=== PATIENT | female | born 1955 | race Caucasian/White ===

== ENCOUNTER 2016-10-18 17:36 | Emergency (ER) | payer MEDICAID ==
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
[2016-10-18 19:33] LABS: APPEARANCE,URINE CLEAR; BILIRUBIN,URINE NEGATIVE (NEGATIVE); GLUCOSE, URINE NEGATIVE (NEGATIVE); KETONES,URINE NEGATIVE (NEGATIVE); LEUKOCYTE ESTERASE,URINE TRACE (NEGATIVE); NITRITE,URINE NEGATIVE (NEGATIVE); PROTEIN,URINE NEGATIVE (NEGATIVE); URINE SPECIFIC GRAVITY 1.003; UROBILINOGEN,URINE NEGATIVE mg/dL (<2.0)
[2016-10-18 19:49] LABS: URINE BARBITURATES SCREEN UNCONFIRMED POSITIVE; URINE METHADONE SCREEN NEGATIVE; URINE OPIATES LOW NEGATIVE; URINE PHENCYCLIDINE SCREEN NEGATIVE
[2016-10-18 19:50] LABS: ALANINE AMINOTRANSFERASE 26 U/L (9-52); ALBUMIN 4.6 g/dL (3.5-5.0); ALCOHOL 76 mg/dL (NONE DETECTED); ALKALINE PHOSPHATASE 43 U/L (38-126); ANION GAP 15 (5-19); ASPARTATE AMINO TRANSFERASE 30 U/L (14-36); BILIRUBIN,DIRECT 0.4 mg/dL (0.0-0.4); BILIRUBIN,TOTAL 0.6 mg/dL (0.2-1.3); BLOOD UREA NITROGEN 10 mg/dL (7-20); CALCIUM 10.2 mg/dL (8.4-10.2); CARBON DIOXIDE 26 mmol/L (22-30); CHLORIDE 105 mmol/L (98-107); CREATININE RESULT 0.84 mg/dL (0.52-1.25); GLUCOSE 74 mg/dL (75-110); POTASSIUM 3.8 mmol/L (3.6-5.0); SODIUM 146.3 mmol/L (137-145); TOTAL PROTEIN 7.3 g/dL (6.3-8.2)
[2016-10-18 19:59] LABS: ABSOLUTE EOSINOPHILS # (AUTO) 0.1 10^3/uL (0.0-0.6); ABSOLUTE LYMPHOCYTES (AUTO) 1.6 10^3/uL (0.5-4.7); ABSOLUTE MONOCYTES (AUTO) 0.5 10^3/uL (0.1-1.4); ABSOLUTE NEUT (AUTO) 3.7 10^3/uL (1.7-8.2); BASOPHILS % (AUTO) 0.5 % (0-2); EOSINOPHILS % (AUTO) 1.9 % (0-6); HEMATOCRIT 39.4 % (36.0-47.0); HEMOGLOBIN 13.6 g/dL (12.0-15.5); HGB HCT DIFFERENCE 1.4; LYMPHOCYTES % (AUTO) 27.3 % (13-45); MEAN CORPUSCULAR HEMOGLOBIN 32.7 pg (27.0-33.4); MEAN CORPUSCULAR HGB CONC 34.4 g/dL (32.0-36.0); MEAN CORPUSCULAR VOLUME 95 fl (80-97); MONOCYTES % (AUTO) 8.2 % (3-13); RED BLOOD COUNT 4.14 10^6/uL (3.72-5.28); RED CELL DISTRIBUTION WIDTH 12.9 % (11.5-14.0); SEGMENTED NEUTROPHILS % (AUTO) 62.1 % (42-78)
--- NOTE | 2016-10-18 20:14 | RADIOLOGY REPORT (SQ) ---
EXAM DESCRIPTION: CT HEAD WITHOUT COMPLETED DATE/TIME: 10/18/2016 8:04 pm REASON FOR STUDY: Confusion, forgetful, and altered mental status COMPARISON: None. TECHNIQUE: Axial images acquired through the brain without intravenous contrast. Images reviewed wi th bone, brain and subdural windows. Images stored on PACS. All CT scanners at this facility use dose modulation, iterative reconstruction, and/or weight based d osing when appropriate to reduce radiation dose to as low as reasonably achievable (ALARA). [facility]: Dose Right [facility]: CareDose [facility]: Dose Right [facility]: Teradose 4D [facility]: Antenova RADIATION DOSE: Up-to-date CT equipment and radiation dose reduction techniques were employed. CTDIv ol: 50.5 mGy. DLP: 808 mGy-cm. mGy. LIMITATIONS: None. FINDINGS: VENTRICLES: Normal size and contour. CEREBRUM: No masses. No hemorrhage. No midline shift. No evidence for acute infarction. Normal gra y/white matter differentiation. No areas of low density in the white matter. CEREBELLUM: No masses. No hemorrhage. No alteration of density. No evidence for acute infarction. EXTRAAXIAL SPACES: No fluid collections. No masses. ORBITS AND GLOBE: No intra- or extraconal masses. Normal contour of globe without masses. CALVARIUM: No fracture. PARANASAL SINUSES: No fluid or mucosal thickening. SOFT TISSUES: No mass or hematoma. OTHER: No other significant finding. IMPRESSION: No acute intracranial findings. COMMENT: Quality ID # [id number]: Final reports with documentation of one or more dose reduction techniques (e.g., Automated exposure control, adjustment of the mA and/or kV according to patient size, use of iterative reconstruction technique) TECHNICAL DOCUMENTATION: JOB ID: [id number] [employer]- All Rights Reserved
[2016-10-18] MEDS ORDERED: ONDANSETRON 4 MG TAB.RAPDIS PO ONE (22:31)
--- NOTE | 2016-10-19 09:20 | ER Document Report ---
Doctor's Note Notes: pt is resting comfortably in bed. she is very cheerful, pleasant and conversant. She is currently awaiting disposition. 10/19/16 09:16
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
[2016-10-19 10:02] VITALS: BP 126/80
--- NOTE | 2016-10-19 12:02 | EKG REPORT ---
SEVERITY:- NORMAL ECG - SINUS RHYTHM : Confirmed by: Malina Warner 19-Oct-2016 12:02:15
== END 2016-10-19 10:10 | disposition home or self-care (01) ==
LOC: ER 17:36
DX: F10.10 Alcohol abuse, uncomplicated (principal); Y90.3 Blood alcohol level of 60-79 mg/100 ml; F13.10 Sedative, hypnotic or anxiolytic abuse, uncomplicated; R41.3 Other amnesia; R11.10 Vomiting, unspecified; R41.0 Disorientation, unspecified
CPT/HCPCS: 93005; 99285; 36415; 80307 ×4; 85025; 80053; 81001; 70450; 93010; S0119

== ENCOUNTER 2017-04-21 09:17 | Emergency (ER) | payer OTHER ==
--- NOTE | 2017-04-21 10:00 | ER Document Report ---
ED Medical Screen (RME) - General Chief Complaint: Headache Stated Complaint: HEADACHE Time Seen by Provider: 04/21/17 09:55 Mode of Arrival: Ambulatory Information source: Patient Notes: 61-year-old female with a history of depression and migraines who presents to the emergency room with a migraine lasting 2 weeks. Patient is previously from [place] and has had acupuncture with success in the past. Patient states she has had 4 treatments of acupuncture which have not helped. Patient denies any fever, chills, nausea vomiting. She denies any recent illnesses. She does state she has been under a lot of pressure. TRAVEL OUTSIDE OF THE [place] IN LAST 30 DAYS: No - Related Data Allergies/Adverse Reactions: No Known Allergies Allergy (Verified 04/21/17 09:45) Past Medical History - Social History Chew tobacco use (# tins/day): No Frequency of alcohol use: None Drug Abuse: None - Past Medical History Cardiac Medical History: Denies: Hx Coronary Artery Disease, Hx Heart Attack Renal/ Medical History: Denies: Hx Peritoneal Dialysis Psychiatric Medical History: Reports: Hx Anxiety, Hx Depression Physical Exam - Vital signs Vitals: Temp Pulse Resp BP Pulse Ox 97.8 F 89 14 116/88 H 100 04/21/17 09:35 04/21/17 09:35 04/21/17 09:35 04/21/17 09:35 04/21/17 09:35 Course - Vital Signs Vital signs: Temp Pulse Resp BP Pulse Ox 97.8 F 89 14 116/88 H 100 04/21/17 09:35 04/21/17 09:35 04/21/17 09:35 04/21/17 09:35 04/21/17 09:35
[2017-04-21 10:25] LABS: ABSOLUTE BASOPHILS # (AUTO) 0.1 10^3/uL (0.0-0.2); ABSOLUTE EOSINOPHILS # (AUTO) 0.1 10^3/uL (0.0-0.6); ABSOLUTE LYMPHOCYTES (AUTO) 1.6 10^3/uL (0.5-4.7); ABSOLUTE MONOCYTES (AUTO) 0.3 10^3/uL (0.1-1.4); ABSOLUTE NEUT (AUTO) 2.9 10^3/uL (1.7-8.2); EOSINOPHILS % (AUTO) 2.7 % (0-6); HEMATOCRIT 31.5 % (36.0-47.0); HEMOGLOBIN 10.1 g/dL (12.0-15.5); LYMPHOCYTES % (AUTO) 32.2 % (13-45); MEAN CORPUSCULAR HEMOGLOBIN 26.1 pg (27.0-33.4); MEAN CORPUSCULAR HGB CONC 32.1 g/dL (32.0-36.0); MEAN CORPUSCULAR VOLUME 81 fl (80-97); MONOCYTES % (AUTO) 6.6 % (3-13); PLATELET COUNT 537 10^3/uL (150-450); RED BLOOD COUNT 3.86 10^6/uL (3.72-5.28); RED CELL DISTRIBUTION WIDTH 13.9 % (11.5-14.0); SEGMENTED NEUTROPHILS % (AUTO) 57.5 % (42-78); TOTAL CELLS COUNTED % (AUTO) 100 %; WHITE BLOOD COUNT 5.1 10^3/uL (4.0-10.5)
--- NOTE | 2017-04-21 10:39 | RADIOLOGY REPORT (SQ) ---
EXAM DESCRIPTION: CT HEAD WITHOUT COMPLETED DATE/TIME: 04/21/2017 10:28 am REASON FOR STUDY: headache COMPARISON: 10/18/2016 TECHNIQUE: Axial images acquired through the brain without intravenous contrast. Images reviewed wi th bone, brain and subdural windows. Images stored on PACS. All CT scanners at this facility use dose modulation, iterative reconstruction, and/or weight based d osing when appropriate to reduce radiation dose to as low as reasonably achievable (ALARA). [facility]: Dose Right [facility]: CareDose [facility]: Dose Right [facility]: Teradose 4D [facility]: fitaborate RADIATION DOSE: CT Rad equipment meets quality standard of care and radiation dose reduction techniq ues were employed. CTDIvol: 49.0 mGy. DLP: 783 mGy-cm. mGy. LIMITATIONS: None. FINDINGS: VENTRICLES: Prominent. CEREBRUM: No masses. No hemorrhage. No midline shift. Areas of low density in the white matter mos t likely due to chronic micro-vascular ischemic change. No evidence for acute infarction. CEREBELLUM: No masses. No hemorrhage. No alteration of density. No evidence for acute infarction. EXTRAAXIAL SPACES: Mild age-related involutional change. No fluid collections. No masses. ORBITS AND GLOBE: No intra- or extraconal masses. Normal contour of globe without masses. CALVARIUM: No fracture. PARANASAL SINUSES: Small air-fluid level is identified in the right maxillary antra. SOFT TISSUES: No mass or hematoma. OTHER: No other significant finding. IMPRESSION: MILD CHRONIC CHANGES OF ATROPHY AND MICROVASCULAR ISCHEMIA. Small air-fluid level is id entified in the right maxillary antra. Other findings as noted above EVIDENCE OF ACUTE STROKE: NO. TECHNICAL DOCUMENTATION: JOB ID: [id number] Quality ID # [id number]: Final reports with documentation of one or more dose reduction techniques (e.g., Au tomated exposure control, adjustment of the mA and/or kV according to patient size, use of iterative reconstruction technique) 2010 [email or web address]- All Rights Reserved Reading location - IP/workstation name: [email or web address]
[2017-04-21 10:45] LABS: ANION GAP 9 (5-19); BLOOD UREA NITROGEN 11 mg/dL (7-20); CALCIUM 9.9 mg/dL (8.4-10.2); CARBON DIOXIDE 27 mmol/L (22-30); CHLORIDE 108 mmol/L (98-107); GLUCOSE 90 mg/dL (75-110); POTASSIUM 4.2 mmol/L (3.6-5.0); SODIUM 144.4 mmol/L (137-145)
[2017-04-21] MEDS ORDERED: PROCHLORPERAZINE EDISYLATE INJ 10 MG/2 ML VIAL IV ONE (11:06)
[2017-04-21] MEDS ORDERED: DIPHENHYDRAMINE HCL 50 MG/ML VIAL IV ONE (11:07)
[2017-04-21] MEDS ORDERED: KETOROLAC TROMETHAMINE INJ/PF 30 MG/1 ML SDV IV ONE (11:07)
[2017-04-21] MEDS ORDERED: NORMAL SALINE 1000 ML 1,000 ML IV ONE (11:07)
[2017-04-21] MEDS ORDERED: NORMAL SALINE 1000 ML 800 ML IV ONE (11:09)
[2017-04-21 11:10] LABS: ERYTHROCYTE SEDIMENTATION RATE 19 mm/hr (0-30)
--- NOTE | 2017-04-21 11:10 | ER Document Report ---
ED Headache - General Chief Complaint: Headache Stated Complaint: HEADACHE Time Seen by Provider: 04/21/17 09:55 Mode of Arrival: Ambulatory Information source: Patient Notes: Patient complains of headache pain for the past 2 weeks to the mormon area to bilateral trapezius area up to the back lateral sides of her neck. Patient states she has a history of migraines but does not have any migraine medication at home. Patient has attempted acupuncture 3 separate times over the past several weeks without improvement. Patient denies any fever. TRAVEL OUTSIDE OF THE [place] IN LAST 30 DAYS: No - HPI Patient complains to provider of: Headache Patient reports: Frequent migraines Onset: Last week - 2 weeks Onset was: Gradual Timing: Still present Quality of pain: Sharp Pain Level: 5 Associated symptoms: denies: Double/blurred vision, Fever, Nausea/vomiting, Photophobia, Speech problems, Stiff neck Exacerbated by: Movement - Lateral neck movement aggravates pain. denies: Light , Noise Similar symptoms previously: Yes Recently seen / treated by doctor: No - Related Data Allergies/Adverse Reactions: No Known Allergies Allergy (Verified 04/21/17 09:45) Past Medical History - General Information source: Patient - Social History Smoking Status: Never Smoker Chew tobacco use (# tins/day): No Frequency of alcohol use: None Drug Abuse: None Occupation: None Lives with: Family Family History: Reviewed & Not Pertinent Patient has suicidal ideation: No Patient has homicidal ideation: No - Past Medical History Cardiac Medical History: Denies: Hx Coronary Artery Disease, Hx Heart Attack Neurological Medical History: Reports: Hx Migraine Renal/ Medical History: Denies: Hx Peritoneal Dialysis Psychiatric Medical History: Reports: Hx Anxiety, Hx Depression Surgical Hx: Negative Review of Systems - Review of Systems Constitutional: No symptoms reported. denies: Fever EENT: No symptoms reported. denies: Eye pain Cardiovascular: No symptoms reported. denies: Dizziness Respiratory: No symptoms reported. denies: Cough, Short of breath Gastrointestinal: No symptoms reported. denies: Nausea, Vomiting Genitourinary: No symptoms reported Female Genitourinary: No symptoms reported Musculoskeletal: Muscle pain, Neck pain. denies: Back pain Skin: No symptoms reported Hematologic/Lymphatic: No symptoms reported Neurological/Psychological: Headaches. denies: Confusion, Weakness, Lost consciousness Physical Exam - Vital signs Vitals: Temp Pulse Resp BP Pulse Ox 97.8 F 89 14 116/88 H 100 04/21/17 09:35 04/21/17 09:35 04/21/17 09:35 04/21/17 09:35 04/21/17 09:35 - General General appearance: Appears well, Alert In distress: None - HEENT Head: Normocephalic, Atraumatic. No: Abrasions, [place]'s eyes Eyes: Normal Conjunctiva: Normal Pupils: PERRL Ears: Normal External canal: Normal Sinus: Normal. No: Frontal, Mastoid, Maxillary, Redness, Swelling Nasal: Normal Mouth/Lips: Normal Mucous membranes: Normal Pharynx: Normal Neck: Normal, Supple. No: Lymphadenopathy, Meningismus - Respiratory Respiratory status: No respiratory distress Chest status: Nontender Breath sounds: Normal Chest palpation: Normal - Cardiovascular Rhythm: Regular Heart sounds: S1 appreciated, S2 appreciated Murmur: No - Back Back: Tender - bilateral trapezius muscle tenderness with tenderness at insertion point of occipital condyles. No: Deformity/step-off, CVA tenderness, Vertebra tenderness - Extremities General upper extremity: Normal inspection, Normal ROM General lower extremity: Normal inspection, Normal ROM - Neurological Neuro grossly intact: Yes Cognition: Normal Rosa Coma Scale Eye Opening: Spontaneous [place] Coma Scale Verbal: Oriented Rosa Coma Scale Motor: Obeys Commands Rosa Coma Scale Total: 15 - Psychological Associated symptoms: Normal affect, Normal mood - Skin Skin Temperature: Warm Skin Moisture: Dry Skin Color: Normal Course - Re-evaluation Re-evalutation: 04/21/17 12:26 pt denies any change in CONNORS pain, additional medication ordered. Patient states that Imitrex typically manages her headache pain in the past but she did not have any cartridges at home. 04/21/17 13:18 Patient continues to deny any change in headache pain. Consulted with Dr. Rodríguez regarding patient presentation and headache management. Does not recommend any additional testing. Does recommend outpatient follow-up with neurology for further management of chronic headache pain. 04/21/17 13:20 The patient presents with headache without signs of [employer] bleed, stroke, infection , or other serious etiology. The patient is neurologically intact. Given the extremely low risk of these diagnoses further testing and evaluation for these possibilities does not appear to be indicated at this time. The patient has been instructed to return if the symptoms worsen or change in any way. She denies any concerns about sinus infection. Patient denies any congestion symptoms or sinus tenderness. - Vital Signs Vital signs: Temp Pulse Resp BP Pulse Ox 98.7 F 80 14 110/76 100 04/21/17 14:16 04/21/17 14:16 04/21/17 14:16 04/21/17 14:16 04/21/17 14:16 - Laboratory Result Diagrams: 04/21/17 10:04 04/21/17 10:04 Laboratory results interpreted by me: 04/21/17 04/21/17 10:04 10:04 Hgb 10.1 L Hct 31.5 L MCH 26.1 L Plt Count 537 H Chloride 108 H 04/21/17 13:21 Labs- Entire Visit 04/21/17 04/21/17 10:04 10:04 WBC 5.1 RBC 3.86 Hgb 10.1 L Hct 31.5 L MCV 81 MCH 26.1 L MCHC 32.1 RDW 13.9 Plt Count 537 H Seg Neutrophils % 57.5 Lymphocytes % 32.2 Monocytes % 6.6 Eosinophils % 2.7 Basophils % 1.0 Absolute Neutrophils 2.9 Absolute Lymphocytes 1.6 Absolute Monocytes 0.3 Absolute Eosinophils 0.1 Absolute Basophils 0.1 ESR 19 Sodium 144.4 Potassium 4.2 Chloride 108 H Carbon Dioxide 27 Anion Gap 9 BUN 11 Creatinine 0.67 Est GFR ( Amer) > 60 Est GFR (Non-Af Amer) > 60 Glucose 90 Calcium 9.9 - Diagnostic Test Radiology reviewed: Reports reviewed Discharge - Discharge Clinical Impression: Maxillary sinusitis Qualifiers: Chronicity: unspecified Qualified Code(s): J32.0 - Chronic maxillary sinusitis Headache Qualifiers: Headache type: unspecified Headache chronicity pattern: chronic headache Intractability: not intractable Qualified Code(s): R51 - Headache Condition: Stable Disposition: HOME, SELF-CARE Instructions: Intravenous Compazine for Headaches ([facility]), Use of Diphenhydramine , Headache ([facility]), Pain Medication Injection ([facility]), Sinusitis ([facility]), Toradol Injection ([facility]) Additional Instructions: Return immediately for any new or worsening symptoms Followup with your primary care provider, call tomorrow to make a followup appointment Follow-up with a neurologist for further evaluation of your headache symptoms. Prescriptions: Amoxicillin/Potassium Clav [Augmentin 500-125 Tablet] 1 each PO TID #30 tablet Butalb/Acetaminophen/Caffeine [Fioricet (50-325-40 mg) Tablet] 1 - 2 tab PO Q4H #20 each Methocarbamol [Robaxin 500 Mg Tablet] 500 mg PO TID PRN #15 tablet PRN Reason: Referrals: ELI PRETTY MD [NO LOCAL MD] - 04/24/17
[2017-04-21] MEDS ORDERED: SUMATRIPTAN SUCCINATE INJ/PF 6 MG/0.5 ML SDV SUBCUT ONE (12:25)
[2017-04-21] MEDS ORDERED: MORPHINE SULFATE 10 MG/ML INJ IV ONE (13:17)
[2017-04-21] MEDS ORDERED: DEXAMETHASONE SOD PHOS INJ 10 MG/1 ML VIAL IV ONE (13:17)
[2017-04-21] MEDS ORDERED: HYDROMORPHONE HCL INJ/PF 2 MG/ML AMPULE IV ONE (13:50)
[2017-04-21 14:17] VITALS: BP 110/76
== END 2017-04-21 14:16 | disposition home or self-care (01) ==
LOC: ER 09:17
DX: J32.0 Chronic maxillary sinusitis (principal); R51 Headache; M79.1 Myalgia; M54.2 Cervicalgia
CPT/HCPCS: 99284; 96372; 96361; 96374; 96375; 36415; 85025; 85652; 80048; 70450; J1200; J1885; J1170; J0780; J3030; J7030; J1100

== ENCOUNTER 2017-04-25 07:34 | Emergency (ER) | payer OTHER ==
[2017-04-25 08:07] LABS: ABSOLUTE BASOPHILS # (AUTO) 0.1 10^3/uL (0.0-0.2); ABSOLUTE EOSINOPHILS # (AUTO) 0.2 10^3/uL (0.0-0.6); ABSOLUTE LYMPHOCYTES (AUTO) 1.7 10^3/uL (0.5-4.7); ABSOLUTE MONOCYTES (AUTO) 0.4 10^3/uL (0.1-1.4); ABSOLUTE NEUT (AUTO) 4.2 10^3/uL (1.7-8.2); BASOPHILS % (AUTO) 0.8 % (0-2); EOSINOPHILS % (AUTO) 2.9 % (0-6); HEMATOCRIT 30.3 % (36.0-47.0); LYMPHOCYTES % (AUTO) 26.3 % (13-45); MEAN CORPUSCULAR HEMOGLOBIN 26.3 pg (27.0-33.4); MEAN CORPUSCULAR HGB CONC 32.9 g/dL (32.0-36.0); MEAN CORPUSCULAR VOLUME 80 fl (80-97); MONOCYTES % (AUTO) 5.9 % (3-13); PLATELET COUNT 458 10^3/uL (150-450); RED BLOOD COUNT 3.78 10^6/uL (3.72-5.28); SEGMENTED NEUTROPHILS % (AUTO) 64.1 % (42-78); TOTAL CELLS COUNTED % (AUTO) 100 %; WHITE BLOOD COUNT 6.5 10^3/uL (4.0-10.5)
--- NOTE | 2017-04-25 08:08 | ER Document Report ---
ED General - General Chief Complaint: Upper Abdominal Pain Stated Complaint: ABDOMINAL PAIN Time Seen by Provider: 04/25/17 07:44 Mode of Arrival: Ambulatory Information source: Patient Notes: 61-year-old female presents with complaints of epigastric abdominal pain as well as migraine headache. Patient notes she has chronic migraine headaches. She denies any neurological deficits does admit to epigastric abdominal pain, she has noted history of ulcers and was a chronic alcoholic but has not vomited blood and has not had any bloody or dark stools. TRAVEL OUTSIDE OF THE [place] IN LAST 30 DAYS: No - HPI Onset: Last week Onset/Duration: Persistent Quality of pain: Burning Severity: Mild Pain Level: 1 Associated symptoms: Headache, Other Exacerbated by: Denies Relieved by: Other - Treated for migraine headache Similar symptoms previously: Yes Recently seen / treated by doctor: Yes - Related Data Allergies/Adverse Reactions: No Known Allergies Allergy (Verified 04/25/17 07:36) Past Medical History - Social History Smoking Status: Never Smoker Cigarette use (# per day): No Chew tobacco use (# tins/day): No Smoking Education Provided: No Frequency of alcohol use: Previous alcoholic Family History: Reviewed & Not Pertinent Patient has suicidal ideation: No Patient has homicidal ideation: No - Past Medical History Cardiac Medical History: Denies: Hx Coronary Artery Disease, Hx Heart Attack Neurological Medical History: Reports: Hx Migraine Renal/ Medical History: Denies: Hx Peritoneal Dialysis Psychiatric Medical History: Reports: Hx Anxiety, Hx Depression Review of Systems - Review of Systems Notes: REVIEW OF SYSTEMS: CONSTITUTIONAL : Denies fever, chills, or sweats. Denies recent illness. EENT: Denies eye, ear, throat, or mouth pain or symptoms. Denies nasal or sinus congestion or discharge. Denies throat, tongue, or mouth swelling or difficulty swallowing. CARDIOVASCULAR: Denies chest pain. Denies palpitations or racing or irregular heart beat. Denies ankle edema. RESPIRATORY: Denies cough, cold, or chest congestion. Denies shortness of breath, difficulty breathing, or wheezing. GASTROINTESTINAL: Admits to epigastric pain GENITOURINARY: Denies difficulty urinating, painful urination, burning, frequency, blood in urine, or discharge. FEMALE GENITOURINARY: Denies vaginal bleeding, heavy or abnormal periods, irregular periods. Denies vaginal discharge or odor. MUSCULOSKELETAL: Denies back or neck pain or stiffness. Denies joint pain or swelling. SKIN: Denies rash, lesions or sores. HEMATOLOGIC : Denies easy bruising or bleeding. LYMPHATIC: Denies swollen, enlarged glands. NEUROLOGICAL: Admits to migraine headache PSYCHIATRIC: Denies anxiety or stress. Denies depression, suicidal ideation, or homicidal ideation. ALL OTHER SYSTEMS REVIEWED AND NEGATIVE. PHYSICAL EXAMINATION: GENERAL: Well-appearing, well-nourished and in no acute distress. HEAD: Atraumatic, normocephalic. EYES: Pupils equal round and reactive to light, extraocular movements intact, conjunctiva are normal. ENT: Nares patent, oropharynx clear without exudates. Moist mucous membranes. NECK: Normal range of motion, supple without lymphadenopathy LUNGS: Breath sounds clear to auscultation bilaterally and equal. No wheezes rales or rhonchi. HEART: Regular rate and rhythm without murmurs ABDOMEN: Soft, minimally tender in the epigastric region no rebound no guarding no peritoneal signs Female : deferred Musculoskeletal: Normal range of motion, no pitting or edema. No cyanosis. NEUROLOGICAL: Cranial nerves grossly intact. Normal speech, normal gait. Normal sensory, motor exams PSYCH: Normal mood, normal affect. SKIN: Warm, Dry, normal turgor, no rashes or lesions noted. Dictation was performed using [employer] voice recognition software Physical Exam - Vital signs Vitals: Temp Pulse Resp BP Pulse Ox 98.5 F 88 14 162/107 H 100 04/25/17 07:38 04/25/17 07:38 04/25/17 07:38 04/25/17 07:38 04/25/17 07:38 Course - Re-evaluation Re-evalutation: 04/25/17 11:30 Patient had complete neurological examination as well as a CBC CMP, patient overall looks well is in no distress, she has been given medication notes that the epigastric pain did not improve significantly but that the migraine has improved, I do have concerns for a superficial ulceration therefore I will give the patient follow-up with GI which she is not actively bleeding and hemoglobin is overall stable patient has been given very strict return precautions that she will return if there are any other concerns After performing a Medical Screening Examination, I estimate there is LOW risk for ACUTE GLAUCOMA, TEMPORAL ARTERITIS, MENINGITIS, INCRANIAL HEMORRHAGE, or ISCHEMIC STROKE thus I consider the discharge disposition reasonable. I have reevaluated this patient multiple times and no significant life threatening changes are noted. The patient and I have discussed the diagnosis and risks, and we agree with discharging home with close follow-up with the understanding that symptoms and presentations can change. We also discussed returning to the Emergency Department immediately if new or worsening symptoms occur. We have discussed the symptoms which are most concerning (e.g., changing or worsening symptoms, new numbness or weakness, vomiting, fever) that necessitate immediate return. - Vital Signs Vital signs: Temp Pulse Resp BP Pulse Ox 98.9 F 69 18 110/68 97 04/25/17 10:17 04/25/17 10:17 04/25/17 10:17 04/25/17 10:17 04/25/17 10:17 - Laboratory Result Diagrams: 04/25/17 07:57 04/25/17 07:57 Laboratory results interpreted by me: 04/25/17 04/25/17 07:57 07:57 Hgb 10.0 L Hct 30.3 L MCH 26.3 L Plt Count 458 H Chloride 109 H Alkaline Phosphatase 37 L Total Protein 5.8 L - Diagnostic Test Radiology reviewed: Image reviewed Discharge - Discharge Clinical Impression: Epigastric pain Headache Qualifiers: Headache type: unspecified Headache chronicity pattern: chronic headache Intractability: not intractable Qualified Code(s): R51 - Headache Condition: Stable Disposition: HOME, SELF-CARE Instructions: Abdominal Pain ([facility]) Prescriptions: Famotidine [Pepcid 40 mg Tablet] 40 mg PO DAILY #30 tablet Promethazine HCl [Phenergan 25 mg Tablet] 1 - 2 tab PO Q6H PRN #15 tablet PRN Reason: Referrals: WASHINGTON SUGGS MD [ACTIVE STAFF] - Follow up as needed
[2017-04-25] MEDS ORDERED: METHYLPREDNISOLONE INJ 125 MG/2 ML SDV IV ONE (08:14)
[2017-04-25] MEDS ORDERED: METOCLOPRAMIDE HCL INJ/PF 10 MG/2 ML SDV IV ONE (08:15)
[2017-04-25] MEDS ORDERED: METOCLOPRAMIDE HCL ORAL SOLN 10 MG/10 ML UDCUP PO ONE (08:15)
[2017-04-25] MEDS ORDERED: LIDOCAINE 2% VISCOUS SOLN 20 ML UDCUP PO ONE (08:15)
[2017-04-25] MEDS ORDERED: MAG HYDROX/AL HYDROX/SIMETH SUSP 30 ML UDCUP PO ONE (08:15)
[2017-04-25 08:25] LABS: ALANINE AMINOTRANSFERASE 34 U/L (9-52); ALBUMIN 3.5 g/dL (3.5-5.0); ALKALINE PHOSPHATASE 37 U/L (38-126); ANION GAP 8 (5-19); ASPARTATE AMINO TRANSFERASE 23 U/L (14-36); BILIRUBIN,DIRECT 0.4 mg/dL (0.0-0.4); BILIRUBIN,TOTAL 0.4 mg/dL (0.2-1.3); BLOOD UREA NITROGEN 13 mg/dL (7-20); CALCIUM 9.7 mg/dL (8.4-10.2); CARBON DIOXIDE 27 mmol/L (22-30); CHLORIDE 109 mmol/L (98-107); GLUCOSE 91 mg/dL (75-110); LIPASE 204.9 U/L (23-300); POTASSIUM 3.9 mmol/L (3.6-5.0); SODIUM 143.9 mmol/L (137-145); TOTAL PROTEIN 5.8 g/dL (6.3-8.2)
[2017-04-25 10:18] VITALS: BP 110/68
== END 2017-04-25 10:30 | disposition home or self-care (01) ==
LOC: ER 07:34
DX: R10.13 Epigastric pain (principal); G43.909 Migraine, unspecified, not intractable, without status migrainosus
CPT/HCPCS: 99284; 96374; 36415; 83690; 85025; 80053; J3490; J2930

== ENCOUNTER 2017-10-11 12:19 | Emergency (ER) | payer OTHER ==
[2017-10-11 12:34] VITALS: BP 130/83
--- NOTE | 2017-10-11 12:51 | ER Document Report ---
HPI - HPI Patient complains to provider of: skin infection Onset: Other - 6 days Onset/Duration: Persistent Quality of pain: Achy Pain Level: 3 Context: Patient complains of pruritic skin lesions that developed into pustules and then open up and leave a wound. Patient has wound to the left fifth finger and left leg. Patient denies any fever or history of MRSA. Patient also complains of cold sores to her lip. Associated Symptoms: Other - Skin wound. 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 Family History: Reviewed & Not Pertinent Patient has suicidal ideation: No Patient has homicidal ideation: No - Past Medical History Cardiac Medical History: Denies: Hx Coronary Artery Disease, Hx Heart Attack Neurological Medical History: Reports: Hx Migraine Renal/ Medical History: Denies: Hx Peritoneal Dialysis Psychiatric Medical History: Reports: Hx Anxiety, Hx Depression Surgical Hx: Negative Vertical Provider Document - CONSTITUTIONAL Agree With Documented VS: Yes Exam Limitations: No Limitations General Appearance: WD/WN, No Apparent Distress - INFECTION CONTROL TRAVEL OUTSIDE OF THE [place] IN LAST 30 DAYS: No - HEENT HEENT: Atraumatic, Normocephalic - NECK Neck: Normal Inspection, Supple - RESPIRATORY Respiratory: Breath Sounds Normal, No Respiratory Distress - CARDIOVASCULAR Cardiovascular: Regular Rate, Regular Rhythm - BACK Back: Normal Inspection - MUSCULOSKELETAL/EXTREMETIES Musculoskeletal/Extremeties: MAEW - NEURO Level of Consciousness: Awake, Alert, Appropriate Motor/Sensory: No Motor Deficit - DERM Integumentary: Warm, Dry Notes: pustule to LLE, open denuded wound to left lower leg and left fifth finger Vesicular lesion noted to lower lip Course - Vital Signs Vital signs: Temp Pulse Resp BP Pulse Ox 98.2 F 86 14 130/83 H 97 10/11/17 12:30 10/11/17 12:30 10/11/17 12:30 10/11/17 12:30 10/11/17 12:30 Discharge - Discharge Clinical Impression: Impetigo, Recurrent cold sores Condition: Stable Disposition: HOME, SELF-CARE Instructions: Bactroban Ointment ([facility]), Cephalexin ([facility]), Family Physicians / Practices, Impetigo ([facility]) Additional Instructions: Return immediately for any new or worsening symptoms Followup with your primary care provider, call tomorrow to make a followup appointment Prescriptions: Cephalexin Monohydrate [Keflex 500 mg Capsule] 500 mg PO Q6H 7 Days capsule Docosanol [Abreva] 1 applic TP ASDIR PRN #2 cream.gm PRN Reason: Mupirocin [Bactroban 2% Ointment 22 gm] 1 applic TP TID #22 gm Forms: Return to Work Referrals: [facility] [Provider Group] - Follow up as needed
== END 2017-10-11 12:56 | disposition home or self-care (01) ==
LOC: ER 12:19
DX: L01.00 Impetigo, unspecified (principal); B00.1 Herpesviral vesicular dermatitis
CPT/HCPCS: 87070; 87077; 87186; 87205; 99283

== ENCOUNTER 2017-11-21 11:15 | Inpatient (IN) | payer OTHER ==
[2017-11-21] MEDS ORDERED: PANTOPRAZOLE SODIUM 40 MG VIAL IV ONE (11:59)
--- NOTE | 2017-11-21 12:02 | ER Document Report ---
ED Medical Screen (RME) - General Chief Complaint: Abdominal Pain Stated Complaint: WEAKNESS Time Seen by Provider: 11/21/17 11:54 Mode of Arrival: Ambulatory Information source: Patient, [facility] Records Notes: 62-year-old female with hypertension, history of peptic ulcer disease presents with complaint of epigastric abdominal pain, nausea, vomiting. Patient reports that 2 years prior to arrival she was found to have a "bleeding ulcer". She also reports vomiting bright red blood. She denies any black or bloody stools. I have greeted and performed a rapid initial assessment of this patient. A comprehensive ED assessment and evaluation of the patient, analysis of test results and completion of medical decision making process we will be contacted by additional ED providers. PHYSICAL EXAMINATION: Vital signs reviewed GENERAL: Frail LUNGS: No respiratory distress Musculoskeletal: Normal range of motion NEUROLOGICAL: Normal speech, normal gait. PSYCH: Normal mood, normal affect. SKIN: Warm, Dry, normal turgor, no rashes or lesions noted. TRAVEL OUTSIDE OF THE [place] IN LAST 30 DAYS: No - HPI Onset: Last week Onset/Duration: Gradual, Persistent Quality of pain: Achy Severity: Mild Associated Symptoms: Diarrhea, Nausea, Vomiting Exacerbated by: Denies Relieved by: Denies Similar symptoms previously: Yes Recently seen / treated by doctor: No - Related Data Smoking: Non-smoker Frequency of alcohol use: None Drug Abuse: None Allergies/Adverse Reactions: No Known Allergies Allergy (Verified 11/21/17 11:20) Past Medical History - Social History Chew tobacco use (# tins/day): No Frequency of alcohol use: None Drug Abuse: None - Past Medical History Cardiac Medical History: Denies: Hx Coronary Artery Disease, Hx Heart Attack Neurological Medical History: Reports: Hx Migraine Renal/ Medical History: Denies: Hx Peritoneal Dialysis Psychiatric Medical History: Reports: Hx Anxiety, Hx Depression Physical Exam - Vital signs Vitals: Temp Pulse Resp BP Pulse Ox 97.7 F 73 16 110/66 100 11/21/17 11:27 11/21/17 11:27 11/21/17 11:27 11/21/17 11:27 11/21/17 11:27 Course - Vital Signs Vital signs: Temp Pulse Resp BP Pulse Ox 97.7 F 73 16 110/66 100 11/21/17 11:27 11/21/17 11:27 11/21/17 11:27 11/21/17 11:27 11/21/17 11:27
[2017-11-21 12:46] LABS: MEAN CORPUSCULAR HEMOGLOBIN 18.7 pg (27.0-33.4); MEAN CORPUSCULAR HGB CONC 28.9 g/dL (32.0-36.0); PLATELET COUNT 661 10^3/uL (150-450); RED BLOOD COUNT 3.08 10^6/uL (3.72-5.28); RED CELL DISTRIBUTION WIDTH 18.6 % (11.5-14.0); WHITE BLOOD COUNT 7.1 10^3/uL (4.0-10.5)
[2017-11-21 13:08] LABS: ALANINE AMINOTRANSFERASE 16 U/L (9-52); ALBUMIN 3.5 g/dL (3.5-5.0); ALKALINE PHOSPHATASE 52 U/L (38-126); ANION GAP 7 (5-19); ASPARTATE AMINO TRANSFERASE 35 U/L (14-36); BILIRUBIN,DIRECT 0.6 mg/dL (0.0-0.4); BILIRUBIN,TOTAL 0.7 mg/dL (0.2-1.3); BLOOD UREA NITROGEN 9 mg/dL (7-20); CALCIUM 9.3 mg/dL (8.4-10.2); CARBON DIOXIDE 33 mmol/L (22-30); CHLORIDE 103 mmol/L (98-107); GLUCOSE 111 mg/dL (75-110); LIPASE 63.4 U/L (23-300); POTASSIUM 3.8 mmol/L (3.6-5.0); SODIUM 142.7 mmol/L (137-145); TOTAL PROTEIN 6.6 g/dL (6.3-8.2)
[2017-11-21 13:12] LABS: HEMOGLOBIN 5.8 g/dL (12.0-15.5)
[2017-11-21 13:13] LABS: MEAN CORPUSCULAR VOLUME 65 fl (80-97)
[2017-11-21 13:20] LABS: ABSOLUTE LYMPHOCYTES# (MANUAL) 1.6 10^3/uL (0.5-4.7); ABSOLUTE MONOCYTES # (MANUAL) 0.3 10^3/uL (0.1-1.4); ABSOLUTE NEUTROPHILS# (MANUAL) 5.2 10^3/uL (1.7-8.2); ANISOCYTOSIS 2+; BASOPHILS % (MANUAL) 0 % (0-2); EOSINOPHILS % (MANUAL) 0 % (0-6); HYPOCHROMASIA 2+; LYMPHOCYTES % (MANUAL) 22 % (13-45); MONOCYTES % (MANUAL) 4 % (3-13); OVALOCYTES 2+; PLATELET COMMENT INCREASED; POIKILOCYTOSIS 2+; POLYCHROMASIA 1+; ROULEAUX SLIGHT; SEGMENTED NEUTROPHILS % (MAN) 73 % (42-78); TOTAL CELLS COUNTED 100; TOXIC GRANULATION SLIGHT; TOXIC VACUOLATION PRESENT
[2017-11-21] MEDS ORDERED: NORMAL SALINE 250 ML IV PRN (13:49)
--- NOTE | 2017-11-21 14:48 | ER Document Report ---
ED General - General Chief Complaint: Abdominal Pain Stated Complaint: WEAKNESS Time Seen by Provider: 11/21/17 11:54 Mode of Arrival: Ambulatory Notes: Patient says that she has been feeling weak for the most recent few months, seems to be getting somewhat worse. She is felt nauseated at times. Last night , she felt specifically pains in the front of her chest which she described as "indigestion pains". Later last evening, she vomited blood once. Patient has not had any other episodes of vomiting of blood currently. She denies passing black stools. She denies passing blood in her stools. Patient says that she had an episode of blood from her rectum about 2 years ago and was found to have a bleeding ulcer which was apparently ligated or cauterized, from what the patient says, by an upper endoscopy procedure. She has not had any subsequent GI bleeding. Her bowel movements have been normal. Denies currently having any chest pains. Denies any fevers. Most recent upper endoscopy was 2 years ago and most recent colonoscopy was a year and a half ago. Patient was seen here about a month ago for impetigo. TRAVEL OUTSIDE OF THE [place] IN LAST 30 DAYS: No - Related Data Allergies/Adverse Reactions: No Known Allergies Allergy (Verified 11/21/17 12:00) Past Medical History - General Information source: Patient, [facility] Records - Social History Smoking Status: Never Smoker Chew tobacco use (# tins/day): No Frequency of alcohol use: Patient has been seen in this emergency department previously and drinking alcohol. See previous chart of September 2016. Drug Abuse: None Family History: Reviewed & Not Pertinent Patient has suicidal ideation: No Patient has homicidal ideation: No Neurological Medical History: Reports: Hx Migraine Endocrine Medical History: Denies: Hx Diabetes Mellitus Type 1, Hx Diabetes Mellitus Type 2 GI Medical History: Reports: Hx Ulcer - 2 years ago, told she had a bleeding ulcer that was treated by endoscopy., Hx Endoscopy Skin Medical History: Reports Other - History of impetigo treated at this emergency department about a month ago. Psychiatric Medical History: Reports: Hx Anxiety, Hx Depression Review of Systems - Review of Systems Notes: REVIEW OF SYSTEMS: CONSTITUTIONAL : Denies fever. EENT: Denies eye, ear, nose or mouth or throat pain or other symptoms. CARDIOVASCULAR: Denies chest pain. Patient did have substernal discomfort last night which she attributed to "indigestion", and is not present now. RESPIRATORY: Denies cough, chest congestion, or shortness of breath. GASTROINTESTINAL: Denies abdominal pain or nausea, vomiting, or diarrhea. GENITOURINARY: Denies difficulty or painful urinating, urinary frequency, blood in urine. MUSCULOSKELETAL: Denies back or neck pain. Denies joint pain or swelling. SKIN: Denies rash or skin lesions. NEUROLOGICAL: Denies LOC or altered mental status. Denies headache. Denies sensory loss or motor deficits. ALL OTHER SYSTEMS REVIEWED AND NEGATIVE. Physical Exam - Vital signs Vitals: Temp Pulse Resp BP Pulse Ox 97.7 F 73 16 110/66 100 11/21/17 11:27 11/21/17 11:27 11/21/17 11:27 11/21/17 11:27 11/21/17 11:27 Interpretation: Normal. No: Tachycardic - Notes Notes: PHYSICAL EXAMINATION: GENERAL: Well-appearing, in no acute distress. Vital signs are all normal. Pale color to skin. HEAD: Atraumatic, normocephalic. EYES: Pupils equal round and reactive to light, extraocular movements intact. ENT: oropharynx clear without exudates. Moist mucous membranes. NECK: Normal range of motion, supple. LUNGS: Breath sounds clear and equal bilaterally. HEART: Regular rate and rhythm without murmurs. ABDOMEN: Soft, nontender. No guarding or rebound. No masses. Rectal exam performed. No stool felt in the vault. No blood seen grossly. Hemoccult obtained. BACK: No tenderness throughout entire back. EXTREMITIES: Normal range of motion without pain. NEUROLOGICAL: Normal speech, normal gait. Normal sensory, motor, and reflex exams. Awake, alert, and oriented x3. Cranial nerves normal. PSYCH: Normal mood, normal affect. SKIN: Warm, dry, no rashes. Course - Re-evaluation Re-evalutation: 11/21/17 17:41 Patient's hemoglobin was 5.8. She was ordered to be transfused 2 units of packed cells. Spoke with the surgeon economic analyst, Dr. Rainey, who says that he can do an EGD on this patient. He would like to have her admitted to the medicine service, however. I spoke with the medicine service who accepted the patient for admission. - Vital Signs Vital signs: Temp Pulse Resp BP Pulse Ox 98.4 F 71 14 129/82 H 100 11/21/17 17:25 11/21/17 17:25 11/21/17 17:25 11/21/17 17:25 11/21/17 17:25 - Laboratory Result Diagrams: 11/21/17 12:23 11/21/17 12:23 Laboratory results interpreted by me: 11/21/17 11/21/17 11/21/17 12:23 12:23 12:23 RBC 3.08 L Hgb 5.8 L Hct 20.0 L MCV 65 L MCH 18.7 L MCHC 28.9 L RDW 18.6 H Plt Count 661 H Carbon Dioxide 33 H Glucose 111 H Direct Bilirubin 0.6 H Crossmatch See Detail 11/21/17 17:46 Hemoccult was negative for blood. Critical Care Note - Critical Care Note Total time excluding time spent on procedures (mins): 40 Discharge - Discharge Clinical Impression: Anemia Hematemesis Qualifiers: Nausea presence: with nausea Qualified Code(s): K92.0 - Hematemesis Disposition: ADMITTED INPATIENT Admitting Provider: Hospitalist Unit Admitted: [facility]
--- NOTE | 2017-11-21 18:32 | PDOC H&P ---
History of Present Illness Admission Date/PCP: 11/21/2017 Patient complains of: Hematemesis, dyspnea on exertion, weakness History of Present Illness: RANDALL ELKINS is a 62 year old female past medical history of GERD, depression and anxiety. Presenting to ED complaining of hematemesis. Patient states for the last 1 month she has been getting progressively weak and having dyspnea on exertion with vague abdominal pain worse with eating. Last night when she was in bed started having some nausea followed by one episode of bloody emesis. She states she had a similar episode 3 years ago and EGD done in [facility] and they found " tear" in the stomach. She does not recall if biopsy were taken or if she was ever screened for H. pylori. She denies any history of alcohol abuse smoking or any recreational drugs as well as NSAID overuse. She states she is suffering from migraines and takes ibuprofen 200 mg about once a month. Family history. Sister mother and father all due to cancer. Sister at age 55 due to metastatic breast cancer. Mother at age 60 due to colon cancer. Father at age 75 due to pancreatic cancer. Patient has had 3 negative colonoscopies due to positive colon cancer in the family. First at age 50 second at age 54 third at age 60. She denies loss of appetite and her weight has been stable. She denies any melena, hematochezia, hematemesis. She has a living well on her CODE STATUS is DNR. She is and has 3 kids , eldest son name is Raphael Louis phone #[phone] Past Medical History Cardiac Medical History: Denies: Coronary Artery Disease, Myocardial Infarction Neurological Medical History: Reports: Migraine Endocrine Medical History: Denies: Diabetes Mellitus Type 1, Diabetes Mellitus Type 2 Skin Medical History: Reports: Other - History of impetigo treated at this emergency department about a month ago. Psychiatric Medical History: Reports: Depression Social History Smoking Status: Never Smoker Family History Family History: Reviewed & Not Pertinent Parental Family History Reviewed: Yes - Colon cancer in mother, pancreatic cancer in father Children Family History Reviewed: Yes Sibling(s) Family History Reviewed.: Yes - Sister. Metastatic breast cancer at age 60. Medication/Allergy Home Medications: Amoxicillin/Potassium Clav [Augmentin 500-125 Tablet] 1 each PO TID #30 tablet 04/21/17 Butalb/Acetaminophen/Caffeine [Fioricet (50-325-40 mg) Tablet] 1 - 2 tab PO Q4H #20 each 04/21/17 Methocarbamol [Robaxin 500 Mg Tablet] 500 mg PO TID PRN #15 tablet 04/21/17 Famotidine [Pepcid 40 mg Tablet] 40 mg PO DAILY #30 tablet 04/25/17 Promethazine HCl [Phenergan 25 mg Tablet] 1 - 2 tab PO Q6H PRN #15 tablet Cephalexin Monohydrate [Keflex 500 mg Capsule] 500 mg PO Q6H 7 Days capsule Docosanol [Abreva] 1 applic TP ASDIR PRN #2 cream.gm 10/11/17 Mupirocin [Bactroban 2% Ointment 22 gm] 1 applic TP TID #22 gm 10/11/17 Allergies/Adverse Reactions: No Known Allergies Allergy (Verified 11/21/17 12:00) Review of Systems Constitutional: PRESENT: as per HPI, weakness. ABSENT: chills, fever(s), headache(s), weight gain, weight loss Eyes: ABSENT: visual disturbances Ears: ABSENT: hearing changes Cardiovascular: ABSENT: chest pain, dyspnea on exertion, edema, orthropnea, palpitations Respiratory: ABSENT: cough, hemoptysis Gastrointestinal: ABSENT: abdominal pain, constipation, diarrhea, hematemesis, hematochezia, nausea, vomiting Genitourinary: ABSENT: dysuria, hematuria Musculoskeletal: ABSENT: joint swelling Integumentary: ABSENT: rash, wounds Neurological: ABSENT: abnormal gait, abnormal speech, confusion, dizziness, focal weakness, syncope Psychiatric: ABSENT: anxiety, depression, homidical ideation, suicidal ideation Endocrine: ABSENT: cold intolerance, heat intolerance, polydipsia, polyuria Hematologic/Lymphatic: ABSENT: easy bleeding, easy bruising Physical Exam Vital Signs: Temp Pulse Resp BP Pulse Ox 98.4 F 71 14 129/82 H 100 11/21/17 17:25 11/21/17 17:25 11/21/17 17:25 11/21/17 17:25 11/21/17 17:25 Intake & Output 11/20/17 11/21/17 11/22/17 06:59 06:59 06:59 Intake Total 300 Balance 300 Weight 39.6 kg General appearance: PRESENT: no acute distress, thin, well-developed, well- nourished Head exam: PRESENT: atraumatic, normocephalic Eye exam: PRESENT: conjunctiva pink, EOMI, PERRLA. ABSENT: scleral icterus Ear exam: PRESENT: normal external ear exam Mouth exam: PRESENT: moist, tongue midline Neck exam: ABSENT: carotid bruit, JVD, lymphadenopathy, thyromegaly Respiratory exam: PRESENT: clear to auscultation edvin. ABSENT: rales, rhonchi, wheezes Cardiovascular exam: PRESENT: RRR. ABSENT: diastolic murmur, rubs, systolic murmur Pulses: PRESENT: normal dorsalis pedis pul Vascular exam: PRESENT: normal capillary refill GI/Abdominal exam: PRESENT: normal bowel sounds, soft. ABSENT: distended, guarding, mass, organolmegaly, rebound, tenderness Rectal exam: PRESENT: deferred Extremities exam: PRESENT: full ROM. ABSENT: calf tenderness, clubbing, pedal edema Neurological exam: PRESENT: alert, awake, oriented to person, oriented to place , oriented to time, oriented to situation, CN II-XII grossly intact. ABSENT: motor sensory deficit Psychiatric exam: PRESENT: appropriate affect, normal mood. ABSENT: homicidal ideation, suicidal ideation Skin exam: PRESENT: dry, warm, other - Patient has multiple scabs in her upper extremity behind left ear and in her right leg. Patient states these are due to vesicles that she has been getting for the last 2 months. She was in the ER last month and she was told that she is getting impetigo and was given topical antibiotics. ABSENT: cyanosis, rash Results Laboratory Results: 11/21/17 12:23 11/21/17 12:23 11/21/17 11/21/17 11/21/17 12:23 12:23 12:23 WBC 7.1 RBC 3.08 L Hgb 5.8 L Hct 20.0 L MCV 65 L MCH 18.7 L MCHC 28.9 L RDW 18.6 H Plt Count 661 H Seg Neutrophils % Not Reportable Lymphocytes % Not Reportable Monocytes % Not Reportable Eosinophils % Not Reportable Basophils % Not Reportable Absolute Neutrophils Not Reportable Absolute Lymphocytes Not Reportable Absolute Monocytes Not Reportable Absolute Eosinophils Not Reportable Absolute Basophils Not Reportable Sodium 142.7 Potassium 3.8 Chloride 103 Carbon Dioxide 33 H Anion Gap 7 BUN 9 Creatinine 0.56 Est GFR ( Amer) > 60 Est GFR (Non-Af Amer) > 60 Glucose 111 H Calcium 9.3 Total Bilirubin 0.7 AST 35 ALT 16 Alkaline Phosphatase 52 Total Protein 6.6 Albumin 3.5 Lipase 63.4 Stool Occult Blood Blood Type A POSITIVE Antibody Screen NEGATIVE 11/21/17 14:30 WBC RBC Hgb Hct MCV MCH MCHC RDW Plt Count Seg Neutrophils % Lymphocytes % Monocytes % Eosinophils % Basophils % Absolute Neutrophils Absolute Lymphocytes Absolute Monocytes Absolute Eosinophils Absolute Basophils Sodium Potassium Chloride Carbon Dioxide Anion Gap BUN Creatinine Est GFR ( Amer) Est GFR (Non-Af Amer) Glucose Calcium Total Bilirubin AST ALT Alkaline Phosphatase Total Protein Albumin Lipase Stool Occult Blood NEGATIVE Blood Type Antibody Screen Assessment & Plan - Diagnosis (1) Hematemesis Qualifiers: Nausea presence: with nausea Qualified Code(s): K92.0 - Hematemesis Is this a current diagnosis for this admission?: Yes Plan: Hemoglobin 5.8 on admission. Status post 2 PRBC. Surgery consulted for possible endoscopy and colonoscopy. Admit to IMCU. Monitor hemodynamics. H&H every 8 if under 7 or actively bleeding transfuse. Will order PT/INR. Platelets within normal limits (2) Depression Is this a current diagnosis for this admission?: Yes Plan: Denies any SI/HI. Restart Wellbutrin (3) GERD (gastroesophageal reflux disease) Is this a current diagnosis for this admission?: Yes Plan: We will start on IV PPI. Switch to p.o. when clinically appropriate. Patient denies any history of cirrhosis or alcohol abuse. Unlikely this is variceal bleeding. No need for octreotide. (4) Anemia Is this a current diagnosis for this admission?: Yes Plan: Microcytic. Due to underlying GI bleed. H&H every 8 transfuse if under 7 or actively bleeding. Monitor hemodynamics. Patient has been having recurrent GI bleeds due to a tear as per patient has not been worked up for H. pylori. Patient also has a positive family history of pancreatic cancer will obtain a CT abdomen to rule out any abdominal mass. Patient will need outpatient GI consult to rule out any pancreatic malignancy.
[2017-11-21 18:36] LABS: INTERNATIONAL RATION (INR) 1.06; PROTHROMBIN TIME 14.3 SEC (11.4-15.4)
--- NOTE | 2017-11-21 19:55 | PDOC CONSULTATION ---
Consultation Consult Date: 11/21/17 Consult reason:: Upper GI bleeding History of Present Illness Admission Date/PCP: 11/21/17 17:47 History of Present Illness: RANDALL ELKINS is a 62 year old female seen at the request of the hospitalist service. She has a one month h/o weakness and malaise. This morning she began to have severe upper abdominal pain and vomited blood. She reports that it was bright red. The patient takes frequent nonsteroidal anti- inflammatory drugs for headaches. She has been prescribed Nexium, however she takes it only intermittently. She has a history of peptic ulcer disease, but denies treatment for H. pylori infection in the past. She denies caffeine use, nicotine use, alcohol use, steroid use. Her pain was 10 out of 10 earlier today , and radiated to her back. Her pain resolved spontaneously after presentation to the emergency department. Patient was found to have a hemoglobin of 5 upon testing. She denies any melena, hematochezia, chest pain, shortness of breath, fevers, chills, blurry vision. She has had mild orthostasis. Her last colonoscopy was 12-18 months ago and was completely normal. Her last EGD was 3 years ago where a bleeding ulcer was cauterized and clipped (per her report). Past Medical History Cardiac Medical History: Denies: Coronary Artery Disease, Myocardial Infarction Neurological Medical History: Reports: Migraine Endocrine Medical History: Denies: Diabetes Mellitus Type 1, Diabetes Mellitus Type 2 Skin Medical History: Reports: Other - History of impetigo treated at this emergency department about a month ago. Psychiatric Medical History: Reports: Depression Past Surgical History Past Surgical History: Reports: Other - Therapeutic upper endoscopy for bleeding peptic ulcer. Colonoscopy. Social History Smoking Status: Never Smoker Frequency of Alcohol Use: None Hx Recreational Drug Use: No Hx Prescription Drug Abuse: No - Advance Directive Resuscitation Status: Do Not Resuscitate Family History Family History: Reviewed & Not Pertinent Parental Family History Reviewed: Yes Children Family History Reviewed: Yes Sibling(s) Family History Reviewed.: Yes Medication/Allergy Home Medications: Citalopram Hydrobromide [Citalopram HBr] 20 mg PO DAILY 11/21/17 Gabapentin [Neurontin 300 mg Capsule] 300 mg PO Q8 11/21/17 Mirtazapine [Remeron] 15 mg PO QHS 11/21/17 Omeprazole 20 mg PO DAILY 11/21/17 Allergies/Adverse Reactions: No Known Allergies Allergy (Verified 11/21/17 12:00) Review of Systems Constitutional: PRESENT: fatigue, weakness. ABSENT: chills, fever(s) Nose, Mouth, and Throat: ABSENT: sore throat Cardiovascular: ABSENT: chest pain, palpitations Respiratory: ABSENT: cough, dyspnea Gastrointestinal: PRESENT: abdominal pain, hematemesis, vomiting. ABSENT: hematochezia, melena Genitourinary: ABSENT: difficulty urinating Musculoskeletal: PRESENT: back pain Integumentary: ABSENT: pruritus, rash Neurological: PRESENT: weakness. ABSENT: abnormal speech, confusion, convulsions Psychiatric: PRESENT: anxiety, depression Endocrine: ABSENT: cold intolerance, heat intolerance Hematologic/Lymphatic: ABSENT: easy bleeding, easy bruising Physical Exam Vital Signs: Temp Pulse Resp BP Pulse Ox 98.6 F 69 16 129/74 H 100 11/21/17 19:37 11/21/17 19:37 11/21/17 19:37 11/21/17 19:37 11/21/17 19:37 Intake & Output 11/20/17 11/21/17 11/22/17 06:59 06:59 06:59 Intake Total 300 Balance 300 General appearance: PRESENT: no acute distress Head exam: PRESENT: atraumatic, normocephalic Eye exam: PRESENT: EOMI, PERRLA. ABSENT: scleral icterus Mouth exam: PRESENT: moist, neck supple Teeth exam: ABSENT: poor dentation Neck exam: ABSENT: meningismus, tenderness, thyromegaly, tracheal deviation Respiratory exam: PRESENT: clear to auscultation edvin, unlabored. ABSENT: accessory muscle use, chest wall tenderness, tachypnea Cardiovascular exam: PRESENT: RRR Pulses: PRESENT: normal radial pulses Vascular exam: PRESENT: pallor. ABSENT: normal capillary refill GI/Abdominal exam: PRESENT: soft. ABSENT: distended, firm, guarding, tenderness Rectal exam: PRESENT: deferred Extremities exam: ABSENT: clubbing, pedal edema Neurological exam: PRESENT: alert, awake, oriented to person, oriented to place , oriented to time, oriented to situation, CN II-XII grossly intact. ABSENT: motor sensory deficit Psychiatric exam: ABSENT: agitated, anxious, depressed Focused psych exam: ABSENT: delusional Skin exam: PRESENT: pallor. ABSENT: cyanosis, erythema, jaundice Results Laboratory Results: Hemoglobin of 5.8. Chemistry is unremarkable. Assessment & Plan - Diagnosis (1) Anemia Qualifiers: Anemia type: unspecified type Qualified Code(s): D64.9 - Anemia, unspecified Is this a current diagnosis for this admission?: Yes (2) Hematemesis Qualifiers: Nausea presence: with nausea Qualified Code(s): K92.0 - Hematemesis Is this a current diagnosis for this admission?: Yes - Inpatient Certification Medical Necessity: Need For IV Fluids, Need for Surgery - Plan Summary Plan Summary: This is a 62-year-old female with recent hematemesis, fatigue, malaise, and severe anemia. The patient has a history of peptic ulcer disease with several other risk factors. The patient would very likely benefit from an upper endoscopy. I plan to perform this tomorrow (as soon as is feasible), assuming she is hemodynamically stable. If hemodynamic instability ensues, she may require an EGD on an emergent basis. This is been discussed with the patient at length. She is in agreement with the treatment plan. Risks/benefits discussed, informed consent obtained, and all questions answered.
--- NOTE | 2017-11-21 21:02 | RADIOLOGY REPORT (SQ) ---
EXAM DESCRIPTION: CT ABD/PELVIS WITH IV ONLY COMPLETED DATE/TIME: 11/21/2017 8:18 pm REASON FOR STUDY: Abd pain. GI bleed. Family hx of Pancreatic Ca COMPARISON: None. TECHNIQUE: CT scan of the abdomen and pelvis performed using helical scanning technique with dynamic intravenous contrast injection. No oral contrast. Images reviewed with lung, soft tissue, and bone windows. Reconstructed coronal and sagittal MPR images reviewed. Delayed images for evaluation of the urinary system also acquired. All images stored on PACS. All CT scanners at this facility use dose modulation, iterative reconstruction, and/or weight based d osing when appropriate to reduce radiation dose to as low as reasonably achievable (ALARA). [facility]: Dose Right [facility]: CareDose [facility]: Dose Right [facility]: Teradose 4D [facility]: NitroSell CONTRAST TYPE AND DOSE: contrast/concentration: Isovue 350.00 mg/ml; Total Contrast Delivered: 50.0 ml; Total Saline Delivered: 35.0 ml RENAL FUNCTION: BUN 9 creatinine 0.6 RADIATION DOSE: CT Rad equipment meets quality standard of care and radiation dose reduction techniq ues were employed. CTDIvol: 4.8 mGy. DLP: 467 mGy-cm.. LIMITATIONS: None. FINDINGS: LOWER CHEST: No significant findings. No nodules or infiltrates. LIVER: Normal size. No masses. No dilated ducts. SPLEEN: Normal size. No focal lesions. PANCREAS: No masses. No significant calcifications. No adjacent inflammation or peripancreatic fluid collections. Pancreatic duct not dilated. GALLBLADDER: No identified stones by CT criteria. No inflammatory changes to suggest cholecystitis. ADRENAL GLANDS: No significant masses or asymmetry. RIGHT KIDNEY AND URETER: No solid masses. No significant calcifications. No hydronephrosis or hyd roureter. LEFT KIDNEY AND URETER: No solid masses. No significant calcifications. No hydronephrosis or hydr oureter. AORTA AND VESSELS: No aneurysm. No dissection. Renal arteries, SMA, celiac without stenosis. RETROPERITONEUM: No retroperitoneal adenopathy, hemorrhage or masses. BOWEL AND PERITONEAL CAVITY: Considerable fecal material in the rectum and in the colon. APPENDIX: Not identified. PELVIS: No mass. No free fluid. Normal bladder. ABDOMINAL WALL: No masses. No hernias. BONES: Scoliosis. Degenerative disc changes. OTHER: No other significant finding. IMPRESSION: 1. Possible constipation. 2. Osseous findings as described. 3. No acute findings in the abdomen or pelvis. TECHNICAL DOCUMENTATION: JOB ID: [id number] Quality ID # [id number]: Final reports with documentation of one or more dose reduction techniques (e.g., Au tomated exposure control, adjustment of the mA and/or kV according to patient size, use of iterative reconstruction technique) 2010 [employer]- All Rights Reserved Reading location - IP/workstation name: [email or web address]
[2017-11-21] MEDS: PANTOPRAZOLE SODIUM 40 MG VIAL IV SCH (21:04)
[2017-11-22 02:09] LABS: HEMATOCRIT 24.2 % (36.0-47.0); MEAN CORPUSCULAR HEMOGLOBIN 21.7 pg (27.0-33.4); MEAN CORPUSCULAR HGB CONC 31.2 g/dL (32.0-36.0); PLATELET COUNT 502 10^3/uL (150-450); RED BLOOD COUNT 3.48 10^6/uL (3.72-5.28); RED CELL DISTRIBUTION WIDTH 23.6 % (11.5-14.0); WHITE BLOOD COUNT 8.2 10^3/uL (4.0-10.5)
[2017-11-22 02:10] LABS: HEMOGLOBIN 7.6 g/dL (12.0-15.5)
[2017-11-22 02:11] LABS: MEAN CORPUSCULAR VOLUME 70 fl (80-97)
[2017-11-22 05:31] LABS: ABSOLUTE BASOPHILS # (AUTO) 0.1 10^3/uL (0.0-0.2); ABSOLUTE EOSINOPHILS # (AUTO) 0.1 10^3/uL (0.0-0.6); ABSOLUTE LYMPHOCYTES (AUTO) 1.4 10^3/uL (0.5-4.7); ABSOLUTE MONOCYTES (AUTO) 0.5 10^3/uL (0.1-1.4); ABSOLUTE NEUT (AUTO) 5.5 10^3/uL (1.7-8.2); BASOPHILS % (AUTO) 1.1 % (0-2); EOSINOPHILS % (AUTO) 1.9 % (0-6); HEMATOCRIT 24.5 % (36.0-47.0); LYMPHOCYTES % (AUTO) 18.9 % (13-45); MEAN CORPUSCULAR HGB CONC 31.5 g/dL (32.0-36.0); MEAN CORPUSCULAR VOLUME 70 fl (80-97); MONOCYTES % (AUTO) 6.8 % (3-13); PLATELET COUNT 496 10^3/uL (150-450); RED BLOOD COUNT 3.52 10^6/uL (3.72-5.28); RED CELL DISTRIBUTION WIDTH 22.9 % (11.5-14.0); SEGMENTED NEUTROPHILS % (AUTO) 71.3 % (42-78); TOTAL CELLS COUNTED % (AUTO) 100 %; WHITE BLOOD COUNT 7.7 10^3/uL (4.0-10.5)
[2017-11-22 05:34] LABS: HEMOGLOBIN 7.7 g/dL (12.0-15.5)
[2017-11-22 05:52] LABS: ALANINE AMINOTRANSFERASE 19 U/L (9-52); ALBUMIN 2.7 g/dL (3.5-5.0); ALKALINE PHOSPHATASE 43 U/L (38-126); ANION GAP 5 (5-19); ASPARTATE AMINO TRANSFERASE 12 U/L (14-36); BILIRUBIN,DIRECT 0.4 mg/dL (0.0-0.4); BILIRUBIN,TOTAL 0.7 mg/dL (0.2-1.3); BLOOD UREA NITROGEN 5 mg/dL (7-20); CALCIUM 8.6 mg/dL (8.4-10.2); CHLORIDE 111 mmol/L (98-107); GLUCOSE 99 mg/dL (75-110); SODIUM 138.4 mmol/L (137-145); TOTAL PROTEIN 5.2 g/dL (6.3-8.2)
[2017-11-22 05:57] LABS: CARBON DIOXIDE 22 mmol/L (22-30)
[2017-11-22] MEDS: DEXTROSE 5%-NORMAL SALINE 1,000 ML IV PRN ×2 (06:36→15:28)
--- NOTE | 2017-11-22 06:58 | PDOC PROGRESS REPORT ---
Subjective Progress Note for:: 11/22/17 Subjective:: 62 y/o F with hematemesis and severe anemia. The patient denies chest pain, shortness of breath, fevers, chills, melena, abdominal pain, blurry vision. She does still feel somewhat weak. Reason For Visit: ANEMIA,HEMATEMESIS Physical Exam Vital Signs: Temp Pulse Resp BP Pulse Ox 98.7 F 68 20 119/72 100 11/22/17 03:15 11/22/17 03:15 11/22/17 03:15 11/22/17 03:15 11/22/17 03:15 Intake & Output 11/20/17 11/21/17 11/22/17 06:59 06:59 06:59 Intake Total 300 Balance 300 Weight 42.7 kg General appearance: PRESENT: no acute distress Head exam: PRESENT: atraumatic, normocephalic Eye exam: PRESENT: EOMI, PERRLA. ABSENT: scleral icterus Mouth exam: PRESENT: moist, neck supple Teeth exam: ABSENT: poor dentation Neck exam: ABSENT: meningismus, tenderness, thyromegaly, tracheal deviation Respiratory exam: PRESENT: clear to auscultation edvin, unlabored. ABSENT: chest wall tenderness, wheezes Cardiovascular exam: PRESENT: RRR Pulses: PRESENT: normal radial pulses Vascular exam: PRESENT: pallor GI/Abdominal exam: PRESENT: soft. ABSENT: distended, guarding, rebound, tenderness Rectal exam: PRESENT: deferred Extremities exam: ABSENT: pedal edema Musculoskeletal exam: ABSENT: deformity Neurological exam: PRESENT: alert, awake, oriented to person, oriented to place , oriented to time, oriented to situation, CN II-XII grossly intact Psychiatric exam: ABSENT: agitated, anxious, depressed Focused psych exam: ABSENT: delusional Skin exam: ABSENT: cyanosis, jaundice Results Laboratory Results: 11/22/17 05:13 11/22/17 05:13 11/22/17 11/22/17 11/22/17 01:59 05:13 05:13 WBC 8.2 7.7 RBC 3.48 L 3.52 L Hgb 7.6 L 7.7 L Hct 24.2 L 24.5 L MCV 70 L D 70 L MCH 21.7 L 22.0 L MCHC 31.2 L 31.5 L RDW 23.6 H 22.9 H Plt Count 502 H 496 H Seg Neutrophils % 71.3 Lymphocytes % 18.9 Monocytes % 6.8 Eosinophils % 1.9 Basophils % 1.1 Absolute Neutrophils 5.5 Absolute Lymphocytes 1.4 Absolute Monocytes 0.5 Absolute Eosinophils 0.1 Absolute Basophils 0.1 Sodium 138.4 Potassium 4.0 Chloride 111 H Carbon Dioxide 22 D Anion Gap 5 BUN 5 L Creatinine 0.46 L Est GFR ( Amer) > 60 Est GFR (Non-Af Amer) > 60 Glucose 99 Calcium 8.6 Total Bilirubin 0.7 AST 12 L ALT 19 Alkaline Phosphatase 43 Total Protein 5.2 L Albumin 2.7 L Impressions: Abdomen/Pelvis CT 11/21/17 00:00 IMPRESSION: 1. Possible constipation. 2. Osseous findings as described. 3. No acute findings in the abdomen or pelvis. Assessment & Plan - Diagnosis (1) Anemia Qualifiers: Anemia type: unspecified type Qualified Code(s): D64.9 - Anemia, unspecified Is this a current diagnosis for this admission?: Yes (2) Hematemesis Qualifiers: Nausea presence: with nausea Qualified Code(s): K92.0 - Hematemesis Is this a current diagnosis for this admission?: Yes - Plan Summary Plan Summary: 62-year-old female with severe anemia and hematemesis. Plan for EGD today. Risks/benefits discussed, informed consent obtained, and all questions answered.
[2017-11-22] MEDS: BUPROPION HCL 100 MG TABLET PO SCH (09:16)
[2017-11-22] MEDS: PANTOPRAZOLE SODIUM 40 MG VIAL IV SCH ×2 (09:16→21:38)
[2017-11-22] MEDS: MUPIROCIN 2% OINTMENT 22 GM TP SCH ×3 (09:47→17:29)
[2017-11-22] MEDS: ACETAMINOPHEN 325 MG TABLET PO PRN ×2 (11:00→18:57)
[2017-11-22] MEDS ORDERED: FENTANYL CITRATE INJ/PF 100 MCG/2 ML AMPUL ONE (13:02)
[2017-11-22] MEDS ORDERED: PROPOFOL INJ 200 MG/20 ML VIAL IV ONE (13:02)
[2017-11-22] MEDS ORDERED: OXYCODONE-ACETAMINOPHEN 5-325 MG TABLET PO PRN ×2 (13:30)
[2017-11-22] MEDS ORDERED: FENTANYL CITRATE INJ/PF 100 MCG/2 ML AMPUL IV PRN ×3 (13:30)
[2017-11-22] MEDS ORDERED: PROMETHAZINE HCL INJ 25 MG/1 ML VIAL IV PRN ×2 (13:30)
[2017-11-22] MEDS ORDERED: DIPHENHYDRAMINE HCL 50 MG/ML VIAL IV PRN (13:30)
[2017-11-22] MEDS ORDERED: MEPERIDINE HCL/PF INJ 25 MG/1 ML DISP.SYRIN IV PRN (13:30)
[2017-11-22 14:34] LABS: PATH REVIEW PATHOLOGIST REVIEWED
[2017-11-22] MEDS: GABAPENTIN 300 MG CAPSULE PO SCH ×2 (15:29→21:38)
--- NOTE | 2017-11-22 15:47 | PDOC PROGRESS REPORT ---
Subjective Progress Note for:: 11/22/17 Subjective:: RANDALL ELKINS is a 62 year old female past medical history of GERD, depression and anxiety. Presenting to ED complaining of hematemesis. Patient states for the last 1 month she has been getting progressively weak and having dyspnea on exertion with vague abdominal pain worse with eating. Last night when she was in bed started having some nausea followed by one episode of bloody emesis. She states she had a similar episode 3 years ago and EGD done in [facility] and they found " tear" in the stomach. She does not recall if biopsy were taken or if she was ever screened for H. pylori. She denies any history of alcohol abuse smoking or any recreational drugs as well as NSAID overuse. She states she is suffering from migraines and takes ibuprofen 200 mg about once a month. Patient has had 3 negative colonoscopies due to positive colon cancer in the family. First at age 49 second at age 54 third at age 59. She has a living well on her CODE STATUS is DNR. She is and has 3 kids , eldest son name is Raphael Louis phone #[phone] No acute events overnight. Patient denies any hematemesis overnight. Patient denies any fever, chills, nausea, vomiting, diarrhea, shortness of breath or any chest pain. She is status post upper GI endoscopy. Reason For Visit: GI BLEED Physical Exam Vital Signs: Temp Pulse Resp BP Pulse Ox 98.5 F 62 15 116/80 100 11/22/17 14:39 11/22/17 14:39 11/22/17 14:39 11/22/17 14:39 11/22/17 14:39 Intake & Output 11/21/17 11/22/17 11/23/17 06:59 06:59 06:59 Intake Total 300 1559 Output Total 0 0 Balance 300 1559 Weight 39.9 kg General appearance: PRESENT: no acute distress, well-developed, well-nourished Head exam: PRESENT: atraumatic, normocephalic Eye exam: PRESENT: conjunctiva pink, EOMI, PERRLA. ABSENT: scleral icterus Ear exam: PRESENT: normal external ear exam Mouth exam: PRESENT: moist, tongue midline Neck exam: ABSENT: carotid bruit, JVD, lymphadenopathy, thyromegaly Respiratory exam: PRESENT: clear to auscultation edvin. ABSENT: rales, rhonchi, wheezes Cardiovascular exam: PRESENT: RRR. ABSENT: diastolic murmur, rubs, systolic murmur Pulses: PRESENT: normal dorsalis pedis pul Vascular exam: PRESENT: normal capillary refill GI/Abdominal exam: PRESENT: normal bowel sounds, soft. ABSENT: distended, guarding, mass, organolmegaly, rebound, tenderness Rectal exam: PRESENT: deferred Extremities exam: PRESENT: full ROM. ABSENT: calf tenderness, clubbing, pedal edema Neurological exam: PRESENT: alert, awake, oriented to person, oriented to place , oriented to time, oriented to situation, CN II-XII grossly intact. ABSENT: motor sensory deficit Psychiatric exam: PRESENT: appropriate affect, normal mood. ABSENT: homicidal ideation, suicidal ideation Skin exam: PRESENT: dry, intact, warm. ABSENT: cyanosis, rash Results Laboratory Results: 11/22/17 05:13 11/22/17 05:13 11/22/17 11/22/17 11/22/17 01:59 05:13 05:13 WBC 8.2 7.7 RBC 3.48 L 3.52 L Hgb 7.6 L 7.7 L Hct 24.2 L 24.5 L MCV 70 L D 70 L MCH 21.7 L 22.0 L MCHC 31.2 L 31.5 L RDW 23.6 H 22.9 H Plt Count 502 H 496 H Seg Neutrophils % 71.3 Lymphocytes % 18.9 Monocytes % 6.8 Eosinophils % 1.9 Basophils % 1.1 Absolute Neutrophils 5.5 Absolute Lymphocytes 1.4 Absolute Monocytes 0.5 Absolute Eosinophils 0.1 Absolute Basophils 0.1 Sodium 138.4 Potassium 4.0 Chloride 111 H Carbon Dioxide 22 D Anion Gap 5 BUN 5 L Creatinine 0.46 L Est GFR ( Amer) > 60 Est GFR (Non-Af Amer) > 60 Glucose 99 Calcium 8.6 Total Bilirubin 0.7 AST 12 L ALT 19 Alkaline Phosphatase 43 Total Protein 5.2 L Albumin 2.7 L Impressions: Abdomen/Pelvis CT 11/21/17 00:00 IMPRESSION: 1. Possible constipation. 2. Osseous findings as described. 3. No acute findings in the abdomen or pelvis. Assessment & Plan - Diagnosis (1) Hematemesis Qualifiers: Nausea presence: with nausea Qualified Code(s): K92.0 - Hematemesis Is this a current diagnosis for this admission?: Yes Plan: Hemoglobin 7.7 from 5.8 on admission. Status post 2 PRBC. Status post upper GI endoscopy. Monitor hemodynamics. H&H every 8 if under 7 or actively bleeding transfuse. PT/INR and platelets within normal limits. (2) Depression Is this a current diagnosis for this admission?: Yes Plan: Denies any SI/HI. Restart Wellbutrin (3) GERD (gastroesophageal reflux disease) Is this a current diagnosis for this admission?: Yes Plan: We will start on IV PPI. Switch to p.o. when clinically appropriate. Patient denies any history of cirrhosis or alcohol abuse. Unlikely this is variceal bleeding. No need for octreotide. Outpatient GI follow-up. (4) Anemia Qualifiers: Anemia type: unspecified type Qualified Code(s): D64.9 - Anemia, unspecified Is this a current diagnosis for this admission?: Yes Plan: Microcytic. Due to underlying GI bleed. H&H every 8 transfuse if under 7 or actively bleeding. Monitor hemodynamics. Patient has been having recurrent GI bleeds due to a "tear" as per patient has not been worked up for H. pylori. CT abdomen negative for any acute abnormalities. Pending H. pylori antigen.
--- NOTE | 2017-11-22 16:49 | Operative Report ---
Nonrecallable Operative Report DATE OF SURGERY: 11/22/17 PREOPERATIVE DIAGNOSIS: Severe anemia, hematemesis. POSTOPERATIVE DIAGNOSIS: 1. Same as above. 2. Large gastric ulcer along the lesser curvature extending from the gastric body into the antrum. 3. Small gastric and duodenal ulcers. 4. Duodenal stricture. 5. Large hiatal hernia. 6. No sign of active bleeding. OPERATION: EGD with multiple biopsy. SURGEON: VÍCTOR PRICE ANESTHESIA: LMAC TISSUE REMOVED OR ALTERED: 1. Margin of gastric ulcer. 2. Base of gastric ulcer. 3. Duodenal stricture. 4. Distal esophagus. COMPLICATIONS: None apparent ESTIMATED BLOOD LOSS: Minimal PROCEDURE: Drains/implants: None. Procedure in detail: After informed consent was obtained, the patient was brought into the operating room and laid in the left lateral decubitus position. The endoscope was passed down the oropharynx, down the esophagus, and into the stomach. The stomach was insufflated with air. Immediately there was noted to be a very large gastric ulcer along the lesser curvature. It extended from the gastric body into the antrum. Biopsy was performed at the margin of the ulcer, in the antrum. Another biopsy was taken in the base of the ulcer. There were multiple, small ulcerations all over the gastric body and antrum. The scope was pushed through the pylorus. There was an inflammatory response at the pyloric channel and into the duodenal bulb. In the first portion of the duodenum there was a stricture noted with inflammation circumferentially. The stricture appeared to be consistent with peptic ulcer disease. Biopsy was taken at the area of stricture. The scope was moved through the stricture very carefully to reveal a normal second portion of the duodenum. The scope was pulled back into the gastric body. A retroflexion maneuver was performed, noting a large hiatal hernia. The scope was pulled up into the hiatal hernia. There was some irritation at the distal esophagus. This was biopsied. The scope was then pulled up the remainder of the esophagus. The remainder of the esophagus was smooth in contour without masses , lesions, or other abnormalities. The scope was removed from the patient's oropharynx, and the procedure was concluded. All sponge, instrument, and needle counts were correct. Condition: Stable.
[2017-11-22] MEDS: SUCRALFATE 1 GM TABLET PO SCH ×2 (17:29→21:38)
[2017-11-22 22:47] LABS: ABSOLUTE BASOPHILS # (AUTO) 0.1 10^3/uL (0.0-0.2); ABSOLUTE EOSINOPHILS # (AUTO) 0.1 10^3/uL (0.0-0.6); ABSOLUTE LYMPHOCYTES (AUTO) 1.7 10^3/uL (0.5-4.7); ABSOLUTE MONOCYTES (AUTO) 0.8 10^3/uL (0.1-1.4); ABSOLUTE NEUT (AUTO) 7.2 10^3/uL (1.7-8.2); BASOPHILS % (AUTO) 0.8 % (0-2); EOSINOPHILS % (AUTO) 1.1 % (0-6); HEMATOCRIT 22.9 % (36.0-47.0); LYMPHOCYTES % (AUTO) 17.3 % (13-45); MEAN CORPUSCULAR HGB CONC 31.1 g/dL (32.0-36.0); MEAN CORPUSCULAR VOLUME 71 fl (80-97); MONOCYTES % (AUTO) 8.1 % (3-13); PLATELET COUNT 481 10^3/uL (150-450); RED BLOOD COUNT 3.24 10^6/uL (3.72-5.28); RED CELL DISTRIBUTION WIDTH 23.3 % (11.5-14.0); SEGMENTED NEUTROPHILS % (AUTO) 72.7 % (42-78); TOTAL CELLS COUNTED % (AUTO) 100 %; WHITE BLOOD COUNT 9.9 10^3/uL (4.0-10.5)
[2017-11-22 22:53] LABS: HEMOGLOBIN 7.1 g/dL (12.0-15.5)
[2017-11-23] MEDS: DEXTROSE 5%-NORMAL SALINE 1,000 ML IV PRN (03:38)
[2017-11-23] MEDS: ACETAMINOPHEN 325 MG TABLET PO PRN (03:39)
[2017-11-23] MEDS: GABAPENTIN 300 MG CAPSULE PO SCH ×3 (05:54→22:01)
[2017-11-23 06:10] LABS: ABSOLUTE EOSINOPHILS # (AUTO) 0.1 10^3/uL (0.0-0.6); ABSOLUTE LYMPHOCYTES (AUTO) 1.4 10^3/uL (0.5-4.7); ABSOLUTE MONOCYTES (AUTO) 0.6 10^3/uL (0.1-1.4); ABSOLUTE NEUT (AUTO) 6.1 10^3/uL (1.7-8.2); BASOPHILS % (AUTO) 0.6 % (0-2); EOSINOPHILS % (AUTO) 1.5 % (0-6); HEMATOCRIT 23.8 % (36.0-47.0); LYMPHOCYTES % (AUTO) 16.5 % (13-45); MEAN CORPUSCULAR HEMOGLOBIN 22.4 pg (27.0-33.4); MEAN CORPUSCULAR HGB CONC 31.9 g/dL (32.0-36.0); MEAN CORPUSCULAR VOLUME 71 fl (80-97); MONOCYTES % (AUTO) 7.8 % (3-13); PLATELET COUNT 500 10^3/uL (150-450); RED BLOOD COUNT 3.38 10^6/uL (3.72-5.28); RED CELL DISTRIBUTION WIDTH 23.7 % (11.5-14.0); SEGMENTED NEUTROPHILS % (AUTO) 73.6 % (42-78); TOTAL CELLS COUNTED % (AUTO) 100 %; WHITE BLOOD COUNT 8.3 10^3/uL (4.0-10.5)
[2017-11-23 06:13] LABS: HEMOGLOBIN 7.6 g/dL (12.0-15.5)
[2017-11-23 06:29] LABS: ALANINE AMINOTRANSFERASE 20 U/L (9-52); ALBUMIN 2.4 g/dL (3.5-5.0); ALKALINE PHOSPHATASE 41 U/L (38-126); ANION GAP 7 (5-19); ASPARTATE AMINO TRANSFERASE 11 U/L (14-36); BILIRUBIN,DIRECT 0.2 mg/dL (0.0-0.4); BILIRUBIN,TOTAL 0.2 mg/dL (0.2-1.3); BLOOD UREA NITROGEN 4 mg/dL (7-20); CALCIUM 8.7 mg/dL (8.4-10.2); CARBON DIOXIDE 20 mmol/L (22-30); CHLORIDE 115 mmol/L (98-107); GLUCOSE 106 mg/dL (75-110); SODIUM 141.8 mmol/L (137-145); TOTAL PROTEIN 4.8 g/dL (6.3-8.2)
[2017-11-23] MEDS: MUPIROCIN 2% OINTMENT 22 GM TP SCH ×3 (09:32→17:40)
[2017-11-23] MEDS: PANTOPRAZOLE SODIUM 40 MG VIAL IV SCH ×2 (09:37→22:00)
[2017-11-23] MEDS: BUPROPION HCL 100 MG TABLET PO SCH (09:37)
[2017-11-23] MEDS: SUCRALFATE 1 GM TABLET PO SCH ×4 (09:37→22:01)
--- NOTE | 2017-11-23 09:42 | PDOC PROGRESS REPORT ---
Subjective Subjective:: RANDALL ELKINS is a 62 year old female past medical history of GERD, depression and anxiety. Presenting to ED complaining of hematemesis. Patient states for the last 1 month she has been getting progressively weak and having dyspnea on exertion with vague abdominal pain worse with eating. Last night when she was in bed started having some nausea followed by one episode of bloody emesis. She states she had a similar episode 3 years ago and EGD done in [facility] and they found " tear" in the stomach. She does not recall if biopsy were taken or if she was ever screened for H. pylori. She denies any history of alcohol abuse smoking or any recreational drugs as well as NSAID overuse. She states she is suffering from migraines and takes ibuprofen 200 mg about once a month. Patient has had 3 negative colonoscopies due to positive colon cancer in the family. First at age 49 second at age 54 third at age 59. She has a living well on her CODE STATUS is DNR. She is and has 3 kids , eldest son name is Raphael Louis phone #[phone] Status post upper GI endoscopy with duodenal and gastric biopsies. Denies any repeat hematemesis. Denies any fever, chills, nausea, vomiting, shortness of breath, chest pain, diarrhea, constipation or any urinary symptoms Reason For Visit: GI BLEED Physical Exam Vital Signs: Temp Pulse Resp BP Pulse Ox 98.3 F 68 14 113/70 99 11/23/17 07:36 11/23/17 07:36 11/23/17 07:36 11/23/17 07:36 11/23/17 07:36 Intake & Output 11/22/17 11/23/17 11/24/17 06:59 06:59 06:59 Intake Total 300 2991 Output Total 0 150 Balance 300 2841 Weight 39.9 kg 43.9 kg General appearance: PRESENT: no acute distress, well-developed, well-nourished Head exam: PRESENT: atraumatic, normocephalic Eye exam: PRESENT: conjunctiva pink, EOMI, PERRLA. ABSENT: scleral icterus Ear exam: PRESENT: normal external ear exam Mouth exam: PRESENT: moist, tongue midline Neck exam: ABSENT: carotid bruit, JVD, lymphadenopathy, thyromegaly Respiratory exam: PRESENT: clear to auscultation edvin. ABSENT: rales, rhonchi, wheezes Cardiovascular exam: PRESENT: RRR. ABSENT: diastolic murmur, rubs, systolic murmur Pulses: PRESENT: normal dorsalis pedis pul Vascular exam: PRESENT: normal capillary refill GI/Abdominal exam: PRESENT: normal bowel sounds, soft. ABSENT: distended, guarding, mass, organolmegaly, rebound, tenderness Rectal exam: PRESENT: deferred Extremities exam: PRESENT: full ROM. ABSENT: calf tenderness, clubbing, pedal edema Neurological exam: PRESENT: alert, awake, oriented to person, oriented to place , oriented to time, oriented to situation, CN II-XII grossly intact. ABSENT: motor sensory deficit Psychiatric exam: PRESENT: appropriate affect, normal mood. ABSENT: homicidal ideation, suicidal ideation Skin exam: PRESENT: dry, intact, warm. ABSENT: cyanosis, rash Results Laboratory Results: 11/23/17 05:40 11/23/17 05:40 11/22/17 11/23/17 11/23/17 22:39 05:40 05:40 WBC 9.9 8.3 RBC 3.24 L 3.38 L Hgb 7.1 L 7.6 L Hct 22.9 L 23.8 L MCV 71 L 71 L MCH 22.0 L 22.4 L MCHC 31.1 L 31.9 L RDW 23.3 H 23.7 H Plt Count 481 H 500 H Seg Neutrophils % 72.7 73.6 Lymphocytes % 17.3 16.5 Monocytes % 8.1 7.8 Eosinophils % 1.1 1.5 Basophils % 0.8 0.6 Absolute Neutrophils 7.2 6.1 Absolute Lymphocytes 1.7 1.4 Absolute Monocytes 0.8 0.6 Absolute Eosinophils 0.1 0.1 Absolute Basophils 0.1 0.0 Sodium 141.8 Potassium 4.0 Chloride 115 H Carbon Dioxide 20 L Anion Gap 7 BUN 4 L Creatinine 0.44 L Est GFR ( Amer) > 60 Est GFR (Non-Af Amer) > 60 Glucose 106 Calcium 8.7 Total Bilirubin 0.2 AST 11 L ALT 20 Alkaline Phosphatase 41 Total Protein 4.8 L Albumin 2.4 L Impressions: Abdomen/Pelvis CT 11/21/17 00:00 IMPRESSION: 1. Possible constipation. 2. Osseous findings as described. 3. No acute findings in the abdomen or pelvis. Assessment & Plan - Diagnosis (1) Hematemesis Qualifiers: Nausea presence: with nausea Qualified Code(s): K92.0 - Hematemesis Is this a current diagnosis for this admission?: Yes Plan: Hemoglobin 7.6. Status post 2 PRBC on admission. H&H stable. Status post upper GI endoscopy with multiple biopsies. Pending biopsy result and H. pylori antigen result. Monitor hemodynamics. H&H every 8 if under 7 or actively bleeding transfuse. PT/INR and platelets within normal limits. Note. Upper GI endoscopy report indicates that there were multiple, small ulceration all over the gastric body and antrum. Inflammatory response of the pyloric channel and into duodenal bulb. A stricture in the first portion of duodenum with inflammation consistent with peptic ulcer disease. Biopsies were taken large hiatal hernia was also noted. Patient never has been for H. pylori infection. Patient has a family history of pancreatic cancer and upper GI endoscopy showed multiple ulcerations. This could very well be due to H. pylori infection or gastrinoma. CT of abdomen was negative. Unfortunately GI consult is not available in the [facility]. Patient will benefit greatly from evaluation by a GI specialist. We will try to arrange a follow-up with GI upon transfer. Pending H. pylori antigen and biopsy result. (2) Depression Is this a current diagnosis for this admission?: Yes Plan: Denies any SI/HI. Restart Wellbutrin (3) GERD (gastroesophageal reflux disease) Is this a current diagnosis for this admission?: Yes Plan: We will start on IV PPI. Switch to p.o. when clinically appropriate. Patient denies any history of cirrhosis or alcohol abuse. Unlikely this is variceal bleeding. No need for octreotide. Outpatient GI follow-up. (4) Anemia Qualifiers: Anemia type: unspecified type Qualified Code(s): D64.9 - Anemia, unspecified Is this a current diagnosis for this admission?: Yes Plan: Microcytic. Due to underlying GI bleed. H&H every 8 transfuse if under 7 or actively bleeding. Monitor hemodynamics. Patient has been having recurrent GI bleeds due to a "tear" as per patient has not been worked up for H. pylori. CT abdomen negative for any acute abnormalities. Pending H. pylori antigen. We will give 1 dose of Injectafer start on daily iron supplement. (5) Hx of migraine headaches Is this a current diagnosis for this admission?: No Plan: Patient was taking Fioricet for migraine. Will restart it.
[2017-11-23] MEDS ORDERED: FERRIC CARBOXYMALTOSE INJ 750 MG/15 ML VIAL IV ONE (09:43)
[2017-11-23] MEDS ORDERED: FERRIC CARBOXYMALTOSE IV ONE (11:00)
[2017-11-23] MEDS ORDERED: NORMAL SALINE IV ONE (11:00)
[2017-11-23] MEDS ORDERED: BUTALB/ACETAMINOPHEN/CAFFEINE 1 TAB EACH PO PRN (15:41)
[2017-11-24 05:14] LABS: ABSOLUTE BASOPHILS # (AUTO) 0.1 10^3/uL (0.0-0.2); ABSOLUTE EOSINOPHILS # (AUTO) 0.1 10^3/uL (0.0-0.6); ABSOLUTE LYMPHOCYTES (AUTO) 1.5 10^3/uL (0.5-4.7); ABSOLUTE MONOCYTES (AUTO) 0.8 10^3/uL (0.1-1.4); ABSOLUTE NEUT (AUTO) 8.7 10^3/uL (1.7-8.2); BASOPHILS % (AUTO) 0.8 % (0-2); EOSINOPHILS % (AUTO) 0.9 % (0-6); HEMATOCRIT 25.3 % (36.0-47.0); LYMPHOCYTES % (AUTO) 13.1 % (13-45); MEAN CORPUSCULAR HEMOGLOBIN 21.9 pg (27.0-33.4); MEAN CORPUSCULAR VOLUME 71 fl (80-97); MONOCYTES % (AUTO) 7.2 % (3-13); PLATELET COUNT 543 10^3/uL (150-450); RED BLOOD COUNT 3.58 10^6/uL (3.72-5.28); TOTAL CELLS COUNTED % (AUTO) 100 %; WHITE BLOOD COUNT 11.1 10^3/uL (4.0-10.5)
[2017-11-24 05:20] LABS: HEMOGLOBIN 7.8 g/dL (12.0-15.5)
[2017-11-24 05:28] LABS: ALANINE AMINOTRANSFERASE 17 U/L (9-52); ALBUMIN 2.6 g/dL (3.5-5.0); ALKALINE PHOSPHATASE 44 U/L (38-126); ANION GAP 7 (5-19); ASPARTATE AMINO TRANSFERASE 19 U/L (14-36); BILIRUBIN,DIRECT 0.3 mg/dL (0.0-0.4); BILIRUBIN,TOTAL 0.4 mg/dL (0.2-1.3); BLOOD UREA NITROGEN 3 mg/dL (7-20); CALCIUM 8.9 mg/dL (8.4-10.2); CARBON DIOXIDE 20 mmol/L (22-30); CHLORIDE 114 mmol/L (98-107); GLUCOSE 98 mg/dL (75-110); POTASSIUM 3.8 mmol/L (3.6-5.0); SODIUM 140.5 mmol/L (137-145); TOTAL PROTEIN 5.1 g/dL (6.3-8.2)
[2017-11-24] MEDS: GABAPENTIN 300 MG CAPSULE PO SCH (05:45)
[2017-11-24] MEDS: ACETAMINOPHEN 325 MG TABLET PO PRN (07:36)
--- NOTE | 2017-11-24 08:57 | PDOC DISCHARGE SUMMARY ---
General - Admit/Disc Date/PCP Admission Date/Primary Care Provider: 11/21/17 17:47 Discharge Date: 11/24/17 - Discharge Diagnosis (1) Hematemesis Is this a current diagnosis for this admission?: Yes (2) Depression Is this a current diagnosis for this admission?: Yes (3) GERD (gastroesophageal reflux disease) Is this a current diagnosis for this admission?: Yes (4) Anemia Is this a current diagnosis for this admission?: Yes (5) Hx of migraine headaches Is this a current diagnosis for this admission?: No - Additional Information Resuscitation Status: Do Not Resuscitate Home Medications: Citalopram Hydrobromide [Citalopram HBr] 20 mg PO DAILY 11/21/17 Gabapentin [Neurontin 300 mg Capsule] 300 mg PO Q8 11/21/17 Mirtazapine [Remeron] 15 mg PO QHS 11/21/17 Omeprazole 20 mg PO DAILY 11/21/17 History of Present Illness History of Present Illness: RANDALL ELKINS is a 62 year old female past medical history of GERD, depression and anxiety. Presenting to ED complaining of hematemesis. Patient states for the last 1 month she has been getting progressively weak and having dyspnea on exertion with vague abdominal pain worse with eating. Last night when she was in bed started having some nausea followed by one episode of bloody emesis. She states she had a similar episode 3 years ago and EGD done in [facility] and they found " tear" in the stomach. She does not recall if biopsy were taken or if she was ever screened for H. pylori. She denies any history of alcohol abuse smoking or any recreational drugs as well as NSAID overuse. She states she is suffering from migraines and takes ibuprofen 200 mg about once a month. Family history. Sister mother and father all due to cancer. Sister at age 55 due to metastatic breast cancer. Mother at age 60 due to colon cancer. Father at age 75 due to pancreatic cancer. Patient has had 3 negative colonoscopies due to positive colon cancer in the family. First at age 49 second at age 54 third at age 59. She denies loss of appetite and her weight has been stable. She denies any melena, hematochezia, hematemesis. Hospital Course Hospital Course: (1) Hematemesis Hemoglobin 7.6. Status post 2 PRBC on admission. H&H 9 remained stable. Status post upper GI endoscopy with multiple biopsies. Pending biopsy result and H. pylori antigen result. Patient was asked to follow-up with PCP and Dr. Travis GI specialist for the results of H. pylori antigen and biopsy. Upper GI endoscopy report indicates that there were multiple, small ulceration all over the gastric body and antrum. Inflammatory response of the pyloric channel and into duodenal bulb. A stricture in the first portion of duodenum with inflammation consistent with peptic ulcer disease. Biopsies were taken large hiatal hernia was also noted. Patient never has been for H. pylori infection. Patient has a family history of pancreatic cancer and upper GI endoscopy showed multiple ulcerations. This could very well be due to H. pylori infection or gastrinoma. CT of abdomen was negative. Unfortunately GI consult is not available in the [facility]. Appointment arranged for patient to follow-up with Dr. Rousseau securities vault supervisor as outpatient. (2) Depression Denies any SI/HI. Restarted Wellbutrin (3) GERD (gastroesophageal reflux disease) Start on pantoprazole 40 twice daily. Patient denies any history of cirrhosis or alcohol abuse. Unlikely this is variceal bleeding. No need for octreotide. Outpatient GI follow-up. (4) Anemia Microcytic. Due to underlying GI bleed. H&H remained stable status post upper GI endoscopy. CT abdomen negative for any acute abnormalities. Pending H. pylori antigen. Received 1 dose of Injectafer and start on daily iron supplement. Encourage patient to follow-up with PCP and GI specialist. (5) Hx of migraine headaches Patient was taking Fioricet for migraine. It was restarted as as needed. Physical Exam Vital Signs: Temp Pulse Resp BP Pulse Ox 99.2 F 82 10 L 111/74 96 11/24/17 07:08 11/24/17 07:08 11/24/17 07:08 11/24/17 07:08 11/24/17 07:08 Intake & Output 11/23/17 11/24/17 11/25/17 06:59 06:59 06:59 Intake Total 2991 911 Output Total 150 Balance 2841 911 Weight 43.9 kg 43.3 kg General appearance: PRESENT: no acute distress, well-developed, well-nourished Head exam: PRESENT: atraumatic, normocephalic Eye exam: PRESENT: conjunctiva pink, EOMI, PERRLA. ABSENT: scleral icterus Ear exam: PRESENT: normal external ear exam Mouth exam: PRESENT: moist, tongue midline Neck exam: ABSENT: carotid bruit, JVD, lymphadenopathy, thyromegaly Respiratory exam: PRESENT: clear to auscultation edvin. ABSENT: rales, rhonchi, wheezes Cardiovascular exam: PRESENT: RRR. ABSENT: diastolic murmur, rubs, systolic murmur Pulses: PRESENT: normal dorsalis pedis pul Vascular exam: PRESENT: normal capillary refill GI/Abdominal exam: PRESENT: normal bowel sounds, soft. ABSENT: distended, guarding, mass, organolmegaly, rebound, tenderness Rectal exam: PRESENT: deferred Extremities exam: PRESENT: full ROM. ABSENT: calf tenderness, clubbing, pedal edema Neurological exam: PRESENT: alert, awake, oriented to person, oriented to place , oriented to time, oriented to situation, CN II-XII grossly intact. ABSENT: motor sensory deficit Psychiatric exam: PRESENT: appropriate affect, normal mood. ABSENT: homicidal ideation, suicidal ideation Skin exam: PRESENT: dry, intact, warm. ABSENT: cyanosis, rash Results Laboratory Results: 11/24/17 04:48 11/24/17 04:48 11/24/17 11/24/17 04:48 04:48 WBC 11.1 H RBC 3.58 L Hgb 7.8 L Hct 25.3 L MCV 71 L MCH 21.9 L MCHC 31.0 L RDW 24.0 H Plt Count 543 H Seg Neutrophils % 78.0 Lymphocytes % 13.1 Monocytes % 7.2 Eosinophils % 0.9 Basophils % 0.8 Absolute Neutrophils 8.7 H Absolute Lymphocytes 1.5 Absolute Monocytes 0.8 Absolute Eosinophils 0.1 Absolute Basophils 0.1 Sodium 140.5 Potassium 3.8 Chloride 114 H Carbon Dioxide 20 L Anion Gap 7 BUN 3 L Creatinine 0.40 L Est GFR ( Amer) > 60 Est GFR (Non-Af Amer) > 60 Glucose 98 Calcium 8.9 Total Bilirubin 0.4 AST 19 ALT 17 Alkaline Phosphatase 44 Total Protein 5.1 L Albumin 2.6 L Impressions: Abdomen/Pelvis CT 11/21/17 00:00 IMPRESSION: 1. Possible constipation. 2. Osseous findings as described. 3. No acute findings in the abdomen or pelvis. Qualifiers - * PATIENT BEING DISCHARGED WITH ANY OF THE FOLLOWING DIAGNOSIS: No VTE patient discharged on overlapping Therapy?: Yes
[2017-11-24] MEDS: PANTOPRAZOLE SODIUM 40 MG VIAL IV SCH (09:31)
[2017-11-24] MEDS: BUPROPION HCL 100 MG TABLET PO SCH (09:32)
[2017-11-24] MEDS: MUPIROCIN 2% OINTMENT 22 GM TP SCH (09:32)
[2017-11-24] MEDS: SUCRALFATE 1 GM TABLET PO SCH (09:32)
--- NOTE | 2017-11-24 09:46 | PDOC PROGRESS REPORT ---
Subjective Progress Note for:: 11/24/17 Subjective:: mild epigastric pains Reason For Visit: GI BLEED Physical Exam Vital Signs: Temp Pulse Resp BP Pulse Ox 99.2 F 82 10 L 111/74 96 11/24/17 07:08 11/24/17 07:08 11/24/17 07:08 11/24/17 07:08 11/24/17 07:08 Intake & Output 11/23/17 11/24/17 11/25/17 06:59 06:59 06:59 Intake Total 2991 911 Output Total 150 Balance 2841 911 Weight 43.9 kg 43.3 kg Exam: abd is soft with mild tenderness epigastric area Results Laboratory Results: 11/24/17 04:48 11/24/17 04:48 11/24/17 11/24/17 04:48 04:48 WBC 11.1 H RBC 3.58 L Hgb 7.8 L Hct 25.3 L MCV 71 L MCH 21.9 L MCHC 31.0 L RDW 24.0 H Plt Count 543 H Seg Neutrophils % 78.0 Lymphocytes % 13.1 Monocytes % 7.2 Eosinophils % 0.9 Basophils % 0.8 Absolute Neutrophils 8.7 H Absolute Lymphocytes 1.5 Absolute Monocytes 0.8 Absolute Eosinophils 0.1 Absolute Basophils 0.1 Sodium 140.5 Potassium 3.8 Chloride 114 H Carbon Dioxide 20 L Anion Gap 7 BUN 3 L Creatinine 0.40 L Est GFR ( Amer) > 60 Est GFR (Non-Af Amer) > 60 Glucose 98 Calcium 8.9 Total Bilirubin 0.4 AST 19 ALT 17 Alkaline Phosphatase 44 Total Protein 5.1 L Albumin 2.6 L Impressions: Abdomen/Pelvis CT 11/21/17 00:00 IMPRESSION: 1. Possible constipation. 2. Osseous findings as described. 3. No acute findings in the abdomen or pelvis. Assessment & Plan - Time Time Spent with patient: 15-24 minutes - Plan Summary Plan Summary: Her H/H has been stable with no more bleeding OK to discharge today with ulcer meds Follow up with new PMD and surgical clinic in 2-3 weeks c/o Dr Rainey
[2017-11-24] MEDS ORDERED: FERROUS SULFATE 325 MG TABLET PO SCH (10:00)
[2017-11-24 10:38] VITALS: BP 126/70
== END 2017-11-24 13:45 | disposition home or self-care (01) | DRG 378 ==
LOC: ER 11:15 → EH 17:47 → 3W 20:29
PROVIDERS: ADMIT Emergency Medicine; ATTEND Emergency Medicine
PROC: 30233N1 Transfusion of Nonautologous Red Blood Cells into Peripheral Vein, Percutaneous Approach (ICD-10-PCS; principal; 2017-11-21)
PROC: 0DD38ZX Extraction of Lower Esophagus, Via Natural or Artificial Opening Endoscopic, Diagnostic (ICD-10-PCS; 2017-11-22)
PROC: 0DD68ZX Extraction of Stomach, Via Natural or Artificial Opening Endoscopic, Diagnostic (ICD-10-PCS; 2017-11-22)
DX: K92.0 Hematemesis (principal); K31.5 Obstruction of duodenum; Z66 Do not resuscitate; K25.4 Chronic or unspecified gastric ulcer with hemorrhage; D64.9 Anemia, unspecified; K44.9 Diaphragmatic hernia without obstruction or gangrene; K21.9 Gastro-esophageal reflux disease without esophagitis; F41.8 Other specified anxiety disorders; G43.909 Migraine, unspecified, not intractable, without status migrainosus
CPT/HCPCS: 36415; 36430; 43239; 731; 74177; 80053; 80307; 82272; 83690; 85025; 85027; 85610; 86850; 86900; 86901; 86920; 88305; 88312; 88342; 90686; 96374; 99291; J1439; J2704; J3010; J3490; J7050; P9016; S0164

== ENCOUNTER 2018-01-05 12:18 | Emergency (ER) | payer OTHER ==
--- NOTE | 2018-01-05 13:41 | ER Document Report ---
ED Medical Screen (RME) - General Chief Complaint: Skin Sore(s) Stated Complaint: OPEN SKIN SORES Time Seen by Provider: 01/05/18 12:25 Notes: Patient with open sores and lesions all over her body. This is been going on for quite some time. Went to urgent care then they sent her here. I have greeted and performed a rapid initial assessment of this patient. A comprehensive ED assessment and evaluation of the patient, analysis of test results and completion of the medical decision making process will be conducted by additional ED providers. TRAVEL OUTSIDE OF THE [place] IN LAST 30 DAYS: No - Related Data Allergies/Adverse Reactions: No Known Allergies Allergy (Verified 11/21/17 12:00) Past Medical History - Past Medical History Cardiac Medical History: Denies: Hx Coronary Artery Disease, Hx Heart Attack Neurological Medical History: Reports: Hx Migraine Endocrine Medical History: Denies: Hx Diabetes Mellitus Type 1, Hx Diabetes Mellitus Type 2 Renal/ Medical History: Denies: Hx Peritoneal Dialysis GI Medical History: Reports: Hx Ulcer - 2 years ago, told she had a bleeding ulcer that was treated by endoscopy., Hx Endoscopy Psychiatric Medical History: Reports: Hx Anxiety, Hx Depression Past Surgical History: Reports: Other - Therapeutic upper endoscopy for bleeding peptic ulcer. Colonoscopy. Physical Exam - Vital signs Vitals: Temp Pulse Resp BP Pulse Ox 98.3 F 92 16 126/79 H 99 01/05/18 12:23 01/05/18 12:23 01/05/18 12:23 01/05/18 12:23 01/05/18 12:23 Course - Vital Signs Vital signs: Temp Pulse Resp BP Pulse Ox 98.3 F 92 16 126/79 H 99 01/05/18 12:23 01/05/18 12:23 01/05/18 12:23 01/05/18 12:23 01/05/18 12:23 - Laboratory Result Diagrams: 01/05/18 14:09 01/05/18 14:09
[2018-01-05 14:40] LABS: ALANINE AMINOTRANSFERASE 22 U/L (9-52); ALBUMIN 3.3 g/dL (3.5-5.0); ALKALINE PHOSPHATASE 69 U/L (38-126); ANION GAP 12 (5-19); ASPARTATE AMINO TRANSFERASE 20 U/L (14-36); BILIRUBIN,DIRECT 0.4 mg/dL (0.0-0.4); BILIRUBIN,TOTAL 0.4 mg/dL (0.2-1.3); BLOOD UREA NITROGEN 15 mg/dL (7-20); CALCIUM 9.7 mg/dL (8.4-10.2); CARBON DIOXIDE 23 mmol/L (22-30); CHLORIDE 108 mmol/L (98-107); GLUCOSE 89 mg/dL (75-110); POTASSIUM 4.3 mmol/L (3.6-5.0); SODIUM 143.3 mmol/L (137-145)
[2018-01-05 14:45] LABS: ABSOLUTE BASOPHILS # (AUTO) 0.1 10^3/uL (0.0-0.2); ABSOLUTE EOSINOPHILS # (AUTO) 0.1 10^3/uL (0.0-0.6); ABSOLUTE LYMPHOCYTES (AUTO) 1.1 10^3/uL (0.5-4.7); ABSOLUTE MONOCYTES (AUTO) 0.5 10^3/uL (0.1-1.4); ABSOLUTE NEUT (AUTO) 9.8 10^3/uL (1.7-8.2); BASOPHILS % (AUTO) 0.7 % (0-2); EOSINOPHILS % (AUTO) 0.9 % (0-6); HEMATOCRIT 30.7 % (36.0-47.0); HEMOGLOBIN 9.8 g/dL (12.0-15.5); LYMPHOCYTES % (AUTO) 9.3 % (13-45); MEAN CORPUSCULAR HEMOGLOBIN 26.6 pg (27.0-33.4); MEAN CORPUSCULAR HGB CONC 31.9 g/dL (32.0-36.0); MEAN CORPUSCULAR VOLUME 83 fl (80-97); MONOCYTES % (AUTO) 4.5 % (3-13); PLATELET COUNT 622 10^3/uL (150-450); RED BLOOD COUNT 3.69 10^6/uL (3.72-5.28); RED CELL DISTRIBUTION WIDTH 22.3 % (11.5-14.0); SEGMENTED NEUTROPHILS % (AUTO) 84.6 % (42-78); TOTAL CELLS COUNTED % (AUTO) 100 %; WHITE BLOOD COUNT 11.6 10^3/uL (4.0-10.5)
[2018-01-05 14:47] LABS: ANISOCYTOSIS 2+; HYPOCHROMASIA 1+; OVALOCYTES SLIGHT; PLATELET COMMENT INCREASED; POIKILOCYTOSIS SLIGHT; POLYCHROMASIA SLIGHT; ROULEAUX SLIGHT
[2018-01-05 15:05] LABS: ERYTHROCYTE SEDIMENTATION RATE 63 mm/hr (0-30)
--- NOTE | 2018-01-05 16:32 | ER Document Report ---
ED General - General Chief Complaint: Skin Sore(s) Stated Complaint: OPEN SKIN SORES Time Seen by Provider: 01/05/18 12:25 Notes: Patient is a 62-year-old female presenting to the emergency department complaining of a generalized rash for the last month. Patient states she has been to this facility multiple times for the same rash. States she was placed on Keflex and an ointment which helps the rash go away. States she is unsure if she has a history of MRSA. States she was to this facility the beginning of November for a GI bleed. Was admitted and given 2 units of blood. States her hemoglobin was down to 5.8. Patient states she is not feeling lightheaded, dizzy, weak, chest pain, shortness of breath at this time. States this morning she did have one bowel movement with scant amount of bright red blood. Patient states when she was here to this facility for her GI bleed she does have a bleeding ulcer states her stool was dark at that time. Patient is denying all complaints except for the skin rash that she has noticed in the last month. Past medical history: GI bleed, depression, GERD Medications: Gabapentin, Celexa, omeprazole Allergies: None patient denies smoking, denies illicit drug use, denies current EtOH use. TRAVEL OUTSIDE OF THE [place] IN LAST 30 DAYS: No - Related Data Allergies/Adverse Reactions: No Known Allergies Allergy (Verified 11/21/17 12:00) Past Medical History - General Information source: Patient - Social History Smoking Status: Never Smoker Lives with: Alone Family History: Reviewed & Not Pertinent Patient has suicidal ideation: No Patient has homicidal ideation: No - Past Medical History Cardiac Medical History: Denies: Hx Coronary Artery Disease, Hx Heart Attack Neurological Medical History: Reports: Hx Migraine Endocrine Medical History: Denies: Hx Diabetes Mellitus Type 1, Hx Diabetes Mellitus Type 2 Renal/ Medical History: Denies: Hx Peritoneal Dialysis GI Medical History: Reports: Hx Ulcer - 2 years ago, told she had a bleeding ulcer that was treated by endoscopy., Hx Endoscopy Psychiatric Medical History: Reports: Hx Anxiety, Hx Depression Past Surgical History: Reports: Other - Therapeutic upper endoscopy for bleeding peptic ulcer. Colonoscopy. - Immunizations Hx Pneumococcal Vaccination: 11/21/15 Review of Systems - Review of Systems Constitutional: No symptoms reported EENT: No symptoms reported Cardiovascular: No symptoms reported Respiratory: No symptoms reported Gastrointestinal: No symptoms reported Genitourinary: No symptoms reported Female Genitourinary: No symptoms reported Musculoskeletal: No symptoms reported Skin: See HPI Hematologic/Lymphatic: See HPI Neurological/Psychological: No symptoms reported Physical Exam - Vital signs Vitals: Temp Pulse Resp BP Pulse Ox 98.3 F 92 16 126/79 H 99 01/05/18 12:23 01/05/18 12:23 01/05/18 12:23 01/05/18 12:23 01/05/18 12:23 - Notes Notes: GENERAL: Alert, interacts well. No acute distress. HEAD: Normocephalic, atraumatic. EYES: Pupils equal, round, and reactive to light. Extraocular movements intact. ENT: Oral mucosa moist, tongue midline. NECK: Full range of motion. Supple. Trachea midline. LUNGS: Clear to auscultation bilaterally, no wheezes, rales, or rhonchi. No respiratory distress. HEART: Regular rate and rhythm. No murmur ABDOMEN: Soft, non-tender. Non-distended. Bowel sounds present in all 4 quadrants. EXTREMITIES: Moves all 4 extremities spontaneously. No edema, normal radial and dorsalis pedis pulses bilaterally. No cyanosis. BACK: no cervical, thoracic, lumbar midline tenderness. No saddle anesthesia, normal distal neurovascular exam. NEUROLOGICAL: Alert and oriented x3. Normal speech. cranial nerves II through XII grossly intact PSYCH: Normal affect, normal mood. SKIN: Warm, dry, normal turgor. Multiple circular lesions noted bilateral knees , second digit toes, bilateral hands to include the palms of the hands. Erythematous base some are vesicular in nature the largest one measuring 1 cm x 1 cm, no active discharge at this time. One on the lateral aspect of the right knee does have some significant erythema surrounding it, no fluctuance or induration noted. Rectal exam does reveal a nonthrombosed hemorrhoid, no bright red blood seen, no melena seen. Course - Re-evaluation Re-evalutation: 01/05/18 17:02 Guaiac stool in the emergency room was negative. Last time patient was in the emergency room her hemoglobin was 7.8 hematocrit was 25.3. Today they are 9.8 and 30.7 respectively. Her RBCs were 3.58 last visit and today they are 3.69. Patient continues to deny any lightheadedness, dizziness, weakness, shortness of breath. States she is only here due to the rash. Discussed need to follow-up with Gastroenterology and potentially surgery if she continues with what she thinks is rectal bleeding. Return precautions discussed - Vital Signs Vital signs: Temp Pulse Resp BP Pulse Ox 98.3 F 92 16 126/79 H 99 01/05/18 12:23 01/05/18 12:23 01/05/18 12:23 01/05/18 12:23 01/05/18 12:23 - Laboratory Result Diagrams: 01/05/18 14:09 01/05/18 14:09 Laboratory results interpreted by me: 01/05/18 01/05/18 14:09 14:09 WBC 11.6 H RBC 3.69 L Hgb 9.8 L Hct 30.7 L MCH 26.6 L MCHC 31.9 L RDW 22.3 H Plt Count 622 H Seg Neutrophils % 84.6 H Lymphocytes % 9.3 L Absolute Neutrophils 9.8 H ESR 63 H Chloride 108 H Total Protein 6.0 L Albumin 3.3 L Discharge - Discharge Clinical Impression: Cellulitis Qualifiers: Site of cellulitis: unspecified site Qualified Code(s): L03.90 - Cellulitis, unspecified Condition: Stable Disposition: HOME, SELF-CARE Instructions: Cellulitis ([facility]) Additional Instructions: As we discussed you have been seen and treated in the emergency department for rash. Please take medications as prescribed. Please return to the emergency room for any other concerning symptoms. Within this packet there will be phone numbers for gastroenterology and general surgery. Please follow-up with both for continued rectal bleeding. Prescriptions: Cephalexin Monohydrate [Keflex 500 mg Capsule] 500 mg PO BID 7 Days #14 capsule Sulfamethoxazole/Trimethoprim [Bactrim Ds Tablet] 1 each PO BID 7 Days #14 tablet
[2018-01-05 17:06] VITALS: BP 118/91
== END 2018-01-05 17:10 | disposition home or self-care (01) ==
LOC: ER 12:18
DX: L03.90 Cellulitis, unspecified (principal); K64.9 Unspecified hemorrhoids; K21.9 Gastro-esophageal reflux disease without esophagitis; K28.9 Gastrojejunal ulcer, unspecified as acute or chronic, without hemorrhage or perforation; Z79.899 Other long term (current) drug therapy
CPT/HCPCS: 36415; 80053; 82272; 85025; 85652; 99283

== ENCOUNTER 2018-02-07 10:52 | Emergency (ER) | payer OTHER ==
[2018-02-07 11:01] VITALS: BP 117/88
--- NOTE | 2018-02-07 11:21 | ER Document Report ---
ED Skin Rash/Insect Bite/Abscs - General Chief Complaint: Skin Problem Stated Complaint: SKIN PROBLEMS Time Seen by Provider: 02/07/18 11:15 Notes: 62-year-old female presented to ED for complaint of sores to hands and feet intermittently for 6 months. She states she went to primary and they ordered lab work that she cannot done as outpatient she needs to have it done to the emergency room for to be covered. Labs have been ordered and will be faxed to the primary doctor. She states the sores started out as blisters filled with fluid she does not popped them when they pop they then become large ulcers to her hands and feet. TRAVEL OUTSIDE OF THE [place] IN LAST 30 DAYS: No - HPI Patient complains to provider of: Other - Fluid-filled blisters/ulcers hands and feet Onset: Other - 6 months Onset/Duration: Intermittent Quality of pain: Burning, Sharp Skin Character: Other - List is that turn into large ulcers Identify cause: No Exacerbated by: Denies Relieved by: Denies Similar symptoms previously: Yes Recently seen / treated by doctor: Yes - Related Data Allergies/Adverse Reactions: No Known Allergies Allergy (Verified 02/07/18 10:54) Past Medical History - General Information source: Patient - Social History Smoking Status: Never Smoker Cigarette use (# per day): No Chew tobacco use (# tins/day): No Smoking Education Provided: No Frequency of alcohol use: None - Recovering alcoholic Drug Abuse: None Lives with: Family Family History: Reviewed & Not Pertinent - Past Medical History Cardiac Medical History: Reports: None Pulmonary Medical History: Reports: None EENT Medical History: Reports: None Neurological Medical History: Reports: Hx Migraine Endocrine Medical History: Reports: None Renal/ Medical History: Reports: None Malignancy Medical History: Reports: None GI Medical History: Reports: Hx Gastritis, Hx Gastroesophageal Reflux Disease, Hx Ulcer - 2 years ago, told she had a bleeding ulcer that was treated by endoscopy., Hx Colonoscopy, Hx Endoscopy Musculoskeletal Medical History: Reports None Skin Medical History: Reports None Psychiatric Medical History: Reports: Hx Anxiety, Hx Depression Traumatic Medical History: Reports: None Infectious Medical History: Reports: None Past Surgical History: Reports: Hx Oral Surgery, Hx Tonsillectomy, Other - Therapeutic upper endoscopy for bleeding peptic ulcer. Colonoscopy. - Immunizations Immunizations up to date: Yes Hx Pneumococcal Vaccination: 11/21/15 Review of Systems - Review of Systems Constitutional: No symptoms reported EENT: No symptoms reported Cardiovascular: No symptoms reported Respiratory: No symptoms reported Gastrointestinal: No symptoms reported Genitourinary: No symptoms reported Female Genitourinary: No symptoms reported Musculoskeletal: No symptoms reported Skin: Lesions - Blisters and ulcers to hands and feet bilaterally Hematologic/Lymphatic: No symptoms reported Neurological/Psychological: No symptoms reported -: Yes All other systems reviewed and negative Physical Exam - Vital signs Vitals: Temp Pulse Resp BP Pulse Ox 97.7 F 78 16 117/88 H 96 02/07/18 10:59 02/07/18 10:59 02/07/18 10:59 02/07/18 10:59 02/07/18 10:59 Interpretation: Normal - General General appearance: Appears well, Alert General appearance pediatric: Attentiveness normal, Good eye contact - HEENT Head: Normocephalic, Atraumatic Eyes: Normal Pupils: PERRL - Respiratory Respiratory status: No respiratory distress Chest status: Nontender Breath sounds: Normal Chest palpation: Normal - Cardiovascular Rhythm: Regular Heart sounds: Normal auscultation Murmur: No - Abdominal Inspection: Normal Distension: No distension Bowel sounds: Normal Tenderness: Nontender Organomegaly: No organomegaly - Back Back: Normal, Nontender - Extremities General upper extremity: Normal color, Normal ROM, Normal temperature General lower extremity: Normal color, Normal ROM, Normal temperature, Normal weight bearing. No: Gentry's sign Hand: No evidence of human bite, No evidence of FB, Other - Would -filled blisters and ulcers to bilateral hands Foot: Tender, No evidence of FB, Other - Fluid-filled blisters and ulcers to bilateral hands and feet - Neurological Neuro grossly intact: Yes Cognition: Normal Orientation: AAOx4 Rosa Coma Scale Eye Opening: Spontaneous Rosa Coma Scale Verbal: Oriented Rosa Coma Scale Motor: Obeys Commands Ped [place] Coma Scale Eye Opening: Spontaneous Ped [place] Coma Scale Verbal: Age appropriate verbal Ped [place] Coma Scale Motor: Spontaneous Movements Speech: Normal Motor strength normal: LUE, RUE, LLE, RLE Sensory: Normal - Psychological Associated symptoms: Normal affect, Normal mood - Skin Skin Temperature: Warm Skin Moisture: Dry Skin Color: Normal Course - Vital Signs Vital signs: Temp Pulse Resp BP Pulse Ox 97.7 F 78 16 117/88 H 96 02/07/18 10:59 02/07/18 10:59 02/07/18 10:59 02/07/18 10:59 02/07/18 10:59 - Laboratory Result Diagrams: 02/07/18 12:45 02/07/18 12:45 Laboratory results interpreted by me: 02/07/18 02/07/18 12:45 12:45 Hgb 10.0 L Hct 30.6 L MCH 25.9 L RDW 16.2 H Plt Count 672 H ESR 48 H Iron 27.3 L Ferritin 6.89 L Direct Bilirubin 0.6 H Discharge - Discharge Clinical Impression: Porphyria cutanea tarda Condition: Stable Disposition: HOME, SELF-CARE Additional Instructions: Today for the lab work for your Porphyria cutanea tarda. Labs should be faxed back to your primary care provider. Please call your primary care provider tomorrow to schedule follow-up visit. Acetaminophen Acetaminophen may be taken for pain relief or fever control. It's much safer than aspirin, offering a wider range of "safe" dosages. It is safe during . Some brand names are Tylenol, Panadol, Datril, Anacin 3, Tempra, and Liquiprin. Acetaminophen can be repeated every four hours. The following are maximum recommended dosages: WEIGHT Dose Drops Elixir Chewable(8 0mg) (LBS.) drprs=droppers tsp=teaspoon 6 40 mg .4 ml (1/2) 6-11 80 mg .8 ml (full) 1/2 tsp 1 tab 12-16 120 mg 1 1/2 drprs 3/4 tsp 1 1/2 tabs 17-23 160 mg 2 drprs 1 tsp 2 tabs 24-30 240 mg 3 drprs 1 1/2 tsp 3 tabs 30-35 320 mg 2 tsp 4 tabs 36-41 360 mg 2 1/4 tsp 4 1/2 tabs 42-47 400 mg 2 1/2 tsp 5 tabs 48-53 480 mg 3 tsp 6 tabs 54-59 520 mg 3 1/4 tsp 6 1/2 tabs 60-64 560 mg 3 1/2 tsp 7 tabs 65-70 600 mg 3 3/4 tsp 7 1/2 tabs 71-76 640 mg 4 tsp 8 tabs 77-82 720 mg 4 1/2 tsp 9 tabs 83-88 800 mg 5 tsp 10 tabs >89 pounds or adults 650 mg to 900 mg Acetaminophen can be repeated every four hours. Maximum daily dose not to exceed 4000 mg. These maximum recommended dosages are slightly higher than the dosages written on the product container, but these dosages are very safe and well below the toxic dosage for acetaminophen. Ibuprofen Ibuprofen is an excellent, safe drug for pain control. In addition, it has potent antiinflammatory effects which are beneficial, especially in the treatment of injuries, arthritis, or tendonitis. It's best to take ibuprofen with food. Persons with ulcer disease or allergy to aspirin should notify their physician of this before taking ibuprofen. Take the medication exactly as prescribed. Don't take additional doses unless instructed to do so by your doctor. If you develop wheezing, shortness of breath, hives, faintness, stomach pain, vomiting, or dark black stools, return for re-evaluation at once. FOLLOW-UP CARE: If you have been referred to a physician for follow-up care, call the physicians office for an appointment as you were instructed or within the next two days. If you experience worsening or a significant change in your symptoms, notify the physician immediately or return to the Emergency Department at any time for re-evaluation. Referrals: CORTEZ PANCHAL PA-C [NO LOCAL MD] - Follow up as needed
[2018-02-07 13:01] LABS: ABSOLUTE EOSINOPHILS # (AUTO) 0.1 10^3/uL (0.0-0.6); ABSOLUTE LYMPHOCYTES (AUTO) 1.2 10^3/uL (0.5-4.7); ABSOLUTE MONOCYTES (AUTO) 0.3 10^3/uL (0.1-1.4); ABSOLUTE NEUT (AUTO) 3.5 10^3/uL (1.7-8.2); BASOPHILS % (AUTO) 0.8 % (0-2); EOSINOPHILS % (AUTO) 1.6 % (0-6); HEMATOCRIT 30.6 % (36.0-47.0); MEAN CORPUSCULAR HEMOGLOBIN 25.9 pg (27.0-33.4); MEAN CORPUSCULAR HGB CONC 32.6 g/dL (32.0-36.0); MEAN CORPUSCULAR VOLUME 80 fl (80-97); MONOCYTES % (AUTO) 6.4 % (3-13); PLATELET COUNT 672 10^3/uL (150-450); RED BLOOD COUNT 3.84 10^6/uL (3.72-5.28); RED CELL DISTRIBUTION WIDTH 16.2 % (11.5-14.0); SEGMENTED NEUTROPHILS % (AUTO) 67.2 % (42-78); TOTAL CELLS COUNTED % (AUTO) 100 %; WHITE BLOOD COUNT 5.2 10^3/uL (4.0-10.5)
[2018-02-07 13:34] LABS: ERYTHROCYTE SEDIMENTATION RATE 48 mm/hr (0-30)
[2018-02-07 13:47] LABS: ALANINE AMINOTRANSFERASE 25 U/L (9-52); ALBUMIN 3.5 g/dL (3.5-5.0); ALKALINE PHOSPHATASE 49 U/L (38-126); ANION GAP 8 (5-19); ASPARTATE AMINO TRANSFERASE 35 U/L (14-36); BILIRUBIN,DIRECT 0.6 mg/dL (0.0-0.4); BILIRUBIN,TOTAL 0.6 mg/dL (0.2-1.3); BLOOD UREA NITROGEN 20 mg/dL (7-20); CARBON DIOXIDE 25 mmol/L (22-30); CHLORIDE 107 mmol/L (98-107); GLUCOSE 96 mg/dL (75-110); IRON(TIBC) 27.3 ug/dL (37-170); POTASSIUM 3.9 mmol/L (3.6-5.0); SODIUM 140.3 mmol/L (137-145); TOTAL PROTEIN 6.3 g/dL (6.3-8.2)
[2018-02-07 14:19] LABS: FERRITIN 6.89 ng/mL (11.1-264.0)
[2018-02-07 14:20] LABS: C-REACTIVE PROTEIN < 5.0 mg/L (<10.0)
[2018-02-08 08:40] LABS: HEPATITIS C VIRUS AB <0.1 s/co ratio (0.0-0.9)
[2018-02-12 07:28] LABS: COPROPORPHYRIN <1.0 ug/dL (0.0-1.0); HEPTAPORPHYRIN <1.0 ug/dL (0.0-1.0); HEXAPORPHYRIN <1.0 ug/dL (0.0-1.0); PENTAPORPHYRIN <1.0 ug/dL (0.0-1.0); PROTOPORPHYRIN <1.0 ug/dL (0.0-1.0); UROPORPHYRIN <1.0 ug/dL (0.0-1.0)
== END 2018-02-07 13:36 | disposition home or self-care (01) ==
LOC: ER 10:52
DX: E80.1 Porphyria cutanea tarda (principal)
CPT/HCPCS: 36415; 80053; 82728; 83540; 83550; 85025; 85652; 86038; 86140; 86803; 86804; 99283

== ENCOUNTER 2018-02-21 18:56 | Emergency (ER) | payer OTHER ==
--- NOTE | 2018-02-21 19:21 | ER Document Report ---
ED GI Bleed / Rectal Pain - General Chief Complaint: Weakness Stated Complaint: BLOOD PRESSURE ISSUE Time Seen by Provider: 02/21/18 19:20 Mode of Arrival: Stretcher Information source: Patient, Friend Notes: Patient is a 62-year-old female with a history of prior alcohol abuse and previous GI bleeds who presents with weakness for the past several days. Patient reports that she had 2 episodes of "passing out" earlier today after feeling weak, denies preceding symptoms such as chest pain or palpitations, no recent fevers or chills. She reports her last intake of alcohol was over a year ago and denies any recent bloody stools or vomitus, however she does report that her stools have been darker than normal lately. Patient denies chest pain or shortness of breath, no confusion or disorientation. She denies head injuries. Of note, the patient has reported intermittent abdominal pain although currently she does not have abdominal pain. TRAVEL OUTSIDE OF THE [place] IN LAST 30 DAYS: No - HPI Patient complains to provider of: Dark/tarry stools, Other - Weakness Onset: Yesterday Timing/Duration: Constant, Persistent, Worse Quality of pain: No pain Severity of symptoms: Severe Pain Level: Denies Dark Stools: Black Rectal foreign body: No Rectal pain with intercourse: No Use of: ETOH Associated symptoms: Fainting/dizzy/lightheade Exacerbated by: Standing, Movement Relieved by: Supine Similar symptoms previously: Yes Recently seen / treated by doctor: No - Related Data Allergies/Adverse Reactions: No Known Allergies Allergy (Verified 02/21/18 19:27) Past Medical History - General Information source: Patient - Social History Smoking Status: Former Smoker Chew tobacco use (# tins/day): No Frequency of alcohol use: None Drug Abuse: None Lives with: Friend Family History: Reviewed & Not Pertinent Patient has suicidal ideation: No Patient has homicidal ideation: No - Past Medical History Cardiac Medical History: Reports: None Pulmonary Medical History: Reports: None EENT Medical History: Reports: None Neurological Medical History: Reports: Hx Migraine Endocrine Medical History: Reports: None Renal/ Medical History: Reports: None. Denies: Hx Peritoneal Dialysis Malignancy Medical History: Reports: None GI Medical History: Reports: Hx Gastritis, Hx Gastroesophageal Reflux Disease, Hx Ulcer - 2 years ago, told she had a bleeding ulcer that was treated by endoscopy., Hx Colonoscopy, Hx Endoscopy Musculoskeletal Medical History: Reports None Skin Medical History: Reports None Psychiatric Medical History: Reports: Hx Anxiety, Hx Depression Traumatic Medical History: Reports: None Infectious Medical History: Reports: None Past Surgical History: Reports: Hx Oral Surgery, Hx Tonsillectomy, Other - Therapeutic upper endoscopy for bleeding peptic ulcer. Colonoscopy. - Immunizations Immunizations up to date: Yes Hx Pneumococcal Vaccination: 11/21/15 Review of Systems - Review of Systems Constitutional: See HPI, Malaise, Weakness EENT: No symptoms reported Cardiovascular: No symptoms reported Respiratory: See HPI, Short of breath Gastrointestinal: See HPI, Abdominal pain, Black stools Genitourinary: No symptoms reported Female Genitourinary: No symptoms reported Musculoskeletal: No symptoms reported Skin: No symptoms reported Hematologic/Lymphatic: No symptoms reported Neurological/Psychological: No symptoms reported -: Yes All other systems reviewed and negative Physical Exam - Vital signs Vitals: Resp 18 02/21/18 19:14 Interpretation: Normal - Notes Notes: Weak and pale appearing in significant distress - General General appearance: Alert, Other - Week In distress: Severe - HEENT Head: Normocephalic, Atraumatic Eyes: Normal Conjunctiva: Other - Pale Pupils: PERRL - Respiratory Respiratory status: No respiratory distress Chest status: Nontender Breath sounds: Normal Chest palpation: Normal - Cardiovascular Rhythm: Regular Heart sounds: Normal auscultation Murmur: No - Abdominal Inspection: Normal Distension: No distension Bowel sounds: Normal Tenderness: Nontender Organomegaly: No organomegaly - Rectal Tenderness: No Stool: Heme positive, Black, See lab result Hemorrhoids: None - Genitourinary Notes: Deferred - Back Back: Normal, Nontender - Extremities General upper extremity: Normal inspection, Nontender, Normal color, Normal ROM, Normal temperature General lower extremity: Normal inspection, Nontender, Normal color, Normal ROM, Normal temperature, Normal weight bearing. No: Gentry's sign - Neurological Neuro grossly intact: Yes Cognition: Normal Orientation: AAOx4 [place] Coma Scale Eye Opening: Spontaneous Rosa Coma Scale Verbal: Oriented [place] Coma Scale Motor: Obeys Commands [place] Coma Scale Total: 15 Speech: Normal Motor strength normal: LUE, RUE, LLE, RLE Sensory: Normal - Psychological Associated symptoms: Normal affect, Normal mood - Skin Skin Temperature: Warm Skin Moisture: Dry Skin Color: Normal Course - Re-evaluation Re-evalutation: 02/21/18 19:37 Patient is extremely pale appearing and weak, given history likely has upper versus lower GI bleed. Favor lower GI bleed given lack of hematemesis that would suggest variceal bleed. Could also be from bleeding gastric ulcer given history of GERD. Patient will have septic workup including type and screen, coagulation panel, troponin, CT of the head. Patient has 2 large-bore IVs and is getting IV fluids, she will be empirically given IV Pepcid as well as Ceftriaxone. Anticipate need for intensive care pending likely blood transfusion if patient does in fact have a GI bleed. 02/21/18 23:20 Patient has a hemoglobin of 3.4 and had a hematocrit less than 12, has received 2 units of emergency blood and will have a type and cross for an additional 2 units. I have spoken with the transfer center at [facility] in [place], Dr. Goetz, who has accepted the patient in transfer to the ICU. - Vital Signs Vital signs: Temp Pulse Resp BP Pulse Ox 99.2 F 82 7 L 107/70 100 02/21/18 22:52 02/21/18 21:13 02/21/18 22:49 02/21/18 22:52 02/21/18 22:52 - Laboratory Result Diagrams: 02/21/18 20:05 02/21/18 20:05 Laboratory results interpreted by me: 02/21/18 02/21/18 02/21/18 19:05 19:45 20:05 RBC Hgb Hct MCH MCHC RDW Plt Count Seg Neuts % (Manual) Lymphocytes % (Manual) Monocytes % (Manual) PT APTT VBG pH Chloride Carbon Dioxide Glucose Lactic Acid Calcium AST Alkaline Phosphatase Total Protein Albumin Urine Protein 30 H Acetaminophen < 10 L Crossmatch See Detail 02/21/18 02/21/18 02/21/18 20:05 20:05 20:05 RBC Hgb Hct MCH MCHC RDW Plt Count Seg Neuts % (Manual) Lymphocytes % (Manual) Monocytes % (Manual) PT 18.4 H APTT 38.0 H VBG pH 7.28 L Chloride Carbon Dioxide Glucose Lactic Acid 3.2 H Calcium AST Alkaline Phosphatase Total Protein Albumin Urine Protein Acetaminophen Crossmatch 02/21/18 02/21/18 20:05 20:05 RBC 1.41 L Hgb 3.6 L* Hct 11.5 L* MCH 25.5 L MCHC 31.1 L RDW 15.9 H Plt Count 515 H Seg Neuts % (Manual) 91 H Lymphocytes % (Manual) 8 L Monocytes % (Manual) 1 L PT APTT VBG pH Chloride 113 H Carbon Dioxide 21 L Glucose 121 H Lactic Acid Calcium 7.2 L AST 11 L Alkaline Phosphatase 29 L Total Protein 3.3 L Albumin 1.7 L Urine Protein Acetaminophen Crossmatch - Diagnostic Test Radiology reviewed: Reports reviewed - EKG Interpretation by Me EKG shows normal: Sinus rhythm Rate: Normal Rhythm: NSR Imperial/QRS: No: Right axis deviation, Left axis deviation, RBBB, LBBB, IVCD, LAHB/LAFB, LPHB/LPFB, Bifasicular block P Waves: No: ADELSO, LAE, Absent, AV Dissociation, Other Heart block present: No: 1st Degree, Mobitz 1, Mobitz 2, CHB (3rd degree block) When compared to previous EKG there are: No significant change - Consults Dr. Goetz ([facility]) Time consulted: 23:22 - Will accept the patient in transfer to the MICU Discharge - Discharge Clinical Impression: Anemia due to acute blood loss, Weakness, Syncope and collapse GI bleed Qualifiers: GI bleed type/associated pathology: unspecified gastrointestinal hemorrhage type Qualified Code(s): K92.2 - Gastrointestinal hemorrhage, unspecified Condition: Serious Disposition: [facility]
[2018-02-21] MEDS ORDERED: CEFTRIAXONE 1 GM/D5W RTU 1 GM/50 ML RTUPB IV ONE (19:40)
[2018-02-21] MEDS ORDERED: FAMOTIDINE INJ/PF 20 MG/2 ML SDV IV ONE (19:40)
[2018-02-21 20:15] LABS: APPEARANCE,URINE SLIGHTLY-CLOUDY; BILIRUBIN,URINE NEGATIVE (NEGATIVE); COLOR,URINE YELLOW; GLUCOSE, URINE NEGATIVE (NEGATIVE); KETONES,URINE NEGATIVE (NEGATIVE); LEUKOCYTE ESTERASE,URINE NEGATIVE (NEGATIVE); NITRITE,URINE NEGATIVE (NEGATIVE); PROTEIN,URINE 30 mg/dL (NEGATIVE); UROBILINOGEN,URINE NEGATIVE mg/dL (<2.0)
[2018-02-21 20:23] LABS: VENOUS BLOOD BASE EXCESS -3.2 mmol/L; VENOUS BLOOD HCO3 23.1 mmol/L (20-32); VENOUS BLOOD PCO2 50.7 mmHg (35-63); VENOUS BLOOD PH 7.28 (7.30-7.42)
[2018-02-21 20:27] LABS: MEAN CORPUSCULAR HEMOGLOBIN 25.5 pg (27.0-33.4); MEAN CORPUSCULAR HGB CONC 31.1 g/dL (32.0-36.0); MEAN CORPUSCULAR VOLUME 82 fl (80-97); PLATELET COUNT 515 10^3/uL (150-450); RED BLOOD COUNT 1.41 10^6/uL (3.72-5.28); RED CELL DISTRIBUTION WIDTH 15.9 % (11.5-14.0); WHITE BLOOD COUNT 7.1 10^3/uL (4.0-10.5)
[2018-02-21 20:41] LABS: ALANINE AMINOTRANSFERASE 15 U/L (9-52); ALBUMIN 1.7 g/dL (3.5-5.0); ALKALINE PHOSPHATASE 29 U/L (38-126); ANION GAP 6 (5-19); ASPARTATE AMINO TRANSFERASE 11 U/L (14-36); BILIRUBIN,DIRECT 0.3 mg/dL (0.0-0.4); BILIRUBIN,TOTAL 0.3 mg/dL (0.2-1.3); BLOOD UREA NITROGEN 19 mg/dL (7-20); CALCIUM 7.2 mg/dL (8.4-10.2); CARBON DIOXIDE 21 mmol/L (22-30); CHLORIDE 113 mmol/L (98-107); CREATINE KINASE 49 U/L (30-135); GLUCOSE 121 mg/dL (75-110); INTERNATIONAL RATION (INR) 1.45; POTASSIUM 3.7 mmol/L (3.6-5.0); PROTHROMBIN TIME 18.4 SEC (11.4-15.4); SODIUM 140.2 mmol/L (137-145); TOTAL PROTEIN 3.3 g/dL (6.3-8.2)
[2018-02-21 20:43] LABS: LIPASE 40.9 U/L (23-300)
[2018-02-21 20:43] LABS: URINE AMPHETAMINES SCREEN NEGATIVE; URINE BARBITURATES SCREEN NEGATIVE; URINE BENZODIAZEPINES SCREEN NEGATIVE; URINE COCAINE SCREEN NEGATIVE; URINE MARIJUANA (THC) SCREEN NEGATIVE; URINE METHADONE SCREEN NEGATIVE; URINE PHENCYCLIDINE SCREEN NEGATIVE
[2018-02-21 20:49] LABS: ACETAMINOPHEN < 10 ug/mL (10-30); ALCOHOL < 10 mg/dL (NONE DETECTED)
[2018-02-21 20:53] LABS: CREATINE KINASE MB 0.73 ng/mL (<4.55)
--- NOTE | 2018-02-21 20:55 | RADIOLOGY REPORT (SQ) ---
EXAM DESCRIPTION: CHEST SINGLE VIEW COMPLETED DATE/TIME: 02/21/2018 8:31 pm REASON FOR STUDY: Weakness COMPARISON: None. EXAM PARAMETERS: NUMBER OF VIEWS: One view. TECHNIQUE: Single frontal radiographic view of the chest acquired. RADIATION DOSE: NA LIMITATIONS: None. FINDINGS: LUNGS AND PLEURA: No opacities, masses or pneumothorax. No pleural effusion. MEDIASTINUM AND HILAR STRUCTURES: No masses. Contour normal. HEART AND VASCULAR STRUCTURES: Heart normal in size. Normal vasculature. BONES: No acute findings. HARDWARE: None in the chest. OTHER: No other significant finding. IMPRESSION: NO ACUTE RADIOGRAPHIC FINDING IN THE CHEST. TECHNICAL DOCUMENTATION: JOB ID: [id number] [place]-72 2010 [employer]- All Rights Reserved Reading location - IP/workstation name: [email or web address]
[2018-02-21 21:12] LABS: HEMATOCRIT 11.5 % (36.0-47.0)
[2018-02-21 21:13] LABS: HEMOGLOBIN 3.6 g/dL (12.0-15.5)
[2018-02-21 21:16] LABS: TROPONIN I < 0.012 ng/mL
[2018-02-21 21:22] LABS: ABSOLUTE LYMPHOCYTES# (MANUAL) 0.6 10^3/uL (0.5-4.7); ABSOLUTE MONOCYTES # (MANUAL) 0.1 10^3/uL (0.1-1.4); ABSOLUTE NEUTROPHILS# (MANUAL) 6.5 10^3/uL (1.7-8.2); ANISOCYTOSIS SLIGHT; BASOPHILS % (MANUAL) 0 % (0-2); EOSINOPHILS % (MANUAL) 0 % (0-6); LYMPHOCYTES % (MANUAL) 8 % (13-45); MONOCYTES % (MANUAL) 1 % (3-13); PLATELET COMMENT INCREASED; SEGMENTED NEUTROPHILS % (MAN) 91 % (42-78); TOTAL CELLS COUNTED 100
[2018-02-21 21:23] LABS: HYPOCHROMASIA SLIGHT; PLATELET LARGE PRESENT
--- NOTE | 2018-02-21 22:07 | RADIOLOGY REPORT (SQ) ---
CT HEAD WITHOUT IV CONTRAST HISTORY: Weakness. COMPARISON: None. TECHNIQUE: CT scan of the brain without IV contrast. This exam was performed according to our departmental dose-optimization program, which includes automated exposure control, adjustment of the mA and/or kV according to patient size and/or use of iterative reconstruction technique. FINDINGS: The ventricles, cisterns, and sulci are age-appropriate. No focal white matter lesions are seen. No evidence of acute infarction, intracranial hemorrhage, extra-axial fluid collection, or midline shift. No air-fluid levels are seen in the paranasal sinuses. The calvarium is intact. IMPRESSION: No acute intracranial abnormality.
[2018-02-21] MEDS ORDERED: NORMAL SALINE 250 ML IV PRN ×2 (23:26)
[2018-02-22 00:18] VITALS: BP 101/72
[2018-02-22 13:39] LABS: PATH REVIEW PATHOLOGIST REVIEWED
--- NOTE | 2018-02-22 13:40 | EKG REPORT ---
SEVERITY:- ABNORMAL ECG - SINUS RHYTHM SHORT WI INTERVAL, ACCELERATED AV CONDUCTION REPOL ABNRM SUGGESTS ISCHEMIA, DIFFUSE LEADS : Confirmed by: Carmel Melendrez MD 22-Feb-2018 13:39:38
== END 2018-02-22 00:22 | disposition short-term general hospital (02) ==
LOC: ER 18:56
DX: D62 Acute posthemorrhagic anemia (principal); K92.2 Gastrointestinal hemorrhage, unspecified; R53.1 Weakness; R55 Syncope and collapse; R42 Dizziness and giddiness; R10.9 Unspecified abdominal pain; K21.9 Gastro-esophageal reflux disease without esophagitis
CPT/HCPCS: 93005; 99285; 96375; 96365; 86900; 86901; 36415; 87040; 82553; 36430; 86850; 80307 ×3; 82550; 83690; 85025; 85610; 85730; 80053; 81001; 84484; 86920; 82803; 83605; 83880; 71045; 70450; 93010; P9016; S0028; J0696

== ENCOUNTER 2018-04-25 16:23 | Emergency (ER) | payer SELFPAY ==
--- NOTE | 2018-04-25 17:59 | ER Document Report ---
ED Medical Screen (RME) - General Chief Complaint: Abdominal Pain Stated Complaint: ABDOMINAL PAIN Time Seen by Provider: 04/25/18 17:58 Notes: 62-year-old female to the emergency department for evaluation of nausea, vomiting and generalized weakness. Patient had a perforated ulcer. Seen at [facility]. Has a wound VAC. States that she cannot eat or drink anything without vomiting. I have greeted and performed a rapid initial assessment of this patient. A comprehensive ED assessment and evaluation of the patient, analysis of test results and completion of the medical decision making process will be conducted by additional ED providers. TRAVEL OUTSIDE OF THE [place] IN LAST 30 DAYS: No - Related Data Allergies/Adverse Reactions: No Known Allergies Allergy (Verified 04/25/18 16:24) Past Medical History Neurological Medical History: Reports: Hx Migraine Renal/ Medical History: Denies: Hx Peritoneal Dialysis GI Medical History: Reports: Hx Gastritis, Hx Gastroesophageal Reflux Disease, Hx Ulcer - 2 years ago, told she had a bleeding ulcer that was treated by endoscopy., Hx Colonoscopy, Hx Endoscopy Psychiatric Medical History: Reports: Hx Anxiety, Hx Depression Past Surgical History: Reports: Hx Oral Surgery, Hx Tonsillectomy, Other - Therapeutic upper endoscopy for bleeding peptic ulcer. Colonoscopy. - Immunizations Immunizations up to date: Yes Physical Exam - Vital signs Vitals: Temp Pulse Resp BP Pulse Ox 98.0 F 97 18 129/93 H 99 04/25/18 16:33 04/25/18 16:33 04/25/18 16:33 04/25/18 16:33 04/25/18 16:33 Course - Vital Signs Vital signs: Temp Pulse Resp BP Pulse Ox 98.0 F 97 18 129/93 H 99 04/25/18 16:33 04/25/18 16:33 04/25/18 16:33 04/25/18 16:33 04/25/18 16:33
[2018-04-25] MEDS ORDERED: ONDANSETRON HCL INJ/PF 4 MG/2 ML SDV IV ONE (18:05)
[2018-04-25] MEDS ORDERED: FAMOTIDINE INJ/PF 20 MG/2 ML SDV IV ONE (18:05)
[2018-04-25] MEDS ORDERED: DEXTROSE 5%-1/2 NORMAL SALINE 500 ML IV ONE (18:05)
--- NOTE | 2018-04-25 18:52 | RADIOLOGY REPORT (SQ) ---
EXAM DESCRIPTION: ACUTE ABDOMEN SERIES COMPLETED DATE/TIME: 04/25/2018 6:21 pm REASON FOR STUDY: abd pain, ecent sx, wpud vac COMPARISON: None. NUMBER OF VIEWS: Three views. TECHNIQUE: PA chest, supine abdomen and upright/decubitus abdomen radiographic images acquired. LIMITATIONS: None. FINDINGS: CHEST: Lungs clear of infiltrates. FREE AIR: None. No abnormal gas collections. BOWEL GAS PATTERN: Moderate stool. Few scattered small bowel loops with air fluid levels. No distend ed large or small bowel loops. CALCIFICATIONS: No suspicious calcifications. HARDWARE: Tubing overlying the mid abdomen. SOFT TISSUES: No gross mass or suggestion of organomegaly. BONES: No acute fracture. No worrisome bone lesions. OTHER: No other significant finding. IMPRESSION: NONSPECIFIC BOWEL GAS PATTERN. Moderate stool. Few scattered small bowel loops with ai r fluid levels. No distended large or small bowel loops.. TECHNICAL DOCUMENTATION: JOB ID: [id number] [place]-72 2010 [employer]- All Rights Reserved Reading location - IP/workstation name: [email or web address]
[2018-04-25 19:05] LABS: ABSOLUTE LYMPHOCYTES (AUTO) 1.2 10^3/uL (0.5-4.7); ABSOLUTE MONOCYTES (AUTO) 0.3 10^3/uL (0.1-1.4); ABSOLUTE NEUT (AUTO) 4.6 10^3/uL (1.7-8.2); BASOPHILS % (AUTO) 0.7 % (0-2); EOSINOPHILS % (AUTO) 0.1 % (0-6); HEMATOCRIT 38.1 % (36.0-47.0); HEMOGLOBIN 12.7 g/dL (12.0-15.5); LYMPHOCYTES % (AUTO) 19.8 % (13-45); MEAN CORPUSCULAR HEMOGLOBIN 28.7 pg (27.0-33.4); MEAN CORPUSCULAR HGB CONC 33.5 g/dL (32.0-36.0); MEAN CORPUSCULAR VOLUME 86 fl (80-97); MONOCYTES % (AUTO) 5.6 % (3-13); PLATELET COUNT 657 10^3/uL (150-450); RED BLOOD COUNT 4.45 10^6/uL (3.72-5.28); RED CELL DISTRIBUTION WIDTH 16.6 % (11.5-14.0); SEGMENTED NEUTROPHILS % (AUTO) 73.8 % (42-78); TOTAL CELLS COUNTED % (AUTO) 100 %; WHITE BLOOD COUNT 6.2 10^3/uL (4.0-10.5)
[2018-04-25] MEDS ORDERED: PANTOPRAZOLE SODIUM 40 MG VIAL IV ONE (20:41)
[2018-04-25 20:46] LABS: ALANINE AMINOTRANSFERASE 19 U/L (9-52); ALBUMIN 3.2 g/dL (3.5-5.0); ALKALINE PHOSPHATASE 47 U/L (38-126); ANION GAP 7 (5-19); ASPARTATE AMINO TRANSFERASE 23 U/L (14-36); BILIRUBIN,DIRECT 0.3 mg/dL (0.0-0.4); BILIRUBIN,TOTAL 0.4 mg/dL (0.2-1.3); BLOOD UREA NITROGEN 14 mg/dL (7-20); CALCIUM 9.4 mg/dL (8.4-10.2); CARBON DIOXIDE 23 mmol/L (22-30); CHLORIDE 106 mmol/L (98-107); GLUCOSE 188 mg/dL (75-110); LIPASE 121.8 U/L (23-300); POTASSIUM 3.7 mmol/L (3.6-5.0); SODIUM 136.3 mmol/L (137-145); TOTAL PROTEIN 5.7 g/dL (6.3-8.2)
[2018-04-25 21:23] LABS: AMORPHOUS SEDIMENT,URINE TRACE /HPF; APPEARANCE,URINE CLOUDY; BILIRUBIN,URINE NEGATIVE (NEGATIVE); COLOR,URINE YELLOW; GLUCOSE, URINE NEGATIVE (NEGATIVE); KETONES,URINE NEGATIVE (NEGATIVE); LEUKOCYTE ESTERASE,URINE NEGATIVE (NEGATIVE); NITRITE,URINE NEGATIVE (NEGATIVE); PROTEIN,URINE NEGATIVE (NEGATIVE); UROBILINOGEN,URINE NEGATIVE mg/dL (<2.0)
--- NOTE | 2018-04-25 22:04 | RADIOLOGY REPORT (SQ) ---
EXAM DESCRIPTION: CT ABDOMEN PELVIS WITH IV CONTRAST COMPLETED DATE/TME: 04/25/2018 20:43 CLINICAL HISTORY: abd pain COMPARISON: None Available TECHNIQUE: Contiguous axial images of the abdomen and pelvis were obtained followed by reconstruction images. This exam was performed according to our departmental dose-optimization program, which includes automated exposure control, adjustment of the mA and/or kV according to patient size and/or use of iterative reconstruction technique. FINDINGS: There is evidence of prior abdominal surgery. Surgical sutures are noted adjacent to the stomach and upper abdomen. Patient is cachectic. Calcifications within the pelvis compatible with phleboliths. There is atherosclerosis. Intra-abdominal wall defect could represent an opened surgical incision, please correlate. There is no evidence of bowel obstruction. Tiny air bubble adjacent to the anterior abdominal wall could represent a nonopacified bowel loop. Questionable small amount of fluid within the pelvis. The liver, spleen, pancreas and kidneys are within normal limits. There is no hydronephrosis or renal stones. The gallbladder is unremarkable by CT criteria. Aorta is of normal caliber and tapering. The appendix is within normal limits. There is no pericecal inflammation. IMPRESSION: No acute intra-abdominal abnormality. Tiny air bubble adjacent to the anterior abdominal wall could represent a nonopacified bowel loop.
--- NOTE | 2018-04-25 23:31 | ER Document Report ---
ED General - General Chief Complaint: Abdominal Pain Stated Complaint: ABDOMINAL PAIN Time Seen by Provider: 04/25/18 17:58 Notes: Patient is a 62-year-old female presents to the emergency department for generalized nausea vomiting and abdominal pain. Patient states the end of January she was seen at this facility for a perforated ulcer. states she was transferred to [facility] for continued care and surgery. States a wound VAC was placed on her abdomen wall. States since Monday she has had intermittent vomiting denying any blood, denying any diarrhea. States her last bowel movement was today with no dark stools or lincoln blood. Patient's denying any fevers. States she does have an appointment on Monday with her primary care provider. States she is got some generalized abdominal pain around the wound VAC which is abnormal for her. In looking at patient's past reports she is supposed to be on pantoprazole 40 mg twice a day. States she has been without this for the last 2 weeks. States she has been unable to get it refilled. TRAVEL OUTSIDE OF THE [place] IN LAST 30 DAYS: No - Related Data Allergies/Adverse Reactions: No Known Allergies Allergy (Verified 04/25/18 16:24) Past Medical History - General Information source: Patient - Social History Smoking Status: Never Smoker Family History: Reviewed & Not Pertinent Patient has suicidal ideation: No Patient has homicidal ideation: No Neurological Medical History: Reports: Hx Migraine Renal/ Medical History: Denies: Hx Peritoneal Dialysis GI Medical History: Reports: Hx Gastritis, Hx Gastroesophageal Reflux Disease, Hx Ulcer - 2 years ago, told she had a bleeding ulcer that was treated by endoscopy., Hx Colonoscopy, Hx Endoscopy Psychiatric Medical History: Reports: Hx Anxiety, Hx Depression Past Surgical History: Reports: Hx Oral Surgery, Hx Tonsillectomy, Other - Thera peutic upper endoscopy for bleeding peptic ulcer. Colonoscopy. - Immunizations Immunizations up to date: Yes Hx Pneumococcal Vaccination: 11/21/15 Review of Systems - Review of Systems Constitutional: See HPI EENT: No symptoms reported Cardiovascular: No symptoms reported Respiratory: No symptoms reported Gastrointestinal: See HPI Genitourinary: No symptoms reported Female Genitourinary: No symptoms reported Musculoskeletal: No symptoms reported Skin: No symptoms reported Hematologic/Lymphatic: No symptoms reported Neurological/Psychological: No symptoms reported Physical Exam - Vital signs Vitals: Temp Pulse Resp BP Pulse Ox 98.0 F 97 18 129/93 H 99 04/25/18 16:33 04/25/18 16:33 04/25/18 16:33 04/25/18 16:33 04/25/18 16:33 - Notes Notes: GENERAL: Alert, interacts well. No acute distress. HEAD: Normocephalic, atraumatic. EYES: Pupils equal, round, and reactive to light. Extraocular movements intact. ENT: Oral mucosa moist, tongue midline. NECK: Full range of motion. Supple. Trachea midline. LUNGS: Clear to auscultation bilaterally, no wheezes, rales, or rhonchi. No r espiratory distress. HEART: Regular rate and rhythm. No murmur ABDOMEN: Soft, Non-distended. Bowel sounds present in all 4 quadrants. Generalized tenderness noted over wound VAC which is takes at most of the mid abdomen. EXTREMITIES: Moves all 4 extremities spontaneously. No edema, normal radial and dorsalis pedis pulses bilaterally. No cyanosis. BACK: no cervical, thoracic, lumbar midline tenderness. No saddle anesthesia, normal distal neurovascular exam. NEUROLOGICAL: Alert and oriented x3. Normal speech. cranial nerves II through XII grossly intact PSYCH: Normal affect, normal mood. SKIN: Warm, dry, normal turgor. No rashes or lesions noted. Course - Re-evaluation Re-evalutation: 04/25/18 23:28 Patient's labs show no signs of leukocytosis, no signs of anemia, urine shows no signs of infection. Imaging modalities of patient's abdomen shows no signs of small bowel obstruction. After her dose of pantoprazole in the emergency department patient states she overall feels a lot better. Discussed with her need to follow-up with primary care provider for continuing her prescribed medications. Patient has been able to p.o. fluids with no vomiting in the emergency room. Stable for discharge. - Vital Signs Vital signs: Temp Pulse Resp BP Pulse Ox 97.2 F 76 18 149/91 H 100 04/25/18 20:49 04/25/18 20:49 04/25/18 20:49 04/25/18 20:49 04/25/18 20:49 - Laboratory Result Diagrams: 04/25/18 18:45 04/25/18 20:11 Laboratory results interpreted by me: 04/25/18 04/25/18 18:45 20:11 RDW 16.6 H Plt Count 657 H Sodium 136.3 L Creatinine 0.35 L Glucose 188 H Total Protein 5.7 L Albumin 3.2 L Discharge - Discharge Clinical Impression: Nausea & vomiting Qualifiers: Vomiting type: unspecified Vomiting Intractability: non-intractable Qualified Code(s): R11.2 - Nausea with vomiting, unspecified Abdominal pain Qualifiers: Abdominal location: unspecified location Qualified Code(s): R10.9 - Unspecified abdominal pain GERD (gastroesophageal reflux disease) Qualifiers: Esophagitis presence: esophagitis presence not specified Qualified Code(s): K2 1.9 - Gastro-esophageal reflux disease without esophagitis Condition: Stable Disposition: HOME, SELF-CARE Instructions: Abdominal Pain ([facility]), Vomiting ([facility]), Antinausea Medication ([facility]), Gastritis ([facility]) Additional Instructions: As we discussed you have been seen and treated in the emergency department for your generalized abdominal pain, nausea, vomiting. Your labs are relatively unremarkable. I am going to refill your pantoprazole. Please take it as prescribed and make sure you follow-up with your primary care provider on Monday. Please make sure you do not let your medications run out or they are very important because of your recent surgery. Please make sure you return to the emergency room should you have any other concerning symptoms. Prescriptions: Ondansetron [Zofran Odt 4 mg Tablet] 1 tab PO Q6 #8 tab.rapdis Pantoprazole Sodium 40 mg PO BID 30 Days tablet.
[2018-04-25 23:55] VITALS: BP 114/79
== END 2018-04-25 23:56 | disposition home or self-care (01) ==
LOC: ER 16:23
DX: K21.9 Gastro-esophageal reflux disease without esophagitis (principal); R11.2 Nausea with vomiting, unspecified; T47.1X6A Underdosing of other antacids and anti-gastric-secretion drugs, initial encounter; Z91.128 Patient's intentional underdosing of medication regimen for other reason; Z91.14 Patient's other noncompliance with medication regimen; R10.84 Generalized abdominal pain
CPT/HCPCS: 99284; 96361; 96374; 96375; 36415; 83690; 83735; 85025; 80053; 81001; 74022; 74177; S0164; J2405; J7070; S0028

== ENCOUNTER 2018-05-21 09:51 | Emergency (ER) | payer OTHER ==
[2018-05-21] MEDS ORDERED: NORMAL SALINE 1000 ML 1,000 ML IV ONE (10:09)
--- NOTE | 2018-05-21 10:09 | ER Document Report ---
ED Medical Screen (RME) - General Chief Complaint: General Weakness Stated Complaint: WEAKNESS Time Seen by Provider: 05/21/18 10:00 Mode of Arrival: Wheelchair Information source: Patient, Relative Notes: Patient is a 62-year-old female who presents to the emergency department with generalized weakness and complaints of diarrhea. Patient reports symptoms have been ongoing for approximately 3 days. She also reports a few episodes of vomiting, she believes there was dark red blood in the vomit. Patient was recently discharged from [facility] for a ruptured ulcer in her ab domen. Patient denies any fever. Patient is hypotensive, upgraded to DENG 2. Nursing staff main charge nurse aware of need for bed placement. Exam: Pale, cachectic, answers all questions appropriately. Lung sounds are clear to auscultation bilaterally I have greeted and performed a rapid initial assessment of this patient. A comprehensive ED assessment and evaluation of the patient, analysis of test results and completion of the medical decision making process will be conducted by additional ED providers. Dictation of this chart was performed using voice recognition software; therefore, there may be some unintended grammatical errors. TRAVEL OUTSIDE OF THE [place] IN LAST 30 DAYS: No - Related Data Allergies/Adverse Reactions: No Known Allergies Allergy (Verified 05/21/18 09:54) Past Medical History Neurological Medical History: Reports: Hx Migraine Renal/ Medical History: Denies: Hx Peritoneal Dialysis GI Medical History: Reports: Hx Gastritis, Hx Gastroesophageal Reflux Disease, Hx Ulcer - 2 years ago, told she had a bleeding ulcer that was treated by endoscopy., Hx Colonoscopy, Hx Endoscopy Psychiatric Medical History: Reports: Hx Anxiety, Hx Depression Past Surgical History: Reports: Hx Oral Surgery, Hx Tonsillectomy, Other - Therapeutic upper endoscopy for bleeding peptic ulcer. Colonoscopy. - Immunizations Immunizations up to date: Yes Physical Exam - Vital signs Vitals: Temp Pulse Resp BP Pulse Ox 97.5 F 97 16 84/57 L 100 05/21/18 09:57 05/21/18 09:57 05/21/18 09:57 05/21/18 09:57 05/21/18 09:57 Course - Vital Signs Vital signs: Temp Pulse Resp BP Pulse Ox 97.5 F 97 16 84/57 L 100 05/21/18 09:57 05/21/18 09:57 05/21/18 09:57 05/21/18 09:57 05/21/18 09:57
--- NOTE | 2018-05-21 10:35 | ER Document Report ---
ED General - General Chief Complaint: General Weakness Stated Complaint: WEAKNESS Time Seen by Provider: 05/21/18 10:00 Mode of Arrival: Wheelchair Notes: Patient is here complaining of vomiting and diarrhea and generalized weakness. She says that vomiting started night and she vomited once and it looked like "old blood", black in color. Over the weekend, she had no more vomiting, but she had diarrhea frequently. It was a brown watery diarrhea without any apparent blood present. That went on for Monday, Monday, and Monday. She continues to feel weak today. Says she has some generalized abdominal cramping off and on. No constant abdominal pain. Denies any UTI symptoms. Denies any fever. Patient used to be a heavy alcohol drinker, but has not had alcohol for the past year and a half. Patient says her blood pressure normally runs about 90 systolic. Patient has a history of bleeding ulcer in February of this year. She was seen here and transferred to [facility] where she underwent 2 surgical procedures and was in the hospital there for 5-6 weeks. Was seen here with "the flu" about a month ago. Patient denies any abdominal surgeries except for the previously mentioned ulcers and also she had surgery once for acid reflux. Patient was never told that she has cirrhosis of the liver. PMH: No heart disease. Depression. TRAVEL OUTSIDE OF THE [place] IN LAST 30 DAYS: No - Related Data Allergies/Adverse Reactions: No Known Allergies Allergy (Verified 05/21/18 09:54) Past Medical History - General Information source: Patient, Relative - Social History Smoking Status: Never Smoker Chew tobacco use (# tins/day): No Frequency of alcohol use: None Drug Abuse: None Family History: Reviewed & Not Pertinent Patient has suicidal ideation: No Patient has homicidal ideation: No Neurological Medical History: Reports: Hx Migraine Renal/ Medical History: Denies: Hx Peritoneal Dialysis GI Medical History: Reports: Hx Gastritis, Hx Gastroesophageal Reflux Disease, Hx Ulcer - 2 years ago, told she had a bleeding ulcer that was treated by endoscopy., Hx Colonoscopy, Hx Endoscopy Psychiatric Medical History: Reports: Hx Anxiety, Hx Depression Past Surgical History: Reports: Hx Oral Surgery, Hx Tonsillectomy, Other - Therapeutic upper endoscopy for bleeding peptic ulcer. Colonoscopy. - Immunizations Immunizations up to date: Yes Hx Pneumococcal Vaccination: 11/21/15 Review of Systems - Review of Systems Notes: REVIEW OF SYSTEMS: CONSTITUTIONAL : Denies fever. Feels generalized weakness. EENT: Denies eye, ear, nose or mouth or throat pain or other symptoms. CARDIOVASCULAR: Denies chest pain. RESPIRATORY: Denies cough, chest congestion, or shortness of breath. GASTROINTESTINAL: See HPI. Denies seeing any blood in vomitus or diarrhea. GENITOURINARY: Denies difficulty or painful urinating, urinary frequency, blood in urine. MUSCULOSKELETAL: Denies back or neck pain. Denies joint pain or swelling. SKIN: Denies rash or skin lesions. NEUROLOGICAL: Denies LOC or altered mental status. Denies headache. Denies sensory loss or motor deficits. ALL OTHER SYSTEMS REVIEWED AND NEGATIVE. Physical Exam - Vital signs Vitals: Temp Pulse Resp BP Pulse Ox 97.5 F 97 16 84/57 L 100 05/21/18 09:57 05/21/18 09:57 05/21/18 09:57 05/21/18 09:57 05/21/18 09:57 Interpretation: Hypotensive Notes: PHYSICAL EXAMINATION: GENERAL: Well-appearing, in no acute distress. Blood pressure 84/57 at triage. HEAD: Atraumatic, normocephalic. EYES: Pupils equal round and reactive to light, extraocular movements intact. ENT: oropharynx clear without exudates. Moist mucous membranes. NECK: Normal range of motion, supple. LUNGS: Breath sounds clear and equal bilaterally. HEART: Regular rate and rhythm without murmurs. Blood pressure is low, but heart rate is only slightly increased. ABDOMEN: Soft, nontender. No guarding or rebound. No masses. Rectal exam revealed no masses or lesions. Yellowish brown stool. Strongly positive guaiac at the bedside. BACK: No tenderness throughout entire back. EXTREMITIES: Normal range of motion without pain. NEUROLOGICAL: Normal speech, normal gait. Normal sensory, motor, and reflex exams. Awake, alert, and oriented x3. Cranial nerves normal. PSYCH: Normal mood, normal affect. SKIN: Warm, dry, no rashes. Course - Re-evaluation Re-evalutation: 05/21/18 12:33 Patient's hemoglobin came back at 5.9. Patient was typed and crossmatched and started on 2 units of packed cells. Spoke with Dr. Donaldson was in the OR and he care of the patient endoscopically. Spoke with the hospitalist who will admit the patient. 05/21/18 16:47 Change of plans. Hospitalist discussed this case with surgeon, who was going to be available for endoscopy, if necessary, and they believe the patient should be transferred to [facility] [place] where she had her surgery and her extended care in February of this year. They are concerned that she has a bleeding anastomosis that will need further surgery, beyond the capabilities of our facility. Patient's vital signs improved dramatically with her systolic blood pressure going back above 100 to 108/75 at a time after receiving her first unit of blood. I contacted [facility] and patient was accepted in transfer to their ICU by Dr. Lopez. Arrangements for transfer were made with the patient being taken to [place] by helicopter. - Vital Signs Vital signs: Temp Pulse Resp BP Pulse Ox 98.4 F 81 12 124/83 100 05/21/18 16:39 05/21/18 16:40 05/21/18 16:46 05/21/18 16:46 05/21/18 16:46 - Laboratory Result Diagrams: 05/21/18 10:30 05/21/18 10:30 Laboratory results interpreted by me: 05/21/18 05/21/18 05/21/18 10:30 10:30 10:30 WBC 3.4 L RBC 2.03 L Hgb 5.9 L Hct 18.4 L RDW 16.7 H Plt Count 455 H Chloride 109 H Creatinine 0.46 L Lactic Acid 2.2 H Total Bilirubin 0.1 L AST 13 L Total Protein 4.9 L Albumin 2.6 L Crossmatch 05/21/18 10:30 WBC RBC Hgb Hct RDW Plt Count Chloride Creatinine Lactic Acid Total Bilirubin AST Total Protein Albumin Crossmatch See Detail Critical Care Note - Critical Care Note Total time excluding time spent on procedures (mins): 50 Discharge - Discharge Clinical Impression: Anemia, Gastrointestinal bleeding Condition: Serious Disposition: [facility]
[2018-05-21 11:01] LABS: ABSOLUTE EOSINOPHILS # (AUTO) 0.1 10^3/uL (0.0-0.6); ABSOLUTE LYMPHOCYTES (AUTO) 0.9 10^3/uL (0.5-4.7); ABSOLUTE MONOCYTES (AUTO) 0.2 10^3/uL (0.1-1.4); ABSOLUTE NEUT (AUTO) 2.2 10^3/uL (1.7-8.2); BASOPHILS % (AUTO) 0.7 % (0-2); EOSINOPHILS % (AUTO) 2.2 % (0-6); HEMATOCRIT 18.4 % (36.0-47.0); LYMPHOCYTES % (AUTO) 24.9 % (13-45); MEAN CORPUSCULAR HEMOGLOBIN 29.1 pg (27.0-33.4); MEAN CORPUSCULAR HGB CONC 32.1 g/dL (32.0-36.0); MONOCYTES % (AUTO) 7.3 % (3-13); PLATELET COUNT 455 10^3/uL (150-450); RED BLOOD COUNT 2.03 10^6/uL (3.72-5.28); RED CELL DISTRIBUTION WIDTH 16.7 % (11.5-14.0); SEGMENTED NEUTROPHILS % (AUTO) 64.9 % (42-78); TOTAL CELLS COUNTED % (AUTO) 100 %; WHITE BLOOD COUNT 3.4 10^3/uL (4.0-10.5)
[2018-05-21 11:02] LABS: VENOUS BLOOD BASE EXCESS -0.3 mmol/L; VENOUS BLOOD PCO2 54.7 mmHg (35-63); VENOUS BLOOD PH 7.3 (7.30-7.42)
[2018-05-21 11:05] LABS: PROTHROMBIN TIME 13.7 SEC (11.4-15.4)
[2018-05-21] MEDS ORDERED: NORMAL SALINE 250 ML IV PRN (11:09)
[2018-05-21 11:10] LABS: HEMOGLOBIN 5.9 g/dL (12.0-15.5)
[2018-05-21 11:11] LABS: MEAN CORPUSCULAR VOLUME 91 fl (80-97)
--- NOTE | 2018-05-21 11:13 | RADIOLOGY REPORT (SQ) ---
EXAM DESCRIPTION: CHEST SINGLE VIEW COMPLETED DATE/TIME: 05/21/2018 10:53 am REASON FOR STUDY: hypotension COMPARISON: 02/21/2018 EXAM PARAMETERS: NUMBER OF VIEWS: One view. TECHNIQUE: Single frontal radiographic view of the chest acquired. RADIATION DOSE: NA LIMITATIONS: None. FINDINGS: LUNGS AND PLEURA: Lung juan are hyperexpanded but clear. No pneumothorax. No consolida tion or effusions. MEDIASTINUM AND HILAR STRUCTURES: No masses. Contour normal. HEART AND VASCULAR STRUCTURES: Heart normal in size. Normal vasculature. BONES: No acute findings. HARDWARE: None in the chest. OTHER: No other significant finding. IMPRESSION: Hyperexpansion otherwise negative chest. TECHNICAL DOCUMENTATION: JOB ID: [id number] [employer]- All Rights Reserved Reading location - IP/workstation name: [email or web address]
[2018-05-21 11:28] LABS: ALANINE AMINOTRANSFERASE 21 U/L (9-52); ALBUMIN 2.6 g/dL (3.5-5.0); ALKALINE PHOSPHATASE 42 U/L (38-126); ANION GAP 6 (5-19); ASPARTATE AMINO TRANSFERASE 13 U/L (14-36); BILIRUBIN,DIRECT 0.1 mg/dL (0.0-0.4); BILIRUBIN,TOTAL 0.1 mg/dL (0.2-1.3); BLOOD UREA NITROGEN 13 mg/dL (7-20); CALCIUM 8.8 mg/dL (8.4-10.2); CARBON DIOXIDE 25 mmol/L (22-30); CHLORIDE 109 mmol/L (98-107); GLUCOSE 103 mg/dL (75-110); POTASSIUM 3.9 mmol/L (3.6-5.0); SODIUM 140.3 mmol/L (137-145); TOTAL PROTEIN 4.9 g/dL (6.3-8.2)
--- NOTE | 2018-05-21 13:03 | EKG REPORT ---
SEVERITY:- BORDERLINE ECG - SINUS RHYTHM SHORT FL INTERVAL, ACCELERATED AV CONDUCTION BORDERLINE RIGHT AXIS DEVIATION : Confirmed by: Kana Bingham MD 21-May-2018 13:02:37
[2018-05-21 16:47] VITALS: BP 124/83
[2018-05-21 18:11] LABS: AMORPHOUS SEDIMENT,URINE TRACE /HPF; APPEARANCE,URINE CLOUDY; BILIRUBIN,URINE NEGATIVE (NEGATIVE); COLOR,URINE YELLOW; GLUCOSE, URINE NEGATIVE (NEGATIVE); KETONES,URINE NEGATIVE (NEGATIVE); LEUKOCYTE ESTERASE,URINE MODERATE (NEGATIVE); NITRITE,URINE NEGATIVE (NEGATIVE); PROTEIN,URINE NEGATIVE (NEGATIVE); URINE SPECIFIC GRAVITY 1.018; UROBILINOGEN,URINE NEGATIVE mg/dL (<2.0)
== END 2018-05-21 16:52 | disposition short-term general hospital (02) ==
LOC: ER 09:51
DX: D64.9 Anemia, unspecified (principal); K92.2 Gastrointestinal hemorrhage, unspecified; R53.1 Weakness; R19.7 Diarrhea, unspecified
CPT/HCPCS: 93005; 99291; 96360; 86900; 86901; 36415; 87040; 87086; 36430; 86850; 80307; 85025; 85610; 87077; 87088; 80053; 81001; 87186; 86920; 82803; 83605; 71045; 93010; P9016; J7030

== ENCOUNTER 2018-10-09 16:32 | Inpatient (IN) | payer OTHER ==
--- NOTE | 2018-10-09 16:57 | ER Document Report ---
ED Medical Screen (RME) - General Chief Complaint: Abnormal Lab Results Stated Complaint: ABNORMAL LAB Time Seen by Provider: 10/09/18 16:47 Notes: Patient is a 62-year-old female presents to the emergency department for the chief complaint of anemia. Patient states that she had labs drawn at her doctor's office yesterday and was called today for possible blood transfusion as her hemoglobin was low. Patient does not know the value of this. Patient reports she is having upper abdominal pain and discomfort. Patient states she had emergent abdominal surgery back in February due to a bleeding ulcer. Patient states over the past 2 to 3 months her abdomen has become more distended as she does feel very bloated. Patient states the bloating and swelling to the abdomen have been very gradual. Patient reports since February she has had to receive a blood transfusion here in the emergency department for anemia. TRAVEL OUTSIDE OF THE [place] IN LAST 30 DAYS: No - Related Data Allergies/Adverse Reactions: No Known Allergies Allergy (Verified 05/21/18 09:54) Past Medical History Neurological Medical History: Reports: Hx Migraine Renal/ Medical History: Denies: Hx Peritoneal Dialysis GI Medical History: Reports: Hx Gastritis, Hx Gastroesophageal Reflux Disease, Hx Ulcer - 2 years ago, told she had a bleeding ulcer that was treated by endoscopy., Hx Colonoscopy, Hx Endoscopy Psychiatric Medical History: Reports: Hx Anxiety, Hx Depression Past Surgical History: Reports: Hx Oral Surgery, Hx Tonsillectomy, Other - Therapeutic upper endoscopy for bleeding peptic ulcer. Colonoscopy. - Immunizations Immunizations up to date: Yes Physical Exam - Vital signs Vitals: Temp Pulse Resp BP Pulse Ox 98.1 F 100 16 121/72 100 10/09/18 16:36 10/09/18 16:36 10/09/18 16:36 10/09/18 16:36 10/09/18 16:36 - Abdominal Inspection: Wounds Distension: Distended Course - Re-evaluation Re-evalutation: 10/09/18 16:56 I have greeted and performed a rapid initial assessment of this patient. A comprehensive ED assessment and evaluation of the patient, analysis of test results and completion of the medical decision making process will be conducted by additional ED providers. - Vital Signs Vital signs: Temp Pulse Resp BP Pulse Ox 98.1 F 100 16 121/72 100 10/09/18 16:36 10/09/18 16:36 10/09/18 16:36 10/09/18 16:36 10/09/18 16:36
[2018-10-09 18:25] LABS: ABSOLUTE EOSINOPHILS # (AUTO) 0.1 10^3/uL (0.0-0.6); ABSOLUTE LYMPHOCYTES (AUTO) 1.6 10^3/uL (0.5-4.7); ABSOLUTE MONOCYTES (AUTO) 0.5 10^3/uL (0.1-1.4); ABSOLUTE NEUT (AUTO) 4.1 10^3/uL (1.7-8.2); BASOPHILS % (AUTO) 0.5 % (0-2); EOSINOPHILS % (AUTO) 1.5 % (0-6); LYMPHOCYTES % (AUTO) 25.3 % (13-45); MEAN CORPUSCULAR HEMOGLOBIN 24.6 pg (27.0-33.4); MEAN CORPUSCULAR HGB CONC 30.8 g/dL (32.0-36.0); MEAN CORPUSCULAR VOLUME 80 fl (80-97); MONOCYTES % (AUTO) 7.4 % (3-13); PLATELET COUNT 489 10^3/uL (150-450); RED BLOOD COUNT 2.34 10^6/uL (3.72-5.28); RED CELL DISTRIBUTION WIDTH 17.2 % (11.5-14.0); SEGMENTED NEUTROPHILS % (AUTO) 65.3 % (42-78); TOTAL CELLS COUNTED % (AUTO) 100 %; WHITE BLOOD COUNT 6.3 10^3/uL (4.0-10.5)
[2018-10-09 18:31] LABS: HEMATOCRIT 18.7 % (36.0-47.0); HEMOGLOBIN 5.8 g/dL (12.0-15.5)
[2018-10-09] MEDS ORDERED: NORMAL SALINE 250 ML IV PRN (18:33)
[2018-10-09 18:40] LABS: ALBUMIN 2.8 g/dL (3.5-5.0); ALKALINE PHOSPHATASE 32 U/L (38-126); ANION GAP 8 (5-19); ASPARTATE AMINO TRANSFERASE 27 U/L (14-36); BILIRUBIN,DIRECT 0.8 mg/dL (0.0-0.4); BILIRUBIN,TOTAL 0.8 mg/dL (0.2-1.3); BLOOD UREA NITROGEN 17 mg/dL (7-20); CALCIUM 8.8 mg/dL (8.4-10.2); CARBON DIOXIDE 23 mmol/L (22-30); CHLORIDE 110 mmol/L (98-107); POTASSIUM 3.4 mmol/L (3.6-5.0); TOTAL PROTEIN 4.9 g/dL (6.3-8.2)
[2018-10-09 18:43] LABS: GLUCOSE 65 mg/dL (75-110)
--- NOTE | 2018-10-09 18:43 | ER Document Report ---
ED General - General Chief Complaint: Abnormal Lab Results Stated Complaint: ABNORMAL LAB Time Seen by Provider: 10/09/18 16:47 Primary Care Provider: STEFAN SOTO MD [Primary Care Provider] - Follow up as needed Information source: Patient TRAVEL OUTSIDE OF THE [place] IN LAST 30 DAYS: No - HPI Notes: Patient presents with weakness. Patient states she was told by her primary care physician that her hemoglobin is low and she needed to come the emergency department. She states in February 2018 she had a perforated ulcer that was operated on since that time she has had to be transfused one time. She states at that time they worked her up and could not find the cause for the anemia. She states she has not been vomiting. She states she has had no blood in her stool and she has had no black stool. She states she occasionally will get an epigastric pain that is very brief but intense. Nothing makes it better or worse. Does not radiate. And that it occurs randomly. She does not currently have this pain. She states she does feel lightheaded and dizzy and this is worse with standing up and exertion. - Related Data Allergies/Adverse Reactions: No Known Allergies Allergy (Verified 05/21/18 09:54) Past Medical History - General Information source: Patient - Social History Smoking Status: Never Smoker Frequency of alcohol use: None Drug Abuse: None Family History: Reviewed & Not Pertinent Patient has suicidal ideation: No Patient has homicidal ideation: No Neurological Medical History: Reports: Hx Migraine Renal/ Medical History: Denies: Hx Peritoneal Dialysis GI Medical History: Reports: Hx Gastritis, Hx Gastroesophageal Reflux Disease, Hx Ulcer - 2 years ago, told she had a bleeding ulcer that was treated by endoscopy., Hx Colonoscopy, Hx Endoscopy Psychiatric Medical History: Reports: Hx Anxiety, Hx Depression Past Surgical History: Reports: Hx Oral Surgery, Hx Tonsillectomy, Other - Therapeutic upper endoscopy for bleeding peptic ulcer. Colonoscopy. - Immunizations Immunizations up to date: Yes Hx Pneumococcal Vaccination: 11/21/15 Review of Systems - Review of Systems Constitutional: Malaise, Weakness Cardiovascular: Dizziness, Lightheaded. denies: Chest pain, Dyspnea, Syncope Respiratory: denies: Cough, Short of breath Gastrointestinal: Abdominal pain. denies: Diarrhea, Blood streaked bowels -: Yes All other systems reviewed and negative Physical Exam - Vital signs Vitals: Temp Pulse Resp BP Pulse Ox 98.1 F 100 16 121/72 100 10/09/18 16:36 10/09/18 16:36 10/09/18 16:36 10/09/18 16:36 10/09/18 16:36 Interpretation: Normal - General General appearance: Appears well, Alert - HEENT Head: Normocephalic, Atraumatic Eyes: Normal Pupils: PERRL - Respiratory Respiratory status: No respiratory distress Chest status: Nontender Breath sounds: Normal Chest palpation: Normal - Cardiovascular Rhythm: Regular Heart sounds: Normal auscultation Murmur: No - Abdominal Inspection: Other - Patient has some epidermal erosion over the area of her midline scar. This area is not tender. There is no signs of infection. Distension: Distended, Other - Abdomen is soft but it is distended Bowel sounds: Normal Tenderness: Nontender Organomegaly: No organomegaly - Back Back: Normal, Nontender - Extremities General upper extremity: Normal inspection, Nontender, Normal color, Normal ROM, Normal temperature General lower extremity: Normal inspection, Nontender, Normal color, Normal ROM, Normal temperature, Normal weight bearing. No: Gentry's sign - Neurological Neuro grossly intact: Yes Cognition: Normal Orientation: AAOx4 [place] Coma Scale Eye Opening: Spontaneous [place] Coma Scale Verbal: Oriented [place] Coma Scale Motor: Obeys Commands [place] Coma Scale Total: 15 Speech: Normal Motor strength normal: LUE, RUE, LLE, RLE Sensory: Normal - Psychological Associated symptoms: Normal affect, Normal mood - Skin Skin Temperature: Warm Skin Moisture: Dry Skin Color: Normal Course - Re-evaluation Re-evalutation: 10/09/18 18:42 Patient reassessed at this time. She resting comfortably in the bed. Vital signs are still unremarkable. I have discussed the case with the hospitalist and reviewed old records. She has been accepted for admission. - Vital Signs Vital signs: Temp Pulse Resp BP Pulse Ox 98.1 F 100 16 121/72 100 10/09/18 16:36 10/09/18 16:36 10/09/18 16:36 10/09/18 16:36 10/09/18 16:36 - Laboratory Result Diagrams: 10/09/18 17:24 10/09/18 17:24 Laboratory results interpreted by me: 10/09/18 10/09/18 17:24 17:24 RBC 2.34 L Hgb 5.8 L Hct 18.7 L MCH 24.6 L MCHC 30.8 L RDW 17.2 H Plt Count 489 H Crossmatch See Detail Critical Care Note - Critical Care Note Total time excluding time spent on procedures (mins): 50 Comments: 50 minutes of critical care time were spent on this patient. This included reviewing old records and talking to consultants. It also included multiple reassessments of the patient. Discharge - Discharge Clinical Impression: Anemia Qualifiers: Anemia type: unspecified type Qualified Code(s): D64.9 - Anemia, unspecified Condition: Serious Disposition: ADMITTED INPATIENT Admitting Provider: Jose Elias (Hospitalist) Unit Admitted: Medical Floor Referrals: STEFAN SOTO MD [Primary Care Provider] - Follow up as needed
[2018-10-09] MEDS ORDERED: MAG HYDROX/AL HYDROX/SIMETH SUSP 30 ML UDCUP PO PRN (19:52)
[2018-10-09] MEDS ORDERED: MAGNESIUM HYDROXIDE SUSP 30 ML UDCUP PO PRN (19:52)
[2018-10-09] MEDS ORDERED: TEMAZEPAM 7.5 MG CAPSULE PO PRN (19:52)
[2018-10-09] MEDS ORDERED: PROMETHAZINE HCL INJ 25 MG/1 ML VIAL IV PRN (19:52)
[2018-10-09 20:37] LABS: ABSOLUTE RETICS # 0.092 10^6/uL (0.028-0.122)
[2018-10-09 20:42] LABS: IRON(TIBC) 16.9 ug/dL (37-170)
[2018-10-09 20:54] LABS: APPEARANCE,URINE CLEAR; BILIRUBIN,URINE NEGATIVE (NEGATIVE); COLOR,URINE YELLOW; GLUCOSE, URINE NEGATIVE (NEGATIVE); KETONES,URINE NEGATIVE (NEGATIVE); LEUKOCYTE ESTERASE,URINE MODERATE (NEGATIVE); NITRITE,URINE NEGATIVE (NEGATIVE); PROTEIN,URINE NEGATIVE (NEGATIVE); URINE SPECIFIC GRAVITY 1.023; UROBILINOGEN,URINE NEGATIVE mg/dL (<2.0)
[2018-10-09 20:59] LABS: FREE T3 5.1 pg/mL (2.77-5.27); FREE T4 (FREE THYROXINE) 1.26 ng/dL (0.78-2.19)
[2018-10-09 21:13] LABS: THYROID STIMULATING HORMONE 1.73 uIU/mL (0.47-4.68)
[2018-10-09 21:19] LABS: FERRITIN 5.05 ng/mL (11.1-264.0)
[2018-10-09 21:53] LABS: FOLATE > 20.00 ng/mL (>2.76)
[2018-10-09] MEDS ORDERED: SUCRALFATE 1 GM TABLET ONE (22:44)
[2018-10-09] MEDS: ESCITALOPRAM OXALATE 10 MG TABLET PO SCH (22:59)
[2018-10-09] MEDS: METOCLOPRAMIDE HCL 10 MG TABLET PO SCH (22:59)
[2018-10-09] MEDS: HEPARIN SOD (PORCINE) 5,000 UNIT/ML 1 ML VIAL SUBCUT SCH (22:59)
--- NOTE | 2018-10-09 23:07 | PDOC H&P ---
History of Present Illness Admission Date/PCP: 10/09/18 18:57 STEFAN SOTO MD Patient complains of: Anemia History of Present Illness: RANDALL ELKINS is a 62 year old female who presented to the emergency room with anemia. Patient states that she was notified by her primary care phys ician's office that she needed to come to the emergency room because her hemoglobin was low again. She admits having a perforated ulcer which was treated surgically in February of this year and since that time she has required 1 additional blood transfusion. She further relates that she has been having intermittent upper abdominal intense gripping pain lasting for a few minutes to a few hours on various occasions over the last 2 to 3 months. Her pain is not been associated with eating, drinking or any other activity. Her pain has not been noted to radiate and she has not noticed black stools or stools with a foul odor or other unusual appearance. She denies passing blood rectally and also denies vomiting or hematemesis. She is previously been evaluated to find a source of the anemia which remained elusive despite all efforts at determination. She admits feeling a little lightheaded and occasionally dizzy at times over the last several weeks with these symptoms generally being worse with standing up or exerting herself. Past Medical History Cardiac Medical History: Denies: Atrial Fibrillation, Coronary Artery Disease, Myocardial Infarction, Hyperlipidema, Hypertension, Peripheral Vascular Disease Pulmonary Medical History: Denies: Asthma, Chronic Obstructive Pulmonary Disease (COPD) EENT Medical History: Denies: Cataracts, Ears - Hearing aids Neurological Medical History: Reports: Migraine Denies: Hemorrhagic CVA, Ischemic CVA, Seizures Endocrine Medical History: Denies: Diabetes Mellitus Type 1, Diabetes Mellitus Type 2, Hyperthyroidism, Hypothyroidism Renal/ Medical History: Denies: Chronic Kidney Disease, Nephrolithiasis Malignancy Medical History: Reports: None GI Medical History: Reports: Gastroesophageal Reflux Disease, Peptic Ulcer Disease Denies: Cirrhosis, Crohn's Disease, Diverticulitis, Hepatitis, Ulcerative Colitis Musculoskeltal Medical History: Denies: Arthritis, Gout Skin Medical History: Denies: Eczema, Psoriasis Psychiatric Medical History: Reports: Depression Denies: Alcohol Dependency, Substance Abuse, Tobacco Dependency Traumatic Medical History: Reports: None Hematology: Reports: Anemia Denies: Bleeding Tendencies Infectious Medical History: Reports: None Past Surgical History Past Surgical History: Reports: Tonsillectomy, Other - EGD, Colonoscopy, abdominal surgery x2 for perforated peptic ulcer. Social History Information Source: Patient Lives with: Alone Smoking Status: Never Smoker Frequency of Alcohol Use: None Hx Recreational Drug Use: No Drugs: None Hx Prescription Drug Abuse: No - Advance Directive Resuscitation Status: Full Code Surrogate healthcare decision maker:: Randall Campos Family History Family History: Malignancy - Mother with colon cancer, father with pancreatic cancer, sister with breast cancer Parental Family History Reviewed: Yes Children Family History Reviewed: No Sibling(s) Family History Reviewed.: Yes Medication/Allergy Home Medications: Gabapentin [Neurontin 300 mg Capsule] 300 mg PO Q8 11/21/17 Betamethasone Dipropionate [Diprosone Cream] 1 applic TP HSP PRN 10/09/18 Docusate Sodium [Colace 100 mg Capsule] 100 mg PO DAILY 10/09/18 Escitalopram Oxalate [Lexapro 10 mg Tablet] 20 mg PO QHS 10/09/18 Esomeprazole Magnesium [Nexium 24Hr] 20 mg PO DAILY 10/09/18 Folic Acid [Folvite 1 mg Tablet] 1 mg PO DAILY 10/09/18 Multivit,Calc,Mins/Iron/Folic [Thera-M Caplet] 1 tab PO WSUPPER 10/09/18 Psyllium Husk (with Sugar) [Metamucil Packet] 3.4 gm PO DAILY 10/09/18 Allergies/Adverse Reactions: No Known Allergies Allergy (Verified 05/21/18 09:54) Review of Systems Constitutional: ABSENT: chills, fever(s) Eyes: ABSENT: visual disturbances, other - Ocular pain Ears: ABSENT: hearing changes, other - Ear pain Nose, Mouth, and Throat: ABSENT: mouth pain, sore throat Cardiovascular: ABSENT: chest pain, palpitations Respiratory: ABSENT: cough, dyspnea Gastrointestinal: PRESENT: as per HPI, abdominal pain, bloating - Gaseous abdominal distention since surgery.. ABSENT: constipation, diarrhea, hematemesis, hematochezia, melena, nausea, vomiting Genitourinary: ABSENT: dysuria, hematuria Musculoskeletal: ABSENT: back pain, joint swelling, muscle weakness Integumentary: ABSENT: pruritus, rash Neurological: ABSENT: confusion, convulsions, focal weakness, memory loss, syncope Psychiatric: ABSENT: anxiety, depression Endocrine: ABSENT: cold intolerance, heat intolerance Hematologic/Lymphatic: ABSENT: easy bleeding, easy bruising Physical Exam Vital Signs: Temp Pulse Resp BP Pulse Ox 98.1 F 100 16 121/72 100 10/09/18 16:36 10/09/18 16:36 10/09/18 16:36 10/09/18 16:36 10/09/18 16:36 Intake & Output 10/07/18 10/08/18 10/09/18 23:59 23:59 23:59 Weight 38.7 kg General appearance: PRESENT: no acute distress, cooperative Head exam: PRESENT: atraumatic, normocephalic Eye exam: PRESENT: conjunctiva pale. ABSENT: conjunctival injection, scleral icterus Ear exam: PRESENT: normal external ear exam. ABSENT: bleeding, drainage Mouth exam: PRESENT: dry mucosa, neck supple Neck exam: ABSENT: JVD, thyromegaly, tracheal deviation Respiratory exam: PRESENT: clear to auscultation edvin, symmetrical, unlabored Cardiovascular exam: PRESENT: RRR. ABSENT: clicks, gallop, rubs Pulses: PRESENT: normal radial pulses, normal dorsalis pedis pul Vascular exam: PRESENT: normal capillary refill, pallor - Mild pallor GI/Abdominal exam: PRESENT: hernia - Large ventral hernia at surgical incision site with healing by secondary intention and significant scarring., normal bowel sounds, soft. ABSENT: tenderness Rectal exam: PRESENT: deferred Extremities exam: ABSENT: joint swelling, pedal edema, tenderness Musculoskeletal exam: PRESENT: full ROM, normal inspection Neurological exam: PRESENT: alert, oriented to person, oriented to place, oriented to time, oriented to situation, CN II-XII grossly intact. ABSENT: motor sensory deficit Psychiatric exam: PRESENT: appropriate affect, normal mood Skin exam: PRESENT: dry, intact, warm, other - Small area of chronic superficial abrasion over abdominal ventral hernia scar area approximately 3 x 5 cm noted.. ABSENT: jaundice, rash, urticaria Results Laboratory Results: 10/09/18 17:24 10/09/18 17:24 10/09/18 10/09/18 10/09/18 17:24 17:24 17:24 WBC 6.3 RBC 2.34 L Hgb 5.8 L Hct 18.7 L MCV 80 MCH 24.6 L MCHC 30.8 L RDW 17.2 H Plt Count 489 H Seg Neutrophils % 65.3 Lymphocytes % 25.3 Monocytes % 7.4 Eosinophils % 1.5 Basophils % 0.5 Absolute Neutrophils 4.1 Absolute Lymphocytes 1.6 Absolute Monocytes 0.5 Absolute Eosinophils 0.1 Absolute Basophils 0.0 Sodium 140.5 Potassium 3.4 L Chloride 110 H Carbon Dioxide 23 Anion Gap 8 BUN 17 Creatinine 0.70 Est GFR ( Amer) > 60 Est GFR (Non-Af Amer) > 60 Glucose 65 L Calcium 8.8 Total Bilirubin 0.8 AST 27 Alkaline Phosphatase 32 L Total Protein 4.9 L Albumin 2.8 L Blood Type A POSITIVE Antibody Screen NEGATIVE Assessment and Plan - Diagnosis (1) Hypochromic microcytic anemia Is this a current diagnosis for this admission?: Yes Plan: Patient will receive blood transfusions and will be reevaluated for the causation of her anemia. A hematology consultation will be obtained. Stool for occult blood will be performed x3. Serial hemoglobins will be obtained on a daily basis to evaluate this problem. (2) GERD (gastroesophageal reflux disease) Qualifiers: Esophagitis presence: esophagitis presence not specified Qualified Code(s): K21.9 - Gastro-esophageal reflux disease without esophagitis Is this a current diagnosis for this admission?: Yes Plan: Patient will be treated with a Protonix, sucralfate and Reglan for control of her gastroesophageal reflux. Further evaluation of her GERD will be undertaken if necessary. (3) Hypokalemia Is this a current diagnosis for this admission?: Yes Plan: Patient's potassium will be repleted with oral replacement therapy. Potassium will followed on a daily basis with a metabolic profile and magnesium level. (4) Depression Qualifiers: Depression Type: unspecified Qualified Code(s): F32.9 - Major depressive disorder, single episode, unspecified Is this a current diagnosis for this admission?: Yes Plan: Patient be continued on her usual antidepressant medication. (5) Hx of migraine headaches Is this a current diagnosis for this admission?: Yes Plan: Patient will use Nubain 10 mg IV every 3 hours on a as needed basis for migraine headaches. - Time Time Spent with patient: 25-34 minutes Medications reviewed and adjusted accordingly: Yes Anticipated discharge: Home - Inpatient Certification Based on my medical assessment, after consideration of the patient's comorbidities, presenting symptoms, or acuity I expect that the services needed warrant INPATIENT care.: Yes I certify that my determination is in accordance with my understanding of Medicare's requirements for reasonable and necessary INPATIENT services [42 CFR 412.3e].: Yes Medical Necessity: Need Close Monitoring Due to Risk of Patient Decompensation, Risk of Complication if Not Cared For in Hospital
[2018-10-09] MEDS: SUCRALFATE 1 GM TABLET PO SCH (23:14)
[2018-10-10 06:02] LABS: ANION GAP 6 (5-19); BLOOD UREA NITROGEN 10 mg/dL (7-20); CALCIUM 8.7 mg/dL (8.4-10.2); CARBON DIOXIDE 25 mmol/L (22-30); CHLORIDE 110 mmol/L (98-107); GLUCOSE 103 mg/dL (75-110); POTASSIUM 3.9 mmol/L (3.6-5.0)
[2018-10-10 06:12] LABS: HEMATOCRIT 30.5 % (36.0-47.0); MEAN CORPUSCULAR HEMOGLOBIN 26.9 pg (27.0-33.4); MEAN CORPUSCULAR HGB CONC 33.3 g/dL (32.0-36.0); MEAN CORPUSCULAR VOLUME 81 fl (80-97); PLATELET COUNT 442 10^3/uL (150-450); RED BLOOD COUNT 3.77 10^6/uL (3.72-5.28); RED CELL DISTRIBUTION WIDTH 15.9 % (11.5-14.0); WHITE BLOOD COUNT 4.9 10^3/uL (4.0-10.5)
[2018-10-10 06:14] LABS: HEMOGLOBIN 10.1 g/dL (12.0-15.5)
[2018-10-10] MEDS: PANTOPRAZOLE SODIUM 40 MG TABLET.DR PO SCH ×2 (06:39→16:16)
[2018-10-10] MEDS: HEPARIN SOD (PORCINE) 5,000 UNIT/ML 1 ML VIAL SUBCUT SCH ×3 (06:40→21:02)
--- NOTE | 2018-10-10 07:58 | Progress Note Acknowledgement ---
Progress Note Acknowledgement Progess Note Acknowledgement: I, the undersigned member of the medical staff with appropriate privileges and with supervisory authority over [Harjinder Posada], a dependent practice allied health professional, acknowledge that I have reviewed the progress notes entered on this patient, and in my professional judgment believe that the assessment made and/or any care evidenced was appropriate
[2018-10-10] MEDS ORDERED: SIMETHICONE 80 MG TAB.CHEW PO PRN (07:59)
[2018-10-10] MEDS ORDERED: FERRIC CARBOXYMALTOSE INJ 750 MG/15 ML VIAL IV SCH (08:00)
--- NOTE | 2018-10-10 08:03 | PDOC PROGRESS REPORT ---
Subjective Progress Note for:: 10/10/18 Subjective:: October 10, 2018-bloating and gas Reason For Visit: HYPOCHROMIC MICROCYTIC ANEMIA Physical Exam Vital Signs: Temp Pulse Resp BP Pulse Ox 98.2 F 69 16 118/80 99 10/10/18 03:56 10/10/18 03:56 10/10/18 03:56 10/10/18 03:50 10/10/18 03:56 Intake & Output 10/09/18 10/10/18 10/11/18 06:59 06:59 06:59 Intake Total 600 Balance 600 Weight 38.7 kg General appearance: PRESENT: no acute distress, well-developed, well-nourished Neck exam: ABSENT: carotid bruit, JVD, lymphadenopathy, thyromegaly Respiratory exam: PRESENT: clear to auscultation edvin. ABSENT: rales, rhonchi, wheezes Cardiovascular exam: PRESENT: RRR. ABSENT: diastolic murmur, rubs, systolic murmur Pulses: PRESENT: normal dorsalis pedis pul Vascular exam: PRESENT: normal capillary refill GI/Abdominal exam: PRESENT: normal bowel sounds, soft. ABSENT: distended, guarding, mass, organolmegaly, rebound, tenderness Extremities exam: PRESENT: full ROM. ABSENT: calf tenderness, clubbing, pedal edema Neurological exam: PRESENT: alert, awake, oriented to person, oriented to place, oriented to time, oriented to situation, CN II-XII grossly intact. ABSENT: motor sensory deficit Psychiatric exam: PRESENT: appropriate affect, normal mood. ABSENT: homicidal ideation, suicidal ideation Skin exam: PRESENT: other - Abdominal wound with dressing intact Results Laboratory Results: 10/10/18 05:21 10/10/18 05:21 10/09/18 10/09/18 10/09/18 17:24 17:24 17:24 WBC 6.3 RBC 2.34 L Hgb 5.8 L Hct 18.7 L MCV 80 MCH 24.6 L MCHC 30.8 L RDW 17.2 H Plt Count 489 H Seg Neutrophils % 65.3 Lymphocytes % 25.3 Monocytes % 7.4 Eosinophils % 1.5 Basophils % 0.5 Absolute Neutrophils 4.1 Absolute Lymphocytes 1.6 Absolute Monocytes 0.5 Absolute Eosinophils 0.1 Absolute Basophils 0.0 Retic Count (auto) Absolute Retic Sodium 140.5 Potassium 3.4 L Chloride 110 H Carbon Dioxide 23 Anion Gap 8 BUN 17 Creatinine 0.70 Est GFR ( Amer) > 60 Est GFR (Non-Af Amer) > 60 Glucose 65 L Calcium 8.8 Magnesium Iron TIBC % Saturation Ferritin Total Bilirubin 0.8 AST 27 Alkaline Phosphatase 32 L Total Protein 4.9 L Albumin 2.8 L Vitamin B12 Folate TSH Free T4 Free T3 pg/mL Urine Color Urine Appearance Urine pH Ur Specific [place] Urine Protein Urine Glucose (UA) Urine Ketones Urine Blood Urine Nitrite Ur Leukocyte Esterase Urine WBC (Auto) Urine RBC (Auto) Blood Type A POSITIVE Antibody Screen NEGATIVE 10/09/18 10/09/18 10/09/18 17:24 17:24 17:24 WBC RBC Hgb Hct MCV MCH MCHC RDW Plt Count Seg Neutrophils % Lymphocytes % Monocytes % Eosinophils % Basophils % Absolute Neutrophils Absolute Lymphocytes Absolute Monocytes Absolute Eosinophils Absolute Basophils Retic Count (auto) 4.00 H Absolute Retic 0.092 Sodium Potassium Chloride Carbon Dioxide Anion Gap BUN Creatinine Est GFR ( Amer) Est GFR (Non-Af Amer) Glucose Calcium Magnesium Iron 16.9 L TIBC 283 % Saturation 6 Ferritin 5.05 L Total Bilirubin AST Alkaline Phosphatase Total Protein Albumin Vitamin B12 478.0 Folate > 20.00 TSH 1.73 Free T4 1.26 Free T3 pg/mL 5.10 Urine Color Urine Appearance Urine pH Ur Specific [place] Urine Protein Urine Glucose (UA) Urine Ketones Urine Blood Urine Nitrite Ur Leukocyte Esterase Urine WBC (Auto) Urine RBC (Auto) Blood Type Antibody Screen 10/09/18 10/10/18 10/10/18 20:18 05:21 05:21 WBC 4.9 RBC 3.77 Hgb 10.1 L D Hct 30.5 L MCV 81 MCH 26.9 L MCHC 33.3 RDW 15.9 H Plt Count 442 Seg Neutrophils % Lymphocytes % Monocytes % Eosinophils % Basophils % Absolute Neutrophils Absolute Lymphocytes Absolute Monocytes Absolute Eosinophils Absolute Basophils Retic Count (auto) Absolute Retic Sodium 140.5 Potassium 3.9 Chloride 110 H Carbon Dioxide 25 Anion Gap 6 BUN 10 Creatinine 0.57 Est GFR ( Amer) > 60 Est GFR (Non-Af Amer) > 60 Glucose 103 Calcium 8.7 Magnesium 2.2 Iron TIBC % Saturation Ferritin Total Bilirubin AST Alkaline Phosphatase Total Protein Albumin Vitamin B12 Folate TSH Free T4 Free T3 pg/mL Urine Color YELLOW Urine Appearance CLEAR Urine pH 6.0 Ur Specific [place] 1.023 Urine Protein NEGATIVE Urine Glucose (UA) NEGATIVE Urine Ketones NEGATIVE Urine Blood NEGATIVE Urine Nitrite NEGATIVE Ur Leukocyte Esterase MODERATE H Urine WBC (Auto) 9 Urine RBC (Auto) 0 Blood Type Antibody Screen Assessment and Plan - Diagnosis (1) Hypochromic microcytic anemia Is this a current diagnosis for this admission?: Yes Plan: Patient will receive blood transfusions and will be reevaluated for the causation of her anemia. A hematology consultation will be obtained. Stool for occult blood will be performed x3. Serial hemoglobins will be obtained on a daily basis to evaluate this problem. October 10, 2018-iron studies show low iron and stores. At this time will give patient 750 mg IV iron supplementation and will start her on ferrous sulfate 325 mg p.o. daily tomorrow. Patient did receive blood transfusion has a hemoglobin today of 10. Will follow with daily CBCs (2) Hypokalemia Is this a current diagnosis for this admission?: Yes Plan: Patient's potassium will be repleted with oral replacement therapy. Potassium will followed on a daily basis with a metabolic profile and magnesium level. October 10, 2018-resolved at this time continue to follow daily BMP (3) GERD (gastroesophageal reflux disease) Qualifiers: Esophagitis presence: esophagitis presence not specified Qualified Code(s): K21.9 - Gastro-esophageal reflux disease without esophagitis Is this a current diagnosis for this admission?: Yes Plan: Patient will be treated with a Protonix, sucralfate and Reglan for control of her gastroesophageal reflux. Further evaluation of her GERD will be undertaken if necessary. October 10, 2018-continue Protonix and Carafate. I have added simethicone on 120 4 times daily as needed for gas and bloating (4) Bloating Is this a current diagnosis for this admission?: Yes Plan: October 10, 2018-simethicone 120 mg p.o. 4 times daily as needed (5) UTI (urinary tract infection) Is this a current diagnosis for this admission?: Yes Plan: October 10, 2018-patient's UA shows moderate leukocyte esterase. Place patient on Rocephin 1 g IV daily until cultures return - Time Time Spent with patient: 15-24 minutes - Inpatient Certification Based on my medical assessment, after consideration of the patient's comorbidities, presenting symptoms, or acuity I expect that the services needed warrant INPATIENT care.: Yes I certify that my determination is in accordance with my understanding of Medicare's requirements for reasonable and necessary INPATIENT services [42 CFR 412.3e].: Yes Medical Necessity: Other - IV antibiotics, IV iron supplementation
--- NOTE | 2018-10-10 08:42 | PDOC CONSULTATION ---
Consultation Consult Date: 10/10/18 Provider Consulted: RUTH PENDLETON Consult reason:: Hematology/Oncology consultation was requested for patient with anemia and history of bleeding ulcers. History of Present Illness Admission Date/PCP: 10/09/18 18:57 STEFAN SOTO MD History of Present Illness: RANDALL ELKINS is a 62 year old female who states that in Feb of this year, she underwent emergent surgery for a perforated ulcer. She was in the ICU in [place] for quite some time. She states that she was scheduled to see GI as outpatient today to follow-up for this. However, routine blood work on Monday showed a low HGB and she was told by her PCP to come to the hospital. She was found to have HGB of 5 and Ferritin of 5. She received blood transfusion last night. She states that she has been having fatigue, difficulty with wound healing, and abdominal bloating. Today she is feeling better. She denies ever being on any iron or having IV iron. No history of blood transfusions prior to Feb. Otherwise, she states that she has been healthy. Past Medical History Cardiac Medical History: Denies: Atrial Fibrillation, Coronary Artery Disease, Myocardial Infarction, Hyperlipidema, Hypertension, Peripheral Vascular Disease Pulmonary Medical History: Denies: Asthma, Chronic Obstructive Pulmonary Disease (COPD) EENT Medical History: Denies: Cataracts, Ears - Hearing aids Neurological Medical History: Reports: Migraine Denies: Hemorrhagic CVA, Ischemic CVA, Seizures Endocrine Medical History: Denies: Diabetes Mellitus Type 1, Diabetes Mellitus Type 2, Hyperthyroidism, Hypothyroidism Renal/ Medical History: Denies: Chronic Kidney Disease, Nephrolithiasis Malignancy Medical History: Reports: None GI Medical History: Reports: Gastroesophageal Reflux Disease, Peptic Ulcer Disease Denies: Cirrhosis, Crohn's Disease, Diverticulitis, Hepatitis, Ulcerative Colitis Musculoskeltal Medical History: Denies: Arthritis, Gout Skin Medical History: Denies: Eczema, Psoriasis Psychiatric Medical History: Reports: Depression Denies: Alcohol Dependency, Substance Abuse, Tobacco Dependency Traumatic Medical History: Reports: None Hematology: Reports: Anemia Denies: Bleeding Tendencies Infectious Medical History: Reports: None Past Surgical History Past Surgical History: Reports: Tonsillectomy, Other - EGD, Colonoscopy, abdominal surgery x2 for perforated peptic ulcer. Social History Information Source: Patient Lives with: Alone Smoking Status: Never Smoker Frequency of Alcohol Use: None Amount of Alcoholic Beverages Per Day: She is a recovering alcoholic. Hx Recreational Drug Use: No Drugs: None Hx Prescription Drug Abuse: No Past Social History Note: She is with 3 kids, 4 grandkids, and 1 dog. - Advance Directive Resuscitation Status: Full Code Family History Family History: Malignancy - Mother with colon cancer, father with pancreatic cancer, sister with breast cancer Parental Family History Reviewed: Yes - Father of pancreatic cancer. Mother of colon cancer. Children Family History Reviewed: No Sibling(s) Family History Reviewed.: Yes - Sister of breast cancer. Medication/Allergy Home Medications: Gabapentin [Neurontin 300 mg Capsule] 300 mg PO Q8 11/21/17 Betamethasone Dipropionate [Diprosone Cream] 1 applic TP HSP PRN 10/09/18 Docusate Sodium [Colace 100 mg Capsule] 100 mg PO DAILY 10/09/18 Escitalopram Oxalate [Lexapro 10 mg Tablet] 20 mg PO QHS 10/09/18 Esomeprazole Magnesium [Nexium 24Hr] 20 mg PO DAILY 10/09/18 Folic Acid [Folvite 1 mg Tablet] 1 mg PO DAILY 10/09/18 Multivit,Calc,Mins/Iron/Folic [Thera-M Caplet] 1 tab PO WSUPPER 10/09/18 Psyllium Husk (with Sugar) [Metamucil Packet] 3.4 gm PO DAILY 10/09/18 Allergies/Adverse Reactions: No Known Allergies Allergy (Verified 05/21/18 09:54) Review of Systems Constitutional: ABSENT: fever(s), headache(s) Eyes: ABSENT: visual disturbances Ears: ABSENT: hearing changes Nose, Mouth, and Throat: ABSENT: sore throat Cardiovascular: ABSENT: chest pain Respiratory: ABSENT: cough, dyspnea Gastrointestinal: PRESENT: bloating. ABSENT: constipation Genitourinary: ABSENT: dysuria Integumentary: PRESENT: wounds Neurological: PRESENT: weakness Hematologic/Lymphatic: ABSENT: easy bleeding Physical Exam Vital Signs: Temp Pulse Resp BP Pulse Ox 98.2 F 69 16 118/80 99 10/10/18 03:56 10/10/18 03:56 10/10/18 03:56 10/10/18 03:50 10/10/18 03:56 Intake & Output 10/09/18 10/10/18 10/11/18 06:59 06:59 06:59 Intake Total 600 Balance 600 Weight 38.7 kg General appearance: PRESENT: no acute distress, thin, well-developed Exam: 62 year old female. Head exam: PRESENT: normocephalic Eye exam: PRESENT: EOMI, PERRLA Mouth exam: PRESENT: tongue midline Neck exam: ABSENT: lymphadenopathy, tenderness Respiratory exam: PRESENT: clear to auscultation edvin, unlabored Cardiovascular exam: PRESENT: RRR. ABSENT: systolic murmur GI/Abdominal exam: PRESENT: soft, tenderness Extremities exam: ABSENT: pedal edema Neurological exam: PRESENT: alert, awake, oriented to person, oriented to place, oriented to time, oriented to situation Psychiatric exam: PRESENT: appropriate affect Skin exam: PRESENT: normal color Results Laboratory Results: 10/10/18 05:21 10/10/18 05:21 10/09/18 10/09/18 10/09/18 17:24 17:24 17:24 WBC 6.3 RBC 2.34 L Hgb 5.8 L Hct 18.7 L MCV 80 MCH 24.6 L MCHC 30.8 L RDW 17.2 H Plt Count 489 H Seg Neutrophils % 65.3 Lymphocytes % 25.3 Monocytes % 7.4 Eosinophils % 1.5 Basophils % 0.5 Absolute Neutrophils 4.1 Absolute Lymphocytes 1.6 Absolute Monocytes 0.5 Absolute Eosinophils 0.1 Absolute Basophils 0.0 Retic Count (auto) Absolute Retic Sodium 140.5 Potassium 3.4 L Chloride 110 H Carbon Dioxide 23 Anion Gap 8 BUN 17 Creatinine 0.70 Est GFR ( Amer) > 60 Est GFR (Non-Af Amer) > 60 Glucose 65 L Calcium 8.8 Magnesium Iron TIBC % Saturation Ferritin Total Bilirubin 0.8 AST 27 Alkaline Phosphatase 32 L Total Protein 4.9 L Albumin 2.8 L Vitamin B12 Folate TSH Free T4 Free T3 pg/mL Urine Color Urine Appearance Urine pH Ur Specific [place] Urine Protein Urine Glucose (UA) Urine Ketones Urine Blood Urine Nitrite Ur Leukocyte Esterase Urine WBC (Auto) Urine RBC (Auto) Blood Type A POSITIVE Antibody Screen NEGATIVE 10/09/18 10/09/18 10/09/18 17:24 17:24 17:24 WBC RBC Hgb Hct MCV MCH MCHC RDW Plt Count Seg Neutrophils % Lymphocytes % Monocytes % Eosinophils % Basophils % Absolute Neutrophils Absolute Lymphocytes Absolute Monocytes Absolute Eosinophils Absolute Basophils Retic Count (auto) 4.00 H Absolute Retic 0.092 Sodium Potassium Chloride Carbon Dioxide Anion Gap BUN Creatinine Est GFR ( Amer) Est GFR (Non-Af Amer) Glucose Calcium Magnesium Iron 16.9 L TIBC 283 % Saturation 6 Ferritin 5.05 L Total Bilirubin AST Alkaline Phosphatase Total Protein Albumin Vitamin B12 478.0 Folate > 20.00 TSH 1.73 Free T4 1.26 Free T3 pg/mL 5.10 Urine Color Urine Appearance Urine pH Ur Specific [place] Urine Protein Urine Glucose (UA) Urine Ketones Urine Blood Urine Nitrite Ur Leukocyte Esterase Urine WBC (Auto) Urine RBC (Auto) Blood Type Antibody Screen 10/09/18 10/10/18 10/10/18 20:18 05:21 05:21 WBC 4.9 RBC 3.77 Hgb 10.1 L D Hct 30.5 L MCV 81 MCH 26.9 L MCHC 33.3 RDW 15.9 H Plt Count 442 Seg Neutrophils % Lymphocytes % Monocytes % Eosinophils % Basophils % Absolute Neutrophils Absolute Lymphocytes Absolute Monocytes Absolute Eosinophils Absolute Basophils Retic Count (auto) Absolute Retic Sodium 140.5 Potassium 3.9 Chloride 110 H Carbon Dioxide 25 Anion Gap 6 BUN 10 Creatinine 0.57 Est GFR ( Amer) > 60 Est GFR (Non-Af Amer) > 60 Glucose 103 Calcium 8.7 Magnesium 2.2 Iron TIBC % Saturation Ferritin Total Bilirubin AST Alkaline Phosphatase Total Protein Albumin Vitamin B12 Folate TSH Free T4 Free T3 pg/mL Urine Color YELLOW Urine Appearance CLEAR Urine pH 6.0 Ur Specific [place] 1.023 Urine Protein NEGATIVE Urine Glucose (UA) NEGATIVE Urine Ketones NEGATIVE Urine Blood NEGATIVE Urine Nitrite NEGATIVE Ur Leukocyte Esterase MODERATE H Urine WBC (Auto) 9 Urine RBC (Auto) 0 Blood Type Antibody Screen Assessment & Plan - Diagnosis (1) Iron deficiency anemia due to chronic blood loss Is this a current diagnosis for this admission?: Yes Plan: She had a good response to blood transfusion, but I have explained to the patient that this will not be enough with the degree of iron deficiency that she has. She should also have IV iron. She is agreeable. I would NOT give PO iron due to the history of peptic ulcers. She will receive 1 dose IV iron today and then another in office as outpatient. I will arrange. (2) Peptic ulcer Is this a current diagnosis for this admission?: Yes Plan: She needs to follow with GI for this. I will defer to hospitalists. - Plan Summary Plan Summary: Thank you for this consultation. Please call with any concerns.
[2018-10-10] MEDS: DOCUSATE SODIUM 100 MG CAPSULE PO SCH ×2 (09:05→17:29)
[2018-10-10] MEDS: METOCLOPRAMIDE HCL 10 MG TABLET PO SCH ×4 (09:05→21:09)
[2018-10-10] MEDS: SUCRALFATE 1 GM TABLET PO SCH ×4 (09:09→21:10)
[2018-10-10] MEDS ORDERED: POTASSIUM CHLORIDE 10 MEQ CAPSULE.ER PO SCH (10:00)
[2018-10-10] MEDS ORDERED: FERRIC CARBOXYMALTOSE 750 MG in NORMAL SALINE 250 ML IV ONE (10:00)
[2018-10-10] MEDS ORDERED: NEOMY/BACITRAC ZN/POLY OINT 15 GM TP SCH (10:00)
[2018-10-10] MEDS ORDERED: FOLIC ACID 1 MG TABLET PO SCH (10:00)
[2018-10-10] MEDS ORDERED: CEFTRIAXONE SODIUM 1,000 MG in DEXTROSE 5%-WATER 50 ML IV SCH (10:00)
[2018-10-10] MEDS ORDERED: CEFTRIAXONE 1 GM/D5W RTU 1 GM/50 ML RTUPB IV SCH ×2 (10:00)
[2018-10-10] MEDS ORDERED: NALBUPHINE HCL INJ 10 MG/1 ML AMPULE ONE ×2 (16:10→23:11)
[2018-10-10] MEDS: NALBUPHINE HCL INJ 10 MG/1 ML AMPULE IV PRN ×2 (16:20→23:21)
[2018-10-10] MEDS: ACETAMINOPHEN 325 MG TABLET PO PRN (21:08)
[2018-10-10] MEDS: ESCITALOPRAM OXALATE 10 MG TABLET PO SCH (21:08)
[2018-10-11] MEDS: HEPARIN SOD (PORCINE) 5,000 UNIT/ML 1 ML VIAL SUBCUT SCH (05:16)
[2018-10-11] MEDS: PANTOPRAZOLE SODIUM 40 MG TABLET.DR PO SCH (05:17)
[2018-10-11] MEDS: ACETAMINOPHEN 325 MG TABLET PO PRN (05:17)
[2018-10-11 06:59] LABS: HEMATOCRIT 33.5 % (36.0-47.0); HEMOGLOBIN 10.9 g/dL (12.0-15.5); MEAN CORPUSCULAR HEMOGLOBIN 26.6 pg (27.0-33.4); MEAN CORPUSCULAR HGB CONC 32.6 g/dL (32.0-36.0); MEAN CORPUSCULAR VOLUME 82 fl (80-97); PLATELET COUNT 482 10^3/uL (150-450); RED CELL DISTRIBUTION WIDTH 16.6 % (11.5-14.0); WHITE BLOOD COUNT 7.2 10^3/uL (4.0-10.5)
[2018-10-11 07:21] LABS: ANION GAP 6 (5-19); BLOOD UREA NITROGEN 5 mg/dL (7-20); CALCIUM 9.5 mg/dL (8.4-10.2); CARBON DIOXIDE 24 mmol/L (22-30); CHLORIDE 109 mmol/L (98-107); GLUCOSE 110 mg/dL (75-110); POTASSIUM 4.1 mmol/L (3.6-5.0)
--- NOTE | 2018-10-11 07:27 | PDOC PROGRESS REPORT ---
Subjective Progress Note for:: 10/11/18 Subjective:: Patient states that she did very well yesterday with the IV iron, but yesterday evening, developed a migraine. Her head is throbbing, she is nauseated and has not been able to eat anything. She takes imitrex at home for the migraines. Reason For Visit: HYPOCHROMIC MICROCYTIC ANEMIA Physical Exam Vital Signs: Temp Pulse Resp BP Pulse Ox 98.4 F 71 21 H 153/72 H 96 10/11/18 04:05 10/11/18 04:05 10/11/18 04:05 10/11/18 04:05 10/10/18 15:42 Intake & Output 10/10/18 10/11/18 10/12/18 06:59 06:59 06:59 Intake Total 600 240 Balance 600 240 Weight 38.7 kg 40.7 kg General appearance: PRESENT: thin, well-developed Head exam: PRESENT: normocephalic Respiratory exam: PRESENT: unlabored Musculoskeletal exam: PRESENT: normal inspection Neurological exam: PRESENT: alert, awake Skin exam: PRESENT: normal color Results Laboratory Results: 10/11/18 06:11 10/11/18 06:11 10/11/18 10/11/18 06:11 06:11 WBC 7.2 RBC 4.10 Hgb 10.9 L Hct 33.5 L MCV 82 MCH 26.6 L MCHC 32.6 RDW 16.6 H Plt Count 482 H Sodium 138.5 Potassium 4.1 Chloride 109 H Carbon Dioxide 24 Anion Gap 6 BUN 5 L Creatinine 0.37 L Est GFR ( Amer) > 60 Glucose 110 Calcium 9.5 Magnesium 2.1 Assessment & Plan - Diagnosis (1) Iron deficiency anemia due to chronic blood loss Is this a current diagnosis for this admission?: Yes Plan: Her HGB continues t oimprove. She had dose #1/2 Injectafer yesterday. Plan second dose in office next week. (2) Peptic ulcer Is this a current diagnosis for this admission?: Yes Plan: Needs to continue to follow with GI. (3) Migraine Is this a current diagnosis for this admission?: Yes Plan: I will give Imitrex x 1 dose.
[2018-10-11] MEDS ORDERED: OXYCODONE-ACETAMINOPHEN 5-325 MG TABLET PO PRN (07:42)
--- NOTE | 2018-10-11 08:01 | PDOC DISCHARGE SUMMARY ---
General - Admit/Disc Date/PCP Admission Date/Primary Care Provider: 10/09/18 18:57 STEFAN SOTO MD Discharge Date: 10/11/18 - Discharge Diagnosis (1) Hypochromic microcytic anemia Is this a current diagnosis for this admission?: Yes (2) Hypokalemia Is this a current diagnosis for this admission?: Yes (3) GERD (gastroesophageal reflux disease) Is this a current diagnosis for this admission?: Yes (4) Bloating Is this a current diagnosis for this admission?: Yes (5) UTI (urinary tract infection) Is this a current diagnosis for this admission?: Yes - Additional Information Resuscitation Status: Full Code Discharge Diet: As Tolerated Discharge Activity: Activity As Tolerated Prescriptions: Cefuroxime Axetil [Ceftin 500 mg Tablet] 500 mg PO BID #14 tablet Ferrous Sulfate 325 mg PO DAILY #30 tablet. Oxycodone HCl/Acetaminophen [Percocet 5-325 mg Tablet] 1 tab PO ASDIR PRN #15 tab PRN Reason: Home Medications: Gabapentin [Neurontin 300 mg Capsule] 300 mg PO Q8 11/21/17 Betamethasone Dipropionate [Diprosone Cream] 1 applic TP HSP PRN 10/09/18 Docusate Sodium [Colace 100 mg Capsule] 100 mg PO DAILY 10/09/18 Escitalopram Oxalate [Lexapro 10 mg Tablet] 20 mg PO QHS 10/09/18 Esomeprazole Magnesium [Nexium 24Hr] 20 mg PO DAILY 10/09/18 Folic Acid [Folvite 1 mg Tablet] 1 mg PO DAILY 10/09/18 Multivit,Calc,Mins/Iron/Folic [Thera-M Caplet] 1 tab PO WSUPPER 10/09/18 Psyllium Husk (with Sugar) [Metamucil Packet] 3.4 gm PO DAILY 10/09/18 Cefuroxime Axetil [Ceftin 500 mg Tablet] 500 mg PO BID #14 tablet 10/11/18 Ferrous Sulfate 325 mg PO DAILY #30 tablet. 10/11/18 Oxycodone HCl/Acetaminophen [Percocet 5-325 mg Tablet] 1 tab PO ASDIR PRN #15 tab 10/11/18 History of Present Illness Patient complains of: Migraine History of Present Illness: RANDALL ELKINS is a 62 year old female presented to the ER with anemia. Hospital Course Hospital Course: Patient was admitted on 10/09/2018 with anemia. Patient states she is notified by her primary care physician's office that she needs to come to the emergency room because her hemoglobin was low. She admits to having a perforated ulcer which was treated surgically in February of this year and since that time she required 1 additional blood transfusion. She further states that she been having intermittent upper abdominal pain that was intense gripping type pain lasting for a few minutes to a few hours on various occasions her last to 3 months. Her pain was not associated with eating, drinking or any other activity. She has not noticed black stools or stools with any foul odor or other unusual appearance. She denies bright red blood per rectum. Patient was evaluated had iron studies drawn showing a microcytic anemia iron deficiency in nature. Patient was given iron IV x1 dose and will be sent home on ferrous sulfate 325 mg p.o. daily. Patient will see Dr. Figueroa next week for a second infusion. Patient also complains of migraines for which I gave her Percocet 5/325 mg 1 tablet 3 times daily as needed migraine #15 no refills. Also gave patient Ceftin 500 mg p.o. twice daily x7 days for a UTI. Patient will follow- up with primary care within 1 week as well. Physical Exam Vital Signs: Temp Pulse Resp BP Pulse Ox 98.4 F 71 21 H 153/72 H 96 10/11/18 04:05 10/11/18 04:05 10/11/18 04:05 10/11/18 04:05 10/10/18 15:42 Intake & Output 10/10/18 10/11/18 10/12/18 06:59 06:59 06:59 Intake Total 600 240 Balance 600 240 Weight 38.7 kg 40.7 kg General appearance: PRESENT: no acute distress, well-developed, well-nourished Head exam: PRESENT: atraumatic, normocephalic Eye exam: PRESENT: conjunctiva pink, EOMI, PERRLA. ABSENT: scleral icterus Ear exam: PRESENT: normal external ear exam Mouth exam: PRESENT: moist, tongue midline Neck exam: ABSENT: carotid bruit, JVD, lymphadenopathy, thyromegaly Respiratory exam: PRESENT: clear to auscultation edvin. ABSENT: rales, rhonchi, wheezes Cardiovascular exam: PRESENT: RRR. ABSENT: diastolic murmur, rubs, systolic murmur Pulses: PRESENT: normal dorsalis pedis pul Vascular exam: PRESENT: normal capillary refill GI/Abdominal exam: PRESENT: normal bowel sounds, soft. ABSENT: distended, guarding, mass, organolmegaly, rebound, tenderness Rectal exam: PRESENT: deferred Extremities exam: PRESENT: full ROM. ABSENT: calf tenderness, clubbing, pedal edema Neurological exam: PRESENT: alert, awake, oriented to person, oriented to place, oriented to time, oriented to situation, CN II-XII grossly intact. ABSENT: motor sensory deficit Psychiatric exam: PRESENT: appropriate affect, normal mood. ABSENT: homicidal ideation, suicidal ideation Skin exam: PRESENT: dry, intact, warm. ABSENT: cyanosis, rash Results Laboratory Results: 10/11/18 06:11 10/11/18 06:11 10/11/18 10/11/18 06:11 06:11 WBC 7.2 RBC 4.10 Hgb 10.9 L Hct 33.5 L MCV 82 MCH 26.6 L MCHC 32.6 RDW 16.6 H Plt Count 482 H Sodium 138.5 Potassium 4.1 Chloride 109 H Carbon Dioxide 24 Anion Gap 6 BUN 5 L Creatinine 0.37 L Est GFR ( Amer) > 60 Glucose 110 Calcium 9.5 Magnesium 2.1 Qualifiers - * PATIENT BEING DISCHARGED WITH ANY OF THE FOLLOWING DIAGNOSIS: No Acute Heart Failure - Is this a Heart Failure Patient?: No Plan Time Spent: Greater than 30 Minutes
--- NOTE | 2018-10-11 08:07 | ADVANCED CARE ---
- Diagnosis (1) Hypochromic microcytic anemia Diagnosis Current: Yes (2) Hypokalemia Diagnosis Current: Yes (3) GERD (gastroesophageal reflux disease) Diagnosis Current: Yes (4) Bloating Diagnosis Current: Yes (5) UTI (urinary tract infection) Diagnosis Current: Yes Attendance: Patient and myself Resuscitation Status: Full Code Discussion: Discussion with patient about plan of care. At this time we will send patient home with ferrous sulfate 325 mg p.o. daily. Patient will follow with Dr. Figueroa next week for repeat infusion of iron. Also patient home on Percocet 5/325 mg 1 p.o. 3 times daily as needed migraine #15. I will send patient home on Ceftin 500 mg p.o. twice daily x7 days for UTI. Patient has verbalized understanding of this plan of care. Care Planning Goals: 1-ferrous sulfate 325 mg p.o. daily and follow-up with Dr. Figueroa next week for second iron infusion 2-Percocet 5/325 mg 1 p.o. 3 times daily as needed migraine 3-Ceftin 500 mg p.o. twice daily #14 for UTI 4-primary care follow-up Time Spent: 20 minutes
[2018-10-11] MEDS: METOCLOPRAMIDE HCL 10 MG TABLET PO SCH (08:16)
[2018-10-11] MEDS: SUCRALFATE 1 GM TABLET PO SCH (08:16)
[2018-10-11] MEDS ORDERED: SUMATRIPTAN SUCCINATE 50 MG TABLET PO ONE (08:20)
[2018-10-11 09:16] VITALS: BP 133/79
[2018-10-11] MEDS ORDERED: FERROUS SULFATE 325 MG TABLET PO SCH (10:00)
== END 2018-10-11 11:10 | disposition home or self-care (01) | DRG 812 ==
LOC: ER 16:32 → EH 18:57 → 2N 22:06
PROVIDERS: ADMIT Emergency Medicine; ATTEND Emergency Medicine
PROC: 30233N1 Transfusion of Nonautologous Red Blood Cells into Peripheral Vein, Percutaneous Approach (ICD-10-PCS; principal; 2018-10-09)
DX: D50.0 Iron deficiency anemia secondary to blood loss (chronic) (principal); N39.0 Urinary tract infection, site not specified; K21.9 Gastro-esophageal reflux disease without esophagitis; E87.6 Hypokalemia; G43.909 Migraine, unspecified, not intractable, without status migrainosus; F32.9 Major depressive disorder, single episode, unspecified; F10.21 Alcohol dependence, in remission; R14.0 Abdominal distension (gaseous); K27.9 Peptic ulcer, site unspecified, unspecified as acute or chronic, without hemorrhage or perforation; K43.9 Ventral hernia without obstruction or gangrene
CPT/HCPCS: 36415; 36430; 80048; 80053; 81001; 82272; 82607; 82728; 82746; 82962; 83540; 83550; 83735; 84439; 84443; 84481; 85025; 85027; 85045; 86850; 86900; 86901; 86920; 99285; J0696; J1439; J1644; J2300; J3490; J7050; P9016

== ENCOUNTER 2018-11-02 08:52 | Outpatient (CLI) | payer OTHER ==
[~2018-11-02 08:52] MED LIST: FERRIC CARBOXYMALTOSE 750 MG in NORMAL SALINE 250 ML IV PRN; NORMAL SALINE 250 ML IV PRN
[2018-11-02 09:39] VITALS: BP 108/63
== END 2018-11-02 10:00 | disposition home or self-care (01) ==
LOC: II 08:52 → 5TH 09:35 → II 10:00
PROVIDERS: ATTEND Internal Medicine Hematology & Oncology
PROC: 3E033GC Introduction of Other Therapeutic Substance into Peripheral Vein, Percutaneous Approach (ICD-10-PCS; principal; 2018-11-02)
DX: K25.5 Chronic or unspecified gastric ulcer with perforation (principal); D50.9 Iron deficiency anemia, unspecified
CPT/HCPCS: 96365; J7050; J1439

== ENCOUNTER 2018-11-12 08:42 | Inpatient (IN) | payer OTHER ==
[2018-11-08 10:52] LABS: ABSOLUTE EOSINOPHILS # (AUTO) 0.2 10^3/uL (0.0-0.6); ABSOLUTE MONOCYTES (AUTO) 0.3 10^3/uL (0.1-1.4); ABSOLUTE NEUT (AUTO) 3.1 10^3/uL (1.7-8.2); BASOPHILS % (AUTO) 0.6 % (0-2); EOSINOPHILS % (AUTO) 3.3 % (0-6); HEMATOCRIT 26.3 % (36.0-47.0); HEMOGLOBIN 8.8 g/dL (12.0-15.5); LYMPHOCYTES % (AUTO) 21.5 % (13-45); MEAN CORPUSCULAR HEMOGLOBIN 30.9 pg (27.0-33.4); MEAN CORPUSCULAR HGB CONC 33.6 g/dL (32.0-36.0); PLATELET COUNT 452 10^3/uL (150-450); RED BLOOD COUNT 2.85 10^6/uL (3.72-5.28); RED CELL DISTRIBUTION WIDTH 23.4 % (11.5-14.0); SEGMENTED NEUTROPHILS % (AUTO) 68.6 % (42-78); TOTAL CELLS COUNTED % (AUTO) 100 %; WHITE BLOOD COUNT 4.5 10^3/uL (4.0-10.5)
[2018-11-08 11:19] LABS: ANION GAP 9 (5-19); BLOOD UREA NITROGEN 15 mg/dL (7-20); CALCIUM 9.3 mg/dL (8.4-10.2); CARBON DIOXIDE 24 mmol/L (22-30); CHLORIDE 107 mmol/L (98-107); GLUCOSE 82 mg/dL (75-110); POTASSIUM 4.7 mmol/L (3.6-5.0)
[2018-11-08 11:20] LABS: MEAN CORPUSCULAR VOLUME 92 fl (80-97)
--- NOTE | 2018-11-08 13:45 | EKG REPORT ---
SEVERITY:- NORMAL ECG - SINUS RHYTHM : Confirmed by: Kana Bingham MD 08-Nov-2018 13:44:21
[~2018-11-12 08:42] MED LIST changes: +ACETAMINOPHEN 1,000 MG/100 ML RTUPB IV PRN; +BUPIVACAINE HCL 0.25 % INJ/PF (2.5 MG/1 ML) 30 ML VIAL ONE; +CEFAZOLIN SODIUM 2 GM in DEXTROSE 5%-WATER 100 ML IV PRN; -FERRIC CARBOXYMALTOSE 750 MG in NORMAL SALINE 250 ML IV PRN; +IBUPROFEN 800 MG in NORMAL SALINE 250 ML IV PRN; +LACTATED RINGERS 1000 ML IV PRN; +LIDOCAINE 0.5% INJ-PF (5 MG/ML) 50 ML SDV SUBCUT PRN; +LIDOCAINE 1% INJ-PF (10 MG/ML) 30 ML SDV ONE; -NORMAL SALINE 250 ML IV PRN; +PREGABALIN 50 MG CAPSULE PO PRN
[2018-11-12] MEDS ORDERED: ACETAMINOPHEN 1,000 MG/100 ML RTUPB IV ONE (09:34)
[2018-11-12 10:30] LABS: APPEARANCE,URINE CLEAR; BILIRUBIN,URINE NEGATIVE (NEGATIVE); COLOR,URINE YELLOW; GLUCOSE, URINE NEGATIVE (NEGATIVE); KETONES,URINE TRACE mg/dL (NEGATIVE); LEUKOCYTE ESTERASE,URINE TRACE (NEGATIVE); NITRITE,URINE NEGATIVE (NEGATIVE); PROTEIN,URINE 30 mg/dL (NEGATIVE); URINE SPECIFIC GRAVITY 1.024
[2018-11-12] MEDS ORDERED: FENTANYL CITRATE INJ/PF 250 MCG/5 ML AMPULE ONE (10:43)
[2018-11-12] MEDS ORDERED: MIDAZOLAM 2 MG/2 ML INJ ONE (10:44)
[2018-11-12] MEDS ORDERED: PROPOFOL INJ 200 MG/20 ML VIAL IV ONE (10:44)
[2018-11-12] MEDS ORDERED: PREGABALIN 50 MG CAPSULE ONE (11:05)
[2018-11-12 11:13] LABS: ABSOLUTE EOSINOPHILS # (AUTO) 0.1 10^3/uL (0.0-0.6); ABSOLUTE LYMPHOCYTES (AUTO) 0.9 10^3/uL (0.5-4.7); ABSOLUTE MONOCYTES (AUTO) 0.3 10^3/uL (0.1-1.4); BASOPHILS % (AUTO) 0.7 % (0-2); EOSINOPHILS % (AUTO) 2.5 % (0-6); HEMATOCRIT 28.4 % (36.0-47.0); HEMOGLOBIN 9.3 g/dL (12.0-15.5); LYMPHOCYTES % (AUTO) 16.3 % (13-45); MEAN CORPUSCULAR HEMOGLOBIN 30.9 pg (27.0-33.4); MEAN CORPUSCULAR HGB CONC 32.6 g/dL (32.0-36.0); MEAN CORPUSCULAR VOLUME 95 fl (80-97); MONOCYTES % (AUTO) 5.4 % (3-13); PLATELET COUNT 462 10^3/uL (150-450); RED CELL DISTRIBUTION WIDTH 23.3 % (11.5-14.0); SEGMENTED NEUTROPHILS % (AUTO) 75.1 % (42-78); TOTAL CELLS COUNTED % (AUTO) 100 %; WHITE BLOOD COUNT 5.3 10^3/uL (4.0-10.5)
[2018-11-12 11:48] LABS: ANION GAP 6 (5-19); BLOOD UREA NITROGEN 11 mg/dL (7-20); CALCIUM 9.4 mg/dL (8.4-10.2); CARBON DIOXIDE 24 mmol/L (22-30); CHLORIDE 110 mmol/L (98-107); GLUCOSE 88 mg/dL (75-110); POTASSIUM 4.5 mmol/L (3.6-5.0)
[2018-11-12] MEDS ORDERED: ROCURONIUM BROMIDE INJ 50 MG/5 ML VIAL IV ONE (14:37)
[2018-11-12] MEDS ORDERED: NEOSTIGMINE METHYLSULFATE 10 MG/10 ML VIAL ONE (14:37)
[2018-11-12] MEDS ORDERED: GLYCOPYRROLATE 1 MG/5 ML VIAL ONE (14:37)
[2018-11-12] MEDS ORDERED: DEXAMETHASONE SOD PHOSPHATE INJ 4 MG/1 ML VIAL ONE (14:37)
[2018-11-12] MEDS ORDERED: LIDOCAINE 2% INJ-PF (20 MG/ML) 2 ML AMPUL ONE (14:37)
[2018-11-12] MEDS ORDERED: ONDANSETRON HCL INJ/PF 4 MG/2 ML SDV ONE (14:37)
[2018-11-12] MEDS ORDERED: BUPIVACAINE HCL 0.25 % INJ/PF (2.5 MG/1 ML) 30 ML VIAL INJ ONE (14:51)
[2018-11-12] MEDS ORDERED: HYDROMORPHONE HCL INJ/PF 2 MG/ML AMPULE ONE (15:43)
[2018-11-12] MEDS: HYDROMORPHONE HCL INJ/PF 2 MG/ML AMPULE IV ONE ×2 (15:46→17:47)
[2018-11-12] MEDS ORDERED: FENTANYL CITRATE INJ/PF 100 MCG/2 ML AMPUL IV PRN ×3 (16:00)
[2018-11-12] MEDS ORDERED: PROMETHAZINE HCL INJ 25 MG/1 ML VIAL IV PRN (16:00)
[2018-11-12] MEDS ORDERED: MEPERIDINE HCL/PF INJ 25 MG/1 ML DISP.SYRIN IV PRN (16:00)
[2018-11-12] MEDS ORDERED: DIPHENHYDRAMINE HCL 50 MG/ML VIAL IV PRN (16:00)
[2018-11-12] MEDS ORDERED: PROMETHAZINE HCL INJ 25 MG/1 ML VIAL ONE (16:04)
[2018-11-12 16:20] LABS: HEMATOCRIT 20.9 % (36.0-47.0); MEAN CORPUSCULAR HEMOGLOBIN 31.5 pg (27.0-33.4); MEAN CORPUSCULAR HGB CONC 32.9 g/dL (32.0-36.0); MEAN CORPUSCULAR VOLUME 96 fl (80-97); PLATELET COUNT 379 10^3/uL (150-450); RED BLOOD COUNT 2.19 10^6/uL (3.72-5.28); RED CELL DISTRIBUTION WIDTH 23.4 % (11.5-14.0); WHITE BLOOD COUNT 6.8 10^3/uL (4.0-10.5)
[2018-11-12 16:49] LABS: HEMOGLOBIN 6.9 g/dL (12.0-15.5)
[2018-11-12] MEDS: DOCUSATE SODIUM 100 MG CAPSULE PO SCH (17:47)
[2018-11-12] MEDS: DEXTROSE 5%-LACTATED RINGERS 1,000 ML IV PRN (17:50)
[2018-11-12] MEDS: MORPHINE SULFATE 60 MG/60 ML RTUINJ IV PRN (19:47)
[2018-11-12] MEDS: FAMOTIDINE INJ/PF 20 MG/2 ML SDV IV SCH (21:34)
[2018-11-12] MEDS: KETOROLAC TROMETHAMINE INJ/PF 30 MG/1 ML SDV IV SCH (21:34)
[2018-11-12] MEDS: ACETAMINOPHEN 1,000 MG/100 ML RTUPB IV SCH (21:35)
--- NOTE | 2018-11-12 22:32 | EKG REPORT ---
SEVERITY:- BORDERLINE ECG - SINUS RHYTHM SHORT [place] INTERVAL, ACCELERATED AV CONDUCTION BORDERLINE T ABNORMALITIES, ANT-LAT LEADS : Confirmed by: Malina Warner 12-Nov-2018 22:31:53
[2018-11-13] MEDS: DEXTROSE 5%-LACTATED RINGERS 1,000 ML IV PRN (03:19)
[2018-11-13 03:47] LABS: ABSOLUTE LYMPHOCYTES (AUTO) 0.8 10^3/uL (0.5-4.7); ABSOLUTE MONOCYTES (AUTO) 0.8 10^3/uL (0.1-1.4); ABSOLUTE NEUT (AUTO) 7.6 10^3/uL (1.7-8.2); BASOPHILS % (AUTO) 0.2 % (0-2); HEMATOCRIT 36.6 % (36.0-47.0); LYMPHOCYTES % (AUTO) 8.6 % (13-45); MEAN CORPUSCULAR HEMOGLOBIN 30.6 pg (27.0-33.4); MEAN CORPUSCULAR HGB CONC 32.7 g/dL (32.0-36.0); MEAN CORPUSCULAR VOLUME 94 fl (80-97); MONOCYTES % (AUTO) 8.2 % (3-13); PLATELET COUNT 328 10^3/uL (150-450); RED BLOOD COUNT 3.91 10^6/uL (3.72-5.28); RED CELL DISTRIBUTION WIDTH 18.4 % (11.5-14.0); TOTAL CELLS COUNTED % (AUTO) 100 %; WHITE BLOOD COUNT 9.2 10^3/uL (4.0-10.5)
[2018-11-13] MEDS: ACETAMINOPHEN 1,000 MG/100 ML RTUPB IV SCH ×3 (05:22→22:04)
[2018-11-13] MEDS: KETOROLAC TROMETHAMINE INJ/PF 30 MG/1 ML SDV IV SCH ×3 (05:22→22:03)
[2018-11-13 07:35] LABS: ALBUMIN 2.4 g/dL (3.5-5.0); ALKALINE PHOSPHATASE 28 U/L (38-126); ANION GAP 5 (5-19); ASPARTATE AMINO TRANSFERASE 52 U/L (14-36); BILIRUBIN,DIRECT 0.3 mg/dL (0.0-0.4); BILIRUBIN,TOTAL 0.6 mg/dL (0.2-1.3); BLOOD UREA NITROGEN 7 mg/dL (7-20); CALCIUM 8.2 mg/dL (8.4-10.2); GLUCOSE 143 mg/dL (75-110); POTASSIUM 4.5 mmol/L (3.6-5.0); TOTAL PROTEIN 4.5 g/dL (6.3-8.2)
[2018-11-13 07:40] LABS: CARBON DIOXIDE 21 mmol/L (22-30); CHLORIDE 111 mmol/L (98-107)
--- NOTE | 2018-11-13 09:22 | PDOC PROGRESS REPORT ---
Subjective Progress Note for:: 11/13/18 Reason For Visit: S/P COMPONENT SEPARATION HERNIA REPAIR Physical Exam Vital Signs: Temp Pulse Resp BP Pulse Ox 98.7 F 74 12 114/73 100 11/13/18 08:00 11/13/18 07:50 11/13/18 09:00 11/13/18 08:16 11/13/18 08:16 Intake & Output 11/12/18 11/13/18 11/14/18 06:59 06:59 06:59 Intake Total 4948 Output Total 1695 325 Balance 3253 -325 Weight 42.2 kg Results Laboratory Results: 11/13/18 03:36 11/13/18 06:31 11/12/18 11/12/18 11/12/18 10:11 10:48 10:48 WBC 5.3 RBC 3.00 L Hgb 9.3 L Hct 28.4 L MCV 95 MCH 30.9 MCHC 32.6 RDW 23.3 H Plt Count 462 H Seg Neutrophils % 75.1 Sodium Potassium Chloride Carbon Dioxide Anion Gap BUN Creatinine Est GFR ( Amer) Est GFR (Non-Af Amer) Glucose Calcium Total Bilirubin AST Alkaline Phosphatase Total Protein Albumin Urine Color YELLOW Urine Appearance CLEAR Urine pH 6.0 Ur Specific [place] 1.024 Urine Protein 30 H Urine Glucose (UA) NEGATIVE Urine Ketones TRACE H Urine Blood NEGATIVE Urine Nitrite NEGATIVE Ur Leukocyte Esterase TRACE H Urine WBC (Auto) 2 Urine RBC (Auto) 1 Blood Type A POSITIVE Antibody Screen NEGATIVE 11/12/18 11/12/18 11/13/18 10:48 16:00 03:36 WBC 6.8 9.2 RBC 2.19 L 3.91 Hgb 6.9 L D 12.0 D Hct 20.9 L 36.6 MCV 96 94 MCH 31.5 30.6 MCHC 32.9 32.7 RDW 23.4 H 18.4 H Plt Count 379 328 Seg Neutrophils % 83.0 H Sodium 140.1 Potassium 4.5 Chloride 110 H Carbon Dioxide 24 Anion Gap 6 BUN 11 Creatinine 0.54 Est GFR ( Amer) > 60 Est GFR (Non-Af Amer) Glucose 88 Calcium 9.4 Total Bilirubin AST Alkaline Phosphatase Total Protein Albumin Urine Color Urine Appearance Urine pH Ur Specific [place] Urine Protein Urine Glucose (UA) Urine Ketones Urine Blood Urine Nitrite Ur Leukocyte Esterase Urine WBC (Auto) Urine RBC (Auto) Blood Type Antibody Screen 11/13/18 11/13/18 03:36 06:31 WBC RBC Hgb Hct MCV MCH MCHC RDW Plt Count Seg Neutrophils % Sodium Cancelled 137.1 Potassium Cancelled 4.5 Chloride Cancelled 111 H Carbon Dioxide Cancelled 21 L Anion Gap Cancelled 5 BUN Cancelled 7 Creatinine Cancelled 0.33 L Est GFR ( Amer) Cancelled > 60 Est GFR (Non-Af Amer) Cancelled Glucose Cancelled 143 H Calcium Cancelled 8.2 L Total Bilirubin Cancelled 0.6 AST Cancelled 52 H Alkaline Phosphatase Cancelled 28 L Total Protein Cancelled 4.5 L Albumin Cancelled 2.4 L Urine Color Urine Appearance Urine pH Ur Specific [place] Urine Protein Urine Glucose (UA) Urine Ketones Urine Blood Urine Nitrite Ur Leukocyte Esterase Urine WBC (Auto) Urine RBC (Auto) Blood Type Antibody Screen Assessment & Plan - Diagnosis (1) Ventral incisional hernia Is this a current diagnosis for this admission?: Yes - Plan Summary Plan Summary: This is a 63-year-old female status post component separation hernia repair for a large, midline ventral incisional hernia. She is doing well today. She still reports pain. She is receiving Toradol, IV acetaminophen, and morphine. Her incentive spirometer only reached 750 this morning. She has no sign of hematoma or compromise of the abdominal skin flaps. Her drain is productive of sanguinous fluid. Out of bed, ambulate. Aggressive pulmonary toilet. Teds and SCDs for DVT prophylaxis. No Lovenox due to large skin flaps and possibility of hematoma/skin necrosis. Continue regular diet. [employer]. Discontinue background. Plan for transfer to the floor today.
[2018-11-13] MEDS: FAMOTIDINE INJ/PF 20 MG/2 ML SDV IV SCH ×2 (10:12→22:42)
[2018-11-13] MEDS: DOCUSATE SODIUM 100 MG CAPSULE PO SCH ×2 (10:12→17:22)
--- NOTE | 2018-11-13 10:49 | Operative Report ---
Nonrecallable Operative Report DATE OF SURGERY: 11/12/18 PREOPERATIVE DIAGNOSIS: Large ventral incisional midline hernia POSTOPERATIVE DIAGNOSIS: Same as above OPERATION: 1. Right-sided myocutaneous abdominal wall advancement flap. 2. Left-sided myocutaneous abdominal wall advancement flap. 3. Lysis of adhesions for greater than 1 hour. 4. Ventral incisional hernia repair. 5. Implantation of [place] bio-A hernia mesh SURGEON: VÍCTOR PRICE ANESTHESIA: GA TISSUE REMOVED OR ALTERED: Midline abdominal scar COMPLICATIONS: None apparent ESTIMATED BLOOD LOSS: 300 cc PROCEDURE: Drains/implants: 1. 28 x 18 cm [place] Bio-A hernia mesh. 2. 15 Brazilian round John drain in the subcutaneous tissues. Procedure in detail: After informed consent was obtained, the patient was brought to the operating room and laid in the supine position. The area of the abdomen was prepped and draped in a normal sterile fashion. The large midline scar was incised sharply, down to the abdominal cavity. The abdominal cavity was entered sharply. There were dense adhesions of the small bowel and colon to the midline scar. These adhesions were lysed. The scar was completely excised sharply. Next, attention was turned to continued lysis of adhesions to free the anterior abdominal wall in preparation for hernia repair. Lysis of adhesions was undertaken for greater than 1 hours time. Once the abdominal wall was freed, attention was turned to examination of the abdominal wall. Maximal relaxation was provided by anesthesia. The abdominal wall was unable to be closed without tension. There was approximately 6 to 7 cm of defect remaining after medial retraction of the rectus muscles. Secondary to this, it was felt necessary for anterior component separation in order to close the abdominal wall without tension. Component separation hernia repair was then undertaken. Right-sided abdominal skin flaps were raised from the midline to the anterior axillary line. The skin was raised away from the external oblique aponeurosis. Next, the muscular layer of the external oblique was divided in approximately the anterior axillary line. This was done from the inguinal ligament up onto the chest wall. The components were , and the myocutaneous flap was raised and advanced medially. Good advancement was achieved. Attention was then turned to the left-sided myocutaneous advancement flap. In similar fashion, the left side was addressed. A skin flap was raised laterally, using electrocautery. The skin was elevated superior to the umbilicus, and inferior to the umbilicus. A ridge of tissue was left at the level of the umbilicus, to facilitate vascular supply to the skin flaps. Once the anterior axillary line was reached, the muscular portion of the external oblique was divided, and the components were . The myocutaneous advancement flap was then rotated medially. There was good mobilization of the advancement flap. The fascial edges were then easily approximated. Next, in order to buttress the repair, a 30 x 20 cm [place] Bio-A hernia mesh was placed onto the field. It was trimmed to approximately 28 x 18 cm. Then the mesh fit easily into the abdominal cavity. It was sutured circumferentially to the anterior abdominal wall using #1 Prolene suture in mattress fashion. Once this was completed, the midline fascia was closed using #1 Prolene suture in [id number] fashion. A 15 Brazilian round John drain was then placed beneath the skin flaps, to avoid hematoma or seroma formation. The drain was sutured to the skin using 2-0 nylon. The subcutaneous tissues were closed using 2-0 Vicryl in simple running fashion. The overlying skin was then closed using skin lucio. A dressing was placed, and the procedure was concluded. All sponge, instrument, needle counts were correct x2. Condition: Fair.
[2018-11-13] MEDS: ONDANSETRON HCL INJ/PF 4 MG/2 ML SDV IV PRN (14:42)
[2018-11-13] MEDS ORDERED: SUMATRIPTAN SUCCINATE 100 MG TABLET ONE (23:23)
[2018-11-13] MEDS ORDERED: SUMATRIPTAN SUCCINATE 50 MG TABLET PO ONE (23:30)
[2018-11-14] MEDS: MORPHINE SULFATE 60 MG/60 ML RTUINJ IV PRN (05:28)
[2018-11-14] MEDS: ACETAMINOPHEN 1,000 MG/100 ML RTUPB IV SCH (05:29)
[2018-11-14] MEDS: KETOROLAC TROMETHAMINE INJ/PF 30 MG/1 ML SDV IV SCH ×3 (05:30→21:01)
--- NOTE | 2018-11-14 07:51 | PDOC PROGRESS REPORT ---
Subjective Progress Note for:: 11/14/18 Reason For Visit: S/P COMPONENT SEPARATION HERNIA REPAIR Physical Exam Vital Signs: Temp Pulse Resp BP Pulse Ox 98.6 F 78 16 112/75 99 11/14/18 04:00 11/13/18 19:00 11/14/18 06:11 11/14/18 06:11 11/14/18 06:11 Intake & Output 11/13/18 11/14/18 11/15/18 06:59 06:59 06:59 Intake Total 4948 1400 Output Total 1695 2460 Balance 3253 -1060 Weight 42.2 kg 44 kg Results Laboratory Results: 11/13/18 03:36 11/13/18 06:31 11/13/18 06:31 Sodium 137.1 Potassium 4.5 Chloride 111 H Carbon Dioxide 21 L Anion Gap 5 BUN 7 Creatinine 0.33 L Est GFR ( Amer) > 60 Glucose 143 H Calcium 8.2 L Total Bilirubin 0.6 AST 52 H Alkaline Phosphatase 28 L Total Protein 4.5 L Albumin 2.4 L Assessment & Plan - Diagnosis (1) Ventral incisional hernia Is this a current diagnosis for this admission?: Yes - Plan Summary Plan Summary: This is a 63-year-old female status post component separation hernia repair for a large, midline ventral incisional hernia. She is doing well today. Her pain is better controlled. She reached 1,000 on her incentive spirometer this morni ng. She has no sign of hematoma or compromise of the abdominal skin flaps. Her drain is productive of serosanguinous fluid. The pt had an episode of confusion yesterday (I suspect related to her morphine) and was kept in ICU for monitoring. She is much less confused today. Out of bed, ambulate. Aggressive pulmonary toilet. Teds and SCDs for DVT prophylaxis. No Lovenox due to large skin flaps and possibility of hematoma/skin necrosis. Continue regular diet. 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 Start oral Hydrocodone/APAP. D/c IV acetaminophen. Transfer to the floor today.
[2018-11-14] MEDS: ONDANSETRON HCL INJ/PF 4 MG/2 ML SDV IV PRN ×2 (08:42→21:01)
[2018-11-14] MEDS ORDERED: MORPHINE SULFATE 10 MG/ML INJ IV PRN (08:49)
[2018-11-14] MEDS ORDERED: (PENDING PHARMACY ID) (Ferrous Sulfate [Ferrous Sulfate] 325 MG) PO SCH (10:00)
[2018-11-14] MEDS: GABAPENTIN 300 MG CAPSULE PO SCH ×3 (10:10→17:49)
[2018-11-14] MEDS: DOCUSATE SODIUM 100 MG CAPSULE PO SCH ×2 (10:10→17:49)
[2018-11-14] MEDS: HYDROCODONE/ACETAMINOPHEN 10-325 MG TABLET PO PRN ×3 (10:13→19:54)
[2018-11-14] MEDS: PANTOPRAZOLE SODIUM 40 MG TABLET.DR PO SCH (10:15)
[2018-11-14] MEDS: ESCITALOPRAM OXALATE 10 MG TABLET PO SCH (21:01)
[2018-11-15] MEDS: ONDANSETRON HCL INJ/PF 4 MG/2 ML SDV IV PRN ×2 (00:33→04:32)
[2018-11-15] MEDS: PANTOPRAZOLE SODIUM 40 MG TABLET.DR PO SCH (06:17)
[2018-11-15] MEDS: KETOROLAC TROMETHAMINE INJ/PF 30 MG/1 ML SDV IV SCH ×3 (06:17→21:04)
[2018-11-15] MEDS: DOCUSATE SODIUM 100 MG CAPSULE PO SCH ×2 (09:17→17:07)
[2018-11-15] MEDS: GABAPENTIN 300 MG CAPSULE PO SCH ×3 (09:17→17:07)
[2018-11-15] MEDS: HYDROCODONE/ACETAMINOPHEN 10-325 MG TABLET PO PRN ×3 (11:58→20:40)
[2018-11-15] MEDS ORDERED: CALCIUM CARBONATE 500 MG TAB.CHEW PO PRN (16:16)
[2018-11-15] MEDS ORDERED: BISACODYL 5 MG TABEC PO ONE (17:00)
[2018-11-15] MEDS: ESCITALOPRAM OXALATE 10 MG TABLET PO SCH (21:04)
[2018-11-15] MEDS: SUCRALFATE 1 GM TABLET PO SCH (21:04)
[2018-11-16] MEDS: HYDROCODONE/ACETAMINOPHEN 10-325 MG TABLET PO PRN ×3 (00:40→08:40)
[2018-11-16 04:10] LABS: ABSOLUTE EOSINOPHILS # (AUTO) 0.3 10^3/uL (0.0-0.6); ABSOLUTE LYMPHOCYTES (AUTO) 0.9 10^3/uL (0.5-4.7); ABSOLUTE MONOCYTES (AUTO) 0.4 10^3/uL (0.1-1.4); ABSOLUTE NEUT (AUTO) 4.4 10^3/uL (1.7-8.2); BASOPHILS % (AUTO) 0.4 % (0-2); EOSINOPHILS % (AUTO) 5.6 % (0-6); HEMATOCRIT 32.8 % (36.0-47.0); HEMOGLOBIN 10.7 g/dL (12.0-15.5); LYMPHOCYTES % (AUTO) 15.3 % (13-45); MEAN CORPUSCULAR HEMOGLOBIN 30.7 pg (27.0-33.4); MEAN CORPUSCULAR HGB CONC 32.8 g/dL (32.0-36.0); MEAN CORPUSCULAR VOLUME 94 fl (80-97); MONOCYTES % (AUTO) 6.2 % (3-13); PLATELET COUNT 358 10^3/uL (150-450); RED CELL DISTRIBUTION WIDTH 18.3 % (11.5-14.0); SEGMENTED NEUTROPHILS % (AUTO) 72.5 % (42-78); TOTAL CELLS COUNTED % (AUTO) 100 %; WHITE BLOOD COUNT 6.1 10^3/uL (4.0-10.5)
[2018-11-16 04:20] LABS: BLOOD UREA NITROGEN 13 mg/dL (7-20); CALCIUM 8.5 mg/dL (8.4-10.2); CARBON DIOXIDE 27 mmol/L (22-30); GLUCOSE 109 mg/dL (75-110); POTASSIUM 3.6 mmol/L (3.6-5.0)
[2018-11-16 04:26] LABS: ANION GAP 5 (5-19); CHLORIDE 107 mmol/L (98-107)
[2018-11-16] MEDS: PANTOPRAZOLE SODIUM 40 MG TABLET.DR PO SCH (05:13)
[2018-11-16] MEDS: KETOROLAC TROMETHAMINE INJ/PF 30 MG/1 ML SDV IV SCH (05:16)
[2018-11-16] MEDS: SUCRALFATE 1 GM TABLET PO SCH ×4 (08:41→22:02)
--- NOTE | 2018-11-16 10:39 | PDOC PROGRESS REPORT ---
Subjective Reason For Visit: S/P COMPONENT SEPARATION HERNIA REPAIR Physical Exam Vital Signs: Temp Pulse Resp BP Pulse Ox 97.8 F 81 26 H 132/86 H 84 L 11/15/18 07:22 11/15/18 07:22 11/15/18 14:00 11/15/18 12:05 11/15/18 12:04 Intake & Output 11/14/18 11/15/18 11/16/18 06:59 06:59 06:59 Intake Total 1400 Output Total 2460 1520 Balance -1060 -1520 Weight 44 kg 43 kg Results Laboratory Results: 11/13/18 03:36 11/13/18 06:31 Assessment & Plan - Diagnosis (1) Ventral incisional hernia Is this a current diagnosis for this admission?: Yes - Plan Summary Plan Summary: This is a 63-year-old female status post component separation hernia repair for a large, midline ventral incisional hernia. She is doing well today. Her pain is better controlled. She continues to reach 1,000 on her incentive spirometer. She has no sign of hematoma or compromise of the abdominal skin flaps. Her drain is productive of small amounts of serosanguinous fluid. No confusion today. Out of bed, ambulate. Aggressive pulmonary toilet. Teds and SCDs for DVT prophylaxis. No Lovenox due to large skin flaps and possibility of hematoma/skin necrosis. Continue regular diet. Cont current pain medication regimen. Increase stool softeners due to constipation.
--- NOTE | 2018-11-16 10:40 | PDOC PROGRESS REPORT ---
Subjective Progress Note for:: 11/16/18 Reason For Visit: S/P COMPONENT SEPARATION HERNIA REPAIR Physical Exam Vital Signs: Temp Pulse Resp BP Pulse Ox 98.3 F 84 15 118/81 97 11/16/18 08:00 11/16/18 08:00 11/16/18 08:00 11/16/18 08:00 11/16/18 08:00 Intake & Output 11/15/18 11/16/18 11/17/18 06:59 06:59 06:59 Output Total 1520 1460 Balance -1520 -1460 Weight 43 kg 41.6 kg Results Laboratory Results: 11/16/18 03:56 11/16/18 03:56 11/16/18 11/16/18 03:56 03:56 WBC 6.1 RBC 3.50 L Hgb 10.7 L Hct 32.8 L MCV 94 MCH 30.7 MCHC 32.8 RDW 18.3 H Plt Count 358 Seg Neutrophils % 72.5 Sodium 138.5 Potassium 3.6 Chloride 107 Carbon Dioxide 27 Anion Gap 5 BUN 13 Creatinine 0.33 L Est GFR ( Amer) > 60 Glucose 109 Calcium 8.5 Assessment & Plan - Diagnosis (1) Ventral incisional hernia Is this a current diagnosis for this admission?: Yes - Plan Summary Plan Summary: This is a 63-year-old female status post component separation hernia repair for a large, midline ventral incisional hernia. She is doing well today. Her pain is better controlled. She continues to reach 1,000 on her incentive spirometer. She has no sign of hematoma or compromise of the abdominal skin flaps. Her drain is productive of small amounts of serosanguinous fluid. No confusion to day. Out of bed, ambulate. Aggressive pulmonary toilet. Teds and SCDs for DVT prophylaxis. No Lovenox due to large skin flaps and possibility of hematoma/skin necrosis. Continue regular diet. Transition to oral-only pain medication. Magnesium citrate today for constipation.
[2018-11-16] MEDS: FERROUS SULFATE 325 MG TABLET PO SCH (10:48)
[2018-11-16] MEDS: BISACODYL 5 MG TABEC PO SCH ×2 (10:48→17:49)
[2018-11-16] MEDS: DOCUSATE SODIUM 100 MG CAPSULE PO SCH ×2 (10:49→17:49)
[2018-11-16] MEDS: GABAPENTIN 300 MG CAPSULE PO SCH ×3 (10:49→17:49)
[2018-11-16] MEDS ORDERED: MAGNESIUM CITRATE 296 ML BOTTLE PO ONE (11:30)
--- NOTE | 2018-11-16 11:33 | RADIOLOGY REPORT (SQ) ---
EXAM DESCRIPTION: KUB/ABDOMEN (SINGLE VIEW) COMPLETED DATE/TIME: 11/16/2018 9:12 am REASON FOR STUDY: abdominal pain K43.2 INCISIONAL HERNIA WITHOUT OBSTRUCTION OR GANGRENE COMPARISON: CT abdomen pelvis 04/25/2018 Three-way abdomen 04/25/2018 NUMBER OF VIEWS: One view. TECHNIQUE: Supine radiographic image of the abdomen acquired. LIMITATIONS: None. FINDINGS: BOWEL GAS PATTERN: Moderate stool in the ascending colon. Gas in nondistended descending colon and rectosigmoid. No dilated small bowel loops. There are surgical lucio in the left upper quadrant along the stomach. Stomach is decompressed. CALCIFICATIONS: No suspicious calcifications. SOFT TISSUES: No gross mass or suggestion of organomegaly. HARDWARE: Midline anterior abdominal wall skin lucio. Curvilinear row of lucio in the left upper quadrant along the stomach. BONES: No acute fracture. No worrisome bone lesions. OTHER: No other significant finding. IMPRESSION: Grossly nonobstructive bowel gas pattern TECHNICAL DOCUMENTATION: JOB ID: [id number] [employer]- All Rights Reserved Reading location - IP/workstation name: [email or web address]
[2018-11-16] MEDS: IBUPROFEN 800 MG TABLET PO SCH ×2 (13:21→17:49)
[2018-11-16] MEDS: OXYCODONE HCL IR 5 MG TABLET PO PRN ×3 (13:22→22:02)
[2018-11-16] MEDS: ACETAMINOPHEN 325 MG TABLET PO SCH ×2 (13:22→17:48)
[2018-11-16] MEDS: ESCITALOPRAM OXALATE 10 MG TABLET PO SCH (22:03)
[2018-11-17] MEDS: OXYCODONE HCL IR 5 MG TABLET PO PRN ×5 (02:36→22:57)
[2018-11-17] MEDS: PANTOPRAZOLE SODIUM 40 MG TABLET.DR PO SCH (05:17)
[2018-11-17] MEDS: IBUPROFEN 800 MG TABLET PO SCH ×3 (08:05→16:28)
[2018-11-17] MEDS: SUCRALFATE 1 GM TABLET PO SCH ×4 (08:07→21:24)
[2018-11-17] MEDS: DOCUSATE SODIUM 100 MG CAPSULE PO SCH ×2 (09:27→18:21)
[2018-11-17] MEDS: GABAPENTIN 300 MG CAPSULE PO SCH ×3 (09:28→18:21)
[2018-11-17] MEDS: BISACODYL 5 MG TABEC PO SCH ×2 (09:28→18:21)
[2018-11-17] MEDS: FERROUS SULFATE 325 MG TABLET PO SCH (09:28)
[2018-11-17] MEDS: ACETAMINOPHEN 325 MG TABLET PO SCH ×3 (09:28→18:21)
--- NOTE | 2018-11-17 17:10 | PDOC PROGRESS REPORT ---
Subjective Progress Note for:: 11/17/18 Reason For Visit: S/P COMPONENT SEPARATION HERNIA REPAIR Physical Exam Vital Signs: Temp Pulse Resp BP Pulse Ox 98.5 F 75 16 113/66 99 11/17/18 10:58 11/17/18 10:58 11/17/18 10:58 11/17/18 10:58 11/17/18 10:58 Intake & Output 11/16/18 11/17/18 11/18/18 06:59 06:59 06:59 Intake Total 222 582 Output Total 1460 120 20 Balance -1460 102 562 Weight 41.6 kg 41.2 kg Results Laboratory Results: 11/16/18 03:56 11/16/18 03:56 Impressions: KUB X-Ray 11/16/18 06:00 IMPRESSION: Grossly nonobstructive bowel gas pattern Assessment & Plan - Diagnosis (1) Ventral incisional hernia Is this a current diagnosis for this admission?: Yes - Plan Summary Plan Summary: This is a 63-year-old female status post component separation hernia repair for a large, midline ventral incisional hernia. She is doing well today. She complains of pain with ambulation. She continues to reach 1,000 on her incentive spirometer. She has no sign of hematoma or compromise of the abdominal skin flaps. Her drain is productive of small amounts of serosanguinous fluid. No confusion today. Out of bed, ambulate. Aggressive pulmonary toilet. Teds and SCDs for DVT prophylaxis. No Lovenox due to large skin flaps and possibility of hematoma/skin necrosis. Continue regular diet. Continue oral-only pain medication. Plan for discharge tomorrow.
[2018-11-17] MEDS: ESCITALOPRAM OXALATE 10 MG TABLET PO SCH (21:24)
[2018-11-18] MEDS: OXYCODONE HCL IR 5 MG TABLET PO PRN ×3 (04:38→13:16)
[2018-11-18] MEDS: PANTOPRAZOLE SODIUM 40 MG TABLET.DR PO SCH (05:10)
[2018-11-18] MEDS: IBUPROFEN 800 MG TABLET PO SCH ×2 (08:13→11:40)
[2018-11-18] MEDS: SUCRALFATE 1 GM TABLET PO SCH ×2 (08:14→11:40)
[2018-11-18] MEDS: ACETAMINOPHEN 325 MG TABLET PO SCH ×2 (10:35→20:04)
[2018-11-18] MEDS: BISACODYL 5 MG TABEC PO SCH (10:35)
[2018-11-18] MEDS: DOCUSATE SODIUM 100 MG CAPSULE PO SCH (10:35)
[2018-11-18] MEDS: FERROUS SULFATE 325 MG TABLET PO SCH (10:35)
[2018-11-18] MEDS: GABAPENTIN 300 MG CAPSULE PO SCH ×2 (10:35→13:16)
--- NOTE | 2018-11-18 12:25 | PDOC DISCHARGE SUMMARY ---
General - Admit/Disc Date/PCP Admission Date/Primary Care Provider: 11/12/18 10:01 STEFAN SOTO MD Discharge Date: 11/18/18 - Discharge Diagnosis Final Diagnosis: large midline ventral incisional hernia - Assessment Summary: 63 y/o F with a large ventral, incisional hernia. It caused her significant difficulty with daily tasks. She experienced pain every day. She was admitted for hernia repair. She underwent component separation hernia repair with [place] bio-A mesh reconstruction. After surgery, the pt had a large amount of pain and was taken to the ICU for close monitoring. She required a morphine [employer]ILD[employer] for pain control. Over the next several days, her narcotic requirement decreased and she was transitioned to oral pain medications. She was transferred to the floor and began ambulating. By 11/18/18 It was felt that she had reached maximal hospital benefit and was fit for discharge. - Additional Information Resuscitation Status: Full Code Discharge Diet: As Tolerated Discharge Activity: Balance Activity w/Rest, No Lifting Over 10 Pounds, No Lifting/Push/Pulling Referrals: STEFAN SOTO MD [Primary Care Provider] - Home Medications: Gabapentin [Neurontin 300 mg Capsule] 300 mg PO TID 11/21/17 Docusate Sodium [Colace 100 mg Capsule] 400 mg PO BID 10/09/18 Escitalopram Oxalate [Lexapro 10 mg Tablet] 20 mg PO QHS 10/09/18 Multivit,Calc,Mins/Iron/Folic [Thera-M Caplet] 1 tab PO WSUPPER 10/09/18 Ferrous Sulfate 325 mg PO DAILY #30 tablet. 10/11/18 Omeprazole Magnesium [Prilosec Otc] 40 mg PO DAILY 11/08/18 Additional Information: discharge home. Diet as tolerated. Activity: no lifting >10 lbs x 6 weeks after surgery. OK to shower. Ibuprofen 800mg PO TID with meals. Percocet 10/325 mg PO q4 hours PRN for pain. Followup with me in one week. Wear abdominal binder PRN. History of Present Illiness History of Present Illness: RANDALL ELKINS is a 63 year old female Physical Exam Vital Signs: Temp Pulse Resp BP Pulse Ox 98.3 F 76 14 108/76 97 11/18/18 07:20 11/18/18 07:20 11/18/18 07:20 11/18/18 07:20 11/18/18 07:20 Intake & Output 11/17/18 11/18/18 11/19/18 06:59 06:59 06:59 Intake Total 222 1277 Output Total 120 20 Balance 102 1257 Weight 41.2 kg 44.7 kg Results Laboratory Results: WBC 6.1 10^3/uL (4.0-10.5) 11/16/18 03:56 RBC 3.50 10^6/uL (3.72-5.28) L 11/16/18 03:56 Hgb 10.7 g/dL (12.0-15.5) L 11/16/18 03:56 Hct 32.8 % (36.0-47.0) L 11/16/18 03:56 MCV 94 fl (80-97) 11/16/18 03:56 MCH 30.7 pg (27.0-33.4) 11/16/18 03:56 MCHC 32.8 g/dL (32.0-36.0) 11/16/18 03:56 RDW 18.3 % (11.5-14.0) H 11/16/18 03:56 Plt Count 358 10^3/uL (150-450) 11/16/18 03:56 Lymph % (Auto) 15.3 % (13-45) 11/16/18 03:56 [place] % (Auto) 6.2 % (3-13) 11/16/18 03:56 Eos % (Auto) 5.6 % (0-6) 11/16/18 03:56 Baso % (Auto) 0.4 % (0-2) 11/16/18 03:56 Absolute Neuts (auto) 4.4 10^3/uL (1.7-8.2) 11/16/18 03:56 Absolute Lymphs (auto) 0.9 10^3/uL (0.5-4.7) 11/16/18 03:56 Absolute Monos (auto) 0.4 10^3/uL (0.1-1.4) 11/16/18 03:56 Absolute Eos (auto) 0.3 10^3/uL (0.0-0.6) 11/16/18 03:56 Absolute Basos (auto) 0.0 10^3/uL (0.0-0.2) 11/16/18 03:56 Seg Neutrophils % 72.5 % (42-78) 11/16/18 03:56 Sodium 138.5 mmol/L (137-145) 11/16/18 03:56 Potassium 3.6 mmol/L (3.6-5.0) 11/16/18 03:56 Chloride 107 mmol/L (98-107) 11/16/18 03:56 Carbon Dioxide 27 mmol/L (22-30) 11/16/18 03:56 Anion Gap 5 (5-19) 11/16/18 03:56 BUN 13 mg/dL (7-20) 11/16/18 03:56 Creatinine 0.33 mg/dL (0.52-1.25) L 11/16/18 03:56 Est GFR ( Amer) > 60 (>60) 11/16/18 03:56 Est GFR (Non-Af Amer) Cancelled 11/13/18 03:36 Est GFR (MDRD) Non-Af > 60 (>60) 11/16/18 03:56 Glucose 109 mg/dL (75-110) 11/16/18 03:56 Calcium 8.5 mg/dL (8.4-10.2) 11/16/18 03:56 Total Bilirubin 0.6 mg/dL (0.2-1.3) 11/13/18 06:31 Direct Bilirubin 0.3 mg/dL (0.0-0.4) 11/13/18 06:31 Neonat Total Bilirubin Not Reportable 11/13/18 06:31 Neonat Direct Bilirubin Not Reportable 11/13/18 06:31 Neonat Indirect Bili Not Reportable 11/13/18 06:31 AST 52 U/L (14-36) H 11/13/18 06:31 ALT 24 U/L (<35) 11/13/18 06:31 Alkaline Phosphatase 28 U/L (38-126) L 11/13/18 06:31 Total Protein 4.5 g/dL (6.3-8.2) L 11/13/18 06:31 Albumin 2.4 g/dL (3.5-5.0) L 11/13/18 06:31 EGFR Cancelled 11/13/18 03:36 Urine Color YELLOW 11/12/18 10:11 Urine Appearance CLEAR 11/12/18 10:11 Urine pH 6.0 (5.0-9.0) 11/12/18 10:11 Ur Specific [place] 1.024 11/12/18 10:11 Urine Protein 30 mg/dL (NEGATIVE) H 11/12/18 10:11 Urine Glucose (UA) NEGATIVE mg/dL (NEGATIVE) 11/12/18 10:11 Urine Ketones TRACE mg/dL (NEGATIVE) H 11/12/18 10:11 Urine Blood NEGATIVE (NEGATIVE) 11/12/18 10:11 Urine Nitrite NEGATIVE (NEGATIVE) 11/12/18 10:11 Urine Bilirubin NEGATIVE (NEGATIVE) 11/12/18 10:11 Urine Urobilinogen 2.0 mg/dL (<2.0) H 11/12/18 10:11 Ur Leukocyte Esterase TRACE (NEGATIVE) H 11/12/18 10:11 Urine WBC (Auto) 2 /HPF 11/12/18 10:11 Urine RBC (Auto) 1 /HPF 11/12/18 10:11 U Hyaline Cast (Auto) 4 /LPF 11/12/18 10:11 Squamous Epi Cells Auto <1 /HPF 11/12/18 10:11 Urine Mucus (Auto) RARE /LPF 11/12/18 10:11 Urine Ascorbic Acid 40 (NEGATIVE) H 11/12/18 10:11 Blood Type A POSITIVE 11/12/18 10:48 Blood Type Confirm A POSITIVE 11/12/18 10:48 Antibody Screen NEGATIVE 11/12/18 10:48 Crossmatch See Detail 11/12/18 10:48 Impressions: KUB X-Ray 11/16/18 06:00 IMPRESSION: Grossly nonobstructive bowel gas pattern
[2018-11-18 14:52] VITALS: BP 116/73
== END 2018-11-18 15:46 | disposition home health service (06) | DRG 337 ==
LOC: INOR 10:01 → ICU 17:14 → 4S 11-16 18:33
PROVIDERS: ADMIT Surgery; ATTEND Surgery
PROC: 0WUF0JZ Supplement Abdominal Wall with Synthetic Substitute, Open Approach (ICD-10-PCS; 2018-11-12)
PROC: 0DN80ZZ Release Small Intestine, Open Approach (ICD-10-PCS; 2018-11-12)
PROC: 0KXK0Z6 Transfer Right Abdomen Muscle, Transverse Rectus Abdominis Myocutaneous Flap, Open Approach (ICD-10-PCS; 2018-11-12)
PROC: 0KXL0Z6 Transfer Left Abdomen Muscle, Transverse Rectus Abdominis Myocutaneous Flap, Open Approach (ICD-10-PCS; 2018-11-12)
PROC: 30233N1 Transfusion of Nonautologous Red Blood Cells into Peripheral Vein, Percutaneous Approach (ICD-10-PCS; 2018-11-12)
PROC: 0DNE0ZZ Release Large Intestine, Open Approach (ICD-10-PCS; principal; 2018-11-12 12:00)
DX: K43.2 Incisional hernia without obstruction or gangrene (principal); D50.9 Iron deficiency anemia, unspecified; K21.9 Gastro-esophageal reflux disease without esophagitis; K66.0 Peritoneal adhesions (postprocedural) (postinfection); F32.9 Major depressive disorder, single episode, unspecified
CPT/HCPCS: 00752; 36415; 36430; 74018; 80048; 80053; 81001; 85025; 86850; 86900; 86901; 86920; 93005; 93010; 94799; C1781; J0131; J0690; J1100; J1170; J1741; J1885; J2250; J2270; J2405; J2550; J2704; J2710; J3010; J3490; J7050; J7060; J7121; P9016; S0028

== ENCOUNTER 2018-12-20 13:59 | Inpatient (IN) | payer OTHER ==
--- NOTE | 2018-12-20 14:23 | ER Document Report ---
ED Medical Screen (RME) - General Chief Complaint: Weakness Stated Complaint: VOMITING BLOOD/WEAKNESS Time Seen by Provider: 12/20/18 14:20 Primary Care Provider: STEFAN SOTO MD [Primary Care Provider] - Follow up as needed Mode of Arrival: Ambulatory Information source: Patient Notes: 63-year-old female presents to ED for feeling weak. She states she has had blood transfusion multiple times recently and she supposed to get a colonoscopy on Monday. She states she told the doctor she felt like she has every time she needs blood if he told her to come in to get evaluated and received blood as needed. She states she has been feeling very weak for the last week and a half. She states her stools are very dark. She states she had a ventral hernia for repair from a previous surgery I have greeted and performed a rapid initial assessment of this patient. A comprehensive ED assessment and evaluation of the patient, analysis of test results and completion of medical decision making process will be conducted by an additional ED providers. TRAVEL OUTSIDE OF THE [place] IN LAST 30 DAYS: No - Related Data Allergies/Adverse Reactions: No Known Allergies Allergy (Verified 12/20/18 14:19) Past Medical History - Past Medical History Cardiac Medical History: Denies: Hx Atrial Fibrillation, Hx Congestive Heart Failure, Hx Coronary Artery Disease, Hx Heart Attack, Hx Hypercholesterolemia, Hx Hypertension, Hx Peripheral Vascular Disease, Hx Pulmonary Embolism, Hx Heart Murmur Pulmonary Medical History: Denies: Hx Asthma, Hx Bronchitis, Hx COPD, Hx Pneumonia, Hx Respiratory Failure, Hx Sleep Apnea, Hx Tuberculosis Neurological Medical History: Reports: Hx Migraine. Denies: Hx Cerebrovascular Accident, Hx Seizures, Hx Parkinson's Disease Endocrine Medical History: Denies: Hx Diabetes Mellitus Type 1, Hx Diabetes Mellitus Type 2, Hx Graves' Disease, Hx Hyperthyroidism, Hx Hypothyroidism Renal/ Medical History: Denies: Hx End Stage Renal Disease, Hx Kidney Stones, Hx Ovarian Cysts, Hx Peritoneal Dialysis, Hx Pelvic Inflammatory Disease Malignancy Medical History: Denies: Hx Breast Cancer, Hx Cervical Cancer, Hx Leukemia, Hx Lung Cancer, Hx Ovarian Cancer GI Medical History: Reports: Hx Gastritis, Hx Gastroesophageal Reflux Disease, Hx Ulcer - RUPTURED ULCER IN STOMACH, Hx Colonoscopy, Hx Endoscopy. Denies: Hx Cirrhosis, Hx Crohn's Disease, Hx Diverticulitis, Hx Hepatitis, Hx Hiatal Hernia, Hx Irritable Bowel, Hx Liver Failure, Hx Pancreatitis, Hx Ulcerative Colitis Musculoskeltal Medical History: Denies Hx Arthritis, Denies Hx Fibromyalgia, Denies Hx Gout, Denies Hx Multiple Sclerosis, Denies Hx Muscular Dystrophy, Denies Hx Systemic Lupus Erythematosus Skin Medical History: Denies Hx Eczema, Denies Hx Psoriasis Psychiatric Medical History: Reports: Hx Anxiety, Hx Depression - ANXIETY Denies: Hx Bipolar Disorder, Hx Dementia, Hx Post Traumatic Stress Disorder, Hx Schizophrenia Traumatic Medical History: Denies: Hx Fractures Infectious Medical History: Denies: Hx Hepatitis, Hx HIV Past Surgical History: Reports: Hx Oral Surgery, Other - EGD, Colonoscopy, abdominal surgery x2 for perforated peptic ulcer.. Denies: Hx Appendectomy, Hx Bowel Surgery, Hx Section, Hx Cholecystectomy, Hx Colostomy, Hx Coronary Artery Bypass Graft, Hx Gastric Bypass Surgery, Hx Herniorrhaphy, Hx Hysterectomy, Hx Mastectomy, Hx Pacemaker, Hx Tonsillectomy, Hx Tubal Ligation - Immunizations Immunizations up to date: Yes Physical Exam - Vital signs Vitals: Temp Pulse Resp BP Pulse Ox 97.4 F 86 16 120/76 97 12/20/18 14:09 12/20/18 14:09 12/20/18 14:09 12/20/18 14:09 12/20/18 14:09 Course - Vital Signs Vital signs: Temp Pulse Resp BP Pulse Ox 97.4 F 86 16 120/76 97 12/20/18 14:09 12/20/18 14:09 12/20/18 14:09 12/20/18 14:09 12/20/18 14:09 Doctor's Discharge - Discharge Referrals: STEFAN SOTO MD [Primary Care Provider] - Follow up as needed
[2018-12-20 15:12] LABS: APPEARANCE,URINE SLIGHTLY-CLOUDY; BILIRUBIN,URINE NEGATIVE (NEGATIVE); COLOR,URINE YELLOW; GLUCOSE, URINE NEGATIVE (NEGATIVE); KETONES,URINE NEGATIVE (NEGATIVE); PROTEIN,URINE NEGATIVE (NEGATIVE); URINE SPECIFIC GRAVITY 1.017; UROBILINOGEN,URINE NEGATIVE mg/dL (<2.0)
[2018-12-20 15:44] LABS: ALBUMIN 3.4 g/dL (3.5-5.0); ALKALINE PHOSPHATASE 69 U/L (38-126); ANION GAP 9 (5-19); ASPARTATE AMINO TRANSFERASE 77 U/L (14-36); BILIRUBIN,DIRECT 0.4 mg/dL (0.0-0.4); BILIRUBIN,TOTAL 0.4 mg/dL (0.2-1.3); BLOOD UREA NITROGEN 25 mg/dL (7-20); CARBON DIOXIDE 34 mmol/L (22-30); CHLORIDE 99 mmol/L (98-107); GLUCOSE 95 mg/dL (75-110); POTASSIUM 3.4 mmol/L (3.6-5.0); TOTAL PROTEIN 6.1 g/dL (6.3-8.2)
[2018-12-20 15:53] LABS: CALCIUM 12.5 mg/dL (8.4-10.2)
[2018-12-20 17:28] LABS: ABSOLUTE EOSINOPHILS # (AUTO) 0.2 10^3/uL (0.0-0.6); ABSOLUTE MONOCYTES (AUTO) 0.4 10^3/uL (0.1-1.4); ABSOLUTE NEUT (AUTO) 3.8 10^3/uL (1.7-8.2); BASOPHILS % (AUTO) 0.7 % (0-2); EOSINOPHILS % (AUTO) 3.2 % (0-6); HEMATOCRIT 25.9 % (36.0-47.0); HEMOGLOBIN 8.7 g/dL (12.0-15.5); LYMPHOCYTES % (AUTO) 18.8 % (13-45); MEAN CORPUSCULAR HEMOGLOBIN 29.8 pg (27.0-33.4); MEAN CORPUSCULAR HGB CONC 33.4 g/dL (32.0-36.0); MEAN CORPUSCULAR VOLUME 89 fl (80-97); MONOCYTES % (AUTO) 7.1 % (3-13); PLATELET COUNT 501 10^3/uL (150-450); RED BLOOD COUNT 2.91 10^6/uL (3.72-5.28); RED CELL DISTRIBUTION WIDTH 15.3 % (11.5-14.0); SEGMENTED NEUTROPHILS % (AUTO) 70.2 % (42-78); TOTAL CELLS COUNTED % (AUTO) 100 %; WHITE BLOOD COUNT 5.5 10^3/uL (4.0-10.5)
[2018-12-20] MEDS ORDERED: NORMAL SALINE 1000 ML 1,000 ML IV ONE (19:51)
[2018-12-20] MEDS ORDERED: PANTOPRAZOLE SODIUM 40 MG VIAL IV ONE (21:02)
[2018-12-20 21:10] LABS: ABSOLUTE EOSINOPHILS # (AUTO) 0.2 10^3/uL (0.0-0.6); ABSOLUTE LYMPHOCYTES (AUTO) 0.9 10^3/uL (0.5-4.7); ABSOLUTE MONOCYTES (AUTO) 0.4 10^3/uL (0.1-1.4); ABSOLUTE NEUT (AUTO) 3.1 10^3/uL (1.7-8.2); BASOPHILS % (AUTO) 0.8 % (0-2); EOSINOPHILS % (AUTO) 4.6 % (0-6); HEMATOCRIT 23.2 % (36.0-47.0); LYMPHOCYTES % (AUTO) 18.9 % (13-45); MEAN CORPUSCULAR HEMOGLOBIN 29.3 pg (27.0-33.4); MEAN CORPUSCULAR HGB CONC 33.4 g/dL (32.0-36.0); MEAN CORPUSCULAR VOLUME 88 fl (80-97); MONOCYTES % (AUTO) 7.7 % (3-13); PLATELET COUNT 450 10^3/uL (150-450); RED BLOOD COUNT 2.65 10^6/uL (3.72-5.28); RED CELL DISTRIBUTION WIDTH 15.5 % (11.5-14.0); TOTAL CELLS COUNTED % (AUTO) 100 %; WHITE BLOOD COUNT 4.6 10^3/uL (4.0-10.5)
[2018-12-20 21:11] LABS: HEMOGLOBIN 7.8 g/dL (12.0-15.5)
[2018-12-20] MEDS ORDERED: PANTOPRAZOLE SODIUM 40 MG VIAL IV PRN (21:24)
[2018-12-20] MEDS ORDERED: MAGNESIUM HYDROXIDE SUSP 30 ML UDCUP PO PRN (23:07)
[2018-12-20] MEDS ORDERED: ONDANSETRON HCL INJ/PF 4 MG/2 ML SDV IV PRN (23:07)
[2018-12-20] MEDS ORDERED: NALBUPHINE HCL INJ 10 MG/1 ML AMPULE IV PRN (23:12)
[2018-12-20] MEDS ORDERED: ACETAMINOPHEN 650 MG SUPP.RECT PR PRN (23:12)
[2018-12-20 23:54] LABS: ABSOLUTE RETICS # 0.076 10^6/uL (0.028-0.122); RETICULOCYTE COUNT (AUTO) 2.89 % (0.66-2.85)
[2018-12-21] MEDS ORDERED: NALBUPHINE HCL INJ 10 MG/1 ML AMPULE IV PRN ×4 (01:11→10:30)
--- NOTE | 2018-12-21 01:19 | ER Document Report ---
Entered by NEVAEH CARRANZA SCRIBE 12/20/[id number] Acting as scribe for:JAMMIE PRESLEY DO ED GI/ - General Chief Complaint: General Weakness Stated Complaint: VOMITING BLOOD/WEAKNESS Time Seen by Provider: 12/20/18 14:20 Mode of Arrival: Ambulatory Information source: Patient Notes: Patient is a 63 year old female with a complicated GI history including per forated ulcer on daily protonix that presents to the emergency department today with complaints of intermittent abdominal pain since a complicated hernia repair performed on 11/12/[address] Rainey. Patient has a history of anemia and is on iron supplements. Patient states over the last week she has had dark colored vomit as well as dark-colored stool. Patient also mentions that she has had a 5 pound weight loss over the last week. Patient denies being on any blood thinning medications or history of alcohol abuse. TRAVEL OUTSIDE OF THE [place] IN LAST 30 DAYS: No - Related Data Allergies/Adverse Reactions: No Known Allergies Allergy (Verified 12/20/18 14:19) Home Medications: tageet/[facility] Past Medical History - General Information source: Patient - Social History Smoking Status: Never Smoker Cigarette use (# per day): No Chew tobacco use (# tins/day): No Frequency of alcohol use: None Drug Abuse: None Lives with: Alone Family History: Reviewed & Not Pertinent, Malignancy - Mother with colon cancer, father with pancreatic cancer, sister with breast cancer Patient has suicidal ideation: No Patient has homicidal ideation: No Neurological Medical History: Reports: Hx Migraine GI Medical History: Reports: Hx Gastritis, Hx Gastroesophageal Reflux Disease, Hx Ulcer - hx ruptured ulcer, Hx Colonoscopy, Hx Endoscopy Psychiatric Medical History: Reports: Hx Anxiety, Hx Depression Past Surgical History: Reports: Hx Herniorrhaphy, Hx Oral Surgery, Other - EGD, Colonoscopy, abdominal surgery x2 for perforated peptic ulcer. - Immunizations Immunizations up to date: Yes Hx Pneumococcal Vaccination: 11/21/15 Review of Systems - Review of Systems Constitutional: No symptoms reported EENT: No symptoms reported Cardiovascular: No symptoms reported Respiratory: No symptoms reported Gastrointestinal: See HPI, Abdominal pain, Vomiting, Blood in vomit, Black stool s Genitourinary: No symptoms reported Female Genitourinary: No symptoms reported Musculoskeletal: No symptoms reported Skin: No symptoms reported Hematologic/Lymphatic: No symptoms reported Neurological/Psychological: No symptoms reported -: Yes All other systems reviewed and negative Physical Exam - Vital signs Vitals: Temp Pulse Resp BP Pulse Ox 97.4 F 86 16 120/76 97 12/20/18 14:09 12/20/18 14:09 12/20/18 14:09 12/20/18 14:09 12/20/18 14:09 Course - Re-evaluation Re-evalutation: 12/20/18 21:15 Called flat lock operator to page Dr. Kumar 12/20/18 21:22 Dr. Kumar returned call, states that this is not his personal patient and that he will not be in town tomorrow to scope the patient. 12/20/18 22:23 Dr. Rainey says he will be available to scope her, admit to medicine. 12/20/18 23:[address] Moctezuma. Will admit. Patient is a 63-year-old female who comes in after she has had dark stool and vomited blood 2 days ago. Vitals are stable. Patient's hemoglobin has gone from 8.7-7.8 and 4 hours. This is before receiving any IV fluids for her calcium greater than 12. Patient has had no further emesis. Tolerating ice chips. Given anemia that is down from a month ago and has dropped in the last 4 hours, patient will be admitted. Discussed with surgicalist who can scope the patient as needed. Discussed with patient who would prefer to stay here. Protonix initiated in the emergency department. Patient admitted to the hospital service. Stable at the time of admission. - Vital Signs Vital signs: Temp Pulse Resp BP Pulse Ox 97.4 F 86 10 L 128/85 H 95 12/20/18 14:09 12/20/18 14:09 12/20/18 18:24 12/20/18 18:24 12/20/18 18:24 - Laboratory Result Diagrams: 12/20/18 21:00 12/20/18 15:25 Laboratory results interpreted by me: 12/20/18 12/20/18 12/20/18 14:47 15:25 16:53 RBC 2.91 L Hgb 8.7 L Hct 25.9 L RDW 15.3 H Plt Count 501 H Retic Count (auto) Potassium 3.4 L Carbon Dioxide 34 H BUN 25 H Est GFR (MDRD) Non-Af 59 L Calcium 12.5 H* AST 77 H Total Protein 6.1 L Albumin 3.4 L Urine Ascorbic Acid 40 H 12/20/18 12/20/18 21:00 21:00 RBC 2.65 L Hgb 7.8 L Hct 23.2 L RDW 15.5 H Plt Count Retic Count (auto) 2.89 H Potassium Carbon Dioxide BUN Est GFR (MDRD) Non-Af Calcium AST Total Protein Albumin Urine Ascorbic Acid Critical Care Note - Critical Care Note Total time excluding time spent on procedures (mins): 45 - Evaluation and management of probable GI bleed with multiple re-evaluations, consultation with specialist, coordination of admission, counseling of patient Discharge - Discharge Clinical Impression: Anemia due to blood loss, Upper gastrointestinal bleeding Condition: Stable Disposition: ADMITTED INPATIENT Admitting Provider: Jose Elias (Hospitalist) Unit Admitted: Medical Floor I personally performed the services described in the documentation, reviewed and edited the documentation which was dictated to the scribe in my presence, and it accurately records my words and actions.
--- NOTE | 2018-12-21 05:51 | PDOC H&P ---
History of Present Illness Admission Date/PCP: 12/20/2018 22:37 STEFAN SOTO MD Patient complains of: Generalized weakness History of Present Illness: RANDALL ELKINS is a 63 year old female who presented to the emergency room with a 10-day history of generalized weakness. The patient's generalized weakness has been progressive over the last 10 days and accompanied by 1 episode of dark-colored (coffee-ground) emesis as well as numerous episodes of dark blackish foul-smelling stools as well as a 5 pound weight loss. She further admits that her weakness is associated with intermittent moderately intense, crampy abdominal pains which she has experienced since a hernia repair surgery on 11/12/2018. She denies other associated or accompanying signs and symptoms. She admits numerous prior similar episodes with anemia. She has not identified any additional aggravating or ameliorating factors for her weakness. In the emergency room she was found to have a significant drop in her hemoglobin over a 4-hour time span. Dr. Rainey was notified and recommended admission by the hospitalist service for which he will provide consultation. Patient was subsequently admitted to hospital for further evaluation and treatment. Past Medical History Cardiac Medical History: Denies: Atrial Fibrillation, Congestive Heart Failure, Coronary Artery Disease, Myocardial Infarction, Hyperlipidema, Hypertension, Peripheral Vascular Disease, Pulmonary Embolism, Heart Murmur Pulmonary Medical History: Denies: Asthma, Bronchitis, Chronic Obstructive Pulmonary Disease (COPD), Pneumonia, Respiratory Failure, Sleep Apnea, Tuberculosis EENT Medical History: Denies: Cataracts, Ears - Hearing aids Neurological Medical History: Reports: Migraine Denies: Hemorrhagic CVA, Ischemic CVA, Seizures Endocrine Medical History: Denies: Diabetes Mellitus Type 1, Diabetes Mellitus Type 2, Hyperthyroidism, Hypothyroidism Renal/ Medical History: Denies: Chronic Kidney Disease, End Stage Renal Disease Malignancy Medical History: Reports: None GI Medical History: Reports: Gastroesophageal Reflux Disease, Peptic Ulcer Disease, Other - Previous GI bleeds Denies: Cirrhosis, Crohn's Disease, Diverticulitis, Hepatitis, Hiatal Hernia, Ulcerative Colitis Musculoskeltal Medical History: Denies: Arthritis, Fibromyalgia, Gout Skin Medical History: Denies: Eczema, Psoriasis Psychiatric Medical History: Reports: Depression - ANXIETY Denies: Alcohol Dependency, Substance Abuse, Tobacco Dependency Traumatic Medical History: Reports: None Hematology: Reports: Anemia Denies: Bleeding Tendencies Infectious Medical History: Reports: None Past Surgical History Past Surgical History: Reports: Herniorrhaphy - Ventral herniorrhaphy 11/12/[address] Rainey, Other - EGD, Colonoscopy, abdominal surgery x2 for perforated peptic ulcer. Social History Information Source: Patient Lives with: Alone Smoking Status: Never Smoker Electronic Cigarette use?: No Frequency of Alcohol Use: None Hx Recreational Drug Use: No Drugs: None Hx Prescription Drug Abuse: No - Advance Directive Resuscitation Status: Full Code Surrogate healthcare decision maker:: Randall Campos Family History Family History: Malignancy - Mother with colon cancer, father with pancreatic cancer, sister with breast cancer Parental Family History Reviewed: Yes Children Family History Reviewed: No Sibling(s) Family History Reviewed.: Yes Medication/Allergy Home Medications: Gabapentin [Neurontin 300 mg Capsule] 300 mg PO TID 11/21/17 Docusate Sodium [Colace 100 mg Capsule] 400 mg PO BID 10/09/18 Escitalopram Oxalate [Lexapro 10 mg Tablet] 20 mg PO QHS 10/09/18 Multivit,Calc,Mins/Iron/Folic [Thera-M Cap[place]] 1 tab PO WSUPPER 10/09/18 Ferrous Sulfate 325 mg PO DAILY #30 tablet. 10/11/18 Omeprazole Magnesium [Prilosec Otc] 40 mg PO DAILY 11/08/18 Allergies/Adverse Reactions: No Known Allergies Allergy (Verified 12/20/18 14:19) Review of Systems Constitutional: PRESENT: as per HPI, weakness, weight loss. ABSENT: chills, fever(s) Eyes: ABSENT: visual disturbances, other - Eye pain Ears: ABSENT: hearing changes, other - Ear pain Nose, Mouth, and Throat: ABSENT: mouth pain, sore throat Cardiovascular: ABSENT: chest pain, palpitations Respiratory: ABSENT: cough, dyspnea Gastrointestinal: PRESENT: abdominal pain, coffee ground emesis, melena. ABSENT: constipation, diarrhea, nausea, vomiting Genitourinary: ABSENT: dysuria, hematuria Musculoskeletal: ABSENT: back pain, joint swelling, muscle weakness Integumentary: ABSENT: pruritus, rash Neurological: ABSENT: confusion, convulsions, focal weakness, memory loss, syncope Psychiatric: ABSENT: anxiety, depression Endocrine: ABSENT: cold intolerance, heat intolerance Hematologic/Lymphatic: ABSENT: easy bleeding, easy bruising Allergic/Immunologic: ABSENT: seasonal rhinorrhea Physical Exam Vital Signs: Temp Pulse Resp BP Pulse Ox 97.4 F 86 10 L 128/85 H 95 12/20/18 14:09 12/20/18 14:09 12/20/18 18:24 12/20/18 18:24 12/20/18 18:24 Intake & Output 12/18/18 12/19/18 12/20/18 23:59 23:59 23:59 Intake Total 1000 Balance 1000 Weight 36.6 kg General appearance: PRESENT: no acute distress, cooperative Head exam: PRESENT: atraumatic, normocephalic Eye exam: PRESENT: conjunctiva pink. ABSENT: conjunctival injection, scleral icterus Ear exam: PRESENT: normal external ear exam. ABSENT: bleeding, drainage Mouth exam: PRESENT: dry mucosa, neck supple Neck exam: ABSENT: thyromegaly, tracheal deviation Respiratory exam: PRESENT: clear to auscultation edvin, symmetrical, unlabored Cardiovascular exam: PRESENT: RRR. ABSENT: clicks, gallop, rubs Pulses: PRESENT: normal radial pulses, normal dorsalis pedis pul Vascular exam: PRESENT: normal capillary refill. ABSENT: pallor GI/Abdominal exam: PRESENT: normal bowel sounds, soft Rectal exam: PRESENT: deferred Extremities exam: ABSENT: joint swelling, pedal edema Musculoskeletal exam: ABSENT: deformity, dislocation Neurological exam: PRESENT: alert, oriented to person, oriented to place, oriented to time, oriented to situation, CN II-XII grossly intact. ABSENT: motor sensory deficit Psychiatric exam: PRESENT: appropriate affect, normal mood Skin exam: PRESENT: dry, intact, warm. ABSENT: jaundice, rash, urticaria Results Laboratory Results: 12/20/18 21:00 12/20/18 15:25 12/20/18 12/20/18 12/20/18 14:47 15:25 16:53 WBC 5.5 RBC 2.91 L Hgb 8.7 L Hct 25.9 L MCV 89 MCH 29.8 MCHC 33.4 RDW 15.3 H Plt Count 501 H Seg Neutrophils % 70.2 Sodium 141.7 Potassium 3.4 L Chloride 99 Carbon Dioxide 34 H Anion Gap 9 BUN 25 H Creatinine 0.96 Est GFR ( Amer) > 60 Glucose 95 Calcium 12.5 H* Total Bilirubin 0.4 AST 77 H Alkaline Phosphatase 69 Total Protein 6.1 L Albumin 3.4 L Lipase 218.4 Urine Color YELLOW Urine Appearance SLIGHTLY-CLOUDY Urine pH 6.0 Ur Specific [place] 1.017 Urine Protein NEGATIVE Urine Glucose (UA) NEGATIVE Urine Ketones NEGATIVE Urine Blood NEGATIVE Urine RBC (Auto) 1 Blood Type Antibody Screen 12/20/18 12/20/18 16:53 21:00 WBC 4.6 RBC 2.65 L Hgb 7.8 L Hct 23.2 L MCV 88 MCH 29.3 MCHC 33.4 RDW 15.5 H Plt Count 450 Seg Neutrophils % 68.0 Sodium Potassium Chloride Carbon Dioxide Anion Gap BUN Creatinine Est GFR ( Amer) Glucose Calcium Total Bilirubin AST Alkaline Phosphatase Total Protein Albumin Lipase Urine Color Urine Appearance Urine pH Ur Specific [place] Urine Protein Urine Glucose (UA) Urine Ketones Urine Blood Urine RBC (Auto) Blood Type A POSITIVE Antibody Screen NEGATIVE Assessment and Plan - Diagnosis (1) Upper gastrointestinal bleeding Is this a current diagnosis for this admission?: Yes (2) Anemia due to blood loss Is this a current diagnosis for this admission?: Yes (3) Abdominal pain Qualifiers: Abdominal location: generalized Qualified Code(s): R10.84 - Generalized abdominal pain Is this a current diagnosis for this admission?: Yes (4) GERD (gastroesophageal reflux disease) Qualifiers: Esophagitis presence: with esophagitis Qualified Code(s): K21.0 - Gastro- esophageal reflux disease with esophagitis Is this a current diagnosis for this admission?: Yes - Plan Summary Summary: Patient will be admitted to the medical bed and given routine supportive and symptomatic cares. She will be on IV fluids initially and she will be followed with serial hemoglobins (CBCs). Surgical consultation with Dr. Rainey will be obtained and endoscopy evaluation is expected. She will be continued on IV Protonix 40 mg every 12 hours and she will receive Nubain 5 to 10 mg IV every 3 hours on an as needed basis using a sliding scale for pain. Nausea will be treated with Zofran 4 mg IV every 4 hours as needed. An anemia profile will be obtained. - Time Time Spent with patient: 15-24 minutes Medications reviewed and adjusted accordingly: Yes Anticipated discharge: Home - Inpatient Certification Based on my medical assessment, after consideration of the patient's com orbidities, presenting symptoms, or acuity I expect that the services needed warrant INPATIENT care.: Yes I certify that my determination is in accordance with my understanding of Medicare's requirements for reasonable and necessary INPATIENT services [42 CFR 412.3e].: Yes Medical Necessity: Need Close Monitoring Due to Risk of Patient Decompensation, Need For IV Fluids, Need for Surgery, Risk of Complication if Not Cared For in Hospital, Risk of Diagnosis Which Will Require Inpatient Eval/Care/Monitoring
[2018-12-21 06:14] LABS: HEMATOCRIT 23.2 % (36.0-47.0); MEAN CORPUSCULAR HGB CONC 32.6 g/dL (32.0-36.0); MEAN CORPUSCULAR VOLUME 89 fl (80-97); PLATELET COUNT 427 10^3/uL (150-450); RED BLOOD COUNT 2.61 10^6/uL (3.72-5.28); RED CELL DISTRIBUTION WIDTH 15.6 % (11.5-14.0); WHITE BLOOD COUNT 4.4 10^3/uL (4.0-10.5)
[2018-12-21 06:16] LABS: HEMOGLOBIN 7.6 g/dL (12.0-15.5)
[2018-12-21 06:50] LABS: BLOOD UREA NITROGEN 17 mg/dL (7-20); CALCIUM 11.5 mg/dL (8.4-10.2); CARBON DIOXIDE 33 mmol/L (22-30); CHLORIDE 105 mmol/L (98-107); GLUCOSE 91 mg/dL (75-110); POTASSIUM 3.3 mmol/L (3.6-5.0)
[2018-12-21 06:51] LABS: ALBUMIN 2.7 g/dL (3.5-5.0); ALKALINE PHOSPHATASE 55 U/L (38-126); ASPARTATE AMINO TRANSFERASE 48 U/L (14-36); BILIRUBIN,DIRECT 0.2 mg/dL (0.0-0.4); BILIRUBIN,TOTAL 0.3 mg/dL (0.2-1.3)
[2018-12-21 06:58] LABS: ANION GAP 3 (5-19)
[2018-12-21] MEDS ORDERED: INFLUENZA QUAD (6MOS+) 2019-20 VAC 0.5 ML SYR IM ONE (08:18)
[2018-12-21] MEDS ORDERED: POLYETHYLENE GLYCOL 3350 POWDER 17 GM/1 PACKET PO ONE ×3 (08:29→15:00)
--- NOTE | 2018-12-21 08:29 | PDOC CONSULTATION ---
Consultation Consult Date: 12/21/18 Provider Consulted: VÍCTOR RAINEY Consult reason:: Anemia, melena History of Present Illness Admission Date/PCP: 12/21/18 00:45 STEFAN SOTO MD History of Present Illness: RANDALL ELKINS is a 63 year old female with a history of a perforated gastric ulcer, and remote alcohol abuse (she has been sober for 2 years). She is seen in consultation at the request of the hospitalist service. She reports a one-week history of malaise and fatigue. Yesterday, she developed coffee- ground emesis. She reports dark, tarry stools for the last 1 month. She has a history of chronic anemia. She sees Dr. Rodriguez for this. She does report abdominal pain, but denies chest pain, shortness of breath, fevers, chills, headache. She does report malaise, fatigue, dizziness with standing, nausea, vomiting, melena, coffee-ground emesis. Her last colonoscopy was approximately 3 years ago. She reports 2 small polyps were removed. I do not have the report of this. Past Medical History Cardiac Medical History: Denies: Atrial Fibrillation, Congestive Heart Failure, Coronary Artery Disease, Myocardial Infarction, Hyperlipidema, Hypertension, Peripheral Vascular Disease, Pulmonary Embolism, Heart Murmur Pulmonary Medical History: Denies: Asthma, Bronchitis, Chronic Obstructive Pulmonary Disease (COPD), Pneumonia, Respiratory Failure, Sleep Apnea, Tuberculosis EENT Medical History: Denies: Cataracts, Ears - Hearing aids Neurological Medical History: Reports: Migraine Denies: Hemorrhagic CVA, Ischemic CVA, Seizures Endocrine Medical History: Denies: Diabetes Mellitus Type 1, Diabetes Mellitus Type 2, Hyperthyroidism, Hypothyroidism Renal/ Medical History: Denies: Chronic Kidney Disease, End Stage Renal Disease Malignancy Medical History: Reports: None Denies: Breast Cancer, Cervical Cancer, Leukemia, Lung Cancer, Ovarian Cancer GI Medical History: Reports: Gastroesophageal Reflux Disease, Peptic Ulcer Disease, Other - Previous GI bleeds Denies: Cirrhosis, Crohn's Disease, Diverticulitis, Hepatitis, Hiatal Hernia, Ulcerative Colitis Musculoskeltal Medical History: Denies: Arthritis, Fibromyalgia, Gout Skin Medical History: Denies: Eczema, Psoriasis Psychiatric Medical History: Reports: Depression - ANXIETY Denies: Alcohol Dependency, Bipolar Disorder, Dementia, Post Traumatic Stress Disorder, Substance Abuse, Tobacco Dependency Traumatic Medical History: Reports: None Hematology: Reports: Anemia Denies: Sickle Cell Disease, Bleeding Tendencies Infectious Medical History: Reports: None Denies: HIV Past Surgical History Past Surgical History: Reports: Herniorrhaphy - Component separation Ventral herniorrhaphy 11/12/[address] Rainey, Other - EGD, Colonoscopy, abdominal surgery x2 for perforated peptic ulcer. Denies: Amputation, Appendectomy, Section, Cholecystectomy, Colostomy, Coronary Artery Bypass Graft, Gastric Bypass Surgery, Hysterectomy, Mastectomy, Pacemaker, Tonsillectomy, Tubal Ligation Social History Lives with: Alone Smoking Status: Never Smoker Electronic Cigarette use?: No Frequency of Alcohol Use: None Hx Recreational Drug Use: No Drugs: None Hx Prescription Drug Abuse: No - Advance Directive Resuscitation Status: Full Code Family History Family History: Malignancy - Mother with colon cancer, father with pancreatic cancer, sister with breast cancer Parental Family History Reviewed: Yes Children Family History Reviewed: Yes Sibling(s) Family History Reviewed.: Yes Medication/Allergy Home Medications: Gabapentin [Neurontin 300 mg Capsule] 300 mg PO Q8 11/21/17 Escitalopram Oxalate [Lexapro 10 mg Tablet] 20 mg PO QHS 10/09/18 Omeprazole Magnesium [Prilosec Otc] 40 mg PO DAILY 11/08/18 Sucralfate [Carafate 1 gm Tablet] 1 gm PO QID 12/21/18 Allergies/Adverse Reactions: No Known Allergies Allergy (Verified 12/20/18 14:19) Review of Systems Constitutional: PRESENT: fatigue, weakness. ABSENT: fever(s), headache(s) Eyes: ABSENT: visual disturbances Ears: ABSENT: hearing changes Nose, Mouth, and Throat: ABSENT: mouth pain, sore throat Cardiovascular: ABSENT: chest pain Respiratory: ABSENT: dyspnea Gastrointestinal: PRESENT: abdominal pain, melena, nausea, vomiting, other - coffee-ground emesis Genitourinary: ABSENT: dysuria Musculoskeletal: ABSENT: back pain Integumentary: ABSENT: pruritus, rash Neurological: PRESENT: weakness. ABSENT: confusion, convulsions Psychiatric: ABSENT: anxiety, depression Endocrine: ABSENT: cold intolerance, heat intolerance Hematologic/Lymphatic: ABSENT: easy bleeding, easy bruising Physical Exam Vital Signs: Temp Pulse Resp BP Pulse Ox 97.4 F 86 14 102/68 95 12/20/18 14:09 12/20/18 14:09 12/21/18 06:01 12/21/18 06:00 12/21/18 06:01 Intake & Output 12/20/18 12/21/18 12/22/18 06:59 06:59 06:59 Intake Total 1000 Balance 1000 Weight 36.6 kg General appearance: PRESENT: no acute distress, cooperative. ABSENT: disheveled Head exam: PRESENT: atraumatic, normocephalic Eye exam: PRESENT: EOMI, PERRLA Mouth exam: PRESENT: moist, neck supple Teeth exam: ABSENT: poor dentation Neck exam: ABSENT: tenderness, thyromegaly, tracheal deviation Respiratory exam: PRESENT: chest wall tenderness, unlabored. ABSENT: clear to auscultation edvin, tachypnea, wheezes Cardiovascular exam: PRESENT: RRR Vascular exam: PRESENT: pallor GI/Abdominal exam: PRESENT: soft. ABSENT: distended, firm, guarding, hernia, tenderness Rectal exam: PRESENT: deferred Extremities exam: ABSENT: clubbing Musculoskeletal exam: ABSENT: deformity Neurological exam: PRESENT: alert, awake, oriented to person, oriented to place, oriented to time, oriented to situation, CN II-XII grossly intact Psychiatric exam: ABSENT: agitated, anxious, depressed Focused psych exam: ABSENT: delusional Skin exam: ABSENT: cyanosis, erythema, jaundice Results Laboratory Results: 12/21/18 05:50 12/21/18 05:50 12/20/18 12/20/18 12/20/18 14:47 15:25 15:25 WBC RBC Hgb Hct MCV MCH MCHC RDW Plt Count Seg Neutrophils % Retic Count (auto) Sodium 141.7 Potassium 3.4 L Chloride 99 Carbon Dioxide 34 H Anion Gap 9 BUN 25 H Creatinine 0.96 Est GFR ( Amer) > 60 Glucose 95 Calcium 12.5 H* Magnesium Iron Cancelled TIBC Cancelled % Saturation Cancelled Ferritin Cancelled Total Bilirubin 0.4 AST 77 H Alkaline Phosphatase 69 Total Protein 6.1 L Albumin 3.4 L Lipase 218.4 Vitamin B12 Cancelled Folate Cancelled TSH Urine Color YELLOW Urine Appearance SLIGHTLY-CLOUDY Urine pH 6.0 Ur Specific [place] 1.017 Urine Protein NEGATIVE Urine Glucose (UA) NEGATIVE Urine Ketones NEGATIVE Urine Blood NEGATIVE Urine RBC (Auto) 1 Blood Type Antibody Screen 12/20/18 12/20/18 12/20/18 16:53 16:53 21:00 WBC 5.5 4.6 RBC 2.91 L 2.65 L Hgb 8.7 L 7.8 L Hct 25.9 L 23.2 L MCV 89 88 MCH 29.8 29.3 MCHC 33.4 33.4 RDW 15.3 H 15.5 H Plt Count 501 H 450 Seg Neutrophils % 70.2 68.0 Retic Count (auto) Sodium Potassium Chloride Carbon Dioxide Anion Gap BUN Creatinine Est GFR ( Amer) Glucose Calcium Magnesium Iron TIBC % Saturation Ferritin Total Bilirubin AST Alkaline Phosphatase Total Protein Albumin Lipase Vitamin B12 Folate TSH Urine Color Urine Appearance Urine pH Ur Specific [place] Urine Protein Urine Glucose (UA) Urine Ketones Urine Blood Urine RBC (Auto) Blood Type A POSITIVE Antibody Screen NEGATIVE 12/20/18 12/21/18 12/21/18 21:00 05:50 05:50 WBC 4.4 RBC 2.61 L Hgb 7.6 L Hct 23.2 L MCV 89 MCH 29.0 MCHC 32.6 RDW 15.6 H Plt Count 427 Seg Neutrophils % Retic Count (auto) 2.89 H Sodium 140.8 Potassium 3.3 L Chloride 105 Carbon Dioxide 33 H Anion Gap 3 L BUN 17 Creatinine 0.78 Est GFR ( Amer) > 60 Glucose 91 Calcium 11.5 H Magnesium 1.8 Iron TIBC % Saturation Ferritin Total Bilirubin 0.3 AST 48 H Alkaline Phosphatase 55 Total Protein 5.0 L Albumin 2.7 L Lipase Vitamin B12 Folate TSH Urine Color Urine Appearance Urine pH Ur Specific [place] Urine Protein Urine Glucose (UA) Urine Ketones Urine Blood Urine RBC (Auto) Blood Type Antibody Screen 12/21/18 05:50 WBC RBC Hgb Hct MCV MCH MCHC RDW Plt Count Seg Neutrophils % Retic Count (auto) Sodium Potassium Chloride Carbon Dioxide Anion Gap BUN Creatinine Est GFR ( Amer) Glucose Calcium Magnesium Iron TIBC % Saturation Ferritin Total Bilirubin AST Alkaline Phosphatase Total Protein Albumin Lipase Vitamin B12 Folate TSH 0.76 Urine Color Urine Appearance Urine pH Ur Specific [place] Urine Protein Urine Glucose (UA) Urine Ketones Urine Blood Urine RBC (Auto) Blood Type Antibody Screen Assessment & Plan - Diagnosis (1) Coffee ground emesis Is this a current diagnosis for this admission?: Yes (2) Anemia Qualifiers: Anemia type: unspecified type Qualified Code(s): D64.9 - Anemia, unspecified Is this a current diagnosis for this admission?: Yes - Plan Summary Plan Summary: There is a 63-year-old female who I am well acquainted with. She reports d izziness, fatigue, melena, and coffee-ground emesis. Her last colonoscopy was 3 years ago where small polyps were identified. Patient has a history of perforated gastric ulcer. She sees Dr. Rodriguez for chronic anemia. I will consult Dr. Rodriguez for an opinion regarding her chronic anemia. I will schedule her for EGD and colonoscopy tomorrow. Plan for bowel prep today. Clear liquids today. N.p.o. after midnight. Will follow.
[2018-12-21] MEDS ORDERED: BISACODYL 5 MG TABEC PO ONE ×4 (08:30→22:00)
[2018-12-21] MEDS ORDERED: DEXTROSE 40% GEL 15 GM TUBE PO PRN ×2 (08:32)
[2018-12-21] MEDS ORDERED: GLUCAGON,HUMAN RECOMB 1 MG INJ SUBCUT PRN (08:32)
[2018-12-21] MEDS ORDERED: DEXTROSE 50%-WATER 25 GM/50 ML DISP.SYRIN IV PRN ×2 (08:32)
[2018-12-21] MEDS ORDERED: NORMAL SALINE 250 ML IV PRN ×2 (08:43)
[2018-12-21] MEDS ORDERED: POTASSI CL 20 MEQ/50 ML RIDER 20 MEQ/50 ML RTUPB IV ONE (08:46)
--- NOTE | 2018-12-21 09:01 | PDOC PROGRESS REPORT ---
Subjective Progress Note for:: 12/21/18 Subjective:: The patient is actually resting quite comfortably. She denies any abdominal pain. She says she is thirsty. She has not really eaten much in the last day or so. She does not feel nauseous at this time and is not having any significant pain. Reason For Visit: UPPER GI BLEEDING,BLOOD LOSS ANEMIA Physical Exam Vital Signs: Temp Pulse Resp BP Pulse Ox 97.4 F 86 14 102/68 95 12/20/18 14:09 12/20/18 14:09 12/21/18 06:01 12/21/18 06:00 12/21/18 06:01 Intake & Output 12/20/18 12/21/18 12/22/18 06:59 06:59 06:59 Intake Total 1000 Balance 1000 Weight 36.6 kg General appearance: PRESENT: no acute distress, cooperative, thin, well- developed Head exam: PRESENT: atraumatic, normocephalic Eye exam: PRESENT: conjunctiva pale, EOMI. ABSENT: conjunctival injection, periorbital swelling Ear exam: PRESENT: normal external ear exam. ABSENT: bleeding, drainage Mouth exam: PRESENT: dry mucosa, neck supple, tongue midline Respiratory exam: PRESENT: clear to auscultation edvin, symmetrical, unlabored. ABSENT: prolonged expiratory phas, rales, rhonchi, tachypnea, wheezes Cardiovascular exam: PRESENT: RRR, +S1, +S2, systolic murmur - 2/6 GI/Abdominal exam: PRESENT: normal bowel sounds, soft, tenderness - Slight tenderness in the epigastric area towards the right upper quadrant, other - Large midline scar. ABSENT: distended, guarding Rectal exam: PRESENT: deferred Gentrourinary exam: ABSENT: indwelling catheter Extremities exam: PRESENT: full ROM. ABSENT: pedal edema, tenderness Musculoskeletal exam: PRESENT: full ROM, normal inspection. ABSENT: deformity Neurological exam: PRESENT: alert, awake, oriented to person, oriented to place, oriented to time, oriented to situation, CN II-XII grossly intact. ABSENT: motor sensory deficit Psychiatric exam: PRESENT: appropriate affect, normal mood. ABSENT: agitated, anxious Focused psych exam: ABSENT: delusional, restlessness Skin exam: PRESENT: dry, normal color, warm. ABSENT: rash Results Laboratory Results: 12/21/18 05:50 12/21/18 05:50 12/20/18 12/20/18 12/20/18 14:47 15:25 15:25 WBC RBC Hgb Hct MCV MCH MCHC RDW Plt Count Seg Neutrophils % Retic Count (auto) Sodium 141.7 Potassium 3.4 L Chloride 99 Carbon Dioxide 34 H Anion Gap 9 BUN 25 H Creatinine 0.96 Est GFR ( Amer) > 60 Glucose 95 Calcium 12.5 H* Magnesium Iron Cancelled TIBC Cancelled % Saturation Cancelled Ferritin Cancelled Total Bilirubin 0.4 AST 77 H Alkaline Phosphatase 69 Total Protein 6.1 L Albumin 3.4 L Lipase 218.4 Vitamin B12 Cancelled Folate Cancelled TSH Urine Color YELLOW Urine Appearance SLIGHTLY-CLOUDY Urine pH 6.0 Ur Specific [place] 1.017 Urine Protein NEGATIVE Urine Glucose (UA) NEGATIVE Urine Ketones NEGATIVE Urine Blood NEGATIVE Urine RBC (Auto) 1 Blood Type Antibody Screen 12/20/18 12/20/18 12/20/18 16:53 16:53 21:00 WBC 5.5 4.6 RBC 2.91 L 2.65 L Hgb 8.7 L 7.8 L Hct 25.9 L 23.2 L MCV 89 88 MCH 29.8 29.3 MCHC 33.4 33.4 RDW 15.3 H 15.5 H Plt Count 501 H 450 Seg Neutrophils % 70.2 68.0 Retic Count (auto) Sodium Potassium Chloride Carbon Dioxide Anion Gap BUN Creatinine Est GFR ( Amer) Glucose Calcium Magnesium Iron TIBC % Saturation Ferritin Total Bilirubin AST Alkaline Phosphatase Total Protein Albumin Lipase Vitamin B12 Folate TSH Urine Color Urine Appearance Urine pH Ur Specific [place] Urine Protein Urine Glucose (UA) Urine Ketones Urine Blood Urine RBC (Auto) Blood Type A POSITIVE Antibody Screen NEGATIVE 12/20/18 12/21/18 12/21/18 21:00 05:50 05:50 WBC 4.4 RBC 2.61 L Hgb 7.6 L Hct 23.2 L MCV 89 MCH 29.0 MCHC 32.6 RDW 15.6 H Plt Count 427 Seg Neutrophils % Retic Count (auto) 2.89 H Sodium 140.8 Potassium 3.3 L Chloride 105 Carbon Dioxide 33 H Anion Gap 3 L BUN 17 Creatinine 0.78 Est GFR ( Amer) > 60 Glucose 91 Calcium 11.5 H Magnesium 1.8 Iron TIBC % Saturation Ferritin Total Bilirubin 0.3 AST 48 H Alkaline Phosphatase 55 Total Protein 5.0 L Albumin 2.7 L Lipase Vitamin B12 Folate TSH Urine Color Urine Appearance Urine pH Ur Specific [place] Urine Protein Urine Glucose (UA) Urine Ketones Urine Blood Urine RBC (Auto) Blood Type Antibody Screen 12/21/18 05:50 WBC RBC Hgb Hct MCV MCH MCHC RDW Plt Count Seg Neutrophils % Retic Count (auto) Sodium Potassium Chloride Carbon Dioxide Anion Gap BUN Creatinine Est GFR ( Amer) Glucose Calcium Magnesium Iron TIBC % Saturation Ferritin Total Bilirubin AST Alkaline Phosphatase Total Protein Albumin Lipase Vitamin B12 Folate TSH 0.76 Urine Color Urine Appearance Urine pH Ur Specific [place] Urine Protein Urine Glucose (UA) Urine Ketones Urine Blood Urine RBC (Auto) Blood Type Antibody Screen Assessment and Plan - Diagnosis (1) Upper gastrointestinal bleeding Is this a current diagnosis for this admission?: Yes (2) Anemia due to blood loss Is this a current diagnosis for this admission?: Yes Plan: 12/21/2018-the patient in fact has chronic anemia and sees Dr. Figueroa. She has been consulted. Her anemia is worse because of the GI bleeding. Her hemoglobin in fact is 7.6 this morning. She has agreed to do 2 units of packed red blood cells. (3) Abdominal pain Qualifiers: Abdominal location: generalized Qualified Code(s): R10.84 - Generalized abdominal pain Is this a current diagnosis for this admission?: Yes Plan: 12/21/2018-abdominal pain is related to the GI bleeding. The patient has a history of abdominal surgeries including perforated gastric ulcer and ventral hernia. She has no lower abdominal pain. Bowel sounds are positive. Old midline incision present. The treatment plan will be determined based on the results of the endoscopy. (4) GERD (gastroesophageal reflux disease) Qualifiers: Esophagitis presence: with esophagitis Qualified Code(s): K21.0 - Gastro- esophageal reflux disease with esophagitis Is this a current diagnosis for this admission?: Yes Plan: 12/21/2018-the patient has a history of a perforated gastric ulcer. She has a distant history of alcoholism. She states that she has significant gastroesophageal reflux as well. She will be on Protonix 40 mg IV twice daily and will consider post discharge interventions such as Carafate and ongoing acid suppression based on results of the endoscopy. (5) Severe protein-calorie malnutrition Is this a current diagnosis for this admission?: Yes Plan: 12/21/2018-the patient's BMI is only 14. She has significantly decreased muscle mass. Appetite is been poor over the office few days but that is most likely due to the current GI element. Will encourage proper nutrition once the endoscopies have been performed and she is back on an oral diet. (6) Hypokalemia Is this a current diagnosis for this admission?: Yes Plan: 12/21/2018-serum potassium is only 3.3. Because of her current GI status I will give her 20 mEq of potassium chloride by IV today and recheck him history as tomorrow. - Plan Summary Summary: Patient will be admitted to the medical bed and given routine supportive and symptomatic cares. She will be on IV fluids initially and she will be followed with serial hemoglobins (CBCs). Surgical consultation with Dr. Rainey will be obtained and endoscopy evaluation is expected. She will be continued on IV Protonix 40 mg every 12 hours and she will receive Nubain 5 to 10 mg IV every 3 hours on an as needed basis using a sliding scale for pain. Nausea will be treated with Zofran 4 mg IV every 4 hours as needed. An anemia profile will be obtained. - Time Time Spent with patient: 15-24 minutes Anticipated discharge: Home
[2018-12-21 09:04] LABS: FOLATE > 20.00 ng/mL (>2.76)
[2018-12-21] MEDS: PANTOPRAZOLE SODIUM 40 MG VIAL IV SCH ×2 (10:33→21:20)
[2018-12-21] MEDS: DOCUSATE SODIUM 100 MG CAPSULE PO SCH ×2 (10:38→17:58)
[2018-12-21] MEDS: METOCLOPRAMIDE HCL 10 MG TABLET PO SCH ×4 (10:38→21:20)
[2018-12-21] MEDS: SUCRALFATE 1 GM TABLET PO SCH ×2 (10:38→13:17)
[2018-12-21] MEDS: ACETAMINOPHEN 325 MG TABLET PO PRN (12:42)
[2018-12-21] MEDS: GABAPENTIN 300 MG CAPSULE PO SCH ×2 (14:33→21:20)
[2018-12-21] MEDS ORDERED: DOCUSATE SODIUM 100 MG CAPSULE PO SCH (18:00)
[2018-12-21] MEDS: MAG HYDROX/AL HYDROX/SIMETH SUSP 30 ML UDCUP PO PRN (20:09)
[2018-12-21] MEDS: RINGERS SOLUTION,LACTATED 1,000 ML IV PRN (20:20)
[2018-12-21] MEDS: ESCITALOPRAM OXALATE 10 MG TABLET PO SCH (21:19)
[2018-12-21] MEDS ORDERED: IRON SUCROSE COMPLEX INJ/PF 100 MG/5 ML SDV IV ONE (22:30)
[2018-12-21 23:09] LABS: ABSOLUTE EOSINOPHILS # (AUTO) 0.1 10^3/uL (0.0-0.6); ABSOLUTE LYMPHOCYTES (AUTO) 1.1 10^3/uL (0.5-4.7); ABSOLUTE MONOCYTES (AUTO) 0.4 10^3/uL (0.1-1.4); ABSOLUTE NEUT (AUTO) 4.2 10^3/uL (1.7-8.2); BASOPHILS % (AUTO) 0.6 % (0-2); LYMPHOCYTES % (AUTO) 18.9 % (13-45); MEAN CORPUSCULAR HEMOGLOBIN 29.4 pg (27.0-33.4); MEAN CORPUSCULAR HGB CONC 34.1 g/dL (32.0-36.0); MEAN CORPUSCULAR VOLUME 86 fl (80-97); MONOCYTES % (AUTO) 6.7 % (3-13); PLATELET COUNT 416 10^3/uL (150-450); RED BLOOD COUNT 3.71 10^6/uL (3.72-5.28); RED CELL DISTRIBUTION WIDTH 15.6 % (11.5-14.0); SEGMENTED NEUTROPHILS % (AUTO) 71.8 % (42-78); TOTAL CELLS COUNTED % (AUTO) 100 %; WHITE BLOOD COUNT 5.9 10^3/uL (4.0-10.5)
[2018-12-21 23:11] LABS: HEMOGLOBIN 10.9 g/dL (12.0-15.5)
[2018-12-22 05:07] LABS: HEMATOCRIT 33.5 % (36.0-47.0); HEMOGLOBIN 11.5 g/dL (12.0-15.5); MEAN CORPUSCULAR HEMOGLOBIN 29.8 pg (27.0-33.4); MEAN CORPUSCULAR HGB CONC 34.4 g/dL (32.0-36.0); MEAN CORPUSCULAR VOLUME 86 fl (80-97); PLATELET COUNT 400 10^3/uL (150-450); RED BLOOD COUNT 3.88 10^6/uL (3.72-5.28); RED CELL DISTRIBUTION WIDTH 15.9 % (11.5-14.0); WHITE BLOOD COUNT 6.3 10^3/uL (4.0-10.5)
[2018-12-22] MEDS: GABAPENTIN 300 MG CAPSULE PO SCH ×3 (05:19→21:16)
[2018-12-22 05:33] LABS: ANION GAP 5 (5-19); BLOOD UREA NITROGEN 10 mg/dL (7-20); CALCIUM 10.4 mg/dL (8.4-10.2); CARBON DIOXIDE 27 mmol/L (22-30); CHLORIDE 106 mmol/L (98-107); GLUCOSE 86 mg/dL (75-110); POTASSIUM 3.1 mmol/L (3.6-5.0)
[2018-12-22] MEDS: METOCLOPRAMIDE HCL 10 MG TABLET PO SCH ×4 (07:59→21:16)
[2018-12-22] MEDS ORDERED: PROPOFOL INJ 200 MG/20 ML VIAL IV ONE ×2 (08:40→11:26)
[2018-12-22] MEDS ORDERED: MIDAZOLAM 2 MG/2 ML INJ ONE (08:40)
[2018-12-22] MEDS: FERROUS SULFATE 325 MG TABLET PO SCH (09:00)
[2018-12-22] MEDS ORDERED: PROMETHAZINE HCL INJ 25 MG/1 ML VIAL IV PRN (09:16)
[2018-12-22] MEDS ORDERED: DIPHENHYDRAMINE HCL 50 MG/ML VIAL IV PRN (09:16)
[2018-12-22] MEDS ORDERED: MEPERIDINE HCL/PF INJ 25 MG/1 ML DISP.SYRIN IV PRN (09:16)
[2018-12-22] MEDS ORDERED: FENTANYL CITRATE INJ/PF 100 MCG/2 ML AMPUL IV PRN ×2 (09:16)
--- NOTE | 2018-12-22 10:02 | PDOC PROGRESS REPORT ---
Subjective Progress Note for:: 12/22/18 Subjective:: Feels good this morning. She has been n.p.o. overnight and is hungry. She is preparing to go for her endoscopies. Reason For Visit: UPPER GI BLEEDING,BLOOD LOSS ANEMIA Physical Exam Vital Signs: Temp Pulse Resp BP Pulse Ox 98.2 F 78 16 110/66 97 12/22/18 07:53 12/22/18 07:53 12/22/18 07:53 12/22/18 07:53 12/22/18 07:53 Intake & Output 12/21/18 12/22/18 12/23/18 06:59 06:59 05:59 Intake Total 1000 2936 1000 Balance 1000 2936 1000 Weight 36.6 kg 38.2 kg General appearance: PRESENT: no acute distress, cooperative, thin, well- developed Head exam: PRESENT: atraumatic, normocephalic Eye exam: PRESENT: conjunctiva pale. ABSENT: scleral icterus Ear exam: PRESENT: normal external ear exam. ABSENT: bleeding, drainage Mouth exam: PRESENT: moist, tongue midline Respiratory exam: PRESENT: clear to auscultation edvin, symmetrical, unlabored. ABSENT: accessory muscle use, rales, rhonchi, tachypnea, wheezes Cardiovascular exam: PRESENT: RRR, +S1, +S2 GI/Abdominal exam: PRESENT: normal bowel sounds, soft. ABSENT: distended, tend erness Rectal exam: PRESENT: deferred Gentrourinary exam: ABSENT: indwelling catheter Extremities exam: PRESENT: full ROM. ABSENT: pedal edema Musculoskeletal exam: PRESENT: full ROM, other - Decreased muscle mass. ABSENT: deformity Neurological exam: PRESENT: alert, awake, oriented to person, oriented to place, oriented to time, oriented to situation, CN II-XII grossly intact Psychiatric exam: PRESENT: appropriate affect, normal mood. ABSENT: agitated, anxious Focused psych exam: ABSENT: delusional, restlessness Skin exam: PRESENT: dry, pallor, warm. ABSENT: rash Results Laboratory Results: 12/22/18 04:20 12/22/18 04:20 12/20/18 12/21/18 12/22/18 16:53 22:44 04:20 WBC 5.9 6.3 RBC 3.71 L 3.88 Hgb 10.9 L D 11.5 L Hct 32.0 L 33.5 L MCV 86 86 MCH 29.4 29.8 MCHC 34.1 34.4 RDW 15.6 H 15.9 H Plt Count 416 400 Seg Neutrophils % 71.8 Sodium Potassium Chloride Carbon Dioxide Anion Gap BUN Creatinine Est GFR ( Amer) Glucose Calcium Magnesium Blood Type A POSITIVE Antibody Screen NEGATIVE 12/22/18 04:20 WBC RBC Hgb Hct MCV MCH MCHC RDW Plt Count Seg Neutrophils % Sodium 138.3 Potassium 3.1 L Chloride 106 Carbon Dioxide 27 Anion Gap 5 BUN 10 Creatinine 0.57 Est GFR ( Amer) > 60 Glucose 86 Calcium 10.4 H Magnesium 1.7 Blood Type Antibody Screen Assessment and Plan - Diagnosis (1) Upper gastrointestinal bleeding Is this a current diagnosis for this admission?: Yes Plan: December 22, 2018-patient received 2 units of packed red blood cells yesterday. Her hemoglobin is improved. We will continue to monitor. She is having endos copy today. Continue treatment plan based on endoscopy findings (2) Anemia due to blood loss Is this a current diagnosis for this admission?: Yes Plan: 12/21/2018-the patient in fact has chronic anemia and sees Dr. Figueroa. She has b cathryn consulted. Her anemia is worse because of the GI bleeding. Her hemoglobin in fact is 7.6 this morning. She has agreed to do 2 units of packed red blood cells. December 22, 2018-status post 2 units of packed red cells. Hemoglobin is 11.5. Continue to monitor. (3) Abdominal pain Qualifiers: Abdominal location: generalized Qualified Code(s): R10.84 - Generalized abdominal pain Is this a current diagnosis for this admission?: Yes Plan: 12/21/2018-abdominal pain is related to the GI bleeding. The patient has a history of abdominal surgeries including perforated gastric ulcer and ventral hernia. She has no lower abdominal pain. Bowel sounds are positive. Old midline incision present. The treatment plan will be determined based on the results of the endoscopy. December 22, 2018-no abdominal pain today. We will continue to monitor the patient for recurrent symptoms. (4) GERD (gastroesophageal reflux disease) Qualifiers: Esophagitis presence: with esophagitis Qualified Code(s): K21.0 - Gastro- esophageal reflux disease with esophagitis Is this a current diagnosis for this admission?: Yes Plan: 12/21/2018-the patient has a history of a perforated gastric ulcer. She has a distant history of alcoholism. She states that she has significant gastroesophageal reflux as well. She will be on Protonix 40 mg IV twice daily and will consider post discharge interventions such as Carafate and ongoing acid suppression based on results of the endoscopy. From the 2018-currently on aggressive proton pump inhibition therapy. Will decide on ongoing treatment plan based on gastroscopy results. (5) Severe protein-calorie malnutrition Is this a current diagnosis for this admission?: Yes Plan: 12/21/2018-the patient's BMI is only 14. She has significantly decreased muscle mass. Appetite is been poor over the office few days but that is most likely due to the current GI element. Will encourage proper nutrition once the endoscopies have been performed and she is back on an oral diet. December 22, 2018-the dietitian has seen the patient. She has made some recommendations. Did asked the question of weight loss and the patient reports that her appetite has been significantly decreased lately. She states that because of severe acid reflux she has a poor appetite and typically does not tolerate a significant amount of food at the same time. We discussed strategies about protein supplements. (6) Hypokalemia Is this a current diagnosis for this admission?: Yes Plan: 12/21/2018-serum potassium is only 3.3. Because of her current GI status I will give her 20 mEq of potassium chloride by IV today and recheck him history as tomorrow. December 22, 2018-potassium is down to 3.1 today. I have ordered 40 mEq of potassium IV. She should be able to start eating and drinking after the endoscopy and I will add oral potassium starting tomorrow. - Plan Summary Summary: Patient will be admitted to the medical bed and given routine supportive and symptomatic cares. She will be on IV fluids initially and she will be followed with serial hemoglobins (CBCs). Surgical consultation with Dr. Rainey will be obtained and endoscopy evaluation is expected. She will be continued on IV Protonix 40 mg every 12 hours and she will receive Nubain 5 to 10 mg IV every 3 hours on an as needed basis using a sliding scale for pain. Nausea will be mary kay joyce with Zofran 4 mg IV every 4 hours as needed. An anemia profile will be obtained. - Time Time Spent with patient: 15-24 minutes Medications reviewed and adjusted accordingly: Yes Anticipated discharge: Home
--- NOTE | 2018-12-22 10:51 | PDOC PROGRESS REPORT ---
Subjective Progress Note for:: 12/22/18 Subjective:: Pt with coffee-ground emesis. Last colonoscopy 3-4 yrs ago. Denies CP, SOB, F/C. No further N/V. Still with fatigue. Reason For Visit: UPPER GI BLEEDING,BLOOD LOSS ANEMIA Physical Exam Vital Signs: Temp Pulse Resp BP Pulse Ox 98.2 F 78 16 110/66 97 12/22/18 07:53 12/22/18 07:53 12/22/18 07:53 12/22/18 07:53 12/22/18 07:53 Intake & Output 12/21/18 12/22/18 12/23/18 06:59 06:59 05:59 Intake Total 1000 2936 1000 Balance 1000 2936 1000 Weight 36.6 kg 38.2 kg General appearance: PRESENT: no acute distress, cooperative Head exam: PRESENT: atraumatic, normocephalic Eye exam: PRESENT: EOMI, PERRLA Mouth exam: PRESENT: moist, neck supple Neck exam: ABSENT: tenderness, thyromegaly, tracheal deviation Respiratory exam: PRESENT: unlabored. ABSENT: chest wall tenderness, wheezes Cardiovascular exam: PRESENT: RRR Pulses: PRESENT: normal radial pulses GI/Abdominal exam: PRESENT: soft. ABSENT: distended, firm, guarding, hernia, tenderness Rectal exam: PRESENT: deferred Musculoskeletal exam: ABSENT: deformity Neurological exam: PRESENT: alert, awake, oriented to person, oriented to place, oriented to time, oriented to situation Psychiatric exam: ABSENT: agitated, anxious, depressed Focused psych exam: ABSENT: delusional Skin exam: ABSENT: cyanosis, erythema, jaundice Results Laboratory Results: 12/22/18 04:20 12/22/18 04:20 12/20/18 12/21/18 12/22/18 16:53 22:44 04:20 WBC 5.9 6.3 RBC 3.71 L 3.88 Hgb 10.9 L D 11.5 L Hct 32.0 L 33.5 L MCV 86 86 MCH 29.4 29.8 MCHC 34.1 34.4 RDW 15.6 H 15.9 H Plt Count 416 400 Seg Neutrophils % 71.8 Sodium Potassium Chloride Carbon Dioxide Anion Gap BUN Creatinine Est GFR ( Amer) Glucose Calcium Magnesium Blood Type A POSITIVE Antibody Screen NEGATIVE 12/22/18 04:20 WBC RBC Hgb Hct MCV MCH MCHC RDW Plt Count Seg Neutrophils % Sodium 138.3 Potassium 3.1 L Chloride 106 Carbon Dioxide 27 Anion Gap 5 BUN 10 Creatinine 0.57 Est GFR ( Amer) > 60 Glucose 86 Calcium 10.4 H Magnesium 1.7 Blood Type Antibody Screen Assessment & Plan - Diagnosis (1) Coffee ground emesis Is this a current diagnosis for this admission?: Yes (2) Anemia Qualifiers: Anemia type: unspecified type Qualified Code(s): D64.9 - Anemia, uns pecified Is this a current diagnosis for this admission?: Yes - Time Time Spent with patient: Less than 15 minutes - Plan Summary Plan Summary: Plan for EGD and colonoscopy to evaluate anemia and coffee-gorund emesis. Risks/benefits discussed, informed consent obtained, and all questions answered.
[2018-12-22] MEDS: DOCUSATE SODIUM 100 MG CAPSULE PO SCH ×2 (11:52→17:00)
[2018-12-22] MEDS: SUCRALFATE 1 GM TABLET PO SCH ×3 (11:53→21:16)
[2018-12-22] MEDS: PANTOPRAZOLE SODIUM 40 MG VIAL IV SCH ×2 (12:07→21:16)
[2018-12-22] MEDS: POTASSI CL 20 MEQ/50 ML RIDER 20 MEQ/50 ML RTUPB IV SCH ×2 (12:08→13:49)
--- NOTE | 2018-12-22 14:08 | PDOC CONSULTATION ---
Consultation Consult Date: 12/22/18 Attending physician:: SAM TIMMONS Provider Consulted: MEERA MENDEZ Consult reason:: Recurrent iron deficiency anemia History of Present Illness Admission Date/PCP: 12/21/18 00:45 STEFAN SOTO MD Patient complains of: Weakness, coffee-ground emesis History of Present Illness: RANDALL ELKINS is a 63 year old female who we have been seeing for a few weeks now, who had recurrent iron deficiency anemia She was given IV iron. We were in process of setting her up for outpatient endoscopies but she came in with severe weakness, continued emesis with coffee- ground, was admitted here hemoglobin was down to 7, ferritin however was over 100, saturation was 16%, she recently had endoscopy and colonoscopy. I discussed her case with Dr. Timmons of the hospital group, he notes that Dr. Rainey who did the scopes found a stricture in the first part of the duodenum. In discussion with the patient she was a heavy alcoholic previously, quit about 2 years ago but has 20+ years of heavy alcohol abuse. The discussion is to do an upper GI series this morning and then plan for PICC line placement with TPN initiation. Past Medical History Cardiac Medical History: Denies: Atrial Fibrillation, Congestive Heart Failure, Coronary Artery Disease, Myocardial Infarction, Hyperlipidema, Hypertension, Peripheral Vascular Disease, Pulmonary Embolism, Heart Murmur Pulmonary Medical History: Denies: Asthma, Bronchitis, Chronic Obstructive Pulmonary Disease (COPD), Pneumonia, Respiratory Failure, Sleep Apnea, Tuberculosis EENT Medical History: Denies: Cataracts, Ears - Hearing aids Neurological Medical History: Reports: Migraine Denies: Hemorrhagic CVA, Ischemic CVA, Seizures Endocrine Medical History: Denies: Diabetes Mellitus Type 1, Diabetes Mellitus Type 2, Hyperthyroidism, Hypothyroidism Renal/ Medical History: Denies: Chronic Kidney Disease, End Stage Renal Disease Malignancy Medical History: Reports: None Denies: Breast Cancer, Cervical Cancer, Leukemia, Lung Cancer, Ovarian Cancer GI Medical History: Reports: Gastroesophageal Reflux Disease, Peptic Ulcer Disease, Other - Previous GI bleeds Denies: Cirrhosis, Crohn's Disease, Diverticulitis, Hepatitis, Hiatal Hernia, Ulcerative Colitis Musculoskeltal Medical History: Denies: Arthritis, Fibromyalgia, Gout Skin Medical History: Denies: Eczema, Psoriasis Psychiatric Medical History: Reports: Depression - ANXIETY Denies: Alcohol Dependency, Bipolar Disorder, Dementia, Post Traumatic Stress Disorder, Substance Abuse, Tobacco Dependency Traumatic Medical History: Reports: None Hematology: Reports: Anemia Denies: Sickle Cell Disease, Bleeding Tendencies Infectious Medical History: Reports: None Denies: HIV Past Surgical History Past Surgical History: Reports: Herniorrhaphy - Component separation Ventral herniorrhaphy 11/12/[address] Rainey, Other - EGD, Colonoscopy, abdominal surgery x2 for perforated peptic ulcer. Denies: Amputation, Appendectomy, Section, Cholecystectomy, Colostomy, Coronary Artery Bypass Graft, Gastric Bypass Surgery, Hysterectomy, Mastectomy, Pacemaker, Tonsillectomy, Tubal Ligation Social History Lives with: Alone Smoking Status: Never Smoker Electronic Cigarette use?: No Frequency of Alcohol Use: None Hx Recreational Drug Use: No Drugs: None Hx Prescription Drug Abuse: No - Advance Directive Resuscitation Status: Full Code Family History Family History: Malignancy - Mother with colon cancer, father with pancreatic cancer, sister with breast cancer Parental Family History Reviewed: Yes Children Family History Reviewed: Yes Sibling(s) Family History Reviewed.: Yes Medication/Allergy Home Medications: Gabapentin [Neurontin 300 mg Capsule] 300 mg PO Q8 11/21/17 Escitalopram Oxalate [Lexapro 10 mg Tablet] 20 mg PO QHS 10/09/18 Omeprazole Magnesium [Prilosec Otc] 40 mg PO DAILY 11/08/18 Docusate Sodium [Colace 100 mg Capsule] 100 mg PO BID 12/21/18 Ferrous Sulfate [Feosol 325 mg Tablet] 325 mg PO DAILY 12/21/18 Polyethylene Glycol 3350 [Miralax Powder 17 gm/Packet] 1 packet PO DAILY 12/21/18 Sucralfate [Carafate 1 gm Tablet] 1 gm PO QID 12/21/18 Allergies/Adverse Reactions: No Known Allergies Allergy (Verified 12/20/18 14:19) Review of Systems Constitutional: ABSENT: chills, fever(s), headache(s), weight gain, weight loss Eyes: ABSENT: visual disturbances Ears: ABSENT: hearing changes Cardiovascular: ABSENT: chest pain, dyspnea on exertion, edema, orthropnea, palpitations Respiratory: ABSENT: cough, hemoptysis Gastrointestinal: ABSENT: abdominal pain, constipation, diarrhea, hematemesis, hematochezia, nausea, vomiting Genitourinary: ABSENT: dysuria, hematuria Musculoskeletal: ABSENT: joint swelling Integumentary: ABSENT: rash, wounds Neurological: ABSENT: abnormal gait, abnormal speech, confusion, dizziness, focal weakness, syncope Psychiatric: ABSENT: anxiety, depression, homidical ideation, suicidal ideation Endocrine: ABSENT: cold intolerance, heat intolerance, polydipsia, polyuria Hematologic/Lymphatic: ABSENT: easy bleeding, easy bruising Physical Exam Vital Signs: Temp Pulse Resp BP Pulse Ox 97.7 F 65 12 105/57 L 98 12/22/18 10:36 12/22/18 10:36 12/22/18 10:36 12/22/18 10:36 12/22/18 10:36 Intake & Output 12/21/18 12/22/18 12/23/18 06:59 06:59 05:59 Intake Total 1000 2936 1942 Balance 1000 2936 1942 Weight 36.6 kg 38.2 kg General appearance: PRESENT: no acute distress, well-developed, well-nourished Head exam: PRESENT: atraumatic, normocephalic Eye exam: PRESENT: conjunctiva pink, EOMI, PERRLA. ABSENT: scleral icterus Ear exam: PRESENT: normal external ear exam Mouth exam: PRESENT: moist, tongue midline Neck exam: ABSENT: carotid bruit, JVD, lymphadenopathy, thyromegaly Respiratory exam: PRESENT: clear to auscultation edvin. ABSENT: rales, rhonchi, wheezes Cardiovascular exam: PRESENT: RRR. ABSENT: diastolic murmur, rubs, systolic murmur Pulses: PRESENT: normal dorsalis pedis pul Vascular exam: PRESENT: normal capillary refill GI/Abdominal exam: PRESENT: normal bowel sounds, soft. ABSENT: distended, guarding, mass, organolmegaly, rebound, tenderness Rectal exam: PRESENT: deferred Extremities exam: PRESENT: full ROM. ABSENT: calf tenderness, clubbing, pedal edema Neurological exam: PRESENT: alert, awake, oriented to person, oriented to place, oriented to time, oriented to situation, CN II-XII grossly intact. ABSENT: motor sensory deficit Psychiatric exam: PRESENT: appropriate affect, normal mood. ABSENT: homicidal ideation, suicidal ideation Skin exam: PRESENT: dry, intact, warm. ABSENT: cyanosis, rash Results Laboratory Results: 12/22/18 04:20 12/22/18 04:20 12/20/18 12/21/18 12/22/18 16:53 22:44 04:20 WBC 5.9 6.3 RBC 3.71 L 3.88 Hgb 10.9 L D 11.5 L Hct 32.0 L 33.5 L MCV 86 86 MCH 29.4 29.8 MCHC 34.1 34.4 RDW 15.6 H 15.9 H Plt Count 416 400 Seg Neutrophils % 71.8 Sodium Potassium Chloride Carbon Dioxide Anion Gap BUN Creatinine Est GFR ( Amer) Glucose Calcium Magnesium Blood Type A POSITIVE Antibody Screen NEGATIVE 12/22/18 04:20 WBC RBC Hgb Hct MCV MCH MCHC RDW Plt Count Seg Neutrophils % Sodium 138.3 Potassium 3.1 L Chloride 106 Carbon Dioxide 27 Anion Gap 5 BUN 10 Creatinine 0.57 Est GFR ( Amer) > 60 Glucose 86 Calcium 10.4 H Magnesium 1.7 Blood Type Antibody Screen Assessment & Plan - Diagnosis (1) Anemia Qualifiers: Anemia type: iron deficiency Iron deficiency anemia type: chronic blood loss Qualified Code(s): D50.0 - Iron deficiency anemia secondary to blood loss (chronic) Is this a current diagnosis for this admission?: Yes Plan: Probable chronic blood loss from iron deficiency anemia probably bleeding from that strictured area, agreed with blood as well as patient was given a dose of IV iron as well. No further iron needed right now. Await biopsy results. We will follow. - Time Time Spent: Greater than 70 Minutes - Inpatient Certification Based on my medical assessment, after consideration of the patient's comorbidities, presenting symptoms, or acuity I expect that the services needed warrant INPATIENT care.: Yes I certify that my determination is in accordance with my understanding of Medicare's requirements for reasonable and necessary INPATIENT services [42 CFR 412.3e].: Yes Medical Necessity: Need for Surgery, Risk of Complication if Not Cared For in Hospital
--- NOTE | 2018-12-22 16:48 | RADIOLOGY REPORT (SQ) ---
EXAM DESCRIPTION: UGI SERIES COMPLETED DATE/TIME: 12/22/2018 4:31 pm REASON FOR STUDY: eval duodenal stricture COMPARISON: CT of the abdomen dated 04/25/2018. TECHNIQUE: Under fluoroscopic guidance, patient ingested water soluble contrast. Fluoroscopic spot i mages and routine radiographic images acquired and stored on PACS. 12 MM BARIUM TABLET GIVEN: No. LIMITATIONS: Unable to stand during procedure due to weakness. Unable to place an JACQUES position due to recent surgery. FLUOROSCOPY TIME: FLUORO TIME: 2 minutes 25 seconds 22 images saved to PACS. FINDINGS: NEUROMUSCULAR COORDINATION OF SWALLOW: Normal. No aspiration. ESOPHAGEAL MOTILITY: Normal peristalsis. No esophageal spasm. ESOPHAGEAL MUCOSA: Normal mucosa without masses or ulceration. GASTRO-ESOPHAGEAL JUNCTION: Small to medium sliding hiatal hernia with significant reflux. STOMACH: Normal without masses or ulcerations. GASTRIC OUTLET: No delay in emptying. Normal pylorus. No pyloric stricture noted DUODENAL BULB: Residual contrast suggestive of duodenal ulcer. DUODENUM: Mucosa normal. No extrinsic masses or malrotation. PROXIMAL JEJUNUM: Normal mucosal pattern. No dilatation, segmentation, strictures or masses. NON-GI TRACT STRUCTURES: No significant finding. OTHER: No other significant finding. IMPRESSION: Small to medium sliding hiatal hernia with moderate to severe reflux. Normal pyloric le ngth, no evidence of stricture. Complete passage of contrast to the 4th portion of the duodenum. Re sidual contrast in duodenal bulb suggestive of duodenal ulcer. COMMENT: Quality ID [id number]: Final reports for procedures using fluoroscopy that document radiation exp osure indices, or exposure time and number of fluorographic images (if radiation exposure indices are not available) TECHNICAL DOCUMENTATION: JOB ID: [id number] [employer]- All Rights Reserved Reading location - IP/workstation name: [email or web address]-
--- NOTE | 2018-12-22 17:31 | Operative Report ---
Nonrecallable Operative Report DATE OF SURGERY: 12/22/18 PREOPERATIVE DIAGNOSIS: anemia, coffee-ground emesis. POSTOPERATIVE DIAGNOSIS: 1. Anemia. 2. Coffee-ground emesis. 3. Stricture and ulceration in duodenum, unable to pass scope. 4. Gastritis. 5. Large hiatal hernia. 6. Reflux esophagitis. 7. Benign-appearing stricture at ascending colon, biopsies taken OPERATION: 1. EGD with biopsy. 2. Colonoscopy. 3. Cold biopsy of colonic stricture at ascending colon. SURGEON: VÍCTOR PRICE ANESTHESIA: LMAC TISSUE REMOVED OR ALTERED: 1. duodenal stricture. 2. gastric antrum. 3. distal esophagus. 4. ascending colonic stricture. COMPLICATIONS: Unable to pass the gastroscope through the strictured portion of the duodenum. Unable to pass the colonoscope through the strictured area in the a sending colon. ESTIMATED BLOOD LOSS: Minimal PROCEDURE: Procedure in detail: After informed consent was obtained, the patient was brought into the operating room and laid in the left lateral decubitus position. The endoscope was passed down the oropharynx, down the esophagus, and into the stomach. The stomach was insufflated with air. Immediately there was noted to be inflammatory changes throughout the stomach, consistent with gastritis. Scope was pushed into the distal portion of the stomach. There was evidence of previous surgery, likely from her perforated gastric ulcer. The pylorus was reached. Through the pylorus, a tight stricture in the duodenum was identified. This was surrounded by a large amount of inflammatory/ulcerated tissue. The scope could not be passed through the stricture. Biopsy was taken by passing a biopsy forceps into the stricture and obtaining a small portion of tissue. Biopsy was also taken from the ulcerated area adjacent to the stricture. The scope was pulled back into the stomach, and biopsy was taken in the antrum. A retroflexion maneuver was performed showing a moderate to large hiatal hernia. The scope was withdrawn into the distal esophagus, where biopsy was taken at the distal esophagus. Scope was then withdrawn up the remainder of the esophagus, removed from the oropharynx, and this portion of the procedure was concluded. Attention was then turned to the colonoscopy. The colonoscope was inserted up the rectum, sigmoid colon, descending colon, across the transverse colon, and down the ascending colon. In the ascending colon, immediately distal to the cecum, there was a benign-appearing stricture. Multiple attempts were made to pass the scope through the stricture, however they were not successful. Biopsy was taken at the strictured area. I saw no evidence of mass or lesion in the stricture or distal to it. The cecum could be visualized through the stricture. The crows foot was identified. No obvious abnormality (aside from the stricture) could be identified in the portions of the colon visualized. The scope was then withdrawn past the ascending colon, transverse colon, down the descending colon, sigmoid colon, and into the rectum. The scope was then removed, and the procedure was concluded. All sponge, instrument, and needle counts were correct x2. Condition: Fair.
[2018-12-22] MEDS: RINGERS SOLUTION,LACTATED 1,000 ML IV PRN (19:46)
[2018-12-22] MEDS: ESCITALOPRAM OXALATE 10 MG TABLET PO SCH (21:16)
[2018-12-23] MEDS: ACETAMINOPHEN 325 MG TABLET PO PRN ×2 (00:18→04:25)
[2018-12-23] MEDS: RINGERS SOLUTION,LACTATED 1,000 ML IV PRN (03:43)
[2018-12-23] MEDS: GABAPENTIN 300 MG CAPSULE PO SCH ×3 (05:13→21:03)
[2018-12-23 06:03] LABS: ABSOLUTE MONOCYTES (AUTO) 0.6 10^3/uL (0.1-1.4); BASOPHILS % (AUTO) 0.1 % (0-2); EOSINOPHILS % (AUTO) 0.2 % (0-6); HEMATOCRIT 29.8 % (36.0-47.0); LYMPHOCYTES % (AUTO) 5.2 % (13-45); MEAN CORPUSCULAR HGB CONC 33.4 g/dL (32.0-36.0); MEAN CORPUSCULAR VOLUME 87 fl (80-97); MONOCYTES % (AUTO) 3.2 % (3-13); PLATELET COUNT 351 10^3/uL (150-450); RED BLOOD COUNT 3.44 10^6/uL (3.72-5.28); RED CELL DISTRIBUTION WIDTH 15.3 % (11.5-14.0); SEGMENTED NEUTROPHILS % (AUTO) 91.3 % (42-78); TOTAL CELLS COUNTED % (AUTO) 100 %
[2018-12-23 06:07] LABS: WHITE BLOOD COUNT 19.7 10^3/uL (4.0-10.5)
[2018-12-23 06:19] LABS: ALBUMIN 2.1 g/dL (3.5-5.0); ALKALINE PHOSPHATASE 59 U/L (38-126); ANION GAP 5 (5-19); ASPARTATE AMINO TRANSFERASE 40 U/L (14-36); BILIRUBIN,DIRECT 0.1 mg/dL (0.0-0.4); BILIRUBIN,TOTAL 0.3 mg/dL (0.2-1.3); BLOOD UREA NITROGEN 6 mg/dL (7-20); CARBON DIOXIDE 23 mmol/L (22-30); CHLORIDE 109 mmol/L (98-107); GLUCOSE 93 mg/dL (75-110); POTASSIUM 3.1 mmol/L (3.6-5.0); TOTAL PROTEIN 4.2 g/dL (6.3-8.2)
[2018-12-23] MEDS: HYDROCODONE/ACETAMINOPHEN 5-325 MG TABLET PO PRN ×3 (07:50→19:42)
[2018-12-23] MEDS: METOCLOPRAMIDE HCL 10 MG TABLET PO SCH ×4 (08:02→21:03)
--- NOTE | 2018-12-23 08:33 | PDOC PROGRESS REPORT ---
Subjective Progress Note for:: 12/23/18 Subjective:: 63-year-old female with coffee-ground emesis. EGD yesterday showed ulcerations with narrowing at the pylorus/first portion of the duodenum. Patient reports feeling reasonably well today. She does complain of headache. She denies any abdominal pain, nausea, or vomiting. She is passing flatus. Reason For Visit: UPPER GI BLEEDING,BLOOD LOSS ANEMIA Physical Exam Vital Signs: Temp Pulse Resp BP Pulse Ox 97.6 F 82 17 105/69 97 12/23/18 03:00 12/23/18 03:00 12/23/18 03:00 12/23/18 03:00 12/23/18 03:00 Intake & Output 12/22/18 12/23/18 12/24/18 07:59 06:59 06:59 Intake Total Balance Weight General appearance: PRESENT: no acute distress, cooperative, thin Head exam: PRESENT: atraumatic, normocephalic Eye exam: PRESENT: EOMI, PERRLA Teeth exam: ABSENT: poor dentation Neck exam: ABSENT: meningismus, tenderness, thyromegaly, tracheal deviation Respiratory exam: PRESENT: unlabored. ABSENT: chest wall tenderness, tachypnea, wheezes Cardiovascular exam: PRESENT: RRR Pulses: PRESENT: normal radial pulses Vascular exam: PRESENT: normal capillary refill GI/Abdominal exam: PRESENT: soft. ABSENT: distended, guarding, tenderness Rectal exam: PRESENT: deferred Extremities exam: ABSENT: clubbing Musculoskeletal exam: ABSENT: deformity Neurological exam: PRESENT: alert, awake, oriented to person, oriented to place, oriented to time, oriented to situation, CN II-XII grossly intact Psychiatric exam: ABSENT: agitated, anxious, depressed Focused psych exam: ABSENT: delusional Skin exam: ABSENT: cyanosis, erythema, jaundice Results Laboratory Results: 12/23/18 05:19 12/23/18 05:19 12/23/18 12/23/18 05: 05:19 WBC 19.7 H D RBC 3.44 L Hgb 10.0 L Hct 29.8 L MCV 87 MCH 29.0 MCHC 33.4 RDW 15.3 H Plt Count 351 Seg Neutrophils % 91.3 H Sodium 137.3 Potassium 3.1 L Chloride 109 H Carbon Dioxide 23 Anion Gap 5 BUN 6 L Creatinine 0.47 L Est GFR ( Amer) > 60 Glucose 93 Calcium 9.0 Total Bilirubin 0.3 AST 40 H Alkaline Phosphatase 59 Total Protein 4.2 L Albumin 2.1 L Impressions: Upper GI Series 12/22/18 00:00 IMPRESSION: Small to medium sliding hiatal hernia with moderate to severe refl ux. Normal pyloric length, no evidence of stricture. Complete passage of contrast to the 4th portion of the duodenum. Residual contrast in duodenal bulb suggestive of duodenal ulcer. Assessment & Plan - Diagnosis (1) Coffee ground emesis Is this a current diagnosis for this admission?: Yes (2) Anemia Qualifiers: Anemia type: iron deficiency Iron deficiency anemia type: chronic blood loss Qualified Code(s): D50.0 - Iron deficiency anemia secondary to blood loss (chronic) Is this a current diagnosis for this admission?: Yes (3) Malnutrition Qualifiers: Malnutrition type: protein-calorie malnutrition Protein-calorie mal nutrition severity: unspecified severity Qualified Code(s): E46 - Unspecified protein-calorie malnutrition Is this a current diagnosis for this admission?: Yes (4) Duodenal stricture Is this a current diagnosis for this admission?: Yes (5) Peptic ulcer Is this a current diagnosis for this admission?: Yes - Time Time Spent with patient: Less than 15 minutes - Plan Summary Plan Summary: This is a 63-year-old female with coffee-ground emesis and weight loss. Yeste rday, she was found to have a stricture at the duodenum and/or pylorus on EGD. I have reviewed her upper GI series. There is a narrowing at the distal portion of the stomach, however contrast does flow through there. I was unable to pass the scope through the stricture yesterday. I am concerned that the patient will not be able to take enough oral calories to adequately address her needs. I lanre garcia recommended she take a high-protein liquid diet and supplement with TPN. Hopefully, with PPIs and Carafate, her ulcers and stricture will improve so that she may eat regularly. If not, she may require surgical intervention in the form of gastrojejunostomy. Plan now is for arrangement of home TPN, high-calorie oral liquid nutrition, and discharge home. She will need a repeat endoscopy in 6 to 8 weeks.
--- NOTE | 2018-12-23 08:48 | RADIOLOGY REPORT (SQ) ---
EXAM DESCRIPTION: CHEST SINGLE VIEW COMPLETED DATE/TIME: 12/23/2018 8:23 am REASON FOR STUDY: fever, cough COMPARISON: 05/21/2017. FINDINGS: Single-view chest AP portable upright. Mildly limited by rotation to the left. Consolidation and volume loss in the left lower lobe consistent with pneumonia. Additional patchy airspace disease in the left upper lobe. Right lung clear. No pneumothorax. Grossly stable cardiomediastinal silhouette. TECHNICAL DOCUMENTATION: JOB ID: [id number] Reading location - IP/workstation name: [email or web address]
[2018-12-23] MEDS: FERROUS SULFATE 325 MG TABLET PO SCH (10:46)
[2018-12-23] MEDS: PANTOPRAZOLE SODIUM 40 MG VIAL IV SCH (10:46)
[2018-12-23] MEDS: DOCUSATE SODIUM 100 MG CAPSULE PO SCH ×2 (10:46→18:01)
[2018-12-23] MEDS: SUCRALFATE 1 GM TABLET PO SCH ×4 (10:46→21:03)
[2018-12-23] MEDS: POTASSI CL 20 MEQ/50 ML RIDER 20 MEQ/50 ML RTUPB IV SCH ×2 (10:47→12:24)
--- NOTE | 2018-12-23 12:46 | PDOC PROGRESS REPORT ---
Subjective Progress Note for:: 12/23/18 Subjective:: The patient is resting comfortably. She had endoscopy yesterday revealing a stricture in the pylorus/duodenum. Biopsies are pending. She has minimal discomfort. She is working with discharge planning regarding optimal nutrition at home including high-protein liquid diet and TPN. I have asked the dietitian to recommend TPN orders and a high-protein liquid diet. Reason For Visit: UPPER GI BLEEDING,BLOOD LOSS ANEMIA Physical Exam Vital Signs: Temp Pulse Resp BP Pulse Ox 98.1 F 73 18 97/61 L 99 12/23/18 11:00 12/23/18 11:00 12/23/18 11:00 12/23/18 11:00 12/23/18 11:00 Intake & Output 12/22/18 12/23/18 12/24/18 07:59 06:59 06:59 Intake Total 40 Balance 40 Weight General appearance: PRESENT: no acute distress, cooperative, thin, well- developed Head exam: PRESENT: atraumatic, normocephalic Eye exam: PRESENT: conjunctiva pink. ABSENT: scleral icterus Ear exam: PRESENT: normal external ear exam. ABSENT: bleeding, drainage Mouth exam: PRESENT: moist, tongue midline Respiratory exam: PRESENT: clear to auscultation edvin, symmetrical, unlabored. ABSENT: prolonged expiratory phas, rales, rhonchi, tachypnea, wheezes Cardiovascular exam: PRESENT: RRR, +S1, +S2 GI/Abdominal exam: PRESENT: normal bowel sounds, soft, tenderness - Minimal tenderness mid abdomen. ABSENT: distended Rectal exam: PRESENT: deferred Extremities exam: ABSENT: joint swelling, pedal edema Musculoskeletal exam: PRESENT: ambulatory, full ROM, other - Decreased muscle mass. ABSENT: deformity Neurological exam: PRESENT: alert, awake, oriented to person, oriented to place, oriented to time, oriented to situation, CN II-XII grossly intact Psychiatric exam: PRESENT: appropriate affect, normal mood. ABSENT: agitated, anxious Focused psych exam: ABSENT: delusional, restlessness Results Laboratory Results: 12/23/18 05:19 12/23/18 05:19 12/23/18 12/23/18 05:19 05:19 WBC 19.7 H D RBC 3.44 L Hgb 10.0 L Hct 29.8 L MCV 87 MCH 29.0 MCHC 33.4 RDW 15.3 H Plt Count 351 Seg Neutrophils % 91.3 H Sodium 137.3 Potassium 3.1 L Chloride 109 H Carbon Dioxide 23 Anion Gap 5 BUN 6 L Creatinine 0.47 L Est GFR ( Amer) > 60 Glucose 93 Calcium 9.0 Total Bilirubin 0.3 AST 40 H Alkaline Phosphatase 59 Total Protein 4.2 L Albumin 2.1 L Impressions: Upper GI Series 12/22/18 00:00 IMPRESSION: Small to medium sliding hiatal hernia with moderate to severe reflux. Normal pyloric length, no evidence of stricture. Complete passage of contrast to the 4th portion of the duodenum. Residual contrast in duodenal bulb suggestive of duodenal ulcer. Assessment and Plan - Diagnosis (1) Upper gastrointestinal bleeding Is this a current diagnosis for this admission?: Yes Plan: December 22, 2018-patient received 2 units of packed red blood cells yesterday. Her hemoglobin is improved. We will continue to monitor. She is having endoscopy today. Continue treatment plan based on endoscopy findings 12/23/2018-hemoglobin is decreased slightly but stable. We will continue to monitor. (2) Anemia due to blood loss Is this a current diagnosis for this admission?: Yes Plan: 12/21/2018-the patient in fact has chronic anemia and sees Dr. Figueroa. She has been consulted. Her anemia is worse because of the GI bleeding. Her hemoglobin in fact is 7.6 this morning. She has agreed to do 2 units of packed red blood cells. December 22, 2018-status post 2 units of packed red cells. Hemoglobin is 11.5. Continue to monitor. 12/23/2018-continue to monitor hemoglobin (3) Abdominal pain Qualifiers: Abdominal location: generalized Qualified Code(s): R10.84 - Generalized abdominal pain Is this a current diagnosis for this admission?: Yes Plan: 12/21/2018-abdominal pain is related to the GI bleeding. The patient has a history of abdominal surgeries including perforated gastric ulcer and ventral hernia. She has no lower abdominal pain. Bowel sounds are positive. Old midline incision present. The treatment plan will be determined based on the results of the endoscopy. December 22, 2018-no abdominal pain today. We will continue to monitor the patient for recurrent symptoms. 12/23/2018-significantly improved (4) GERD (gastroesophageal reflux disease) Qualifiers: Esophagitis presence: with esophagitis Qualified Code(s): K21.0 - Gastro- esophageal reflux disease with esophagitis Is this a current diagnosis for this admission?: Yes Plan: 12/21/2018-the patient has a history of a perforated gastric ulcer. She has a distant history of alcoholism. She states that she has significant gastroesophageal reflux as well. She will be on Protonix 40 mg IV twice daily and will consider post discharge interventions such as Carafate and ongoing acid suppression based on results of the endoscopy. December 22, 2018 -currently on aggressive proton pump inhibition therapy. Will decide on ongoing treatment plan based on gastroscopy results. 12/23/2018-the patient was found to have a stricture at the pylorus or proximal duodenum. The plan is for Carafate and high-dose proton pump inhibition. She will also need high-protein liquid diet as well as TPN. With this stricture it does make sense regarding her complaints of fullness with reflux symptoms. (5) Severe protein-calorie malnutrition Is this a current diagnosis for this admission?: Yes Plan: 12/21/2018-the patient's BMI is only 14. She has significantly decreased muscle mass. Appetite is been poor over the office few days but that is most likely due to the current GI element. Will encourage proper nutrition once the endoscopies have been performed and she is back on an oral diet. December 22, 2018-the dietitian has seen the patient. She has made some recommendations. Did asked the question of weight loss and the patient reports that her appetite has been significantly decreased lately. She states that because of severe acid reflux she has a poor appetite and typically does not tolerate a significant amount of food at the same time. We discussed strategies about protein supplements. 12/23/2018-dietary plans as above. I have asked the dietitian to recommend TPN formulation and high calorie high protein liquid diet (6) Hypokalemia Is this a current diagnosis for this admission?: Yes Plan: 12/21/2018-serum potassium is only 3.3. Because of her current GI status I will give her 20 mEq of potassium chloride by IV today and recheck him history as tomorrow. December 22, 2018-potassium is down to 3.1 today. I have ordered 40 mEq of potassium IV. She should be able to start eating and drinking after the endoscopy and I will add oral potassium starting tomorrow. 11 319-40 mEq potassium chloride ordered IV today. 10 mEq potassium chloride p.o. twice daily to start tomorrow. (7) Pyloric stricture Is this a current diagnosis for this admission?: Yes Plan: 12/23/2018-please also see Dr. Rainey's note. Endoscopy revealed a stricture at the pylorus/first part of the duodenum. As outlined above Carafate, Protonix, high-protein liquid diet and repeat endoscopy in 6 weeks. If there is no improvement the patient may need surgical intervention. - Plan Summary Summary: Patient will be admitted to the medical bed and given routine supportive and symptomatic cares. She will be on IV fluids initially and she will be followed with serial hemoglobins (CBCs). Surgical consultation with Dr. Rainey will be obtained and endoscopy evaluation is expected. She will be continued on IV Protonix 40 mg every 12 hours and she will receive Nubain 5 to 10 mg IV every 3 hours on an as needed basis using a sliding scale for pain. Nausea will be treated with Zofran 4 mg IV every 4 hours as needed. An anemia profile will be obtained. - Time Time Spent with patient: 15-24 minutes Medications reviewed and adjusted accordingly: Yes Anticipated discharge: Home
[2018-12-23] MEDS: PANTOPRAZOLE SODIUM 40 MG TABLET.DR PO SCH (18:01)
[2018-12-23] MEDS: ESCITALOPRAM OXALATE 10 MG TABLET PO SCH (21:03)
[2018-12-23] MEDS: ZOLPIDEM TARTRATE 5 MG TABLET PO PRN (21:03)
[2018-12-24] MEDS: GABAPENTIN 300 MG CAPSULE PO SCH ×3 (05:22→21:21)
[2018-12-24] MEDS: PANTOPRAZOLE SODIUM 40 MG TABLET.DR PO SCH ×2 (05:22→16:53)
[2018-12-24 06:27] LABS: ABSOLUTE EOSINOPHILS # (AUTO) 0.3 10^3/uL (0.0-0.6); ABSOLUTE LYMPHOCYTES (AUTO) 0.9 10^3/uL (0.5-4.7); ABSOLUTE MONOCYTES (AUTO) 0.6 10^3/uL (0.1-1.4); ABSOLUTE NEUT (AUTO) 11.8 10^3/uL (1.7-8.2); BASOPHILS % (AUTO) 0.1 % (0-2); HEMATOCRIT 29.9 % (36.0-47.0); HEMOGLOBIN 10.1 g/dL (12.0-15.5); LYMPHOCYTES % (AUTO) 6.3 % (13-45); MEAN CORPUSCULAR HEMOGLOBIN 29.5 pg (27.0-33.4); MEAN CORPUSCULAR HGB CONC 33.9 g/dL (32.0-36.0); MEAN CORPUSCULAR VOLUME 87 fl (80-97); MONOCYTES % (AUTO) 4.3 % (3-13); PLATELET COUNT 359 10^3/uL (150-450); RED BLOOD COUNT 3.43 10^6/uL (3.72-5.28); RED CELL DISTRIBUTION WIDTH 15.7 % (11.5-14.0); SEGMENTED NEUTROPHILS % (AUTO) 87.3 % (42-78); TOTAL CELLS COUNTED % (AUTO) 100 %; WHITE BLOOD COUNT 13.5 10^3/uL (4.0-10.5)
[2018-12-24 06:44] LABS: BLOOD UREA NITROGEN 9 mg/dL (7-20); CALCIUM 9.3 mg/dL (8.4-10.2); GLUCOSE 84 mg/dL (75-110); POTASSIUM 3.8 mmol/L (3.6-5.0)
[2018-12-24 06:49] LABS: CARBON DIOXIDE 25 mmol/L (22-30); CHLORIDE 111 mmol/L (98-107)
[2018-12-24] MEDS: HYDROCODONE/ACETAMINOPHEN 5-325 MG TABLET PO PRN ×2 (06:51→14:03)
[2018-12-24 06:53] LABS: ANION GAP 4 (5-19)
--- NOTE | 2018-12-24 08:07 | PDOC PROGRESS REPORT ---
Subjective Progress Note for:: 12/24/18 Subjective:: No acute events overnight, so that upper GI series noted that some things were passing into later parts of the duodenum, she is planned for PICC line placement today and consideration of TPN. Reason For Visit: UPPER GI BLEEDING,BLOOD LOSS ANEMIA Physical Exam Vital Signs: Temp Pulse Resp BP Pulse Ox 98.2 F 88 16 98/64 L 96 12/24/18 00:00 12/24/18 00:00 12/24/18 00:00 12/24/18 00:00 12/24/18 00:00 Intake & Output 12/23/18 12/24/18 12/25/18 06:59 06:59 06:59 Intake Total 3060 Balance 3060 Weight 38.2 kg General appearance: PRESENT: no acute distress, well-developed, well-nourished Head exam: PRESENT: atraumatic, normocephalic Eye exam: PRESENT: conjunctiva pink, EOMI, PERRLA. ABSENT: scleral icterus Ear exam: PRESENT: normal external ear exam Mouth exam: PRESENT: moist, tongue midline Neck exam: ABSENT: carotid bruit, JVD, lymphadenopathy, thyromegaly Respiratory exam: PRESENT: clear to auscultation edvin. ABSENT: rales, rhonchi, wheezes Cardiovascular exam: PRESENT: RRR. ABSENT: diastolic murmur, rubs, systolic murmur Pulses: PRESENT: normal dorsalis pedis pul Vascular exam: PRESENT: normal capillary refill GI/Abdominal exam: PRESENT: normal bowel sounds, soft. ABSENT: distended, guarding, mass, organolmegaly, rebound, tenderness Rectal exam: PRESENT: deferred Extremities exam: PRESENT: full ROM. ABSENT: calf tenderness, clubbing, pedal edema Neurological exam: PRESENT: alert, awake, oriented to person, oriented to place, oriented to time, oriented to situation, CN II-XII grossly intact. ABSENT: motor sensory deficit Psychiatric exam: PRESENT: appropriate affect, normal mood. ABSENT: homicidal ideation, suicidal ideation Skin exam: PRESENT: dry, intact, warm. ABSENT: cyanosis, rash Results Laboratory Results: 12/24/18 05:41 12/24/18 05:41 12/24/18 12/24/18 05:41 05:41 WBC 13.5 H RBC 3.43 L Hgb 10.1 L Hct 29.9 L MCV 87 MCH 29.5 MCHC 33.9 RDW 15.7 H Plt Count 359 Seg Neutrophils % 87.3 H Sodium 140.0 Potassium 3.8 Chloride 111 H Carbon Dioxide 25 Anion Gap 4 L BUN 9 Creatinine 0.47 L Est GFR ( Amer) > 60 Glucose 84 Calcium 9.3 Impressions: Upper GI Series 12/22/18 00:00 IMPRESSION: Small to medium sliding hiatal hernia with moderate to severe reflux. Normal pyloric length, no evidence of stricture. Complete passage of contrast to the 4th portion of the duodenum. Residual contrast in duodenal bulb suggestive of duodenal ulcer. Assessment & Plan - Diagnosis (1) Anemia Qualifiers: Anemia type: iron deficiency Iron deficiency anemia type: chronic blood loss Qualified Code(s): D50.0 - Iron deficiency anemia secondary to blood loss (chronic) Is this a current diagnosis for this admission?: Yes Plan: Chronic blood loss secondary to the ulceration that was noted, she has been fully repleted with blood and iron, we will follow her next as an outpatient. - Time Time Spent with patient: 15-24 minutes
[2018-12-24] MEDS: METOCLOPRAMIDE HCL 10 MG TABLET PO SCH ×4 (08:47→21:21)
[2018-12-24] MEDS: SUCRALFATE 1 GM TABLET PO SCH ×4 (08:47→21:21)
[2018-12-24] MEDS: POTASSIUM CHLORIDE 10 MEQ CAPSULE.ER PO SCH ×2 (09:34→21:21)
[2018-12-24] MEDS: FERROUS SULFATE 325 MG TABLET PO SCH (09:34)
[2018-12-24] MEDS: DOCUSATE SODIUM 100 MG CAPSULE PO SCH ×2 (09:34→18:06)
--- NOTE | 2018-12-24 11:56 | PDOC PROGRESS REPORT ---
Subjective Progress Note for:: 12/24/18 Subjective:: The patient is resting in bed. She was scheduled for a PICC line. Please see discussion below. No acute complaints today. Reason For Visit: UPPER GI BLEEDING,BLOOD LOSS ANEMIA Physical Exam Vital Signs: Temp Pulse Resp BP Pulse Ox 98.2 F 84 20 110/62 99 12/24/18 08:25 12/24/18 08:25 12/24/18 08:25 12/24/18 08:25 12/24/18 08:25 Intake & Output 12/23/18 12/24/18 12/25/18 06:59 06:59 06:59 Intake Total 3060 Balance 3060 Weight 38.2 kg 38.2 kg General appearance: PRESENT: no acute distress, cooperative, thin, well- developed Head exam: PRESENT: atraumatic, normocephalic Eye exam: PRESENT: conjunctiva pink. ABSENT: scleral icterus Ear exam: PRESENT: normal external ear exam. ABSENT: bleeding, drainage Mouth exam: PRESENT: moist, tongue midline Respiratory exam: PRESENT: clear to auscultation edvin, symmetrical, unlabored. ABSENT: rales, rhonchi, tachypnea, wheezes Cardiovascular exam: PRESENT: RRR, +S1, +S2. ABSENT: diastolic murmur, systolic murmur GI/Abdominal exam: PRESENT: normal bowel sounds, soft. ABSENT: distended, guarding, tenderness Rectal exam: PRESENT: deferred Gentrourinary exam: ABSENT: indwelling catheter Extremities exam: PRESENT: full ROM. ABSENT: joint swelling, pedal edema Musculoskeletal exam: PRESENT: ambulatory, full ROM, other - Significantly decreased muscle mass. ABSENT: deformity Neurological exam: PRESENT: alert, awake, oriented to person, oriented to place, oriented to time, oriented to situation, CN II-XII grossly intact. ABSENT: motor sensory deficit Psychiatric exam: PRESENT: appropriate affect. ABSENT: agitated, anxious Focused psych exam: ABSENT: delusional, restlessness Skin exam: PRESENT: dry, normal color, warm. ABSENT: rash Results Laboratory Results: 12/24/18 05:41 12/24/18 05:41 12/24/18 12/24/18 05:41 05:41 WBC 13.5 H RBC 3.43 L Hgb 10.1 L Hct 29.9 L MCV 87 MCH 29.5 MCHC 33.9 RDW 15.7 H Plt Count 359 Seg Neutrophils % 87.3 H Sodium 140.0 Potassium 3.8 Chloride 111 H Carbon Dioxide 25 Anion Gap 4 L BUN 9 Creatinine 0.47 L Est GFR ( Amer) > 60 Glucose 84 Calcium 9.3 Impressions: Upper GI Series 12/22/18 00:00 IMPRESSION: Small to medium sliding hiatal hernia with moderate to severe reflux. Normal pyloric length, no evidence of stricture. Complete passage of contrast to the 4th portion of the duodenum. Residual contrast in duodenal bulb suggestive of duodenal ulcer. Assessment and Plan - Diagnosis (1) Upper gastrointestinal bleeding Is this a current diagnosis for this admission?: Yes Plan: December 22, 2018-patient received 2 units of packed red blood cells yesterday. Her hemoglobin is improved. We will continue to monitor. She is having endoscopy today. Continue treatment plan based on endoscopy findings 12/23/2018-hemoglobin is decreased slightly but stable. We will continue to monitor. 12/24/2018-it seems that she is stable at hemoglobin of 10. Continue to monitor. (2) Anemia due to blood loss Is this a current diagnosis for this admission?: Yes Plan: 12/21/2018-the patient in fact has chronic anemia and sees Dr. Figueroa. She has been consulted. Her anemia is worse because of the GI bleeding. Her hemoglobin in fact is 7.6 this morning. She has agreed to do 2 units of packed red blood cells. December 22, 2018-status post 2 units of packed red cells. Hemoglobin is 11.5. Continue to monitor. 12/23/2018-continue to monitor hemoglobin 12/24/2018-hemoglobin stable as above. The patient is also being seen by hematology. (3) Abdominal pain Qualifiers: Abdominal location: generalized Qualified Code(s): R10.84 - Generalized abdominal pain Is this a current diagnosis for this admission?: Yes Plan: 12/21/2018-abdominal pain is related to the GI bleeding. The patient has a history of abdominal surgeries including perforated gastric ulcer and ventral hernia. She has no lower abdominal pain. Bowel sounds are positive. Old midline incision present. The treatment plan will be determined based on the results of the endoscopy. December 22, 2018-no abdominal pain today. We will continue to monitor the patient for recurrent symptoms. 12/23/2018-significantly improved 12/24/2018-minimal. (4) GERD (gastroesophageal reflux disease) Qualifiers: Esophagitis presence: with esophagitis Qualified Code(s): K21.0 - Gastro- esophageal reflux disease with esophagitis Is this a current diagnosis for this admission?: Yes Plan: 12/21/2018-the patient has a history of a perforated gastric ulcer. She has a distant history of alcoholism. She states that she has significant gastroesophageal reflux as well. She will be on Protonix 40 mg IV twice daily and will consider post discharge interventions such as Carafate and ongoing acid suppression based on results of the endoscopy. December 22, 2018 -currently on aggressive proton pump inhibition therapy. Will decide on ongoing treatment plan based on gastroscopy results. 12/23/2018-the patient was found to have a stricture at the pylorus or proximal duodenum. The plan is for Carafate and high-dose proton pump inhibition. She will also need high-protein liquid diet as well as TPN. With this stricture it does make sense regarding her complaints of fullness with reflux symptoms. 02/23/2018-likely due to outflow obstruction with pyloric stenosis. Will discharge on Carafate and high-dose Protonix. (5) Severe protein-calorie malnutrition Is this a current diagnosis for this admission?: Yes Plan: 12/21/2018-the patient's BMI is only 14. She has significantly decreased muscle mass. Appetite is been poor over the office few days but that is most likely due to the current GI element. Will encourage proper nutrition once the endoscopies have been performed and she is back on an oral diet. December 22, 2018-the dietitian has seen the patient. She has made some recommendations. Did asked the question of weight loss and the patient reports that her appetite has been significantly decreased lately. She states that because of severe acid reflux she has a poor appetite and typically does not tolerate a significant amount of food at the same time. We discussed strategies about protein supplements. 12/23/2018-dietary plans as above. I have asked the dietitian to recommend TPN formulation and high calorie high protein liquid diet 12/24/2018-the patient does not have insurance. We are in the process of applying for Medicaid if possible. Discharge planning is working hard to find an infusion company to work with the patient. I spoke with the surgeon, Dr. Rainey, and a major concern is her severe protein calorie malnutrition and the ability for healing. It is hoped that the severe pyloric stenosis will resolve with Carafate and high-dose proton pump inhibition. If it does not then she will likely need surgery. At this point she would do very poorly with surgery due to her physical state. She needs significant nutrition over the next several weeks to months. We feel a full liquid high-protein diet alone will not provide the nutrition she requires. If her nutrition does not improve my concern is that her health will continue to deteriorate. I have held off on the PICC line placement until we have entity that we will provide TPN. (6) Hypokalemia Is this a current diagnosis for this admission?: Yes Plan: 12/21/2018-serum potassium is only 3.3. Because of her current GI status I will give her 20 mEq of potassium chloride by IV today and recheck him history as tomorrow. December 22, 2018-potassium is down to 3.1 today. I have ordered 40 mEq of potassium IV. She should be able to start eating and drinking after the endoscopy and I will add oral potassium starting tomorrow. 12/23/2018-40 mEq potassium chloride ordered IV today. 10 mEq potassium chloride p.o. twice daily to start tomorrow. 12/24/2018-potassium is normal today. As potassium can be a gastric irritant I have ordered delayed release potassium 10 mEq twice daily in the hopes that it will not cause gastric irritation. (7) Pyloric stricture Is this a current diagnosis for this admission?: Yes Plan: 12/23/2018-please also see Dr. Rainey's note. Endoscopy revealed a stricture at the pylorus/first part of the duodenum. As outlined above Carafate, Protonix, high-protein liquid diet and repeat endoscopy in 6 weeks. If there is no improvement the patient may need surgical intervention. 12/24/2018-as noted above the patient was found to have a significant pyloric stricture. Carafate and Protonix as above. Plans are in the work to optimize her nutrition. - Plan Summary Summary: Patient will be admitted to the medical bed and given routine supportive and symptomatic cares. She will be on IV fluids initially and she will be followed with serial hemoglobins (CBCs). Surgical consultation with Dr. Rainey will be obtained and endoscopy evaluation is expected. She will be continued on IV Prot jam 40 mg every 12 hours and she will receive Nubain 5 to 10 mg IV every 3 hours on an as needed basis using a sliding scale for pain. Nausea will be treated with Zofran 4 mg IV every 4 hours as needed. An anemia profile will be obtained. - Time Time Spent with patient: 25-34 minutes Medications reviewed and adjusted accordingly: Yes Anticipated discharge: Home
[2018-12-24] MEDS: ZOLPIDEM TARTRATE 5 MG TABLET PO PRN (21:21)
[2018-12-24] MEDS: ESCITALOPRAM OXALATE 10 MG TABLET PO SCH (21:21)
[2018-12-25] MEDS: HYDROCODONE/ACETAMINOPHEN 5-325 MG TABLET PO PRN ×4 (03:06→21:57)
[2018-12-25] MEDS: GABAPENTIN 300 MG CAPSULE PO SCH ×3 (05:13→21:52)
[2018-12-25] MEDS: PANTOPRAZOLE SODIUM 40 MG TABLET.DR PO SCH ×2 (05:14→18:18)
[2018-12-25] MEDS: METOCLOPRAMIDE HCL 10 MG TABLET PO SCH ×4 (08:51→21:52)
[2018-12-25] MEDS: SUCRALFATE 1 GM TABLET PO SCH ×4 (08:51→21:51)
--- NOTE | 2018-12-25 09:05 | PDOC PROGRESS REPORT ---
Subjective Progress Note for:: 12/25/18 Subjective:: Patient doing well today. She is hoping she will be able to drink Ensure instead of having PICC line placed. Reason For Visit: UPPER GI BLEEDING,BLOOD LOSS ANEMIA Physical Exam Vital Signs: Temp Pulse Resp BP Pulse Ox 98.3 F 74 14 108/80 99 12/25/18 07:30 12/25/18 07:30 12/25/18 07:30 12/25/18 07:30 12/25/18 07:30 Intake & Output 12/24/18 12/25/18 12/26/18 06:59 06:59 06:59 Intake Total 3060 527 Balance 3060 527 Weight 38.2 kg 41.3 kg General appearance: PRESENT: no acute distress, thin Exam: Sitting up in bed, eating breakfast Head exam: PRESENT: normocephalic Eye exam: PRESENT: EOMI Respiratory exam: PRESENT: unlabored Extremities exam: ABSENT: pedal edema Neurological exam: PRESENT: alert, awake, oriented to person, oriented to place, oriented to time, oriented to situation Psychiatric exam: PRESENT: appropriate affect Skin exam: PRESENT: normal color Results Laboratory Results: 12/24/18 05:41 12/24/18 05:41 Impressions: Upper GI Series 12/22/18 00:00 IMPRESSION: Small to medium sliding hiatal hernia with moderate to severe reflux. Normal pyloric length, no evidence of stricture. Complete passage of contrast to the 4th portion of the duodenum. Residual contrast in duodenal bulb suggestive of duodenal ulcer. Assessment & Plan - Diagnosis (1) Anemia due to blood loss Is this a current diagnosis for this admission?: Yes Plan: HGB appear stable at this time. Her Ferritin was normal. I will continue to follow as outpatient. (2) Severe protein-calorie malnutrition Is this a current diagnosis for this admission?: Yes Plan: She will try to increase PO intake. (3) Upper gastrointestinal bleeding Is this a current diagnosis for this admission?: Yes Plan: Further treatment per surgery. - Time Time Spent with patient: Less than 15 minutes - Plan Summary Plan Summary: I will sign off. Please call if needed.
[2018-12-25] MEDS: DOCUSATE SODIUM 100 MG CAPSULE PO SCH ×2 (10:44→18:18)
[2018-12-25] MEDS: FERROUS SULFATE 325 MG TABLET PO SCH (10:44)
[2018-12-25] MEDS: POTASSIUM CHLORIDE 10 MEQ CAPSULE.ER PO SCH ×2 (10:45→21:52)
[2018-12-25 12:24] LABS: ABSOLUTE EOSINOPHILS # (AUTO) 0.2 10^3/uL (0.0-0.6); ABSOLUTE LYMPHOCYTES (AUTO) 0.9 10^3/uL (0.5-4.7); ABSOLUTE MONOCYTES (AUTO) 0.4 10^3/uL (0.1-1.4); ABSOLUTE NEUT (AUTO) 6.3 10^3/uL (1.7-8.2); BASOPHILS % (AUTO) 0.3 % (0-2); EOSINOPHILS % (AUTO) 2.6 % (0-6); HEMATOCRIT 32.8 % (36.0-47.0); LYMPHOCYTES % (AUTO) 11.9 % (13-45); MEAN CORPUSCULAR HEMOGLOBIN 29.1 pg (27.0-33.4); MEAN CORPUSCULAR HGB CONC 33.6 g/dL (32.0-36.0); MEAN CORPUSCULAR VOLUME 87 fl (80-97); MONOCYTES % (AUTO) 4.5 % (3-13); PLATELET COUNT 430 10^3/uL (150-450); RED BLOOD COUNT 3.79 10^6/uL (3.72-5.28); RED CELL DISTRIBUTION WIDTH 15.3 % (11.5-14.0); SEGMENTED NEUTROPHILS % (AUTO) 80.7 % (42-78); TOTAL CELLS COUNTED % (AUTO) 100 %; WHITE BLOOD COUNT 7.8 10^3/uL (4.0-10.5)
[2018-12-25 12:37] LABS: ANION GAP 9 (5-19); BLOOD UREA NITROGEN 10 mg/dL (7-20); CALCIUM 9.8 mg/dL (8.4-10.2); CARBON DIOXIDE 25 mmol/L (22-30); CHLORIDE 109 mmol/L (98-107); GLUCOSE 100 mg/dL (75-110); POTASSIUM 3.8 mmol/L (3.6-5.0)
--- NOTE | 2018-12-25 13:23 | PDOC PROGRESS REPORT ---
Subjective Subjective:: 63-year-old female with coffee-ground emesis. EGD showed ulcerations with narrowing at the pylorus/first portion of the duodenum. Patient reports feeling reasonably well today. She denies any abdominal pain, nausea, or vomiting. She is passing flatus. Reason For Visit: UPPER GI BLEEDING,BLOOD LOSS ANEMIA Physical Exam Vital Signs: Temp Pulse Resp BP Pulse Ox 97.5 F 72 20 121/77 100 12/24/18 11:57 12/24/18 11:57 12/24/18 11:57 12/24/18 11:57 12/24/18 11:57 Intake & Output 12/23/18 12/24/18 12/25/18 06:59 06:59 06:59 Intake Total 3060 Balance 3060 Weight 38.2 kg 38.2 kg General appearance: PRESENT: thin Head exam: PRESENT: atraumatic, normocephalic Eye exam: PRESENT: EOMI, PERRLA. ABSENT: scleral icterus Mouth exam: PRESENT: moist, neck supple Neck exam: ABSENT: tenderness, thyromegaly, tracheal deviation, tracheostomy Respiratory exam: PRESENT: clear to auscultation edvin, unlabored. ABSENT: chest wall tenderness, tachypnea, wheezes Cardiovascular exam: PRESENT: RRR Pulses: PRESENT: normal radial pulses GI/Abdominal exam: PRESENT: soft. ABSENT: rigid, tenderness Rectal exam: PRESENT: deferred Extremities exam: ABSENT: clubbing Neurological exam: PRESENT: alert, awake, oriented to person, oriented to place, oriented to time, oriented to situation Psychiatric exam: ABSENT: agitated, anxious, depressed Focused psych exam: ABSENT: delusional Results Laboratory Results: 12/24/18 05:41 12/24/18 05:41 12/24/18 12/24/18 05:41 05:41 WBC 13.5 H RBC 3.43 L Hgb 10.1 L Hct 29.9 L MCV 87 MCH 29.5 MCHC 33.9 RDW 15.7 H Plt Count 359 Seg Neutrophils % 87.3 H Sodium 140.0 Potassium 3.8 Chloride 111 H Carbon Dioxide 25 Anion Gap 4 L BUN 9 Creatinine 0.47 L Est GFR ( Amer) > 60 Glucose 84 Calcium 9.3 Impressions: Upper GI Series 12/22/18 00:00 IMPRESSION: Small to medium sliding hiatal hernia with moderate to severe reflux. Normal pyloric length, no evidence of stricture. Complete passage of contrast to the 4th portion of the duodenum. Residual contrast in duodenal bulb suggestive of duodenal ulcer. Assessment & Plan - Diagnosis (1) Coffee ground emesis Is this a current diagnosis for this admission?: Yes (2) Anemia Qualifiers: Anemia type: iron deficiency Iron deficiency anemia type: chronic blood loss Qualified Code(s): D50.0 - Iron deficiency anemia secondary to blood loss (chronic) Is this a current diagnosis for this admission?: Yes (3) Malnutrition Qualifiers: Malnutrition type: protein-calorie malnutrition Protein-calorie malnutritio n severity: unspecified severity Qualified Code(s): E46 - Unspecified protein- calorie malnutrition Is this a current diagnosis for this admission?: Yes (4) Duodenal stricture Is this a current diagnosis for this admission?: Yes (5) Peptic ulcer Is this a current diagnosis for this admission?: Yes - Time Time Spent with patient: Less than 15 minutes - Plan Summary Plan Summary: This is a 63-year-old female with a duodenal stricture found on EGD. I am incredibly concerned about her nutritional status. She has been continually losing weight since her operation. I believe the duodenal stricture is causing her weight loss due to an inability to eat a significant amount of solid food. I will supplement the patient with oral liquid protein supplements, however with her current level of malnutrition I have recommended supplemental TPN at home. We are at this time making preparations for this. Continue with oral protein supplements for now. Awaiting approval of home TPN. Continue PPI and Carafate for peptic ulcer disease.
--- NOTE | 2018-12-25 16:38 | PDOC PROGRESS REPORT ---
Subjective Subjective:: 63-year-old female with coffee-ground emesis. EGD showed ulcerations with narrowing at the pylorus/first portion of the duodenum. Patient reports feeling distended with increased abdominal pain. She is passing flatus. Reason For Visit: UPPER GI BLEEDING,BLOOD LOSS ANEMIA Physical Exam Vital Signs: Temp Pulse Resp BP Pulse Ox 97.4 F 81 14 127/76 H 96 12/25/18 15:51 12/25/18 15:51 12/25/18 15:51 12/25/18 15:51 12/25/18 15:51 Intake & Output 12/24/18 12/25/18 12/26/18 06:59 06:59 06:59 Intake Total 3060 527 717 Balance 3060 527 717 Weight 38.2 kg 41.3 kg General appearance: PRESENT: no acute distress, cooperative Head exam: PRESENT: atraumatic, normocephalic Eye exam: PRESENT: EOMI, PERRLA. ABSENT: scleral icterus Mouth exam: PRESENT: moist, neck supple Neck exam: ABSENT: tenderness, thyromegaly, tracheal deviation, tracheostomy Respiratory exam: ABSENT: chest wall tenderness, tachypnea Cardiovascular exam: PRESENT: RRR Pulses: PRESENT: normal radial pulses GI/Abdominal exam: PRESENT: distended - mild, soft. ABSENT: tenderness Rectal exam: PRESENT: deferred Neurological exam: PRESENT: alert, awake, oriented to person, oriented to place, oriented to time, oriented to situation, CN II-XII grossly intact Psychiatric exam: ABSENT: agitated, anxious, depressed Focused psych exam: ABSENT: delusional Skin exam: ABSENT: cyanosis, erythema, jaundice Results Laboratory Results: 12/25/18 12:10 12/25/18 12:10 12/25/18 12/25/18 12:10 12:10 WBC 7.8 RBC 3.79 Hgb 11.0 L Hct 32.8 L MCV 87 MCH 29.1 MCHC 33.6 RDW 15.3 H Plt Count 430 Seg Neutrophils % 80.7 H Sodium 142.6 Potassium 3.8 Chloride 109 H Carbon Dioxide 25 Anion Gap 9 BUN 10 Creatinine 0.43 L Est GFR ( Amer) > 60 Glucose 100 Calcium 9.8 Magnesium 1.6 Impressions: Upper GI Series 12/22/18 00:00 IMPRESSION: Small to medium sliding hiatal hernia with moderate to severe refl ux. Normal pyloric length, no evidence of stricture. Complete passage of contrast to the 4th portion of the duodenum. Residual contrast in duodenal bulb suggestive of duodenal ulcer. Assessment & Plan - Diagnosis (1) Coffee ground emesis Is this a current diagnosis for this admission?: Yes (2) Anemia Qualifiers: Anemia type: iron deficiency Iron deficiency anemia type: chronic blood loss Qualified Code(s): D50.0 - Iron deficiency anemia secondary to blood loss (chronic) Is this a current diagnosis for this admission?: Yes (3) Malnutrition Qualifiers: Malnutrition type: protein-calorie malnutrition Protein-calorie mal nutrition severity: unspecified severity Qualified Code(s): E46 - Unspecified protein-calorie malnutrition Is this a current diagnosis for this admission?: Yes (4) Duodenal stricture Is this a current diagnosis for this admission?: Yes (5) Peptic ulcer Is this a current diagnosis for this admission?: Yes - Time Time Spent with patient: Less than 15 minutes - Plan Summary Plan Summary: This is a 63-year-old female with a partial gastric outlet obstruction due to peptic ulcer disease. The patient is able to drink liquids, however after drinking normal amounts, she begins to experience abdominal distention and abdominal pain. I believe this is due to her partial gastric outlet obstruction. The "plan" is to have her go home and drink 5 ensures per day. Unfortunately, this is the plan that has been in place now for over 1 month. The patient continues to lose weight. She cannot tolerate the amount of intake that is being suggested. The patient recently underwent component separation hernia repair (abdominal wall reconstruction). A feeding jejunostomy CANNOT be inserted. Her only options are to increase her oral intake (which has failed) or undergo supplementation with TPN. I feel it is unsafe to send her home without an adequate nutrition plan. I have discussed the case with the medical team as well as the social services technician. I have strongly suggested that a workable plan be in place prior to discharge. I will continue to follow this patient with you.
--- NOTE | 2018-12-25 18:08 | PDOC PROGRESS REPORT ---
Subjective Progress Note for:: 12/25/18 Subjective:: No acute event overnight. She denies acute complaints. Discussed with surgery in length who has strongly recommended TPN for 6 weeks on top of increasing Ensure. Reason For Visit: UPPER GI BLEEDING,BLOOD LOSS ANEMIA Physical Exam Vital Signs: Temp Pulse Resp BP Pulse Ox 97.4 F 81 14 127/76 H 96 12/25/18 15:51 12/25/18 15:51 12/25/18 15:51 12/25/18 15:51 12/25/18 15:51 Intake & Output 12/24/18 12/25/18 12/26/18 06:59 06:59 06:59 Intake Total 3060 527 717 Balance 3060 527 717 Weight 84 lb 3.465 oz 91 lb 0.815 oz General appearance: PRESENT: no acute distress, thin Head exam: PRESENT: atraumatic, normocephalic Eye exam: PRESENT: conjunctiva pink, EOMI, PERRLA. ABSENT: scleral icterus Ear exam: PRESENT: normal external ear exam Mouth exam: PRESENT: moist, tongue midline Neck exam: ABSENT: carotid bruit, JVD, lymphadenopathy, thyromegaly Respiratory exam: PRESENT: clear to auscultation edvin. ABSENT: rales, rhonchi, wheezes Cardiovascular exam: PRESENT: RRR. ABSENT: diastolic murmur, rubs, systolic murmur Pulses: PRESENT: normal dorsalis pedis pul GI/Abdominal exam: PRESENT: normal bowel sounds, soft, other - +surgical scar. ABSENT: distended, guarding, mass, organolmegaly, rebound, tenderness Rectal exam: PRESENT: deferred Neurological exam: PRESENT: alert, awake, oriented to person, oriented to place, oriented to time, oriented to situation, CN II-XII grossly intact. ABSENT: motor sensory deficit Results Laboratory Results: 12/25/18 12:10 12/25/18 12:10 12/25/18 12/25/18 12:10 12:10 WBC 7.8 RBC 3.79 Hgb 11.0 L Hct 32.8 L MCV 87 MCH 29.1 MCHC 33.6 RDW 15.3 H Plt Count 430 Seg Neutrophils % 80.7 H Sodium 142.6 Potassium 3.8 Chloride 109 H Carbon Dioxide 25 Anion Gap 9 BUN 10 Creatinine 0.43 L Est GFR ( Amer) > 60 Glucose 100 Calcium 9.8 Magnesium 1.6 Impressions: Upper GI Series 12/22/18 00:00 IMPRESSION: Small to medium sliding hiatal hernia with moderate to severe reflux. Normal pyloric length, no evidence of stricture. Complete passage of contrast to the 4th portion of the duodenum. Residual contrast in duodenal bulb suggestive of duodenal ulcer. Assessment and Plan - Diagnosis (1) Severe protein-calorie malnutrition Is this a current diagnosis for this admission?: Yes Plan: Discussed with surgery in length who has strongly recommended TPN for 6 weeks on top of increasing Ensure intake. (2) Duodenal stricture Is this a current diagnosis for this admission?: Yes (3) Anemia due to blood loss Is this a current diagnosis for this admission?: Yes Plan: Secondary to GI bleed. Status post 2 units of packed RBC. Hemoglobin stable. (4) Upper gastrointestinal bleeding Is this a current diagnosis for this admission?: Yes Plan: As per #3. - Time Time Spent with patient: 25-34 minutes
[2018-12-25] MEDS: ESCITALOPRAM OXALATE 10 MG TABLET PO SCH (21:52)
[2018-12-25] MEDS: ZOLPIDEM TARTRATE 5 MG TABLET PO PRN (21:57)
[2018-12-26] MEDS: GABAPENTIN 300 MG CAPSULE PO SCH ×3 (05:04→21:25)
[2018-12-26] MEDS: HYDROCODONE/ACETAMINOPHEN 5-325 MG TABLET PO PRN ×3 (05:04→17:25)
[2018-12-26] MEDS: PANTOPRAZOLE SODIUM 40 MG TABLET.DR PO SCH ×2 (05:05→17:26)
[2018-12-26] MEDS: SUCRALFATE 1 GM TABLET PO SCH ×4 (08:22→21:25)
[2018-12-26] MEDS: METOCLOPRAMIDE HCL 10 MG TABLET PO SCH ×4 (08:22→21:24)
[2018-12-26] MEDS: DOCUSATE SODIUM 100 MG CAPSULE PO SCH ×2 (10:00→17:26)
[2018-12-26] MEDS: FERROUS SULFATE 325 MG TABLET PO SCH (10:00)
[2018-12-26] MEDS: POTASSIUM CHLORIDE 10 MEQ CAPSULE.ER PO SCH ×2 (10:00→21:25)
[2018-12-26] MEDS: ONDANSETRON HCL INJ/PF 4 MG/2 ML SDV IV PRN ×3 (11:19→21:25)
[2018-12-26] MEDS ORDERED: POLYETHYLENE GLYCOL 3350 POWDER 17 GM/1 PACKET PO ONE (13:15)
[2018-12-26] MEDS ORDERED: PROMETHAZINE HCL INJ 25 MG/1 ML VIAL IV ONE (14:43)
--- NOTE | 2018-12-26 15:00 | PDOC PROGRESS REPORT ---
Subjective Progress Note for:: 12/26/18 Subjective:: This is a 63yr old female who was admitted for upper GI bleed and was noted to have a severe duodenal stricture. She is Dr. Rainey's patient and closely follows up with him. Discussed with surgery in length who has strongly recommended TPN for 6 weeks on top of increasing Ensure. No acute event overnight. She denies acute complaints. She is tolerating increased intake of Ensure. Reason For Visit: UPPER GI BLEEDING,BLOOD LOSS ANEMIA Physical Exam Vital Signs: Temp Pulse Resp BP Pulse Ox 97.7 F 66 16 148/82 H 99 12/26/18 11:52 12/26/18 11:52 12/26/18 11:52 12/26/18 11:52 12/26/18 11:52 Intake & Output 12/25/18 12/26/18 12/27/18 06:59 06:59 06:59 Intake Total 527 1165 Balance 527 1165 Weight 91 lb 0.815 oz 85 lb 8.63 oz General appearance: PRESENT: no acute distress, thin Head exam: PRESENT: atraumatic, normocephalic Eye exam: PRESENT: conjunctiva pink, EOMI, PERRLA. ABSENT: scleral icterus Ear exam: PRESENT: normal external ear exam Mouth exam: PRESENT: moist, tongue midline Neck exam: ABSENT: carotid bruit, JVD, lymphadenopathy, thyromegaly Respiratory exam: PRESENT: clear to auscultation edvin. ABSENT: rales, rhonchi, wheezes Cardiovascular exam: PRESENT: RRR. ABSENT: diastolic murmur, rubs, systolic murmur Pulses: PRESENT: normal dorsalis pedis pul GI/Abdominal exam: PRESENT: normal bowel sounds, soft. ABSENT: distended, guarding, mass, organolmegaly, rebound, tenderness Rectal exam: PRESENT: deferred Extremities exam: PRESENT: full ROM. ABSENT: calf tenderness, clubbing, pedal edema Neurological exam: PRESENT: alert, awake, oriented to person, oriented to place, oriented to time, oriented to situation, CN II-XII grossly intact. ABSENT: motor sensory deficit Results Laboratory Results: 12/25/18 12:10 12/25/18 12:10 Impressions: Upper GI Series 12/22/18 00:00 IMPRESSION: Small to medium sliding hiatal hernia with moderate to severe reflux. Normal pyloric length, no evidence of stricture. Complete passage of contrast to the 4th portion of the duodenum. Residual contrast in duodenal bulb suggestive of duodenal ulcer. Assessment and Plan - Diagnosis (1) Severe protein-calorie malnutrition Is this a current diagnosis for this admission?: Yes Plan: Discussed with surgery in length who has strongly recommended TPN for 6 weeks on top of increasing Ensure intake. (2) Duodenal stricture Is this a current diagnosis for this admission?: Yes Plan: Dr. Rainey following. (3) Anemia due to blood loss Is this a current diagnosis for this admission?: Yes Plan: Secondary to GI bleed. Status post 2 units of packed RBC. Hemoglobin stable. (4) Upper gastrointestinal bleeding Is this a current diagnosis for this admission?: Yes Plan: As per #3. - Time Time Spent with patient: 25-34 minutes
--- NOTE | 2018-12-26 17:35 | PDOC PROGRESS REPORT ---
Subjective Progress Note for:: 12/26/18 Subjective:: 63-year-old female with coffee-ground emesis. EGD showed ulcerations with narrowing at the pylorus/first portion of the duodenum. Patient reports feeling distended with increased abdominal pain. She is passing flatus. She only was able to take in 4 Ensures yesterday due to pain and nausea. Her goal is 5. Reason For Visit: UPPER GI BLEEDING,BLOOD LOSS ANEMIA Physical Exam Vital Signs: Temp Pulse Resp BP Pulse Ox 97.7 F 66 16 148/82 H 99 12/26/18 11:52 12/26/18 11:52 12/26/18 11:52 12/26/18 11:52 12/26/18 11:52 Intake & Output 12/25/18 12/26/18 12/27/18 06:59 06:59 06:59 Intake Total 527 1165 Balance 527 1165 Weight 41.3 kg 38.8 kg 38.8 kg Results Laboratory Results: 12/25/18 12:10 12/25/18 12:10 Impressions: Upper GI Series 12/22/18 00:00 IMPRESSION: Small to medium sliding hiatal hernia with moderate to severe reflux. Normal pyloric length, no evidence of stricture. Complete passage of contrast to the 4th portion of the duodenum. Residual contrast in duodenal bulb suggestive of duodenal ulcer. Assessment & Plan - Diagnosis (1) Coffee ground emesis Is this a current diagnosis for this admission?: Yes (2) Anemia Qualifiers: Anemia type: iron deficiency Iron deficiency anemia type: chronic blood loss Qualified Code(s): D50.0 - Iron deficiency anemia secondary to blood loss (chronic) Is this a current diagnosis for this admission?: Yes (3) Malnutrition Qualifiers: Malnutrition type: protein-calorie malnutrition Protein-calorie malnutrition severity: unspecified severity Qualified Code(s): E46 - Unspecified protein-calorie malnutrition Is this a current diagnosis for this admission?: Yes (4) Duodenal stricture Is this a current diagnosis for this admission?: Yes (5) Peptic ulcer Is this a current diagnosis for this admission?: Yes - Time Time Spent with patient: Less than 15 minutes - Plan Summary Plan Summary: This is a 63-year-old female with a partial gastric outlet obstruction due to narrowing at the pylorus/duodenum in relation to peptic ulcer disease. Up until now, the plan has been to have her drink increased amounts of Ensure. Her goal is 5/day. Yesterday, she only drank 4 due to abdominal distention, pain, and n ausea. I will order a PICC line and TPN to be started today. I have discussed the situation at length with social work. They are attempting to arrange for outpatient TPN through patient assistance avenues. The patient is profoundly malnourished, and is likely to suffer significant morbidity without supplemental nutrition (including perforation of her peptic ulcer or failure of her recent hernia repair). Start TPN as soon as PICC line is placed. Continue with Ensure if the patient will tolerate it. Continue PPI and Carafate. Will follow.
[2018-12-26] MEDS: ZOLPIDEM TARTRATE 5 MG TABLET PO PRN (21:25)
[2018-12-26] MEDS: ESCITALOPRAM OXALATE 10 MG TABLET PO SCH (21:25)
[2018-12-27] MEDS: ONDANSETRON HCL INJ/PF 4 MG/2 ML SDV IV PRN ×4 (02:00→19:27)
[2018-12-27] MEDS: PANTOPRAZOLE SODIUM 40 MG TABLET.DR PO SCH ×2 (05:10→17:36)
[2018-12-27] MEDS: GABAPENTIN 300 MG CAPSULE PO SCH ×3 (05:10→21:42)
[2018-12-27] MEDS: SUCRALFATE 1 GM TABLET PO SCH ×4 (08:27→21:42)
[2018-12-27] MEDS: HYDROCODONE/ACETAMINOPHEN 5-325 MG TABLET PO PRN ×2 (08:27→12:25)
[2018-12-27] MEDS: METOCLOPRAMIDE HCL 10 MG TABLET PO SCH ×4 (08:27→21:42)
[2018-12-27] MEDS: DOCUSATE SODIUM 100 MG CAPSULE PO SCH ×2 (09:32→17:36)
[2018-12-27] MEDS: FERROUS SULFATE 325 MG TABLET PO SCH (09:32)
[2018-12-27] MEDS: POTASSIUM CHLORIDE 10 MEQ CAPSULE.ER PO SCH ×2 (09:32→21:42)
[2018-12-27] MEDS ORDERED: MIDAZOLAM 2 MG/2 ML INJ ONE (11:20)
[2018-12-27] MEDS ORDERED: LORAZEPAM INJ 2 MG/1 ML VIAL IV PRN (12:39)
[2018-12-27] MEDS ORDERED: NORMAL SALINE 1000 ML 1,000 ML IV PRN (12:39)
--- NOTE | 2018-12-27 17:38 | PDOC PROGRESS REPORT ---
Subjective Progress Note for:: 12/27/18 Subjective:: This is a 63yr old female who was admitted for upper GI bleed and was noted to have a severe duodenal stricture. She is Dr. Rainey's patient and closely follows up with him. Discussed with surgery in length who has strongly recommended TPN for 6 weeks on top of increasing Ensure. 12/27: No acute event overnight. She denies acute complaints. She is tolerating increased intake of Ensure. She also continue to gradually increase her oral intake. She had a plate of scrambled eggs this morning and has been tolerating it so far. Reason For Visit: UPPER GI BLEEDING,BLOOD LOSS ANEMIA Physical Exam Vital Signs: Temp Pulse Resp BP Pulse Ox 98.4 F 80 19 115/68 98 12/27/18 09:18 12/27/18 09:18 12/27/18 09:18 12/27/18 09:18 12/27/18 09:18 Intake & Output 12/26/18 12/27/18 12/28/18 06:59 06:59 06:59 Intake Total 1165 1160 120 Balance 1165 1160 120 Weight 85 lb 8.63 oz 88 lb 2.958 oz 88 lb 2.958 oz General appearance: PRESENT: no acute distress, thin Head exam: PRESENT: atraumatic, normocephalic Eye exam: PRESENT: conjunctiva pink, EOMI, PERRLA. ABSENT: scleral icterus Ear exam: PRESENT: normal external ear exam Mouth exam: PRESENT: moist, tongue midline Neck exam: ABSENT: carotid bruit, JVD, lymphadenopathy, thyromegaly Respiratory exam: PRESENT: clear to auscultation edvin. ABSENT: rales, rhonchi, wheezes Cardiovascular exam: PRESENT: RRR. ABSENT: diastolic murmur, rubs, systolic murmur Pulses: PRESENT: normal dorsalis pedis pul GI/Abdominal exam: PRESENT: normal bowel sounds, soft. ABSENT: distended, guarding, mass, organolmegaly, rebound, tenderness Rectal exam: PRESENT: deferred Extremities exam: PRESENT: full ROM. ABSENT: calf tenderness, clubbing, pedal edema Neurological exam: PRESENT: alert, awake, oriented to person, oriented to place, oriented to time, oriented to situation, CN II-XII grossly intact. ABSENT: motor sensory deficit Results Laboratory Results: 12/25/18 12:10 12/25/18 12:10 Impressions: Upper GI Series 12/22/18 00:00 IMPRESSION: Small to medium sliding hiatal hernia with moderate to severe refl ux. Normal pyloric length, no evidence of stricture. Complete passage of contrast to the 4th portion of the duodenum. Residual contrast in duodenal bulb suggestive of duodenal ulcer. Assessment and Plan - Diagnosis (1) Severe protein-calorie malnutrition Is this a current diagnosis for this admission?: Yes Plan: Discussed with surgery in length who has strongly recommended TPN for 6 weeks on top of increasing Ensure intake. 12/27: She also continue to gradually increase her oral intake. She had a plate of scrambled eggs this morning and has been tolerating it so far. Dietitian has discussed with surgery. Plan is to do calorie counting and see if patient continues to continue tolerating increased oral intake and possibly would just need shorter-term of TPN if still strongly recommended by surgery. (2) Duodenal stricture Is this a current diagnosis for this admission?: Yes Plan: Dr. Rainey following. (3) Anemia due to blood loss Is this a current diagnosis for this admission?: Yes Plan: Secondary to GI bleed. Status post 2 units of packed RBC. Hemoglobin stable. (4) Upper gastrointestinal bleeding Is this a current diagnosis for this admission?: Yes Plan: As per #3. - Plan Summary Summary: Patient will be admitted to the medical bed and given routine supportive and symptomatic cares. She will be on IV fluids initially and she will be followed with serial hemoglobins (CBCs). Surgical consultation with Dr. Rainey will be obtained and endoscopy evaluation is expected. She will be continued on IV Protonix 40 mg every 12 hours and she will receive Nubain 5 to 10 mg IV every 3 hours on an as needed basis using a sliding scale for pain. Nausea will be treated with Zofran 4 mg IV every 4 hours as needed. An anemia profile will be obtained. - Time Time Spent with patient: 15-24 minutes
--- NOTE | 2018-12-27 18:29 | PDOC PROGRESS REPORT ---
Subjective Progress Note for:: 12/27/18 Subjective:: 63-year-old female with coffee-ground emesis. EGD showed ulcerations with narrowing at the pylorus/first portion of the duodenum. Patient reports feeling distended with increased abdominal pain. She is passing flatus. She only drank 3 Ensures the earlier part of today. Upon my arrival, she is complaining of nausea. Her goal is 5. I have encouraged her to attempt to take 2 more ensures today. Reason For Visit: UPPER GI BLEEDING,BLOOD LOSS ANEMIA Physical Exam Vital Signs: Temp Pulse Resp BP Pulse Ox 98.4 F 80 19 115/68 98 12/27/18 09:18 12/27/18 09:18 12/27/18 09:18 12/27/18 09:18 12/27/18 09:18 Intake & Output 12/26/18 12/27/18 12/28/18 06:59 06:59 06:59 Intake Total 1165 1160 357 Balance 1165 1160 357 Weight 38.8 kg 40 kg 40 kg General appearance: PRESENT: no acute distress, cooperative, thin Eye exam: PRESENT: EOMI, PERRLA Mouth exam: PRESENT: moist, neck supple Neck exam: ABSENT: tenderness, thyromegaly, tracheal deviation Respiratory exam: PRESENT: unlabored. ABSENT: chest wall tenderness, tachypnea, wheezes Cardiovascular exam: PRESENT: RRR Pulses: PRESENT: normal radial pulses GI/Abdominal exam: PRESENT: distended - mild, soft. ABSENT: tenderness Rectal exam: PRESENT: deferred Neurological exam: PRESENT: alert, awake, oriented to person, oriented to place, oriented to time, oriented to situation Psychiatric exam: ABSENT: agitated, anxious, depressed Focused psych exam: ABSENT: delusional Skin exam: ABSENT: cyanosis, erythema, jaundice Results Laboratory Results: 12/25/18 12:10 12/25/18 12:10 Impressions: Upper GI Series 12/22/18 00:00 IMPRESSION: Small to medium sliding hiatal hernia with moderate to severe reflux. Normal pyloric length, no evidence of stricture. Complete passage of contrast to the 4th portion of the duodenum. Residual contrast in duodenal bulb suggestive of duodenal ulcer. Assessment & Plan - Diagnosis (1) Coffee ground emesis Is this a current diagnosis for this admission?: Yes (2) Anemia Qualifiers: Anemia type: iron deficiency Iron deficiency anemia type: chronic blood loss Qualified Code(s): D50.0 - Iron deficiency anemia secondary to blood loss (chronic) Is this a current diagnosis for this admission?: Yes (3) Malnutrition Qualifiers: Malnutrition type: protein-calorie malnutrition Protein-calorie malnutrition severity: unspecified severity Qualified Code(s): E46 - Unspecified protein-calorie malnutrition Is this a current diagnosis for this admission?: Yes (4) Duodenal stricture Is this a current diagnosis for this admission?: Yes (5) Peptic ulcer Is this a current diagnosis for this admission?: Yes - Time Time Spent with patient: Less than 15 minutes - Plan Summary Plan Summary: This is a 63-year-old female with a partial gastric outlet obstruction due to narrowing at the pylorus/duodenum in relation to peptic ulcer disease. Up until now, the plan has been to have her drink increased amounts of Ensure. Her goal is 5/day. Today, she has been able to drink 3 ensures. PICC line was ordered, however could not be placed. Since the PICC line was unsuccessful, the patient will likely require a Mediport. Currently, she is nervous about undergoing the procedure. I have discussed the situation at length with social work. Plan is for calorie counts, to adequately assess the amount of nutrition she is receiving from oral supplementation. If adequate nutrition cannot be obtained through oral means, TPN will be required. We will continue to make plans for outpatient TPN through patient assistance avenues. The patient is profoundly malnourished, and is likely to suffer significant morbidity without supplemental nutrition (including perforation of her peptic ulcer or failure of her recent hernia repair). I will review her calorie counts tomorrow. Continue with Ensure if the patient will tolerate it. Continue PPI and Carafate. Will follow.
[2018-12-27] MEDS ORDERED: ZOLPIDEM TARTRATE 5 MG TABLET PO PRN (19:58)
[2018-12-27] MEDS: ESCITALOPRAM OXALATE 10 MG TABLET PO SCH (21:42)
[2018-12-28] MEDS: MAG HYDROX/AL HYDROX/SIMETH SUSP 30 ML UDCUP PO PRN (00:38)
[2018-12-28] MEDS: ONDANSETRON HCL INJ/PF 4 MG/2 ML SDV IV PRN ×6 (00:38→22:57)
[2018-12-28] MEDS: HYDROCODONE/ACETAMINOPHEN 5-325 MG TABLET PO PRN ×3 (04:47→17:41)
[2018-12-28] MEDS: GABAPENTIN 300 MG CAPSULE PO SCH ×3 (05:27→22:34)
[2018-12-28] MEDS: PANTOPRAZOLE SODIUM 40 MG TABLET.DR PO SCH ×2 (05:27→17:42)
--- NOTE | 2018-12-28 08:44 | RADIOLOGY REPORT (SQ) ---
EXAM DESCRIPTION: PICC INSERTION COMPLETED DATE/TIME: 12/28/2018 8:13 am REASON FOR STUDY: pt will need outpt TPN- DO NOT COMPLETE ORDER COMPARISON: None. FLUOROSCOPY TIME: 0.16 minutes 0 fluoro images saved to PACS. TECHNIQUE: Fluoroscopic and ultrasound guided PICC placement. LIMITATIONS: None. PROCEDURE: After written consent and assessment were obtained, the patient was brought into the fluo roscopy room and placed supine on the table. Ultrasound evaluation of potential access sites were per formed. After successfully identifying a patent vein, the left arm was prepped and draped in a steril e fashion along with the ultrasound probe. The entry site was anesthetized with 1% lidocaine. A 21 ga uge 7 cm needle was advanced through the skin and into the basilic vein under live ultrasound guidanc e. An ultrasound image was saved to PACS confirming access site. Attempts to pass a.018 guide wire was unsuccessful. After multiple attempts at various sites in the left arm, the procedure was aborte d. IMPRESSION: UNSUCCESSFUL PICC PLACEMENT. COMMENT: Patient medication list reviewed: Yes- Quality ID# [id number]:Eligible professional attests to doc umenting in the medical record they obtained, updated, or reviewed the patient's current medications. . Quality ID 145: Final reports for procedures using fluoroscopy that document radiation exposure dominga shaka, or exposure time and number of fluorographic images (if radiation exposure indices are not avail able) Quality ID #76: The patient was prepped and draped using maximum sterile barrier technique including cap, mask, sterile gown, sterile gloves, a large sterile sheet, hand hygiene, and 2% Chlorhexidine fo r cutaneous antisepsis. When ultrasound is used, sterile ultrasound techniques are followed requiring sterile gel and sterile probes. TECHNICAL DOCUMENTATION: JOB ID: [id number] [employer]- All Rights Reserved rev-07/07 Reading location - IP/workstation name: [email or web address]
[2018-12-28] MEDS: SUCRALFATE 1 GM TABLET PO SCH ×4 (08:51→22:37)
[2018-12-28] MEDS: METOCLOPRAMIDE HCL 10 MG TABLET PO SCH ×4 (08:51→22:36)
[2018-12-28] MEDS: FERROUS SULFATE 325 MG TABLET PO SCH (09:46)
[2018-12-28] MEDS: POTASSIUM CHLORIDE 10 MEQ CAPSULE.ER PO SCH ×2 (09:46→22:33)
[2018-12-28] MEDS: DOCUSATE SODIUM 100 MG CAPSULE PO SCH ×2 (09:46→17:42)
[2018-12-28 10:07] LABS: ABSOLUTE EOSINOPHILS # (AUTO) 0.1 10^3/uL (0.0-0.6); ABSOLUTE LYMPHOCYTES (AUTO) 0.9 10^3/uL (0.5-4.7); ABSOLUTE MONOCYTES (AUTO) 0.3 10^3/uL (0.1-1.4); BASOPHILS % (AUTO) 0.8 % (0-2); EOSINOPHILS % (AUTO) 2.1 % (0-6); HEMATOCRIT 33.6 % (36.0-47.0); HEMOGLOBIN 11.1 g/dL (12.0-15.5); LYMPHOCYTES % (AUTO) 16.9 % (13-45); MEAN CORPUSCULAR HEMOGLOBIN 28.9 pg (27.0-33.4); MEAN CORPUSCULAR HGB CONC 33.2 g/dL (32.0-36.0); MEAN CORPUSCULAR VOLUME 87 fl (80-97); PLATELET COUNT 543 10^3/uL (150-450); RED BLOOD COUNT 3.85 10^6/uL (3.72-5.28); RED CELL DISTRIBUTION WIDTH 14.8 % (11.5-14.0); SEGMENTED NEUTROPHILS % (AUTO) 74.2 % (42-78); TOTAL CELLS COUNTED % (AUTO) 100 %; WHITE BLOOD COUNT 5.4 10^3/uL (4.0-10.5)
[2018-12-28] MEDS ORDERED: MELATONIN 5 MG TABLET PO PRN (12:13)
[2018-12-28] MEDS ORDERED: BISACODYL 10 MG SUPP.RECT PR ONE (14:00)
[2018-12-28 14:18] LABS: HEMATOCRIT 34.6 % (36.0-47.0); HEMOGLOBIN 11.4 g/dL (12.0-15.5); MEAN CORPUSCULAR HEMOGLOBIN 28.7 pg (27.0-33.4); MEAN CORPUSCULAR HGB CONC 32.9 g/dL (32.0-36.0); MEAN CORPUSCULAR VOLUME 87 fl (80-97); RED BLOOD COUNT 3.98 10^6/uL (3.72-5.28); RED CELL DISTRIBUTION WIDTH 15.2 % (11.5-14.0); WHITE BLOOD COUNT 9.6 10^3/uL (4.0-10.5)
[2018-12-28 14:30] LABS: ANION GAP 6 (5-19); BLOOD UREA NITROGEN 16 mg/dL (7-20); CALCIUM 9.5 mg/dL (8.4-10.2); CARBON DIOXIDE 31 mmol/L (22-30); CHLORIDE 103 mmol/L (98-107); GLUCOSE 86 mg/dL (75-110); POTASSIUM 4.7 mmol/L (3.6-5.0)
[2018-12-28 14:32] LABS: PLATELET COUNT 487 10^3/uL (150-450)
[2018-12-28] MEDS ORDERED: BUTALB/ACETAMINOPHEN/CAFFEINE 1 TAB EACH PO ONE (16:00)
--- NOTE | 2018-12-28 16:38 | PDOC PROGRESS REPORT ---
Subjective Progress Note for:: 12/28/18 Subjective:: No acute event overnight. She denies acute complaints. She continues to slowly but gradually tolerate increaing food intake. She is able to consume four Ensures yesterday. Discussed with Dr. Rainey. Will be transferring primary service to Dr. Rainey. Will continue to follow with surgery. Reason For Visit: UPPER GI BLEEDING,BLOOD LOSS ANEMIA Physical Exam Vital Signs: Temp Pulse Resp BP Pulse Ox 97.6 F 87 17 134/89 H 99 12/28/18 11:59 12/28/18 11:59 12/28/18 11:59 12/28/18 11:59 12/28/18 11:59 Intake & Output 12/27/18 12/28/18 12/29/18 06:59 06:59 06:59 Intake Total 1160 1103 Balance 1160 1103 Weight 88 lb 2.958 oz 85 lb 12.157 oz General appearance: PRESENT: no acute distress, thin Head exam: PRESENT: atraumatic, normocephalic Eye exam: PRESENT: conjunctiva pink, EOMI, PERRLA. ABSENT: scleral icterus Ear exam: PRESENT: normal external ear exam Mouth exam: PRESENT: moist, tongue midline Neck exam: ABSENT: carotid bruit, JVD, lymphadenopathy, thyromegaly Respiratory exam: PRESENT: clear to auscultation edvin. ABSENT: rales, rhonchi, wheezes Cardiovascular exam: PRESENT: RRR. ABSENT: diastolic murmur, rubs, systolic murmur Pulses: PRESENT: normal dorsalis pedis pul GI/Abdominal exam: PRESENT: normal bowel sounds, soft. ABSENT: distended, guarding, mass, organolmegaly, rebound, tenderness Rectal exam: PRESENT: deferred Extremities exam: PRESENT: full ROM. ABSENT: calf tenderness, clubbing, pedal edema Neurological exam: PRESENT: alert, awake, oriented to person, oriented to place, oriented to time, oriented to situation, CN II-XII grossly intact. ABSENT: motor sensory deficit Results Laboratory Results: 12/28/18 09:15 12/25/18 12:10 12/28/18 09:15 WBC 5.4 RBC 3.85 Hgb 11.1 L Hct 33.6 L MCV 87 MCH 28.9 MCHC 33.2 RDW 14.8 H Plt Count 543 H Seg Neutrophils % 74.2 Impressions: Upper GI Series 12/22/18 00:00 IMPRESSION: Small to medium sliding hiatal hernia with moderate to severe reflux. Normal pyloric length, no evidence of stricture. Complete passage of contrast to the 4th portion of the duodenum. Residual contrast in duodenal bulb suggestive of duodenal ulcer. PICC Line Insertion 12/27/18 00:00 IMPRESSION: UNSUCCESSFUL PICC PLACEMENT. Assessment and Plan - Diagnosis (1) Severe protein-calorie malnutrition Is this a current diagnosis for this admission?: Yes Plan: Discussed with surgery in length who has strongly recommended TPN for 6 weeks on top of increasing Ensure intake. 12/28: Plan for now is to do calorie counting and see if she will continue to tolerate increase Ensure and food intake. Hopefully she will meet her caloric needs. Dietitian closely following. (2) Anemia due to blood loss Is this a current diagnosis for this admission?: Yes Plan: Secondary to GI bleed. Status post 2 units of packed RBC. Hemoglobin stable. (3) Duodenal stricture Is this a current diagnosis for this admission?: Yes (4) Upper gastrointestinal bleeding Is this a current diagnosis for this admission?: Yes Plan: As per #2. - Time Time Spent with patient: 15-24 minutes
[2018-12-28] MEDS ORDERED: MINERAL OIL ENEMA 133 ML PR ONE (18:00)
[2018-12-28] MEDS: ZOLPIDEM TARTRATE 5 MG TABLET PO PRN (22:00)
[2018-12-28] MEDS: ESCITALOPRAM OXALATE 10 MG TABLET PO SCH (22:33)
[2018-12-29] MEDS: ONDANSETRON HCL INJ/PF 4 MG/2 ML SDV IV PRN ×3 (03:31→14:47)
[2018-12-29] MEDS: GABAPENTIN 300 MG CAPSULE PO SCH ×3 (06:15→22:02)
[2018-12-29] MEDS: PANTOPRAZOLE SODIUM 40 MG TABLET.DR PO SCH ×2 (06:15→17:34)
[2018-12-29] MEDS: SUCRALFATE 1 GM TABLET PO SCH ×4 (08:26→22:02)
[2018-12-29] MEDS: METOCLOPRAMIDE HCL 10 MG TABLET PO SCH ×4 (08:26→22:01)
--- NOTE | 2018-12-29 12:03 | PDOC PROGRESS REPORT ---
Subjective Subjective:: 63-year-old female with coffee-ground emesis. EGD showed ulcerations with narrowing at the pylorus/first portion of the duodenum. Patient reports feeling distended with increased abdominal pain. She is passing flatus. She drank 4 Ensures yesterday. Her goal is 5. Calorie counts are in-process, but I have not seen any totals yet. Reason For Visit: UPPER GI BLEEDING,BLOOD LOSS ANEMIA Physical Exam Vital Signs: Temp Pulse Resp BP Pulse Ox 97.6 F 90 18 134/78 H 96 12/27/18 20:55 12/27/18 20:55 12/27/18 20:55 12/27/18 20:55 12/27/18 20:55 Intake & Output 12/27/18 12/28/18 12/29/18 06:59 06:59 06:59 Intake Total 1160 1103 Balance 1160 1103 Weight 40 kg 38.9 kg General appearance: PRESENT: no acute distress, cooperative, thin Head exam: PRESENT: atraumatic, normocephalic Eye exam: PRESENT: EOMI, PERRLA. ABSENT: scleral icterus Mouth exam: PRESENT: moist, neck supple Neck exam: ABSENT: tenderness, thyromegaly, tracheal deviation Respiratory exam: PRESENT: clear to auscultation edvin, unlabored. ABSENT: chest wall tenderness, wheezes Cardiovascular exam: PRESENT: RRR Pulses: PRESENT: normal radial pulses GI/Abdominal exam: PRESENT: distended - mild, soft. ABSENT: tenderness Rectal exam: PRESENT: deferred Extremities exam: ABSENT: clubbing Musculoskeletal exam: ABSENT: deformity Neurological exam: PRESENT: alert, awake, oriented to person, oriented to place, oriented to time, oriented to situation, CN II-XII grossly intact Psychiatric exam: ABSENT: agitated, anxious, depressed Focused psych exam: ABSENT: delusional Skin exam: ABSENT: cyanosis, erythema, jaundice Results Laboratory Results: 12/28/18 09:15 12/25/18 12:10 12/28/18 09:15 WBC 5.4 RBC 3.85 Hgb 11.1 L Hct 33.6 L MCV 87 MCH 28.9 MCHC 33.2 RDW 14.8 H Plt Count 543 H Seg Neutrophils % 74.2 Impressions: Upper GI Series 12/22/18 00:00 IMPRESSION: Small to medium sliding hiatal hernia with moderate to severe reflux. Normal pyloric length, no evidence of stricture. Complete passage of contrast to the 4th portion of the duodenum. Residual contrast in duodenal bulb suggestive of duodenal ulcer. PICC Line Insertion 12/27/18 00:00 IMPRESSION: UNSUCCESSFUL PICC PLACEMENT. Assessment & Plan - Diagnosis (1) Coffee ground emesis Is this a current diagnosis for this admission?: Yes (2) Anemia Qualifiers: Anemia type: iron deficiency Iron deficiency anemia type: chronic blood loss Qualified Code(s): D50.0 - Iron deficiency anemia secondary to blood loss (chronic) Is this a current diagnosis for this admission?: Yes (3) Malnutrition Qualifiers: Malnutrition type: protein-calorie malnutrition Protein-calorie malnutrition severity: unspecified severity Qualified Code(s): E46 - Unspecified protein-calorie malnutrition Is this a current diagnosis for this admission?: Yes (4) Duodenal stricture Is this a current diagnosis for this admission?: Yes (5) Peptic ulcer Is this a current diagnosis for this admission?: Yes - Time Time Spent with patient: Less than 15 minutes - Plan Summary Plan Summary: This is a 63-year-old female with a partial gastric outlet obstruction due to narrowing at the pylorus/duodenum in relation to peptic ulcer disease. Up until now, the plan has been to have her drink increased amounts of Ensure. Her goal is 5/day. Yesterday, she was able to drink 4 ensures. PICC line was ordered, however could not be placed. Since the PICC line was unsuccessful, the patient will likely require a Mediport. Currently, she is nervous about undergoing the procedure. I have discussed the situation at length with social work and the dietitian. Plan is for calorie counts, to adequately assess the amount of n utrition she is receiving from oral supplementation. If adequate nutrition cannot be obtained through oral means, TPN will be required. We will continue to make plans for outpatient TPN through patient assistance avenues. The patient is profoundly malnourished, and is likely to suffer significant morbidity without supplemental nutrition (including perforation of her peptic ulcer or failure of her recent hernia repair). I will review her calorie counts when available. Continue with Ensure if the patient will tolerate it. Continue PPI and Carafate. Will follow.
[2018-12-29] MEDS: POTASSIUM CHLORIDE 10 MEQ CAPSULE.ER PO SCH ×2 (12:21→22:02)
[2018-12-29] MEDS: DOCUSATE SODIUM 100 MG CAPSULE PO SCH ×2 (12:21→17:34)
[2018-12-29] MEDS: FERROUS SULFATE 325 MG TABLET PO SCH (12:22)
--- NOTE | 2018-12-29 12:25 | PDOC PROGRESS REPORT ---
Subjective Progress Note for:: 12/29/18 Subjective:: 63-year-old female with coffee-ground emesis. EGD showed ulcerations with narrowing at the pylorus/first portion of the duodenum. Patient reports feeling distended with increased abdominal pain. She is passing flatus. She drank 3 Ensure "shakes" and 2 Ensure"clears" yesterday. Calorie counts are in-process, but I have not seen any totals yet. Reason For Visit: UPPER GI BLEEDING,BLOOD LOSS ANEMIA Physical Exam Vital Signs: Temp Pulse Resp BP Pulse Ox 97.9 F 85 16 115/79 99 12/29/18 08:57 12/29/18 08:57 12/29/18 08:57 12/29/18 08:57 12/29/18 08:57 Intake & Output 12/28/18 12/29/18 12/30/18 06:59 06:59 06:59 Intake Total 1103 480 Balance 1103 480 Weight 38.9 kg 37 kg General appearance: PRESENT: no acute distress, cooperative, thin Head exam: PRESENT: atraumatic, normocephalic Eye exam: PRESENT: EOMI, PERRLA. ABSENT: scleral icterus Mouth exam: PRESENT: moist, neck supple Respiratory exam: PRESENT: unlabored. ABSENT: tachypnea, wheezes Cardiovascular exam: PRESENT: RRR Pulses: PRESENT: normal radial pulses GI/Abdominal exam: PRESENT: soft. ABSENT: distended, tenderness Rectal exam: PRESENT: deferred Extremities exam: ABSENT: clubbing Musculoskeletal exam: ABSENT: deformity Neurological exam: PRESENT: alert, awake, oriented to person, oriented to place, oriented to time, oriented to situation, CN II-XII grossly intact. ABSENT: motor sensory deficit Psychiatric exam: ABSENT: agitated, anxious, depressed Focused psych exam: ABSENT: delusional Skin exam: ABSENT: cyanosis, erythema, jaundice Results Laboratory Results: 12/28/18 13:57 12/28/18 13:57 12/28/18 12/28/18 13:57 13:57 WBC 9.6 RBC 3.98 Hgb 11.4 L Hct 34.6 L MCV 87 MCH 28.7 MCHC 32.9 RDW 15.2 H Plt Count 487 H Sodium 139.7 Potassium 4.7 Chloride 103 Carbon Dioxide 31 H Anion Gap 6 BUN 16 Creatinine 0.38 L Est GFR ( Amer) > 60 Glucose 86 Calcium 9.5 Impressions: Upper GI Series 12/22/18 00:00 IMPRESSION: Small to medium sliding hiatal hernia with moderate to severe reflux. Normal pyloric length, no evidence of stricture. Complete passage of contrast to the 4th portion of the duodenum. Residual contrast in duodenal bulb suggestive of duodenal ulcer. PICC Line Insertion 12/27/18 00:00 IMPRESSION: UNSUCCESSFUL PICC PLACEMENT. Assessment & Plan - Diagnosis (1) Coffee ground emesis Is this a current diagnosis for this admission?: Yes (2) Anemia Qualifiers: Anemia type: iron deficiency Iron deficiency anemia type: chronic blood loss Qualified Code(s): D50.0 - Iron deficiency anemia secondary to blood loss (chronic) Is this a current diagnosis for this admission?: Yes (3) Malnutrition Qualifiers: Malnutrition type: protein-calorie malnutrition Protein-calorie malnutri tion severity: unspecified severity Qualified Code(s): E46 - Unspecified protein-calorie malnutrition Is this a current diagnosis for this admission?: Yes (4) Duodenal stricture Is this a current diagnosis for this admission?: Yes (5) Peptic ulcer Is this a current diagnosis for this admission?: Yes - Time Time Spent with patient: Less than 15 minutes - Plan Summary Plan Summary: This is a 63-year-old female with a partial gastric outlet obstruction due to peptic ulcer disease. Patient has significant malnutrition. We are attempting to augment her oral intake with Ensure. Yesterday, she drank 3 Ensure "shakes" and 2 ensure "clears". This calculates as 1530 kcal with 76 g of protein. I am unsure that this alone will be enough nutritional support for her to gain weight and heal. I will discuss this with our dietitian. I am still skeptical that the patient will be able to take enough oral supplementation to satisfy her caloric needs. The patient may require home TPN.
[2018-12-29] MEDS ORDERED: TRAZODONE HCL 50 MG TABLET PO PRN (13:39)
--- NOTE | 2018-12-29 13:54 | PDOC PROGRESS REPORT ---
Subjective Progress Note for:: 12/29/18 Subjective:: No acute event overnight. She denies acute complaints. She complains of constipation this morning. Will give her some enema. Reason For Visit: UPPER GI BLEEDING,BLOOD LOSS ANEMIA Physical Exam Vital Signs: Temp Pulse Resp BP Pulse Ox 97.9 F 85 16 115/79 99 12/29/18 08:57 12/29/18 08:57 12/29/18 08:57 12/29/18 08:57 12/29/18 08:57 Intake & Output 12/28/18 12/29/18 12/30/18 06:59 06:59 06:59 Intake Total 1103 480 Balance 1103 480 Weight 85 lb 12.157 oz 81 lb 9.137 oz General appearance: PRESENT: no acute distress, thin Head exam: PRESENT: atraumatic, normocephalic Eye exam: PRESENT: conjunctiva pink, EOMI, PERRLA. ABSENT: scleral icterus Ear exam: PRESENT: normal external ear exam Mouth exam: PRESENT: moist, tongue midline Neck exam: ABSENT: carotid bruit, JVD, lymphadenopathy, thyromegaly Respiratory exam: PRESENT: clear to auscultation edvin. ABSENT: rales, rhonchi, wheezes Cardiovascular exam: PRESENT: RRR. ABSENT: diastolic murmur, rubs, systolic murmur Pulses: PRESENT: normal dorsalis pedis pul GI/Abdominal exam: PRESENT: normal bowel sounds, soft. ABSENT: distended, guarding, mass, organolmegaly, rebound, tenderness Rectal exam: PRESENT: deferred Extremities exam: PRESENT: full ROM. ABSENT: calf tenderness, clubbing, pedal edema Neurological exam: PRESENT: alert, awake, oriented to person, oriented to place, oriented to time, oriented to situation, CN II-XII grossly intact. ABSENT: motor sensory deficit Results Laboratory Results: 12/28/18 13:57 12/28/18 13:57 12/28/18 12/28/18 13:57 13:57 WBC 9.6 RBC 3.98 Hgb 11.4 L Hct 34.6 L MCV 87 MCH 28.7 MCHC 32.9 RDW 15.2 H Plt Count 487 H Sodium 139.7 Potassium 4.7 Chloride 103 Carbon Dioxide 31 H Anion Gap 6 BUN 16 Creatinine 0.38 L Est GFR ( Amer) > 60 Glucose 86 Calcium 9.5 Impressions: Upper GI Series 12/22/18 00:00 IMPRESSION: Small to medium sliding hiatal hernia with moderate to severe reflux. Normal pyloric length, no evidence of stricture. Complete passage of contrast to the 4th portion of the duodenum. Residual contrast in duodenal bulb suggestive of duodenal ulcer. PICC Line Insertion 12/27/18 00:00 IMPRESSION: UNSUCCESSFUL PICC PLACEMENT. Assessment and Plan - Diagnosis (1) Severe protein-calorie malnutrition Is this a current diagnosis for this admission?: Yes Plan: Discussed with surgery in length who has strongly recommended TPN for 6 weeks on top of increasing Ensure intake. 12/29: Continue calorie counting. Dietitian closely following. (2) Anemia due to blood loss Is this a current diagnosis for this admission?: Yes Plan: Secondary to GI bleed. Status post 2 units of packed RBC. Hemoglobin stable. (3) Duodenal stricture Is this a current diagnosis for this admission?: Yes Plan: Dr. Rainey following. (4) Upper gastrointestinal bleeding Is this a current diagnosis for this admission?: Yes Plan: As per #2. - Time Time Spent with patient: 15-24 minutes
[2018-12-29] MEDS: ESCITALOPRAM OXALATE 10 MG TABLET PO SCH (22:01)
[2018-12-30] MEDS: ONDANSETRON HCL INJ/PF 4 MG/2 ML SDV IV PRN ×4 (00:41→17:11)
[2018-12-30] MEDS: GABAPENTIN 300 MG CAPSULE PO SCH ×3 (05:46→21:31)
[2018-12-30] MEDS: PANTOPRAZOLE SODIUM 40 MG TABLET.DR PO SCH ×2 (05:46→16:19)
[2018-12-30] MEDS: METOCLOPRAMIDE HCL 10 MG TABLET PO SCH ×4 (08:27→21:31)
[2018-12-30] MEDS: SUCRALFATE 1 GM TABLET PO SCH ×4 (08:28→21:31)
[2018-12-30] MEDS: DOCUSATE SODIUM 100 MG CAPSULE PO SCH ×2 (10:22→17:11)
[2018-12-30] MEDS: POTASSIUM CHLORIDE 10 MEQ CAPSULE.ER PO SCH ×2 (10:22→21:31)
[2018-12-30] MEDS: FERROUS SULFATE 325 MG TABLET PO SCH (10:23)
[2018-12-30] MEDS ORDERED: BISACODYL 10 MG SUPP.RECT PR ONE ×3 (10:45→13:45)
--- NOTE | 2018-12-30 12:03 | PDOC PROGRESS REPORT ---
Subjective Subjective:: 63-year-old female with coffee-ground emesis. EGD showed ulcerations with narrowing at the pylorus/first portion of the duodenum. Patient reported feeling "bad" yesterday, but feels better today. She is passing flatus. She drank 2 Ensure "shakes" and 2 Ensure"clears" yesterday. Calorie counts are in- process. Reason For Visit: UPPER GI BLEEDING,BLOOD LOSS ANEMIA Physical Exam Vital Signs: Temp Pulse Resp BP Pulse Ox 97.8 F 89 18 118/69 100 12/30/18 07:48 12/30/18 07:48 12/30/18 07:48 12/30/18 07:48 12/30/18 07:48 Intake & Output 12/29/18 12/30/18 12/31/18 06:59 06:59 06:59 Intake Total 480 180 Balance 480 180 Weight 37 kg General appearance: PRESENT: no acute distress, cooperative, thin Head exam: PRESENT: atraumatic, normocephalic Eye exam: PRESENT: EOMI, PERRLA. ABSENT: scleral icterus Mouth exam: PRESENT: moist, neck supple Neck exam: ABSENT: meningismus, tenderness, thyromegaly, tracheal deviation Respiratory exam: PRESENT: clear to auscultation edvin. ABSENT: chest wall tenderness Cardiovascular exam: PRESENT: RRR Pulses: PRESENT: normal radial pulses Vascular exam: PRESENT: normal capillary refill. ABSENT: pallor GI/Abdominal exam: PRESENT: distended - mild, soft. ABSENT: tenderness Rectal exam: PRESENT: deferred Extremities exam: ABSENT: clubbing Musculoskeletal exam: ABSENT: deformity Neurological exam: PRESENT: alert, awake, oriented to person, oriented to place Psychiatric exam: ABSENT: agitated, anxious, depressed Focused psych exam: ABSENT: delusional Skin exam: ABSENT: cyanosis, erythema, jaundice Results Laboratory Results: 12/28/18 13:57 12/28/18 13:57 Impressions: Upper GI Series 12/22/18 00:00 IMPRESSION: Small to medium sliding hiatal hernia with moderate to severe reflux. Normal pyloric length, no evidence of stricture. Complete passage of contrast to the 4th portion of the duodenum. Residual contrast in duodenal bulb suggestive of duodenal ulcer. PICC Line Insertion 12/27/18 00:00 IMPRESSION: UNSUCCESSFUL PICC PLACEMENT. Assessment & Plan - Diagnosis (1) Coffee ground emesis Is this a current diagnosis for this admission?: Yes (2) Anemia Qualifiers: Anemia type: iron deficiency Iron deficiency anemia type: chronic blood loss Qualified Code(s): D50.0 - Iron deficiency anemia secondary to blood loss (chronic) Is this a current diagnosis for this admission?: Yes (3) Malnutrition Qualifiers: Malnutrition type: protein-calorie malnutrition Protein-calorie malnutrition severity: unspecified severity Qualified Code(s): E46 - Unspecified protein-calorie malnutrition Is this a current diagnosis for this admission?: Yes (4) Duodenal stricture Is this a current diagnosis for this admission?: Yes (5) Peptic ulcer Is this a current diagnosis for this admission?: Yes - Time Time Spent with patient: Less than 15 minutes - Plan Summary Plan Summary: This is a 63-year-old female with a partial gastric outlet obstruction due to peptic ulcer disease. Patient has significant malnutrition. We are attempting to augment her oral intake with Ensure. Yesterday, she drank 2 Ensure "shakes" and 2 ensure "clears". This calculates as 1180 kcal. I am still skeptical that the patient will be able to take enough oral supplementation to satisfy her caloric needs. The patient may require home TPN. will review calorie counts tomorrow and make further plans.
--- NOTE | 2018-12-30 14:12 | PDOC PROGRESS REPORT ---
Subjective Progress Note for:: 12/30/18 Subjective:: No acute event overnight. She says that she is not able to tolerate lunch well yesterday but was able to do well last night and this morning's breakfast. She she was able to tolerate 2 Ensure Enlive and 2 Ensure clear yesterday. Otherwise no other acute event overnight. Hospitalist service will be signing off and will be happy to be reconsulted if the need arises. Reason For Visit: UPPER GI BLEEDING,BLOOD LOSS ANEMIA Physical Exam Vital Signs: Temp Pulse Resp BP Pulse Ox 97.8 F 89 18 118/69 100 12/30/18 07:48 12/30/18 07:48 12/30/18 07:48 12/30/18 07:48 12/30/18 07:48 Intake & Output 12/29/18 12/30/18 12/31/18 06:59 06:59 06:59 Intake Total 480 180 Balance 480 180 Weight 81 lb 9.137 oz General appearance: PRESENT: no acute distress, thin Head exam: PRESENT: atraumatic, normocephalic Eye exam: PRESENT: conjunctiva pink, EOMI, PERRLA. ABSENT: scleral icterus Ear exam: PRESENT: normal external ear exam Mouth exam: PRESENT: moist, tongue midline Neck exam: ABSENT: carotid bruit, JVD, lymphadenopathy, thyromegaly Respiratory exam: PRESENT: clear to auscultation edvin. ABSENT: rales, rhonchi, wheezes Cardiovascular exam: PRESENT: RRR. ABSENT: diastolic murmur, rubs, systolic murmur Pulses: PRESENT: normal dorsalis pedis pul GI/Abdominal exam: PRESENT: normal bowel sounds, soft. ABSENT: distended, guarding, mass, organolmegaly, rebound, tenderness Rectal exam: PRESENT: deferred Extremities exam: PRESENT: full ROM. ABSENT: calf tenderness, clubbing, pedal edema Neurological exam: PRESENT: alert, awake, oriented to person, oriented to place, oriented to time, oriented to situation, CN II-XII grossly intact. ABSENT: motor sensory deficit Results Laboratory Results: 12/28/18 13:57 12/28/18 13:57 Impressions: Upper GI Series 12/22/18 00:00 IMPRESSION: Small to medium sliding hiatal hernia with moderate to severe reflux. Normal pyloric length, no evidence of stricture. Complete passage of contrast to the 4th portion of the duodenum. Residual contrast in duodenal bulb suggestive of duodenal ulcer. PICC Line Insertion 12/27/18 00:00 IMPRESSION: UNSUCCESSFUL PICC PLACEMENT. Assessment and Plan - Diagnosis (1) Severe protein-calorie malnutrition Is this a current diagnosis for this admission?: Yes Plan: Discussed with surgery in length who has strongly recommended TPN for 6 weeks on top of increasing Ensure intake. 12/28: Plan for now is to do calorie counting and see if she will continue to tolerate increase Ensure and food intake. Hopefully she will meet her caloric needs. Dietitian closely following. (2) Anemia due to blood loss Is this a current diagnosis for this admission?: Yes Plan: Secondary to GI bleed. Status post 2 units of packed RBC. Hemoglobin stable. (3) Duodenal stricture Is this a current diagnosis for this admission?: Yes Plan: Dr. Rainey following. (4) Upper gastrointestinal bleeding Is this a current diagnosis for this admission?: Yes Plan: As per #2. - Time Time Spent with patient: 15-24 minutes
[2018-12-30] MEDS: HYDROCODONE/ACETAMINOPHEN 5-325 MG TABLET PO PRN (16:22)
[2018-12-30] MEDS: ESCITALOPRAM OXALATE 10 MG TABLET PO SCH (21:31)
[2018-12-31] MEDS: HYDROCODONE/ACETAMINOPHEN 5-325 MG TABLET PO PRN ×3 (03:12→14:49)
[2018-12-31] MEDS: PANTOPRAZOLE SODIUM 40 MG TABLET.DR PO SCH ×2 (06:25→16:38)
[2018-12-31] MEDS: GABAPENTIN 300 MG CAPSULE PO SCH ×2 (06:25→14:50)
[2018-12-31] MEDS: METOCLOPRAMIDE HCL 10 MG TABLET PO SCH ×3 (07:16→16:38)
[2018-12-31] MEDS: SUCRALFATE 1 GM TABLET PO SCH ×3 (07:16→16:38)
[2018-12-31] MEDS: ONDANSETRON HCL INJ/PF 4 MG/2 ML SDV IV PRN ×2 (07:16→14:49)
[2018-12-31] MEDS: DOCUSATE SODIUM 100 MG CAPSULE PO SCH (10:38)
[2018-12-31] MEDS: POTASSIUM CHLORIDE 10 MEQ CAPSULE.ER PO SCH (10:38)
[2018-12-31] MEDS: FERROUS SULFATE 325 MG TABLET PO SCH (10:38)
--- NOTE | 2018-12-31 16:36 | PDOC DISCHARGE SUMMARY ---
General - Admit/Disc Date/PCP Admission Date/Primary Care Provider: 12/21/18 00:45 STEFAN SOTO MD Discharge Date: 12/31/18 - Discharge Diagnosis Final Diagnosis: #1 malnutrition. 2. Peptic ulcer disease, with ulceration at the pyloric channel. 3. 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 4. Status post major abdominal wall reconstruction/ventral hernia repair. 5. Anemia, symptomatic. - Assessment Summary: This is a 63-year-old female who is recently status post component separation hernia repair for a large, loss of domain ventral hernia. She is approximately 6 weeks postop. The patient presented the hospital with weakness, malaise, weight loss, nausea, vomiting, and coffee-ground emesis. Patient was found to have a large ulcer at the level of the pyloric channel, causing severe stricture at the pylorus. Patient continues to have intolerance to eating. She was started on high calorie Ensure/protein supplementation. Recommendation was made for home TPN. The patient has declined home TPN due to inability to pay for the treatments. Currently, the patient is tolerating and Ensure diet receiving approximately 1500 cami/day via this method. Our dietitian has evaluated the patient, and has recommended that this calorie intake should be adequate for healing and weight gain. Plan to discharge patient home with high calorie supplementation, sucralfate, and Protonix. I will see the patient back weekly in my office for weigh-in's. The patient has agreed with discharge and is on board with the treatment plan. Close follow-up will be absolutely mandatory. - Additional Information Resuscitation Status: Full Code Discharge Diet: Full Liquids Discharge Activity: Balance Activity w/Rest, No Lifting Over 10 Pounds Referrals: RUTH RODRIGUEZ MD [ACTIVE STAFF] - 01/11/19 1:45 pm STEFAN SOTO MD [Primary Care Provider] - 01/02/19 11:15 am Prescriptions: Sucralfate [Carafate 1 gm Tablet] 1 gm PO ACHS #120 tablet Pantoprazole Sodium [Protonix [address] Tablet] 40 mg PO QAM #60 tablet. Tramadol HCl [Ultram] 25 mg PO Q8HP PRN #10 tablet PRN Reason: Home Medications: Gabapentin [Neurontin 300 mg Capsule] 300 mg PO Q8 11/21/17 Escitalopram Oxalate [Lexapro 10 mg Tablet] 20 mg PO QHS 10/09/18 Docusate Sodium [Colace 100 mg Capsule] 100 mg PO BID 12/21/18 Ferrous Sulfate [Feosol 325 mg Tablet] 325 mg PO DAILY 12/21/18 Polyethylene Glycol 3350 [Miralax Powder 17 gm/Packet] 1 packet PO DAILY 12/21/18 Pantoprazole Sodium [Protonix [address] Tablet] 40 mg PO QAM #60 tablet. 12/25/18 Sucralfate [Carafate 1 gm Tablet] 1 gm PO ACHS #120 tablet 12/25/18 Tramadol HCl [Ultram] 25 mg PO Q8HP PRN #10 tablet 12/25/18 Additional Information: Discharge home. Diet: Full liquid. Activity: Nonstrenuous, no lifting more than 10 pounds. Follow-up with my office in 7 to 10 days. Sucralfate 1 g p.o. 4 times per day. Protonix 40 mg p.o. daily. History of Present Illiness History of Present Illness: RANDALL ELKINS is a 63 year old female with a history of a perforated gastric ulcer, and remote alcohol abuse (she has been sober for 2 years). She is seen in consultation at the request of the hospitalist service. She reports a one-week history of malaise and fatigue. Yesterday, she developed coffee- ground emesis. She reports dark, tarry stools for the last 1 month. She has a history of chronic anemia. She sees Dr. Rodriguez for this. She does report abdominal pain, but denies chest pain, shortness of breath, fevers, chills, headache. She does report malaise, fatigue, dizziness with standing, nausea, vomiting, melena, coffee-ground emesis. Her last colonoscopy was approximately 3 years ago. She reports 2 small polyps were removed. I do not have the report of this. Physical Exam Vital Signs: Temp Pulse Resp BP Pulse Ox 97.9 F 74 20 101/75 99 12/31/18 12:26 12/31/18 12:26 12/31/18 12:26 12/31/18 12:26 12/31/18 12:26 Intake & Output 12/30/18 12/31/18 01/01/19 06:59 06:59 06:59 Intake Total 749 784 2655 Balance 971 758 5132 Weight 37.4 kg 37.4 kg Results Laboratory Results: WBC 9.6 10^3/uL (4.0-10.5) 12/28/18 13:57 RBC 3.98 10^6/uL (3.72-5.28) 12/28/18 13:57 Hgb 11.4 g/dL (12.0-15.5) L 12/28/18 13:57 Hct 34.6 % (36.0-47.0) L 12/28/18 13:57 MCV 87 fl (80-97) 12/28/18 13:57 MCH 28.7 pg (27.0-33.4) 12/28/18 13:57 MCHC 32.9 g/dL (32.0-36.0) 12/28/18 13:57 RDW 15.2 % (11.5-14.0) H 12/28/18 13:57 Plt Count 487 10^3/uL (150-450) H 12/28/18 13:57 Lymph % (Auto) 16.9 % (13-45) 12/28/18 09:15 [place] % (Auto) 6.0 % (3-13) 12/28/18 09:15 Eos % (Auto) 2.1 % (0-6) 12/28/18 09:15 Baso % (Auto) 0.8 % (0-2) 12/28/18 09:15 Reticulocyte # 0.076 10^6/uL (0.028-0.122) 12/20/18 21:00 Absolute Neuts (auto) 4.0 10^3/uL (1.7-8.2) 12/28/18 09:15 Absolute Lymphs (auto) 0.9 10^3/uL (0.5-4.7) 12/28/18 09:15 Absolute Monos (auto) 0.3 10^3/uL (0.1-1.4) 12/28/18 09:15 Absolute Eos (auto) 0.1 10^3/uL (0.0-0.6) 12/28/18 09:15 Absolute Basos (auto) 0.0 10^3/uL (0.0-0.2) 12/28/18 09:15 Seg Neutrophils % 74.2 % (42-78) 12/28/18 09:15 Retic Count (auto) 2.89 % (0.66-2.85) H 12/20/18 21:00 Sodium 139.7 mmol/L (137-145) 12/28/18 13:57 Potassium 4.7 mmol/L (3.6-5.0) 12/28/18 13:57 Chloride 103 mmol/L (98-107) 12/28/18 13:57 Carbon Dioxide 31 mmol/L (22-30) H 12/28/18 13:57 Anion Gap 6 (5-19) 12/28/18 13:57 BUN 16 mg/dL (7-20) 12/28/18 13:57 Creatinine 0.38 mg/dL (0.52-1.25) L 12/28/18 13:57 Est GFR ( Amer) > 60 (>60) 12/28/18 13:57 Est GFR (MDRD) Non-Af > 60 (>60) 12/28/18 13:57 Glucose 86 mg/dL (75-110) 12/28/18 13:57 Calcium 9.5 mg/dL (8.4-10.2) 12/28/18 13:57 Magnesium 1.6 mg/dL (1.6-2.3) 12/25/18 12:10 Iron 31.0 ug/dL (37-170) L 12/21/18 05:50 TIBC 191 ug/dL (250-450) L 12/21/18 05:50 % Saturation 16 % 12/21/18 05:50 Iron Saturation Cancelled 12/20/18 15:25 Ferritin 127.00 ng/mL (11.1-264.0) 12/21/18 05:50 Total Bilirubin 0.3 mg/dL (0.2-1.3) 12/23/18 05:19 Direct Bilirubin 0.1 mg/dL (0.0-0.4) 12/23/18 05:19 Neonat Total Bilirubin Not Reportable 12/23/18 05:19 Neonat Direct Bilirubin Not Reportable 12/23/18 05:19 Neonat Indirect Bili Not Reportable 12/23/18 05:19 AST 40 U/L (14-36) H 12/23/18 05:19 ALT 47 U/L (<35) 12/23/18 05:19 Alkaline Phosphatase 59 U/L (38-126) 12/23/18 05:19 Total Protein 4.2 g/dL (6.3-8.2) L 12/23/18 05:19 Albumin 2.1 g/dL (3.5-5.0) L 12/23/18 05:19 Lipase 218.4 U/L (23-300) 12/20/18 15:25 Vitamin B12 661.0 pg/mL (239-931) 12/21/18 05:50 Folate > 20.00 ng/mL (>2.76) 12/21/18 05:50 Gastrin 116 pg/mL (0-115) H 12/23/18 05:19 TSH 0.76 uIU/mL (0.47-4.68) 12/21/18 05:50 Urine Color YELLOW 12/20/18 14:47 Urine Appearance SLIGHTLY-CLOUDY 12/20/18 14:47 Urine pH 6.0 (5.0-9.0) 12/20/18 14:47 Ur Specific [place] 1.017 12/20/18 14:47 Urine Protein NEGATIVE mg/dL (NEGATIVE) 12/20/18 14:47 Urine Glucose (UA) NEGATIVE mg/dL (NEGATIVE) 12/20/18 14:47 Urine Ketones NEGATIVE mg/dL (NEGATIVE) 12/20/18 14:47 Urine Blood NEGATIVE (NEGATIVE) 12/20/18 14:47 Urine Nitrite (Reflex) NEGATIVE (NEGATIVE) 12/20/18 14:47 Urine Bilirubin NEGATIVE (NEGATIVE) 12/20/18 14:47 Urine Urobilinogen NEGATIVE mg/dL (<2.0) 12/20/18 14:47 Leukocyte Esterase Rfl NEGATIVE (NEGATIVE) 12/20/18 14:47 Urine RBC (Auto) 1 /HPF 12/20/18 14:47 U Hyaline Cast (Auto) 19 /LPF 12/20/18 14:47 Urine WBC (Reflex) 3 /HPF 12/20/18 14:47 Squamous Epi Cells Auto <1 /HPF 12/20/18 14:47 Urine Mucus (Auto) RARE /LPF 12/20/18 14:47 Urine Ascorbic Acid 40 (NEGATIVE) H 12/20/18 14:47 Serum Alcohol < 10 mg/dL (NONE DETECTED) 12/20/18 15:25 Blood Type A POSITIVE 12/20/18 16:53 Antibody Screen NEGATIVE 12/20/18 16:53 Crossmatch See Detail 12/20/18 16:53 Impressions: Upper GI Series 12/22/18 00:00 IMPRESSION: Small to medium sliding hiatal hernia with moderate to severe reflux. Normal pyloric length, no evidence of stricture. Complete passage of contrast to the 4th portion of the duodenum. Residual contrast in duodenal bulb suggestive of duodenal ulcer. PICC Line Insertion 12/27/18 00:00 IMPRESSION: UNSUCCESSFUL PICC PLACEMENT.
[2018-12-31 18:20] VITALS: BP 103/67
== END 2018-12-31 17:55 | disposition home or self-care (01) | DRG 377 ==
LOC: ER 13:59 → EH 12-21 00:45 → 4W 12-21 09:33 → 5 12-26 05:20
PROVIDERS: ADMIT Emergency Medicine; ATTEND Surgery
PROC: 30233N1 Transfusion of Nonautologous Red Blood Cells into Peripheral Vein, Percutaneous Approach (ICD-10-PCS; 2018-12-21)
PROC: 0DB78ZX Excision of Stomach, Pylorus, Via Natural or Artificial Opening Endoscopic, Diagnostic (ICD-10-PCS; principal; 2018-12-22 09:00)
PROC: 0DBK8ZX Excision of Ascending Colon, Via Natural or Artificial Opening Endoscopic, Diagnostic (ICD-10-PCS; 2018-12-22 09:00)
PROC: 05JYXZZ Inspection of Upper Vein, External Approach (ICD-10-PCS; 2018-12-28)
DX: K92.2 Gastrointestinal hemorrhage, unspecified (principal); E43 Unspecified severe protein-calorie malnutrition; Z68.1 Body mass index [BMI] 19.9 or less, adult; K31.5 Obstruction of duodenum; K31.1 Adult hypertrophic pyloric stenosis; K44.9 Diaphragmatic hernia without obstruction or gangrene; F32.9 Major depressive disorder, single episode, unspecified; K21.0 Gastro-esophageal reflux disease with esophagitis; D50.0 Iron deficiency anemia secondary to blood loss (chronic); E87.6 Hypokalemia; K59.00 Constipation, unspecified; Z60.2 Problems related to living alone; Z87.11 Personal history of peptic ulcer disease
CPT/HCPCS: 36415; 36430; 36569; 43239; 45380; 71045; 74247; 80048; 80053; 80307; 81001; 813; 82607; 82728; 82746; 82941; 83540; 83550; 83690; 83735; 84443; 85025; 85027; 85045; 86850; 86900; 86901; 86920; 88305; 96361; 96365; 96366; 96376; 99284; C1769; C9113; J1642; J1756; J2250; J2405; J2550; J2704; J3480; J3490; J7030; J7120; P9016

== ENCOUNTER 2019-01-04 03:21 | Emergency (ER) | payer OTHER | END 2019-01-04 03:50 | disposition left against medical advice (07) | LOC: ER 03:21 | DX: Z53.21 Procedure and treatment not carried out due to patient leaving prior to being seen by health care provider (principal) ==

== ENCOUNTER 2019-02-14 17:59 | Emergency (ER) | payer OTHER ==
[2019-02-14] MEDS ORDERED: NORMAL SALINE 1000 ML 1,000 ML IV ONE (21:44)
[2019-02-14] MEDS ORDERED: ONDANSETRON 4 MG TAB.RAPDIS PO ONE (21:45)
[2019-02-14] MEDS ORDERED: METOCLOPRAMIDE HCL INJ/PF 10 MG/2 ML SDV IV ONE (21:47)
--- NOTE | 2019-02-14 21:48 | ER Document Report ---
ED Medical Screen (RME) - General Chief Complaint: Vomiting Stated Complaint: VOMITING BLOOD Time Seen by Provider: 02/14/19 21:39 Primary Care Provider: STEFAN SOTO MD [Primary Care Provider] - Follow up as needed Notes: Patient is a 63-year-old female with a history of bleeding ulcer who presents to the emergency department with a chief complaint of nausea and vomiting of blood. Patient reports she has noticed dark brown vomitus over the past 2 days. Patient reports she has had 2 episodes of vomiting over the past 24 hours. Patient denies bright red blood in her vomitus. Patient denies fever. Patient denies abdominal pain. Patient reports that she has been battling a migraine over the past few days as well. Patient reports she normally takes Imitrex for her migraines but is out of the medication. Patient reports that she does follow Dr. Rainey for her bleeding ulcers. She last saw him last week and was told everything looked okay and is supposed to have an upper GI later this month. TRAVEL OUTSIDE OF THE [place] IN LAST 30 DAYS: No - Related Data Allergies/Adverse Reactions: No Known Allergies Allergy (Verified 02/14/19 21:39) Past Medical History - Social History Frequency of alcohol use: None Drug Abuse: None - Past Medical History Cardiac Medical History: Denies: Hx Atrial Fibrillation, Hx Congestive Heart Failure, Hx Coronary Artery Disease, Hx Heart Attack, Hx Hypercholesterolemia, Hx Hypertension, Hx Peripheral Vascular Disease, Hx Pulmonary Embolism, Hx Heart Murmur Pulmonary Medical History: Denies: Hx Asthma, Hx Bronchitis, Hx COPD, Hx Pneumonia, Hx Respiratory Failure, Hx Sleep Apnea, Hx Tuberculosis Neurological Medical History: Reports: Hx Migraine. Denies: Hx Cerebrovascular Accident, Hx Seizures, Hx Parkinson's Disease Endocrine Medical History: Denies: Hx Diabetes Mellitus Type 1, Hx Diabetes Mellitus Type 2, Hx Graves' Disease, Hx Hyperthyroidism, Hx Hypothyroidism Renal/ Medical History: Denies: Hx End Stage Renal Disease, Hx Kidney Stones, Hx Ovarian Cysts, Hx Peritoneal Dialysis, Hx Pelvic Inflammatory Disease Malignancy Medical History: Denies: Hx Breast Cancer, Hx Cervical Cancer, Hx Leukemia, Hx Lung Cancer, Hx Ovarian Cancer GI Medical History: Reports: Hx Gastritis, Hx Gastroesophageal Reflux Disease, Hx Ulcer - hx ruptured ulcer, Hx Colonoscopy, Hx Endoscopy. Denies: Hx Cirrhosis, Hx Crohn's Disease, Hx Diverticulitis, Hx Hepatitis, Hx Hiatal Hernia, Hx Irritable Bowel, Hx Liver Failure, Hx Pancreatitis, Hx Ulcerative Colitis Musculoskeltal Medical History: Denies Hx Arthritis, Denies Hx Fibromyalgia, Denies Hx Gout, Denies Hx Multiple Sclerosis, Denies Hx Muscular Dystrophy, Denies Hx Systemic Lupus Erythematosus Skin Medical History: Denies Hx Eczema, Denies Hx Psoriasis Psychiatric Medical History: Reports: Hx Anxiety, Hx Depression - ANXIETY Denies: Hx Bipolar Disorder, Hx Dementia, Hx Post Traumatic Stress Disorder, Hx Schizophrenia Traumatic Medical History: Denies: Hx Fractures Infectious Medical History: Denies: Hx Hepatitis, Hx HIV Past Surgical History: Reports: Hx Herniorrhaphy - Component separation Ventral herniorrhaphy 11/12/[address] Rainey, Hx Oral Surgery, Other - EGD, Colonoscopy, abdominal surgery x2 for perforated peptic ulcer.. Denies: Hx Appendectomy, Hx Bowel Surgery, Hx Section, Hx Cholecystectomy, Hx Colostomy, Hx Coronary Artery Bypass Graft, Hx Gastric Bypass Surgery, Hx Hysterectomy, Hx Mastectomy, Hx Pacemaker, Hx Tonsillectomy, Hx Tubal Ligation - Immunizations Immunizations up to date: Yes Physical Exam - Vital signs Vitals: Temp Pulse Resp BP Pulse Ox 98.3 F 104 H 16 111/66 97 02/14/19 18:16 02/14/19 18:16 02/14/19 18:16 02/14/19 18:16 02/14/19 18:16 - Abdominal Inspection: Normal Distension: No distension Bowel sounds: Normal Tenderness: Nontender Organomegaly: No organomegaly Course - Re-evaluation Re-evalutation: 02/14/19 21:47 I have greeted and performed a rapid initial assessment of this patient. A comprehensive ED assessment and evaluation of the patient, analysis of test results and completion of the medical decision making process will be conducted by additional ED providers. Patient slightly tachycardic with a heart rate in the low 100s. Will initiate IV fluids. Patient does not have any active vomiting at this time. Patient is not hypotensive. Will obtain basic labs as well as a type and screen. Will give antinausea medication. - Vital Signs Vital signs: Temp Pulse Resp BP Pulse Ox 98.9 F 103 H 20 110/75 98 02/14/19 21:39 02/14/19 21:39 02/14/19 21:39 02/14/19 21:39 02/14/19 21:39 Doctor's Discharge - Discharge Referrals: STEFAN SOTO MD [Primary Care Provider] - Follow up as needed
[2019-02-14 22:19] LABS: ABSOLUTE EOSINOPHILS # (AUTO) 0.1 10^3/uL (0.0-0.6); ABSOLUTE LYMPHOCYTES (AUTO) 1.8 10^3/uL (0.5-4.7); ABSOLUTE MONOCYTES (AUTO) 0.6 10^3/uL (0.1-1.4); ABSOLUTE NEUT (AUTO) 7.5 10^3/uL (1.7-8.2); BASOPHILS % (AUTO) 0.5 % (0-2); EOSINOPHILS % (AUTO) 0.7 % (0-6); HEMOGLOBIN 9.1 g/dL (12.0-15.5); LYMPHOCYTES % (AUTO) 17.6 % (13-45); MEAN CORPUSCULAR HEMOGLOBIN 26.9 pg (27.0-33.4); MEAN CORPUSCULAR HGB CONC 32.5 g/dL (32.0-36.0); MEAN CORPUSCULAR VOLUME 83 fl (80-97); MONOCYTES % (AUTO) 6.3 % (3-13); PLATELET COUNT 668 10^3/uL (150-450); RED BLOOD COUNT 3.38 10^6/uL (3.72-5.28); RED CELL DISTRIBUTION WIDTH 15.5 % (11.5-14.0); SEGMENTED NEUTROPHILS % (AUTO) 74.9 % (42-78); TOTAL CELLS COUNTED % (AUTO) 100 %; WHITE BLOOD COUNT 9.9 10^3/uL (4.0-10.5)
[2019-02-14 22:30] LABS: AMORPHOUS SEDIMENT,URINE TRACE /HPF; APPEARANCE,URINE CLOUDY; BILIRUBIN,URINE NEGATIVE (NEGATIVE); COLOR,URINE YELLOW; GLUCOSE, URINE NEGATIVE (NEGATIVE); KETONES,URINE NEGATIVE (NEGATIVE); LEUKOCYTE ESTERASE,URINE SMALL (NEGATIVE); NITRITE,URINE NEGATIVE (NEGATIVE); PROTEIN,URINE 30 mg/dL (NEGATIVE); URINE SPECIFIC GRAVITY 1.018; UROBILINOGEN,URINE NEGATIVE mg/dL (<2.0)
[2019-02-14 22:39] LABS: ALBUMIN 2.5 g/dL (3.5-5.0); ALKALINE PHOSPHATASE 77 U/L (38-126); ANION GAP 9 (5-19); ASPARTATE AMINO TRANSFERASE 52 U/L (14-36); BILIRUBIN,DIRECT 0.3 mg/dL (0.0-0.4); BILIRUBIN,TOTAL 0.3 mg/dL (0.2-1.3); BLOOD UREA NITROGEN 22 mg/dL (7-20); CALCIUM 9.9 mg/dL (8.4-10.2); CARBON DIOXIDE 27 mmol/L (22-30); CHLORIDE 104 mmol/L (98-107); GLUCOSE 114 mg/dL (75-110); TOTAL PROTEIN 4.9 g/dL (6.3-8.2)
[2019-02-14 22:50] LABS: POTASSIUM 2.9 mmol/L (3.6-5.0)
[2019-02-14] MEDS ORDERED: DIPHENHYDRAMINE HCL 50 MG/ML VIAL IV ONE (23:32)
[2019-02-15] MEDS ORDERED: HYDROMORPHONE HCL INJ/PF 2 MG/ML AMPULE IV STA (00:33)
[2019-02-15] MEDS ORDERED: ONDANSETRON HCL INJ/PF 4 MG/2 ML SDV IV ONE (00:35)
[2019-02-15] MEDS ORDERED: SUCRALFATE 1 GM TABLET PO ONE (00:35)
[2019-02-15] MEDS ORDERED: PANTOPRAZOLE SODIUM 40 MG VIAL IV ONE (00:38)
--- NOTE | 2019-02-15 00:39 | ER Document Report ---
ED GI/ - General Chief Complaint: Vomiting Stated Complaint: VOMITING BLOOD Time Seen by Provider: 02/14/19 21:39 Primary Care Provider: STEFAN SOTO MD [Primary Care Provider] - Follow up as needed Information source: Patient TRAVEL OUTSIDE OF THE [place] IN LAST 30 DAYS: No - Related Data Allergies/Adverse Reactions: No Known Allergies Allergy (Verified 02/14/19 21:39) Past Medical History - Social History Smoking Status: Never Smoker Frequency of alcohol use: None Drug Abuse: None Lives with: Family Family History: Malignancy - Mother with colon cancer, father with pancreatic cancer, sister with breast cancer Patient has suicidal ideation: No Patient has homicidal ideation: No - Past Medical History Cardiac Medical History: Denies: Hx Atrial Fibrillation, Hx Congestive Heart Failure, Hx Coronary Artery Disease, Hx Heart Attack, Hx Hypercholesterolemia, Hx Hypertension, Hx Peripheral Vascular Disease, Hx Pulmonary Embolism, Hx Heart Murmur Pulmonary Medical History: Denies: Hx Asthma, Hx Bronchitis, Hx COPD, Hx Pneumonia, Hx Respiratory Failu re, Hx Sleep Apnea, Hx Tuberculosis Neurological Medical History: Reports: Hx Migraine. Denies: Hx Cerebrovascular Accident, Hx Seizures, Hx Parkinson's Disease Endocrine Medical History: Denies: Hx Diabetes Mellitus Type 1, Hx Diabetes Mellitus Type 2, Hx Graves' Disease, Hx Hyperthyroidism, Hx Hypothyroidism Renal/ Medical History: Denies: Hx End Stage Renal Disease, Hx Kidney Stones, Hx Ovarian Cysts, Hx Peritoneal Dialysis, Hx Pelvic Inflammatory Disease Malignancy Medical History: Denies: Hx Breast Cancer, Hx Cervical Cancer, Hx Leukemia, Hx Lung Cancer, Hx Ovarian Cancer GI Medical History: Reports: Hx Gastritis, Hx Gastroesophageal Reflux Disease, Hx Ulcer - hx ruptured ulcer, Hx Colonoscopy, Hx Endoscopy. Denies: Hx Cirrhosis, Hx Crohn's Disease, Hx Diverticulitis, Hx Hepatitis, Hx Hiatal Hernia, Hx Irritable Bowel, Hx Liver Failure, Hx Pancreatitis, Hx Ulcerative Colitis Musculoskeletal Medical History: Denies Hx Arthritis, Denies Hx Fibromyalgia, Denies Hx Gout, Denies Hx Multiple Sclerosis, Denies Hx Muscular Dystrophy, Denies Hx Systemic Lupus Erythematosus Skin Medical History: Denies Hx Eczema, Denies Hx Psoriasis Psychiatric Medical History: Reports: Hx Anxiety, Hx Depression - ANXIETY Denies: Hx Bipolar Disorder, Hx Dementia, Hx Post Traumatic Stress Disorder, Hx Schizophrenia Traumatic Medical History: Denies: Hx Fractures Infectious Medical History: Denies: Hx Hepatitis, Hx HIV Past Surgical History: Reports: Hx Herniorrhaphy - Component separation Ventral herniorrhaphy 11/12/[address] Rainey, Hx Oral Surgery, Other - EGD, Colonoscopy, abdominal surgery x2 for perforated peptic ulcer.. Denies: Hx Appendectomy, Hx Bowel Surgery, Hx Section, Hx Cholecystectomy, Hx Colostomy, Hx Coronary Artery Bypass Graft, Hx Gastric Bypass Surgery, Hx Hysterectomy, Hx Mastectomy, Hx Pacemaker, Hx Tonsillectomy, Hx Tubal Ligation - Immunizations Immunizations up to date: Yes Hx Pneumococcal Vaccination: 11/21/15 Review of Systems - Review of Systems Gastrointestinal: See HPI, Vomiting, Blood in vomit Physical Exam - Vital signs Vitals: Temp Pulse Resp BP Pulse Ox 98.3 F 104 H 16 111/66 97 02/14/19 18:16 02/14/19 18:16 02/14/19 18:16 02/14/19 18:16 02/14/19 18:16 Interpretation: Normal - General General appearance: Appears well, Alert - HEENT Head: Normocephalic, Atraumatic Eyes: Normal Pupils: PERRL - Respiratory Respiratory status: No respiratory distress Chest status: Nontender Breath sounds: Normal Chest palpation: Normal - Cardiovascular Rhythm: Regular Heart sounds: Normal auscultation Murmur: No - Abdominal Inspection: Normal Distension: No distension Bowel sounds: Normal Tenderness: Nontender Organomegaly: No organomegaly - Back Back: Normal, Nontender - Extremities General upper extremity: Normal inspection, Nontender, Normal color, Normal ROM, Normal temperature General lower extremity: Normal inspection, Nontender, Normal color, Normal ROM, Normal temperature, Normal weight bearing. 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 Sensory: Normal - Psychological Associated symptoms: Normal affect, Normal mood - Skin Skin Temperature: Warm Skin Moisture: Dry Skin Color: Normal Course - Vital Signs Vital signs: Temp Pulse Resp BP Pulse Ox 98.9 F 103 H 20 110/75 98 02/14/19 21:39 02/14/19 21:39 02/14/19 21:39 02/14/19 21:39 02/14/19 21:39 - Laboratory Result Diagrams: 02/14/19 21:56 02/14/19 21:56 Laboratory results interpreted by me: 02/14/19 02/14/19 02/14/19 21:56 21:56 21:56 RBC 3.38 L Hgb 9.1 L Hct 28.0 L MCH 26.9 L RDW 15.5 H Plt Count 668 H Potassium 2.9 L* BUN 22 H Glucose 114 H AST 52 H Total Protein 4.9 L Albumin 2.5 L Urine Protein 30 H Ur Leukocyte Esterase SMALL H - Diagnostic Test Radiology reviewed: Image reviewed - EKG Interpretation by Me Additional EKG results interpreted by me: 02/15/19 02:22 12-lead EKG done at 02/11/2006 shows normal sinus rhythm rate of 95 occasional PVC and nonspecific repolarization changes. No acute ST elevations. Discharge - Discharge Clinical Impression: Hypochromic microcytic anemia, Hx of migraine headaches, Coffee ground emesis, Hypokalemia GERD (gastroesophageal reflux disease) Qualifiers: Esophagitis presence: without esophagitis Qualified Code(s): K21.9 - Gastro-eso phageal reflux disease without esophagitis Condition: Stable Disposition: HOME, SELF-CARE Instructions: Acid-Suppressing Medication ([facility]), Prilosec (Acid Pump Inhibitor) ([facility]), Upper Gastrointestinal Bleeding ([facility]) Prescriptions: Butalb/Acetaminophen/Caffeine [Fioricet 50-300-40 mg Capsule] 1 cap PO Q4 PRN #30 cap PRN Reason: For Headache Potassium Chloride 20 meq PO BID 4 Days #8 [email or web address] Referrals: STEFAN SOTO MD [Primary Care Provider] - Follow up as needed
[2019-02-15] MEDS ORDERED: POTASSIUM CHLORIDE 10 MEQ TABLET.ER PO ONE (02:15)
--- NOTE | 2019-02-15 19:30 | EKG REPORT ---
SEVERITY:- BORDERLINE ECG - SINUS RHYTHM VENTRICULAR PREMATURE COMPLEX BORDERLINE REPOL ABNORMALITY, DIFFUSE LEADS : Confirmed by: Carmel Melendrez MD 15-Feb-2019 19:29:36
[2019-02-18] MEDS ORDERED: FENTANYL CITRATE INJ/PF 50 MCG/1 ML 50 ML SDV IV ONE ×2 (10:45→11:00)
[2019-02-18] MEDS ORDERED: MIDAZOLAM 2 MG/2 ML INJ IV ONE ×2 (10:45→10:47)
[2019-02-18 11:22] VITALS: BP 104/82
== END 2019-02-15 03:01 | disposition home or self-care (01) ==
LOC: ER 17:59
DX: R11.10 Vomiting, unspecified (principal); D50.9 Iron deficiency anemia, unspecified; E87.6 Hypokalemia; K21.9 Gastro-esophageal reflux disease without esophagitis
CPT/HCPCS: 93005; 99284; 96361; 96374; 96375; 86900; 86901; 36415; 86850; 85025; 80053; 81001; 93010; J1200; J2765; J1170; C9113; J2405; J7030

== ENCOUNTER 2019-02-18 04:17 | Inpatient (IN) | payer OTHER ==
[2019-02-18] MEDS ORDERED: LIDOCAINE 2% VISCOUS SOLN 15 ML UDCUP PO ONE (07:45)
[2019-02-18] MEDS ORDERED: METOCLOPRAMIDE HCL ORAL SOLN 10 MG/10 ML UDCUP PO ONE (07:45)
[2019-02-18] MEDS ORDERED: MAG HYDROX/AL HYDROX/SIMETH SUSP 30 ML UDCUP PO ONE (07:45)
[2019-02-18] MEDS ORDERED: RINGERS SOLUTION,LACTATED 1,000 ML IV ONE (07:46)
--- NOTE | 2019-02-18 07:46 | ER Document Report ---
ED General - General Chief Complaint: Other Stated Complaint: ACID REFLUX Time Seen by Provider: 02/18/19 07:36 Primary Care Provider: STEFAN SOTO MD [Primary Care Provider] - Follow up as needed TRAVEL OUTSIDE OF THE [place] IN LAST 30 DAYS: No - HPI Context: Patient with history of acid reflux presents for concern of acid reflux is worsened since Monday of last week. She has been experiencing sour taste in her throat and frequent belching. She is currently on Carafate and Nexium. She states that she has a history of stomach ulcers and had a scoping done approxim ately 1 year ago and is scheduled to have another scope done later this month by her GI specialist. No history of cancer. No history of heart attack strokes or any heart problems. No recent cough congestion or shortness of breath. - Related Data Allergies/Adverse Reactions: No Known Allergies Allergy (Verified 02/18/19 07:37) Home Medications: brought in a bag Past Medical History - Social History Smoking Status: Current Some Day Smoker Family History: Malignancy - Mother with colon cancer, father with pancreatic cancer, sister with breast cancer Patient has suicidal ideation: No Patient has homicidal ideation: No - Past Medical History Cardiac Medical History: Denies: Hx Atrial Fibrillation, Hx Congestive Heart Failure, Hx Coronary Artery Disease, Hx Heart Attack, Hx Hypercholesterolemia, Hx Hypertension, Hx Peripheral Vascular Disease, Hx Pulmonary Embolism, Hx Heart Murmur Pulmonary Medical History: Denies: Hx Asthma, Hx Bronchitis, Hx COPD, Hx Pneumonia, Hx Respiratory Failure, Hx Sleep Apnea, Hx Tuberculosis Neurological Medical History: Reports: Hx Migraine. Denies: Hx Cerebrovascular Accident, Hx Seizures, Hx Parkinson's Disease Endocrine Medical History: Denies: Hx Diabetes Mellitus Type 1, Hx Diabetes Mellitus Type 2, Hx Graves' Disease, Hx Hyperthyroidism, Hx Hypothyroidism Renal/ Medical History: Denies: Hx End Stage Renal Disease, Hx Kidney Stones, Hx Ovarian Cysts, Hx Peritoneal Dialysis, Hx Pelvic Inflammatory Disease Malignancy Medical History: Denies: Hx Breast Cancer, Hx Cervical Cancer, Hx Leukemia, Hx Lung Cancer, Hx Ovarian Cancer GI Medical History: Reports: Hx Gastritis, Hx Gastroesophageal Reflux Disease, Hx Hiatal Hernia, Hx Ulcer - hx ruptured ulcer, Hx Colonoscopy, Hx Endoscopy. Denies: Hx Cirrhosis, Hx Crohn's Disease, Hx Diverticulitis, Hx Hepatitis, Hx Irritable Bowel, Hx Liver Failure, Hx Pancreatitis, Hx Ulcerative Colitis Musculoskeletal Medical History: Denies Hx Arthritis, Denies Hx Fibromyalgia, Denies Hx Gout, Denies Hx Multiple Sclerosis, Denies Hx Muscular Dystrophy, Denies Hx Systemic Lupus Erythematosus Skin Medical History: Denies Hx Eczema, Denies Hx Psoriasis Psychiatric Medical History: Reports: Hx Anxiety, Hx Depression - ANXIETY Denies: Hx Bipolar Disorder, Hx Dementia, Hx Post Traumatic Stress Disorder, Hx Schizophrenia Traumatic Medical History: Denies: Hx Fractures Infectious Medical History: Denies: Hx Hepatitis, Hx HIV Past Surgical History: Reports: Hx Herniorrhaphy - Component separation Ventral herniorrhaphy 11/12/[address] Rainey, Hx Oral Surgery, Other - EGD, Colonoscopy, abdominal surgery x2 for perforated peptic ulcer.. Denies: Hx Appendectomy, Hx Bowel Surgery, Hx Section, Hx Cholecystectomy, Hx Colostomy, Hx Coronary Artery Bypass Graft, Hx Gastric Bypass Surgery, Hx Hysterectomy, Hx Mastectomy, Hx Pacemaker, Hx Tonsillectomy, Hx Tubal Ligation - Immunizations Immunizations up to date: Yes Hx Pneumococcal Vaccination: 11/21/15 Review of Systems - Review of Systems Constitutional: No symptoms reported EENT: No symptoms reported Cardiovascular: No symptoms reported Respiratory: No symptoms reported Gastrointestinal: See HPI Genitourinary: No symptoms reported Female Genitourinary: No symptoms reported Musculoskeletal: No symptoms reported Skin: No symptoms reported Hematologic/Lymphatic: No symptoms reported Neurological/Psychological: No symptoms reported Physical Exam - Vital signs Vitals: Temp Pulse Resp BP Pulse Ox 98.1 F 108 H 18 104/71 98 02/18/19 04:34 02/18/19 04:34 02/18/19 04:34 02/18/19 04:34 02/18/19 04:34 - General General appearance: Appears well - Frail, Alert - HEENT Head: Normocephalic, Atraumatic - Respiratory Respiratory status: No respiratory distress Chest status: Nontender Breath sounds: Normal Chest palpation: Normal - Cardiovascular Rhythm: Regular Heart sounds: Normal auscultation Murmur: No - Abdominal Inspection: Normal Distension: No distension Bowel sounds: Normal Tenderness: Nontender - Back Back: Normal - Neurological Neuro grossly intact: Yes Cognition: Normal Orientation: AAOx4 - Psychological Associated symptoms: Normal affect Course - Re-evaluation Re-evalutation: 02/18/19 07:54 Worsening acid reflux since Wednesday of last week with no history of heart problems. Will screen patient with troponin and EKG as well as basic labs at this time. Will provide GI cocktail and reassess. 02/18/19 09:[address] Damon he will perform EGD today will be admitted to hospitalist. - Vital Signs Vital signs: Temp Pulse Resp BP Pulse Ox 98.1 F 97 18 106/70 96 02/18/19 08:51 02/18/19 08:51 02/18/19 08:51 02/18/19 08:51 02/18/19 08:51 - Laboratory Result Diagrams: 02/18/19 08:16 02/18/19 08:16 Laboratory results interpreted by me: 02/18/19 02/18/19 08:16 08:16 RBC 2.75 L Hgb 7.2 L Hct 22.7 L MCH 26.3 L MCHC 31.8 L RDW 16.0 H Plt Count 755 H Potassium 3.4 L Chloride 112 H Creatinine 0.39 L Glucose 114 H AST 58 H Total Protein 4.8 L Albumin 2.5 L Critical Care Note - Critical Care Note Total time excluding time spent on procedures (mins): 35 - IV Protonix acute hemoglobin drop Discharge - Discharge Clinical Impression: History of stomach ulcers Anemia Qualifiers: Anemia type: other cause Other causes of anemia: other cause, not classified Qualified Code(s): D64.89 - Other specified anemias Condition: Good Disposition: ADMITTED INPATIENT Admitting Provider: Akshat (Hospitalist) Unit Admitted: Medical Floor Referrals: STEFAN SOTO MD [Primary Care Provider] - Follow up as needed
--- NOTE | 2019-02-18 08:25 | RADIOLOGY REPORT (SQ) ---
EXAM DESCRIPTION: CHEST SINGLE VIEW COMPLETED DATE/TIME: 02/18/2019 7:59 am REASON FOR STUDY: acid reflux, eval for hernia COMPARISON: 12/23/2018. EXAM PARAMETERS: NUMBER OF VIEWS: One view. TECHNIQUE: Single frontal radiographic view of the chest acquired. RADIATION DOSE: NA LIMITATIONS: None. FINDINGS: LUNGS AND PLEURA: No opacities, masses or pneumothorax. No pleural effusion. MEDIASTINUM AND HILAR STRUCTURES: No masses. Contour normal. HEART AND VASCULAR STRUCTURES: Heart normal in size. Normal vasculature. BONES: No acute findings. HARDWARE: None in the chest. OTHER: No other significant finding. IMPRESSION: NO ACUTE RADIOGRAPHIC FINDING IN THE CHEST. TECHNICAL DOCUMENTATION: JOB ID: [id number] [employer]- All Rights Reserved Reading location - IP/workstation name: [email or web address]
[2019-02-18 08:31] LABS: ABSOLUTE LYMPHOCYTES (AUTO) 1.2 10^3/uL (0.5-4.7); ABSOLUTE MONOCYTES (AUTO) 0.4 10^3/uL (0.1-1.4); ABSOLUTE NEUT (AUTO) 4.6 10^3/uL (1.7-8.2); BASOPHILS % (AUTO) 0.8 % (0-2); EOSINOPHILS % (AUTO) 0.2 % (0-6); HEMATOCRIT 22.7 % (36.0-47.0); LYMPHOCYTES % (AUTO) 19.6 % (13-45); MEAN CORPUSCULAR HEMOGLOBIN 26.3 pg (27.0-33.4); MEAN CORPUSCULAR HGB CONC 31.8 g/dL (32.0-36.0); MEAN CORPUSCULAR VOLUME 83 fl (80-97); MONOCYTES % (AUTO) 6.3 % (3-13); PLATELET COUNT 755 10^3/uL (150-450); RED BLOOD COUNT 2.75 10^6/uL (3.72-5.28); SEGMENTED NEUTROPHILS % (AUTO) 73.1 % (42-78); TOTAL CELLS COUNTED % (AUTO) 100 %; WHITE BLOOD COUNT 6.3 10^3/uL (4.0-10.5)
[2019-02-18 08:43] LABS: HEMOGLOBIN 7.2 g/dL (12.0-15.5)
[2019-02-18 08:50] LABS: ALBUMIN 2.5 g/dL (3.5-5.0); ALKALINE PHOSPHATASE 109 U/L (38-126); ANION GAP 5 (5-19); ASPARTATE AMINO TRANSFERASE 58 U/L (14-36); BILIRUBIN,DIRECT 0.3 mg/dL (0.0-0.4); BILIRUBIN,TOTAL 0.3 mg/dL (0.2-1.3); BLOOD UREA NITROGEN 15 mg/dL (7-20); CALCIUM 8.9 mg/dL (8.4-10.2); CARBON DIOXIDE 24 mmol/L (22-30); CHLORIDE 112 mmol/L (98-107); GLUCOSE 114 mg/dL (75-110); POTASSIUM 3.4 mmol/L (3.6-5.0); TOTAL PROTEIN 4.8 g/dL (6.3-8.2)
[2019-02-18] MEDS ORDERED: PANTOPRAZOLE SODIUM 40 MG VIAL IV ONE (09:19)
[2019-02-18 09:31] LABS: PROTHROMBIN TIME 15.3 SEC (11.4-15.4)
[2019-02-18] MEDS ORDERED: NORMAL SALINE 250 ML IV PRN ×2 (09:34)
[2019-02-18] MEDS ORDERED: MAGNESIUM HYDROXIDE SUSP 30 ML UDCUP PO PRN (09:36)
[2019-02-18] MEDS ORDERED: MAG HYDROX/AL HYDROX/SIMETH SUSP 30 ML UDCUP PO PRN (09:36)
[2019-02-18] MEDS ORDERED: NORMAL SALINE 1000 ML 1,000 ML IV PRN (09:36)
[2019-02-18] MEDS ORDERED: ALBUTEROL SULFATE 0.083% NEB 2.5 MG/3 ML AMPUL NEB PRN (09:36)
[2019-02-18] MEDS ORDERED: ONDANSETRON HCL INJ/PF 4 MG/2 ML SDV IV PRN (09:36)
[2019-02-18] MEDS ORDERED: DIPHENHYDRAMINE HCL 50 MG/ML VIAL ONE (10:16)
[2019-02-18] MEDS ORDERED: MIDAZOLAM 2 MG/2 ML INJ ONE (10:16)
[2019-02-18] MEDS ORDERED: ONDANSETRON HCL INJ/PF 4 MG/2 ML SDV ONE (10:16)
[2019-02-18] MEDS ORDERED: FLUMAZENIL INJ 0.5 MG/5 ML VIAL ONE (10:16)
[2019-02-18] MEDS ORDERED: FENTANYL CITRATE INJ/PF 100 MCG/2 ML AMPUL ONE (10:16)
[2019-02-18] MEDS ORDERED: NALOXONE HCL INJ/PF 0.4 MG/1 ML SDV ONE (10:16)
[2019-02-18] MEDS ORDERED: EPINEPHRINE INJ 1 MG/10 ML DISP.SYRIN ONE (10:17)
[2019-02-18] MEDS ORDERED: GLUCAGON,HUMAN RECOMB 1 MG INJ ONE (10:17)
--- NOTE | 2019-02-18 10:44 | PDOC CONSULTATION ---
Consultation Consult Date: 02/18/19 Provider Consulted: JAMES CARLSON Consult reason:: Gastrointestinal bleeding History of Present Illness Admission Date/PCP: 02/18/19 09:51 STEFAN SOTO MD History of Present Illness: RANDALL ELKNIS is a 63 year old female Who presents to the emergency department complaining of abdominal pain, weakness, and change in her stool consistency with dark stools. She is also complaining of worsening of her gastroesophageal reflux disease. In the emerge ncy department she was found to be hemodynamically stable, with a hemoglobin of 7.2. Surgery was consulted for upper endoscopy. On further review, the patient is a cachectic, malnourished, heavy cigarette smoking white female who is now a month status post abdominal wall reconstruction by Dr. Shahid Rainey. Patient tolerated this procedure well, however last month was rehospitalized for approximately 3 weeks for weakness, cachexia anorexia. She underwent a series of procedures including an upper GI with a small bowel follow-through which showed small to moderate size hiatal hernia, however this was followed up by EGD and colonoscopy by Dr. Rainey. At that time the patient was found to have moderate to severe esophagitis, moderate sized hiatal hernia, gastritis, duodenitis, duodenal stricture with findings consistent with chronic ulcer. He was not able to advance the scope through t his area however the contrast apparently passed through this area by report. Biopsies were obtained of the esophagus, stomach and duodenum which showed varying stages of inflammation, no malignancy. She also had a colonoscopy which revealed a partial stricture of the a sending colon just distal to the cecum. Redd states that the cecum was visualized however. There is reference to previous goals for surgery although we do not have records of that. Patient is being admitted for observation, likely blood transfusion repeat endoscopy. Past Medical History Cardiac Medical History: Denies: Atrial Fibrillation, Congestive Heart Failure, Coronary Artery Disease, Myocardial Infarction, Hyperlipidema, Hypertension, Peripheral Vascular Disease, Pulmonary Embolism, Heart Murmur Pulmonary Medical History: Denies: Asthma, Bronchitis, Chronic Obstructive Pulmonary Disease (COPD), Pneumonia, Respiratory Failure, Sleep Apnea, Tuberculosis Neurological Medical History: Reports: Migraine Denies: Seizures Endocrine Medical History: Denies: Diabetes Mellitus Type 1, Diabetes Mellitus Type 2, Hyperthyroidism, Hypothyroidism Renal/ Medical History: Denies: End Stage Renal Disease Malignancy Medical History: Denies: Breast Cancer, Cervical Cancer, Leukemia, Lung Cancer, Ovarian Cancer GI Medical History: Reports: Gastroesophageal Reflux Disease, Hiatal Hernia Denies: Cirrhosis, Crohn's Disease, Diverticulitis, Hepatitis, Ulcerative Colitis Musculoskeltal Medical History: Denies: Arthritis, Fibromyalgia, Gout Skin Medical History: Denies: Eczema, Psoriasis Psychiatric Medical History: Reports: Depression - ANXIETY Denies: Bipolar Disorder, Dementia, Post Traumatic Stress Disorder Hematology: Reports: Anemia Denies: Sickle Cell Disease, Bleeding Tendencies Infectious Medical History: Denies: HIV Past Surgical History Past Surgical History: As per HPI Past Surgical History: Reports: Herniorrhaphy - Component separation Ventral herniorrhaphy 11/12/[address] Rainey, Other - EGD, Colonoscopy, abdominal surgery x2 for perforated peptic ulcer. Denies: Amputation, Appendectomy, Section, Cholecystectomy, Colostomy, Coronary Artery Bypass Graft, Gastric Bypass Surgery, Hysterectomy, Mastectomy, Pacemaker, Tonsillectomy, Tubal Ligation Social History Smoking Status: Current Some Day Smoker Frequency of Alcohol Use: None Hx Recreational Drug Use: No Drugs: None Hx Prescription Drug Abuse: No Past Social History Note: History of alcohol abuse stopped several years ago Family History Family History: None, Malignancy - Mother with colon cancer, father with pancreatic cancer, sister with breast cancer Parental Family History Reviewed: No Children Family History Reviewed: No Sibling(s) Family History Reviewed.: No Medication/Allergy Home Medications: Gabapentin [Neurontin 300 mg Capsule] 300 mg PO Q8 11/21/17 Escitalopram Oxalate [Lexapro 10 mg Tablet] 20 mg PO QHS 10/09/18 Docusate Sodium [Colace 100 mg Capsule] 100 mg PO BID 12/21/18 Ferrous Sulfate [Feosol 325 mg Tablet] 325 mg PO DAILY 12/21/18 Polyethylene Glycol 3350 [Miralax Powder 17 gm/Packet] 1 packet PO DAILY 12/21/18 Pantoprazole Sodium [Protonix [address] Tablet] 40 mg PO QAM #60 tablet.dr 12/25/18 Sucralfate [Carafate 1 gm Tablet] 1 gm PO ACHS #120 tablet 12/25/18 Tramadol HCl [Ultram] 25 mg PO Q8HP PRN #10 tablet 12/25/18 Butalb/Acetaminophen/Caffeine [Fioricet 50-300-40 mg Capsule] 1 cap PO Q4 PRN #30 cap 02/15/19 Potassium Chloride 20 meq PO BID 4 Days #8 tab.er.prt 02/15/19 Allergies/Adverse Reactions: No Known Allergies Allergy (Verified 02/18/19 07:37) Review of Systems Constitutional: PRESENT: as per HPI Eyes: ABSENT: visual disturbances Ears: ABSENT: hearing changes Cardiovascular: ABSENT: chest pain, dyspnea on exertion, edema, orthropnea, palpitations Gastrointestinal: PRESENT: as per HPI Musculoskeletal: PRESENT: back pain Neurological: ABSENT: abnormal gait, abnormal speech, confusion, dizziness, focal weakness, syncope Psychiatric: PRESENT: anxiety, depression Hematologic/Lymphatic: ABSENT: easy bleeding, easy bruising Physical Exam Vital Signs: Temp Pulse Resp BP Pulse Ox 98.1 F 97 18 106/70 96 02/18/19 08:51 02/18/19 08:51 02/18/19 08:51 02/18/19 08:51 02/18/19 08:51 Intake & Output 02/17/19 02/18/19 02/19/19 06:59 06:59 06:59 Intake Total 1000 Balance 1000 Weight 38.555 kg General appearance: PRESENT: mild distress, other - Cachectic, malnourished Head exam: PRESENT: normocephalic Eye exam: PRESENT: EOMI Mouth exam: PRESENT: dry mucosa Neck exam: PRESENT: full ROM Respiratory exam: PRESENT: clear to auscultation edvin Cardiovascular exam: PRESENT: RRR Pulses: PRESENT: normal carotid pulses, normal radial pulses, normal femoral pulses, normal dorsalis pedis pul Breast: PRESENT: Other - Deferred GI/Abdominal exam: PRESENT: other - Soft, operative scar midline recently healed. Palpable PDS suture in midline under skin. No peritoneal signs no rigidity Rectal exam: PRESENT: deferred Extremities exam: PRESENT: full ROM Musculoskeletal exam: PRESENT: full ROM Neurological exam: PRESENT: oriented to person, oriented to place, oriented to time, oriented to situation Psychiatric exam: PRESENT: anxious Results Laboratory Results: 02/18/19 08:16 02/18/19 08:16 02/18/19 02/18/19 08:16 08:16 WBC 6.3 RBC 2.75 L Hgb 7.2 L Hct 22.7 L MCV 83 MCH 26.3 L MCHC 31.8 L RDW 16.0 H Plt Count 755 H Seg Neutrophils % 73.1 Sodium 140.5 Potassium 3.4 L Chloride 112 H Carbon Dioxide 24 Anion Gap 5 BUN 15 Creatinine 0.39 L Est GFR ( Amer) > 60 Glucose 114 H Calcium 8.9 Magnesium 1.7 Total Bilirubin 0.3 AST 58 H Alkaline Phosphatase 109 Total Protein 4.8 L Albumin 2.5 L Lipase 94.0 02/18/19 08:16 Troponin I < 0.012 Impressions: Chest X-Ray 02/18/19 07:45 IMPRESSION: NO ACUTE RADIOGRAPHIC FINDING IN THE CHEST. Assessment & Plan - Diagnosis (1) Anemia due to blood loss Is this a current diagnosis for this admission?: Yes Plan: Impression: Acute superimposed on chronic anemia likely due to gastrointestinal source, upper GI etiology including known peptic ulcer disease given history of recent EGD, and endoscopic findings described above in HPI Recommendations: 1. Admit to hospital service with surgery consulting. We will proceed with EGD today to document pathoanatomy. This was explained to the patient, and I believe she understands and agrees to proceed. 2. This is a very unhealthy patient malnourished, cachectic, with multiple chronic medical problems. She may very well require an operative resection of her distal stomach and first portion of her duodenum to control her located peptic ulcer disease. 3. We will check a gastrin level on her. She has been on proton pump inhibitors which may alter this result. 4. Serious consideration should be directed towards nutritional support (2) Smoking Is this a current diagnosis for this admission?: Yes (3) Anemia Qualifiers: Anemia type: other cause Other causes of anemia: other cause, not classified Qualified Code(s): D64.89 - Other specified anemias Is this a current diagnosis for this admission?: Yes (4) History of stomach ulcers Is this a current diagnosis for this admission?: Yes (5) Abdominal pain Qualifiers: Abdominal location: generalized Qualified Code(s): R10.84 - Generalized abdominal pain Is this a current diagnosis for this admission?: Yes (6) Depression Qualifiers: Depression Type: unspecified Qualified Code(s): F32.9 - Major depressive disorder, single episode, unspecified Is this a current diagnosis for this admission?: Yes (7) Duodenal stricture Is this a current diagnosis for this admission?: Yes (8) Malnutrition Qualifiers: Malnutrition type: protein-calorie malnutrition Protein-calorie malnutrition severity: unspecified severity Qualified Code(s): E46 - Unspe cified protein-calorie malnutrition Is this a current diagnosis for this admission?: Yes (9) Migraine Is this a current diagnosis for this admission?: Yes - Time Time Spent: 30 to 50 Minutes Smoking Cessation Education: over 10 minutes Medications reviewed and adjusted accordingly: Yes Anticipated discharge: Home - Inpatient Certification Based on my medical assessment, after consideration of the patient's comorbidities, presenting symptoms, or acuity I expect that the services needed warrant INPATIENT care.: Yes I certify that my determination is in accordance with my understanding of Medicare's requirements for reasonable and necessary INPATIENT services [42 CFR 412.3e].: Yes Medical Necessity: Need For IV Fluids, Need for Pain Control, Need for IV Antibiotics
--- NOTE | 2019-02-18 11:31 | Operative Report ---
Operative Report DATE OF SURGERY: 02/18/19 PREOPERATIVE DIAGNOSIS: 1. Gastrointestinal bleed. 2. Gastric outlet obstruc tion. 3. Malnutrition. 4. History of peptic ulcer disease, duodenal stricture, severe gastritis, severe esophagitis and hiatal hernia POSTOPERATIVE DIAGNOSIS: Same with. 1. recent bleeding from portion of duodenum, clot in the stomach. 2. near obstructing duodenal stricture secondary to ulcer disease. 3. Severe, erosive esophagitis OPERATION: Esophagogastroduodenoscopy with photodocumentation SURGEON: JAMES CARLSON ANESTHESIA: Moderate Sedation TISSUE REMOVED OR ALTERED: None COMPLICATIONS: none INTRAOPERATIVE FINDINGS: see below PROCEDURE: The patient was seen in the emergency department, consent provided then taken to the trauma bay where monitoring devices were attached, she was placed in semirecumbent position. Oral mouthpiece inserted Surgical plan and surgical timeout were conducted. The flexible adult esophagoscope was advanced through the oropharynx, down the esophagus through the stomach and into the first portion of the duodenum. The patient tolerated procedure well The findings were significant for: 1. Severe distal esophagitis, with superficial ulceration, from 20 cm to approximately 35 cm from the incisor. There was no stricture. 2. Moderate to large hiatal hernia, easily traversed 3. Retained old clot and gastric material with food in the body of the stomach. Unable to evacuate retained contents completely. 4. Since bleeding from postpyloric, first portion of duodenum. No active bleeding. Unable to visualize discrete ulcer. 5. Severe duodenal stricture very small 3-4 millimeter opening; scope not advanced through the stricture. Previous biopsies performed last month of the esophagus, stomach, and duodenum all showed benign, inflammatory changes. Scope was withdrawn to the patient's oropharynx. There was no evidence of esophageal stricture. Patient tolerated procedure well Recommendations: 1. Continue support including blood transfusion, antacid therapy. 2. Will re-review endoscopic findings with my colleague, Dr. Mati Haskins. Patient will require intervention for gastric outlet obstruction and complicated bleeding ulcer disease. She may benefit from dilatation, however operative resection may also be required. This was expressed to the patient briefly following the procedure.
[2019-02-18 12:59] LABS: PHOSPHORUS 3.2 mg/dL (2.5-4.5)
[2019-02-18 13:00] LABS: APPEARANCE,URINE CLEAR; BILIRUBIN,URINE NEGATIVE (NEGATIVE); COLOR,URINE YELLOW; GLUCOSE, URINE NEGATIVE (NEGATIVE); KETONES,URINE NEGATIVE (NEGATIVE); LEUKOCYTE ESTERASE,URINE TRACE (NEGATIVE); NITRITE,URINE NEGATIVE (NEGATIVE); PROTEIN,URINE NEGATIVE (NEGATIVE); URINE SPECIFIC GRAVITY 1.013; UROBILINOGEN,URINE NEGATIVE mg/dL (<2.0)
[2019-02-18 13:06] LABS: PREALBUMIN 23.6 mg/dL (17.6-36.0)
[2019-02-18 14:35] LABS: URINE AMPHETAMINES SCREEN NEGATIVE; URINE COCAINE SCREEN NEGATIVE; URINE MARIJUANA (THC) SCREEN NEGATIVE; URINE METHADONE SCREEN NEGATIVE; URINE PHENCYCLIDINE SCREEN NEGATIVE
[2019-02-18] MEDS: SUCRALFATE 1 GM TABLET PO SCH ×3 (14:35→21:26)
[2019-02-18] MEDS: DOCUSATE SODIUM 100 MG CAPSULE PO SCH (14:35)
[2019-02-18 14:36] LABS: URINE BARBITURATES SCREEN UNCONFIRMED POSITIVE; URINE BENZODIAZEPINES SCREEN UNCONFIRMED POSITIVE
[2019-02-18] MEDS ORDERED: AMINO ACIDS 4.25 %/DEXTROSE 5% 1,000 ML IV PRN (16:41)
--- NOTE | 2019-02-18 18:03 | PDOC H&P ---
History of Present Illness Admission Date/PCP: 02/18/19 16:18 STEFAN SOTO MD Patient complains of: Hematemesis History of Present Illness: RANDALL ELKINS is a 63 year old female with a past medical history significant for PUD, pyloric and duodenal strictures, recent ventral hernia repair, GERD, recurrent GI bleeding, depression, migraines, and remote alcohol abuse who presented to the emergency department today with a complaint of hematic emesis. Patient was seen in the ED 5 days ago for complaint of severe reflux symptoms. At that time, she was found to have a hemoglobin of 9.1. She was discharged home on PPI and Carafate. Today her hemoglobin is noted to be 7.2. Further evaluation the emergency department revealed stable vital signs, thr ombocytosis, normal coags, slightly low potassium, albumin 2.5, normal urinalysis, UDS positive for barbiturates and benzodiazepines, and negative serum EtOH and positive occult stool. Surgery was consulted; EGD has been performed with findings of severe distal esophagitis with superficial ulcerations, large hiatal hernia, severe duodenal stricture. Surgery recommends initiating TPN/PPN. Had to have further surgical evaluation by Dr. Haskins tomorrow. Remain in n.p.o. status. She is ordered 2 units PRBC and is referred to the hospitalist service for admission and management of the above-stated complaints and findings. Past Medical History Cardiac Medical History: Reports: None Pulmonary Medical History: Reports: None EENT Medical History: Reports: None Neurological Medical History: Reports: Migraine Denies: Seizures Endocrine Medical History: Reports: None Renal/ Medical History: Denies: Chronic Kidney Disease Malignancy Medical History: Reports: None GI Medical History: Reports: Gastroesophageal Reflux Disease, Hiatal Hernia, Peptic Ulcer Disease Denies: Cirrhosis, Diverticulitis, Hepatitis, Ulcerative Colitis Musculoskeltal Medical History: Reports: None Skin Medical History: Reports: None Psychiatric Medical History: Reports: Depression Denies: Bipolar Disorder, Dementia, Post Traumatic Stress Disorder Traumatic Medical History: Reports: None Hematology: Reports: Anemia Denies: Sickle Cell Disease, Bleeding Tendencies Infectious Medical History: Denies: HIV Past Surgical History Past Surgical History: Reports: Herniorrhaphy - Component separation Ventral herniorrhaphy 11/12/[address] Rainey, Other - EGD, Colonoscopy, abdominal surgery x2 for perforated peptic ulcer. Social History Information Source: Patient Lives with: Alone Smoking Status: Never Smoker Frequency of Alcohol Use: None Last Alcohol Use: 02/21/16 Hx Recreational Drug Use: No Drugs: None Hx Prescription Drug Abuse: No - Advance Directive Resuscitation Status: Full Code Family History Family History: None, Malignancy - Mother with colon cancer, father with pancreatic cancer, sister with breast cancer Parental Family History Reviewed: Yes Children Family History Reviewed: Yes Sibling(s) Family History Reviewed.: Yes Medication/Allergy Home Medications: Gabapentin [Neurontin 300 mg Capsule] 300 mg PO Q8 11/21/17 Escitalopram Oxalate [Lexapro 10 mg Tablet] 20 mg PO QHS 10/09/18 Docusate Sodium [Colace 100 mg Capsule] 100 mg PO BID 12/21/18 Pantoprazole Sodium [Protonix [address] Tablet] 40 mg PO QAM #60 tablet.dr 12/25/18 Sucralfate [Carafate 1 gm Tablet] 1 gm PO ACHS #120 tablet 12/25/18 Esomeprazole Magnesium [Nexium 24Hr] 20 mg PO BID 02/18/19 Lorazepam [Ativan 0.5 mg Tablet] 0.5 mg PO QHS 02/18/19 Metoclopramide HCl 5 mg PO QID 02/18/19 Mirtazapine 45 mg PO QHS 02/18/19 Multivitamin [Daily Multiple Vitamin] 1 each PO DAILY 02/18/19 Ondansetron [Zofran Odt 4 mg Tablet] 4 mg PO Q6HP PRN 02/18/19 Allergies/Adverse Reactions: No Known Allergies Allergy (Verified 02/18/19 07:37) Review of Systems Constitutional: PRESENT: fatigue, headache(s), weakness. ABSENT: chills, fever(s), weight gain, weight loss Eyes: ABSENT: visual disturbances Ears: ABSENT: hearing changes Cardiovascular: ABSENT: chest pain, dyspnea on exertion, edema, orthropnea, palpitations Respiratory: ABSENT: cough, hemoptysis Gastrointestinal: PRESENT: bloating, coffee ground emesis, melena. ABSENT: abdominal pain, constipation, diarrhea, hematemesis, hematochezia, nausea, vomiting Genitourinary: ABSENT: dysuria, hematuria Musculoskeletal: ABSENT: joint swelling Integumentary: ABSENT: rash, wounds Neurological: ABSENT: abnormal gait, abnormal speech, confusion, dizziness, focal weakness, syncope Psychiatric: ABSENT: anxiety, depression, homidical ideation, suicidal ideation Endocrine: ABSENT: cold intolerance, heat intolerance, polydipsia, polyuria Hematologic/Lymphatic: ABSENT: easy bleeding, easy bruising Physical Exam Vital Signs: Temp Pulse Resp BP Pulse Ox 98.5 F 93 15 101/69 100 02/18/19 15:01 02/18/19 15:01 02/18/19 15:02 02/18/19 15:02 02/18/19 15:02 Intake & Output 02/17/19 02/18/19 02/19/19 06:59 06:59 06:59 Intake Total 1300 Balance 1300 Weight 38.555 kg General appearance: PRESENT: no acute distress, cooperative, thin - Muscle wasting, minimal subcutaneous fat, well-developed Head exam: PRESENT: atraumatic, normocephalic Eye exam: PRESENT: conjunctiva pink, EOMI, PERRLA. ABSENT: scleral icterus Ear exam: PRESENT: normal external ear exam Mouth exam: PRESENT: moist, tongue midline Teeth exam: PRESENT: poor dentation Neck exam: ABSENT: carotid bruit, JVD, lymphadenopathy, thyromegaly Respiratory exam: PRESENT: clear to auscultation edvin, symmetrical, unlabored. ABSENT: rales, rhonchi, wheezes Cardiovascular exam: PRESENT: RRR, +S1, +S2. ABSENT: diastolic murmur, rubs, systolic murmur Pulses: PRESENT: normal dorsalis pedis pul Vascular exam: PRESENT: normal capillary refill GI/Abdominal exam: PRESENT: hyperactive bowel sounds, soft. ABSENT: distended, guarding, mass, organolmegaly, rebound, tenderness Rectal exam: PRESENT: deferred Extremities exam: PRESENT: full ROM. ABSENT: calf tenderness, clubbing, pedal edema Neurological exam: PRESENT: alert, awake, oriented to person, oriented to place, oriented to time, oriented to situation, CN II-XII grossly intact. ABSENT: motor sensory deficit Psychiatric exam: PRESENT: appropriate affect, normal mood. ABSENT: homicidal ideation, suicidal ideation Skin exam: PRESENT: dry, intact, warm. ABSENT: cyanosis, rash Results Laboratory Results: 02/18/19 08:16 02/18/19 08:16 02/18/19 02/18/19 02/18/19 08:16 08:16 08:16 WBC 6.3 RBC 2.75 L Hgb 7.2 L Hct 22.7 L MCV 83 MCH 26.3 L MCHC 31.8 L RDW 16.0 H Plt Count 755 H Seg Neutrophils % 73.1 Sodium 140.5 Potassium 3.4 L Chloride 112 H Carbon Dioxide 24 Anion Gap 5 BUN 15 Creatinine 0.39 L Est GFR ( Amer) > 60 Glucose 114 H Calcium 8.9 Phosphorus Magnesium 1.7 Total Bilirubin 0.3 AST 58 H Alkaline Phosphatase 109 Total Protein 4.8 L Albumin 2.5 L Prealbumin Lipase 94.0 TSH 1.32 Urine Color Urine Appearance Urine pH Ur Specific [place] Urine Protein Urine Glucose (UA) Urine Ketones Urine Blood Urine Nitrite Ur Leukocyte Esterase Urine WBC (Auto) Urine RBC (Auto) Blood Type Antibody Screen 02/18/19 02/18/19 02/18/19 08:16 10:34 12:40 WBC RBC Hgb Hct MCV MCH MCHC RDW Plt Count Seg Neutrophils % Sodium Potassium Chloride Carbon Dioxide Anion Gap BUN Creatinine Est GFR ( Amer) Glucose Calcium Phosphorus 3.2 Magnesium Total Bilirubin AST Alkaline Phosphatase Total Protein Albumin Prealbumin 23.6 Lipase TSH Urine Color YELLOW Urine Appearance CLEAR Urine pH 7.0 Ur Specific [place] 1.013 Urine Protein NEGATIVE Urine Glucose (UA) NEGATIVE Urine Ketones NEGATIVE Urine Blood NEGATIVE Urine Nitrite NEGATIVE Ur Leukocyte Esterase TRACE H Urine WBC (Auto) 2 Urine RBC (Auto) 0 Blood Type A POSITIVE Antibody Screen NEGATIVE 02/18/19 08:16 Troponin I < 0.012 Impressions: Chest X-Ray 02/18/19 07:45 IMPRESSION: NO ACUTE RADIOGRAPHIC FINDING IN THE CHEST. Assessment and Plan - Diagnosis (1) Anemia due to blood loss Is this a current diagnosis for this admission?: Yes Plan: Likely secondary to upper GI bleed. Surgery is consulted for EGD; found esophagitis, superficial ulcer, duodenal strictures. Possible further surgical interventions by Dr. Haskins tomorrow. Patient is to be transfused 2 units PRBC. IV Protonix twice daily. Continue p.o. Carafate. Follow-up CBC. (2) Upper gastrointestinal bleeding Is this a current diagnosis for this admission?: Yes Plan: EGD by Dr. Donaldson today revealed severe distal esophagitis with superficial ulceration, moderate to large hiatal hernia, and a severe duodenal stricture. Continue twice daily IV Protonix. Continue p.o. Carafate, otherwise remain n.p.o. Dr. Donaldson informs me that he will discuss this with Dr. Haskins tomorrow. She may require further surgical intervention. Begin PPN until cleared for p.o. intake. (3) Coffee ground emesis Is this a current diagnosis for this admission?: Yes Plan: Secondary #2. Evaluation management as above. (4) Depression Qualifiers: Depression Type: unspecified Qualified Code(s): F32.9 - Major depressive di sorder, single episode, unspecified Is this a current diagnosis for this admission?: Yes Plan: We will resume the patient's home medication regiment of Lexapro and mirtazapine once cleared for p.o. intake. (5) Malnutrition Qualifiers: Malnutrition type: protein-calorie malnutrition Protein-calorie malnutrition severity: unspecified severity Qualified Code(s): E46 - Unspecified protein-calorie malnutrition Is this a current diagnosis for this admission?: Yes Plan: PPN currently. May need to consider TPN; will defer to surgical service (Dr. Haskins to assume care tomorrow per Dr. Donaldson). Registered dietitian is consulted. - Time Time Spent with patient: 35 or more minutes Medications reviewed and adjusted accordingly: Yes Anticipated discharge: Home Within: within 72 hours
[2019-02-18] MEDS: GABAPENTIN 300 MG CAPSULE PO SCH (19:33)
[2019-02-18] MEDS: DIPHENHYDRAMINE HCL 50 MG/ML VIAL IV PRN (21:25)
[2019-02-18] MEDS ORDERED: PANTOPRAZOLE SODIUM 40 MG VIAL IV SCH (22:00)
[2019-02-18 23:12] LABS: ABSOLUTE MONOCYTES (AUTO) 0.7 10^3/uL (0.1-1.4); ABSOLUTE NEUT (AUTO) 7.9 10^3/uL (1.7-8.2); BASOPHILS % (AUTO) 0.5 % (0-2); EOSINOPHILS % (AUTO) 0.4 % (0-6); HEMATOCRIT 33.2 % (36.0-47.0); LYMPHOCYTES % (AUTO) 10.4 % (13-45); MEAN CORPUSCULAR HEMOGLOBIN 27.7 pg (27.0-33.4); MEAN CORPUSCULAR HGB CONC 33.7 g/dL (32.0-36.0); MEAN CORPUSCULAR VOLUME 82 fl (80-97); MONOCYTES % (AUTO) 7.2 % (3-13); PLATELET COUNT 539 10^3/uL (150-450); RED BLOOD COUNT 4.05 10^6/uL (3.72-5.28); RED CELL DISTRIBUTION WIDTH 15.1 % (11.5-14.0); SEGMENTED NEUTROPHILS % (AUTO) 81.5 % (42-78); TOTAL CELLS COUNTED % (AUTO) 100 %; WHITE BLOOD COUNT 9.7 10^3/uL (4.0-10.5)
[2019-02-18 23:43] LABS: HEMOGLOBIN 11.2 g/dL (12.0-15.5)
[2019-02-19] MEDS ORDERED: MORPHINE SULFATE 10 MG/ML INJ ONE (04:00)
[2019-02-19] MEDS: MORPHINE SULFATE 10 MG/ML INJ IV PRN ×2 (04:05→06:05)
[2019-02-19 06:33] LABS: HEMATOCRIT 28.4 % (36.0-47.0); HEMOGLOBIN 9.6 g/dL (12.0-15.5); MEAN CORPUSCULAR HEMOGLOBIN 27.6 pg (27.0-33.4); MEAN CORPUSCULAR HGB CONC 33.7 g/dL (32.0-36.0); MEAN CORPUSCULAR VOLUME 82 fl (80-97); PLATELET COUNT 501 10^3/uL (150-450); RED BLOOD COUNT 3.47 10^6/uL (3.72-5.28); RED CELL DISTRIBUTION WIDTH 14.8 % (11.5-14.0); WHITE BLOOD COUNT 6.5 10^3/uL (4.0-10.5)
[2019-02-19 06:50] LABS: ANION GAP 6 (5-19); BLOOD UREA NITROGEN 10 mg/dL (7-20); CALCIUM 7.9 mg/dL (8.4-10.2); CARBON DIOXIDE 20 mmol/L (22-30); CHLORIDE 114 mmol/L (98-107); GLUCOSE 99 mg/dL (75-110)
[2019-02-19] MEDS ORDERED: PANTOPRAZOLE SODIUM 40 MG TABLET.DR PO SCH (08:00)
[2019-02-19] MEDS: SUCRALFATE 1 GM TABLET PO SCH ×4 (08:41→21:42)
[2019-02-19] MEDS: POTASSIUM CHLORIDE 20 MEQ/50 ML RTU IV SCH ×2 (08:42→12:23)
--- NOTE | 2019-02-19 09:24 | PDOC PROGRESS REPORT ---
Subjective Progress Note for:: 02/19/19 Subjective:: comfortable Reason For Visit: ANEMIA,PRESUMED UPPER GI BLEED Physical Exam Vital Signs: Temp Pulse Resp BP Pulse Ox 97.8 F 66 16 93/63 L 99 02/19/19 08:00 02/19/19 08:00 02/19/19 08:00 02/19/19 08:00 02/19/19 08:00 Intake & Output 02/18/19 02/19/19 02/20/19 06:59 06:59 06:59 Intake Total 2600 Balance 2600 Weight 38.555 kg 39.2 kg General appearance: PRESENT: no acute distress, other - Poorly nourished appears cachectic Head exam: PRESENT: normocephalic Eye exam: PRESENT: EOMI Ear exam: PRESENT: normal external ear exam Mouth exam: PRESENT: moist Neck exam: PRESENT: full ROM Respiratory exam: PRESENT: clear to auscultation edvin Cardiovascular exam: PRESENT: RRR Pulses: PRESENT: normal radial pulses, normal femoral pulses Vascular exam: PRESENT: normal capillary refill GI/Abdominal exam: PRESENT: soft, other - No masses Rectal exam: PRESENT: deferred Extremities exam: PRESENT: full ROM Musculoskeletal exam: PRESENT: full ROM Neurological exam: PRESENT: alert, awake, oriented to person, oriented to place Psychiatric exam: PRESENT: appropriate affect Skin exam: PRESENT: dry Results Laboratory Results: 02/19/19 06:08 02/19/19 06:08 02/18/19 02/18/19 02/18/19 08:16 08:16 10:34 WBC RBC Hgb Hct MCV MCH MCHC RDW Plt Count Seg Neutrophils % Sodium Potassium Chloride Carbon Dioxide Anion Gap BUN Creatinine Est GFR ( Amer) Glucose Calcium Phosphorus 3.2 Prealbumin 23.6 TSH 1.32 Urine Color Urine Appearance Urine pH Ur Specific [place] Urine Protein Urine Glucose (UA) Urine Ketones Urine Blood Urine Nitrite Ur Leukocyte Esterase Urine WBC (Auto) Urine RBC (Auto) Blood Type A POSITIVE Antibody Screen NEGATIVE 02/18/19 02/18/19 02/19/19 12:40 22:51 06:08 WBC 9.7 6.5 RBC 4.05 3.47 L Hgb 11.2 L D 9.6 L Hct 33.2 L 28.4 L MCV 82 82 MCH 27.7 27.6 MCHC 33.7 33.7 RDW 15.1 H 14.8 H Plt Count 539 H 501 H Seg Neutrophils % 81.5 H Sodium Potassium Chloride Carbon Dioxide Anion Gap BUN Creatinine Est GFR ( Amer) Glucose Calcium Phosphorus Prealbumin TSH Urine Color YELLOW Urine Appearance CLEAR Urine pH 7.0 Ur Specific [place] 1.013 Urine Protein NEGATIVE Urine Glucose (UA) NEGATIVE Urine Ketones NEGATIVE Urine Blood NEGATIVE Urine Nitrite NEGATIVE Ur Leukocyte Esterase TRACE H Urine WBC (Auto) 2 Urine RBC (Auto) 0 Blood Type Antibody Screen 02/19/19 06:08 WBC RBC Hgb Hct MCV MCH MCHC RDW Plt Count Seg Neutrophils % Sodium 139.6 Potassium 3.0 L* Chloride 114 H Carbon Dioxide 20 L Anion Gap 6 BUN 10 Creatinine 0.44 L Est GFR ( Amer) > 60 Glucose 99 Calcium 7.9 L Phosphorus Prealbumin TSH Urine Color Urine Appearance Urine pH Ur Specific [place] Urine Protein Urine Glucose (UA) Urine Ketones Urine Blood Urine Nitrite Ur Leukocyte Esterase Urine WBC (Auto) Urine RBC (Auto) Blood Type Antibody Screen 02/18/19 08:16 Troponin I < 0.012 Impressions: Chest X-Ray 02/18/19 07:45 IMPRESSION: NO ACUTE RADIOGRAPHIC FINDING IN THE CHEST. Assessment & Plan - Time Time Spent with patient: 25-34 minutes - Plan Summary Plan Summary: Patient is gastric outlet obstruction secondary to duodenal stricture chronic duodenal ulcer severe gastritis malnourished. Recommendations this gastric L obstruction has been going on for a number of months despite maximal medical therapy Would obtain H. pylori serology serum gastrin levels Would start patient on TPN via PICC line placement I have discussed possible antrectomy with the patient this morning however this is not possible at this time secondary to her poor nutritional status and will require at least 7 to 10 days of TPN prior to any surgical intervention
[2019-02-19] MEDS ORDERED: DEXTROSE 10%-WATER 1,000 ML IV PRN (10:00)
[2019-02-19] MEDS ORDERED: DEXTROSE 40% GEL 15 GM TUBE PO PRN (10:00)
[2019-02-19] MEDS ORDERED: DEXTROSE 50%-WATER SYRINGE 12.5 GM/25 ML DOSE IV PRN (10:00)
[2019-02-19] MEDS ORDERED: GLUCAGON,HUMAN RECOMB 1 MG INJ IM PRN (10:00)
[2019-02-19] MEDS ORDERED: AMINO ACIDS 5 %/DEXTROSE 20 % 1,000 ML IV PRN (10:00)
[2019-02-19] MEDS ORDERED: DEXTROSE 50%-WATER SYRINGE 25 GM/50 ML DOSE IV PRN (10:00)
[2019-02-19] MEDS ORDERED: DEXTROSE 40% GEL 15 GM TUBE X 2 PO PRN (10:00)
[2019-02-19] MEDS: DOCUSATE SODIUM 100 MG CAPSULE PO SCH (10:31)
[2019-02-19] MEDS ORDERED: LIDOCAINE 1% INJ-PF (10 MG/ML) 30 ML SDV ONE (12:27)
[2019-02-19] MEDS ORDERED: MIDAZOLAM 2 MG/2 ML INJ ONE (12:31)
[2019-02-19] MEDS: INSULIN REG, HUMAN 100 UNIT/ML 3 ML VIAL (PYX) SUBCUT SCH ×2 (12:31→18:26)
[2019-02-19] MEDS ORDERED: FENTANYL CITRATE INJ/PF 100 MCG/2 ML AMPUL ONE (12:31)
[2019-02-19] MEDS ORDERED: CEFAZOLIN INJ 1 GM VIAL ONE (13:34)
--- NOTE | 2019-02-19 14:32 | RADIOLOGY REPORT (SQ) ---
EXAM DESCRIPTION: TUNNELED CENTRAL LINE; GUIDANCE ULTRASOUND; GUIDANCE FLUOROSCOPIC COMPLETED DATE/TIME: 02/19/2019 1:47 pm REASON FOR STUDY: NEED FOR VASCULAR ACCESS COMPARISON: None. FLUORO TIME: 0.2 minutes 2 images saved to PACS LIMITATIONS: None. PROCEDURE: After obtaining informed consent and explaining the risks and benefits of conscious sedat ion, the patient was brought to the special procedures suite and was placed supine on the fluoroscopy table. The patient was prepped and draped in the usual sterile fashion. IV conscious sedation was administered and physician direction by the registered nurse using 25 micrograms of fentanyl. Phys iologic monitoring was provided before, during, and after sedation. The total sedation time was 30 minutes. Documentation face to face time, the performing proceduralist, spent monitoring the patient: 30minute s. Ultrasound evaluation of potential access sites were performed. After successfully identifying a rangel nt right internal jugular vein, an appropriate percutaneous access site was selected and anesthetized with 1 percent lidocaine. The vein was accessed using a 21 g - 4 cm micropuncture needle under sonog raphic guidance. After aspiration of blood from the needle, an .018 guidewire was advanced centrally. The peel-away sheath was advanced over the wire. The wire was used to measure appropriate catheter length and was removed. The micropuncture set was capped. A single-lumen Bard 5 Bulgarian catheter was s elected. An appropriate catheter exit site was chosen on the anterior chest wall. The exit site and t he tunnel from the exit site to the puncture site were anesthetized with 1 percent lidocaine. The cat heter was tunneled from the exit site to the vein puncture site without difficulty. The catheter was cut to the appropriate length of 22 cm. The inner dilator was removed the peel-away sheath and the catheter advanced to the peel-away sheath leaving the catheter tip at cavoatrial junction. The paras ter was noted to flush and aspirate well and was secured in place with a StatLock device. Venotomy s ite was closed with Dermabond. The patient tolerated the procedure well and left the department in satisfactory condition. Ultrasound images of the access vein and a spot film documenting final catheter position were stored on the PAC system. IMPRESSION: Successful placement of single-lumen tunneled/cuffed right internal jugular central veno us catheter utilizing ultrasound fluoroscopic guidance as detailed above. COMMENT: Patient medication list reviewed: Yes- Quality ID# 130:Eligible professional attests to doc umenting in the medical record they obtained, updated, or reviewed the patient's current medications. Quality ID #76: The patient was prepped and draped using maximum sterile barrier technique including cap, mask, sterile gown, sterile gloves, a large sterile sheet, hand hygiene, and 2% Chlorhexidine fo r cutaneous antisepsis. When ultrasound is used, sterile ultrasound techniques are followed requiring sterile gel and sterile probes. Quality ID 145: Final reports for procedures using fluoroscopy that document radiation exposure dominga shaka, or exposure time and number of fluorographic images (if radiation exposure indices are not avail able) TECHNICAL DOCUMENTATION: JOB ID: [id number] [employer]- All Rights Reserved rev-06/07 Reading location - IP/workstation name: [email or web address]
[2019-02-19] MEDS: GABAPENTIN 300 MG CAPSULE PO SCH ×2 (14:41→21:42)
--- NOTE | 2019-02-19 18:50 | PDOC PROGRESS REPORT ---
Subjective Progress Note for:: 02/19/19 Subjective:: RANDALL ELKINS is a 63 year old female with a past medical history significant for PUD, pyloric and duodenal strictures, recent ventral hernia repair, GERD, recurrent GI bleeding, depression, migraines, and remote alcohol abuse who was admitted 02/18/2019 for acute blood loss anemia secondary to GI bleeding. Patient was seen on morning rounds. She was found resting in bed, comfortably, on room air. She reports that she discussed with surgery their recommendations that she remain in hospital for 7 to 10 days for TPN followed by gastric antrectomy. Patient tells me that she is agreeable to the plan of care as outlined by Dr. Haskins. She otherwise has no questions or concerns at this time. She denies fever, chills, chest pain, palpitations, dyspnea, orthopnea, abdominal pain, nausea vomiting and diarrhea. She is tolerating a clear liquid diet without difficulty. No concerns per nursing. Reason For Visit: ANEMIA,PRESUMED UPPER GI BLEED Physical Exam Vital Signs: Temp Pulse Resp BP Pulse Ox 97.5 F 72 16 95/61 L 97 02/19/19 16:00 02/19/19 16:00 02/19/19 16:00 02/19/19 16:00 02/19/19 16:00 Intake & Output 02/18/19 02/19/19 02/20/19 06:59 06:59 06:59 Intake Total 2600 100 Balance 2600 100 Weight 38.555 kg 39.2 kg 39.2 kg General appearance: PRESENT: no acute distress, cooperative, thin - Muscle wasting, minimal subcutaneous fat, well-developed Head exam: PRESENT: atraumatic, normocephalic Eye exam: PRESENT: conjunctiva pink, EOMI, PERRLA. ABSENT: scleral icterus Ear exam: PRESENT: normal external ear exam Mouth exam: PRESENT: moist, tongue midline Teeth exam: PRESENT: poor dentation Respiratory exam: PRESENT: clear to auscultation edvin, symmetrical, unlabored. ABSENT: rales, rhonchi, wheezes Cardiovascular exam: PRESENT: RRR, +S1, +S2. ABSENT: diastolic murmur, rubs, systolic murmur Pulses: PRESENT: normal dorsalis pedis pul Vascular exam: PRESENT: normal capillary refill GI/Abdominal exam: PRESENT: normal bowel sounds, soft. ABSENT: distended, guarding, mass, organolmegaly, rebound, tenderness Rectal exam: PRESENT: deferred Extremities exam: PRESENT: full ROM. ABSENT: calf tenderness, clubbing, pedal edema Musculoskeletal exam: PRESENT: ambulatory Neurological exam: PRESENT: alert, awake, oriented to person, oriented to place, oriented to time, oriented to situation, CN II-XII grossly intact. ABSENT: reynold r sensory deficit Psychiatric exam: PRESENT: appropriate affect, normal mood. ABSENT: homicidal ideation, suicidal ideation Skin exam: PRESENT: dry, intact, warm. ABSENT: cyanosis, rash Results Laboratory Results: 02/19/19 06:08 02/19/19 06:08 02/18/19 02/19/19 02/19/19 22:51 06:08 06:08 WBC 9.7 6.5 RBC 4.05 3.47 L Hgb 11.2 L D 9.6 L Hct 33.2 L 28.4 L MCV 82 82 MCH 27.7 27.6 MCHC 33.7 33.7 RDW 15.1 H 14.8 H Plt Count 539 H 501 H Seg Neutrophils % 81.5 H Sodium 139.6 Potassium 3.0 L* Chloride 114 H Carbon Dioxide 20 L Anion Gap 6 BUN 10 Creatinine 0.44 L Est GFR ( Amer) > 60 Glucose 99 Calcium 7.9 L Magnesium Triglycerides 02/19/19 06:08 WBC RBC Hgb Hct MCV MCH MCHC RDW Plt Count Seg Neutrophils % Sodium Potassium Chloride Carbon Dioxide Anion Gap BUN Creatinine Est GFR ( Amer) Glucose Calcium Magnesium 2.0 Triglycerides 186 H 02/18/19 08:16 Troponin I < 0.012 Impressions: Chest X-Ray 02/18/19 07:45 IMPRESSION: NO ACUTE RADIOGRAPHIC FINDING IN THE CHEST. Central Venous Line 02/19/19 00:00 IMPRESSION: Successful placement of single-lumen tunneled/cuffed right internal jugular central venous catheter utilizing ultrasound fluoroscopic guidance as detailed above. Guidance Fluoroscopy 02/19/19 00:00 IMPRESSION: Successful placement of single-lumen tunneled/cuffed right internal jugular central venous catheter utilizing ultrasound fluoroscopic guidance as d etailed above. Guidance Ultrasound 02/19/19 00:00 IMPRESSION: Successful placement of single-lumen tunneled/cuffed right internal jugular central venous catheter utilizing ultrasound fluoroscopic guidance as detailed above. Assessment and Plan - Diagnosis (1) Anemia due to blood loss Is this a current diagnosis for this admission?: Yes Plan: Secondary to upper GI bleed. No further episodes of hematemesis. Status post 2 units PRBC. Hgb 7.2-> 11.2-> 9.6 Surgery is consulted for EGD; found esophagitis, superficial ulcer, duodenal strictures. Dr. Haskins recommending 7-10 days TPN followed by antrectomy. IV Protonix twice daily. Continue p.o. Carafate. Follow-up CBC. (2) Upper gastrointestinal bleeding Is this a current diagnosis for this admission?: Yes Plan: EGD by Dr. Donaldson revealed severe distal esophagitis with superficial ulceration, moderate to large hiatal hernia, and a severe duodenal stricture. Possible anterectomy by Dr. Haskins next week. Continue twice daily IV Protonix. Continue p.o. Carafate. (3) Coffee ground emesis Is this a current diagnosis for this admission?: Yes Plan: Secondary #2. Evaluation management as above. (4) Depression Qualifiers: Depression Type: unspecified Qualified Code(s): F32.9 - Major depressive disorder, single episode, unspecified Is this a current diagnosis for this admission?: Yes Plan: Continue home medication regiment of Lexapro and mirtazapine. (5) Malnutrition Qualifiers: Malnutrition type: protein-calorie malnutrition Protein-calorie malnutrition severity: unspecified severity Qualified Code(s): E46 - Unspecified protein-calorie malnutrition Is this a current diagnosis for this admission?: Yes Plan: TPN per surgery x7-10 days Clear liquid diet; diet per surgery. Registered dietitian is consulted. Follow up chemistry, magnesium, and phosphorous. (6) Gastric outlet obstruction Is this a current diagnosis for this admission?: Yes Plan: Primary management per Surgery. 7-10 days of TPN followed by antrectomy. (7) Duodenal stricture Is this a current diagnosis for this admission?: Yes Plan: Primary management per Surgery. 7-10 days of TPN followed by antrectomy. - Time Time Spent with patient: 25-34 minutes Medications reviewed and adjusted accordingly: Yes
[2019-02-19] MEDS: MELATONIN 5 MG TABLET PO SCH (21:42)
[2019-02-19] MEDS: MIRTAZAPINE 15 MG TABLET PO SCH (21:42)
[2019-02-19] MEDS: ESCITALOPRAM OXALATE 10 MG TABLET PO SCH (21:43)
[2019-02-20] MEDS: INSULIN REG, HUMAN 100 UNIT/ML 3 ML VIAL (PYX) SUBCUT SCH ×4 (00:47→18:07)
[2019-02-20] MEDS: GABAPENTIN 300 MG CAPSULE PO SCH ×3 (06:08→21:57)
[2019-02-20] MEDS: AMINO ACIDS 5 %/DEXTROSE 20 % 1,000 ML IV PRN (07:00)
[2019-02-20 07:02] LABS: HEMATOCRIT 27.9 % (36.0-47.0); HEMOGLOBIN 9.2 g/dL (12.0-15.5); MEAN CORPUSCULAR HEMOGLOBIN 27.2 pg (27.0-33.4); MEAN CORPUSCULAR HGB CONC 32.8 g/dL (32.0-36.0); MEAN CORPUSCULAR VOLUME 83 fl (80-97); PLATELET COUNT 486 10^3/uL (150-450); RED BLOOD COUNT 3.37 10^6/uL (3.72-5.28); RED CELL DISTRIBUTION WIDTH 14.9 % (11.5-14.0); WHITE BLOOD COUNT 4.2 10^3/uL (4.0-10.5)
[2019-02-20 07:22] LABS: ALBUMIN 1.9 g/dL (3.5-5.0); ALKALINE PHOSPHATASE 79 U/L (38-126); ASPARTATE AMINO TRANSFERASE 30 U/L (14-36); BILIRUBIN,DIRECT 0.1 mg/dL (0.0-0.4); BILIRUBIN,TOTAL 0.1 mg/dL (0.2-1.3); BLOOD UREA NITROGEN 9 mg/dL (7-20); CALCIUM 7.9 mg/dL (8.4-10.2); CARBON DIOXIDE 20 mmol/L (22-30); CHLORIDE 119 mmol/L (98-107); GLUCOSE 81 mg/dL (75-110); PHOSPHORUS 3.3 mg/dL (2.5-4.5); POTASSIUM 3.6 mmol/L (3.6-5.0); TOTAL PROTEIN 3.9 g/dL (6.3-8.2)
[2019-02-20 07:30] LABS: ANION GAP 5 (5-19)
[2019-02-20] MEDS: SUCRALFATE 1 GM TABLET PO SCH ×4 (07:49→21:57)
[2019-02-20] MEDS: DOCUSATE SODIUM 100 MG CAPSULE PO SCH (10:36)
--- NOTE | 2019-02-20 13:23 | PDOC PROGRESS REPORT ---
Subjective Progress Note for:: 02/20/19 Subjective:: Comfortable Reason For Visit: ANEMIA,PRESUMED UPPER GI BLEED Physical Exam Vital Signs: Temp Pulse Resp BP Pulse Ox 97.7 F 74 16 90/63 L 100 02/20/19 08:00 02/20/19 08:00 02/20/19 08:00 02/20/19 08:00 02/20/19 08:00 Intake & Output 02/19/19 02/20/19 02/21/19 06:59 06:59 06:59 Intake Total 2600 840 1138 Balance 2600 840 1138 Weight 39.2 kg 38.7 kg Exam: Abdomen is soft and nontender Results Laboratory Results: 02/20/19 06:35 02/20/19 06:35 02/20/19 02/20/19 06:35 06:35 WBC 4.2 RBC 3.37 L Hgb 9.2 L Hct 27.9 L MCV 83 MCH 27.2 MCHC 32.8 RDW 14.9 H Plt Count 486 H Sodium 143.9 Potassium 3.6 Chloride 119 H Carbon Dioxide 20 L Anion Gap 5 BUN 9 Creatinine 0.43 L Est GFR ( Amer) > 60 Glucose 81 Calcium 7.9 L Phosphorus 3.3 Magnesium 2.0 Total Bilirubin 0.1 L AST 30 Alkaline Phosphatase 79 Total Protein 3.9 L Albumin 1.9 L 02/18/19 08:16 Troponin I < 0.012 Impressions: Chest X-Ray 02/18/19 07:45 IMPRESSION: NO ACUTE RADIOGRAPHIC FINDING IN THE CHEST. Central Venous Line 02/19/19 00:00 IMPRESSION: Successful placement of single-lumen tunneled/cuffed right internal jugular central venous catheter utilizing ultrasound fluoroscopic guidance as detailed above. Guidance Fluoroscopy 02/19/19 00:00 IMPRESSION: Successful placement of single-lumen tunneled/cuffed right internal jugular central venous catheter utilizing ultrasound fluoroscopic guidance as detailed above. Guidance Ultrasound 02/19/19 00:00 IMPRESSION: Successful placement of single-lumen tunneled/cuffed right internal jugular central venous catheter utilizing ultrasound fluoroscopic guidance as detailed above. Assessment & Plan - Diagnosis (1) Duodenal stricture Is this a current diagnosis for this admission?: Yes (2) History of stomach ulcers Is this a current diagnosis for this admission?: Yes (3) Anemia due to blood loss Is this a current diagnosis for this admission?: Yes (4) Malnutrition Qualifiers: Malnutrition type: protein-calorie malnutrition Protein-calorie malnutrit ion severity: unspecified severity Qualified Code(s): E46 - Unspecified protein-calorie malnutrition Is this a current diagnosis for this admission?: Yes - Time Time Spent with patient: 15-24 minutes - Inpatient Certification Medical Necessity: Significant Comorbidiites Make Outpatient Treatment Too Risky, Need for Surgery, Risk of Complication if Not Cared For in Hospital - Plan Summary Plan Summary: 63-year-old female noted to have gastritis and esophagitis with gastric outlet syndrome due to duodenal stricture. She is just started on TPN. Plans: Continue TPN and antiulcer regimen Will likely need surgery-antrectomy per when nutritional status improved with TPN hopefully in 7 to 10 days
--- NOTE | 2019-02-20 16:35 | PDOC PROGRESS REPORT ---
Subjective Progress Note for:: 02/20/19 Subjective:: RANDALL ELKINS is a 63 year old female with a past medical history significant for PUD, pyloric and duodenal strictures, recent ventral hernia repair, GERD, recurrent GI bleeding, depression, migraines, and remote alcohol abuse who was admitted 02/18/2019 for acute blood loss anemia secondary to GI bleeding. Patient was seen on afternoon rounds. She was found resting in bed, comfortably, on room air. Patient's only request is to advance to full liquid diet. She otherwise has no questions or concerns at this time. She denies fever, chills, chest pain, palpitations, dyspnea, orthopnea, abdominal pain, nausea vomiting and diarrhea. She is tolerating a clear liquid diet without difficulty. No concerns per nursing. Reason For Visit: ANEMIA,PRESUMED UPPER GI BLEED Physical Exam Vital Signs: Temp Pulse Resp BP Pulse Ox 98.2 F 73 16 101/69 100 02/20/19 12:06 02/20/19 12:06 02/20/19 12:06 02/20/19 12:06 02/20/19 12:06 Intake & Output 02/19/19 02/20/19 02/21/19 06:59 06:59 06:59 Intake Total 2600 840 1138 Balance 2600 840 1138 Weight 39.2 kg 38.7 kg General appearance: PRESENT: no acute distress, cooperative, thin, well- developed Head exam: PRESENT: atraumatic, normocephalic Eye exam: PRESENT: conjunctiva pink, EOMI, PERRLA. ABSENT: scleral icterus Ear exam: PRESENT: normal external ear exam Mouth exam: PRESENT: moist, tongue midline Respiratory exam: PRESENT: clear to auscultation edvin, symmetrical, unlabored. ABSENT: rales, rhonchi, wheezes Cardiovascular exam: PRESENT: RRR, +S1, +S2. ABSENT: diastolic murmur, rubs, systolic murmur Pulses: PRESENT: normal dorsalis pedis pul Vascular exam: PRESENT: normal capillary refill GI/Abdominal exam: PRESENT: normal bowel sounds, soft. ABSENT: distended, guarding, mass, organolmegaly, rebound, tenderness Rectal exam: PRESENT: deferred Extremities exam: PRESENT: full ROM. ABSENT: calf tenderness, clubbing, pedal edema Musculoskeletal exam: PRESENT: ambulatory Neurological exam: PRESENT: alert, awake, oriented to person, oriented to place, oriented to time, oriented to situation, CN II-XII grossly intact. ABSENT: motor sensory deficit Psychiatric exam: PRESENT: appropriate affect, normal mood. ABSENT: homicidal ideation, suicidal ideation Skin exam: PRESENT: dry, intact, warm. ABSENT: cyanosis, rash Results Laboratory Results: 02/20/19 06:35 02/20/19 06:35 02/20/19 02/20/19 06:35 06:35 WBC 4.2 RBC 3.37 L Hgb 9.2 L Hct 27.9 L MCV 83 MCH 27.2 MCHC 32.8 RDW 14.9 H Plt Count 486 H Sodium 143.9 Potassium 3.6 Chloride 119 H Carbon Dioxide 20 L Anion Gap 5 BUN 9 Creatinine 0.43 L Est GFR ( Amer) > 60 Glucose 81 Calcium 7.9 L Phosphorus 3.3 Magnesium 2.0 Total Bilirubin 0.1 L AST 30 Alkaline Phosphatase 79 Total Protein 3.9 L Albumin 1.9 L 02/18/19 08:16 Troponin I < 0.012 Impressions: Chest X-Ray 02/18/19 07:45 IMPRESSION: NO ACUTE RADIOGRAPHIC FINDING IN THE CHEST. Central Venous Line 02/19/19 00:00 IMPRESSION: Successful placement of single-lumen tunneled/cuffed right internal jugular central venous catheter utilizing ultrasound fluoroscopic guidance as detailed above. Guidance Fluoroscopy 02/19/19 00:00 IMPRESSION: Successful placement of single-lumen tunneled/cuffed right internal jugular central venous catheter utilizing ultrasound fluoroscopic guidance as detailed above. Guidance Ultrasound 02/19/19 00:00 IMPRESSION: Successful placement of single-lumen tunneled/cuffed right internal jugular central venous catheter utilizing ultrasound fluoroscopic guidance as detailed above. Assessment and Plan - Diagnosis (1) Anemia due to blood loss Is this a current diagnosis for this admission?: Yes Plan: Secondary to upper GI bleed. No further episodes of hematemesis. Status post 2 units PRBC. Hgb 7.2-> 11.2-> 9.6-> 9.2 Surgery is consulted for EGD; found esophagitis, superficial ulcer, duodenal strictures. Dr. Haskins recommending 7-10 days TPN followed by antrectomy. IV Protonix twice daily. Continue p.o. Carafate. Follow-up CBC. (2) Upper gastrointestinal bleeding Is this a current diagnosis for this admission?: Yes Plan: EGD by Dr. Donaldson revealed severe distal esophagitis with superficial ulceration, moderate to large hiatal hernia, and a severe duodenal stricture. Possible anterectomy by Dr. Haskins next week. Continue twice daily IV Protonix. Continue p.o. Carafate. (3) Coffee ground emesis Is this a current diagnosis for this admission?: Yes Plan: Secondary #2. Evaluation management as above. (4) Depression Qualifiers: Depression Type: unspecified Qualified Code(s): F32.9 - Major depressive disorder, single episode, unspecified Is this a current diagnosis for this admission?: Yes Plan: Continue home medication regiment of Lexapro and mirtazapine. (5) Malnutrition Qualifiers: Malnutrition type: protein-calorie malnutrition Protein-calorie malnutrition severity: unspecified severity Qualified Code(s): E46 - Unspecified protein-calorie malnutrition Is this a current diagnosis for this admission?: Yes Plan: TPN per surgery x7-10 days; Day #2 Advance to full liquid diet. Registered dietitian is consulted. Follow up chemistry, magnesium, and phosphorous. (6) Gastric outlet obstruction Is this a current diagnosis for this admission?: Yes Plan: Primary management per Surgery. 7-10 days of TPN followed by antrectomy. (7) Duodenal stricture Is this a current diagnosis for this admission?: Yes Plan: Primary management per Surgery. 7-10 days of TPN followed by antrectomy. - Time Time Spent with patient: 15-24 minutes Medications reviewed and adjusted accordingly: Yes Anticipated discharge: Home
[2019-02-20] MEDS: MORPHINE SULFATE 10 MG/ML INJ IV PRN ×2 (17:50→20:25)
[2019-02-20] MEDS: MIRTAZAPINE 15 MG TABLET PO SCH (21:57)
[2019-02-20] MEDS: ESCITALOPRAM OXALATE 10 MG TABLET PO SCH (21:58)
[2019-02-20] MEDS: MELATONIN 5 MG TABLET PO SCH (21:58)
[2019-02-21] MEDS: ACETAMINOPHEN 325 MG TABLET PO PRN ×2 (00:11→07:38)
[2019-02-21] MEDS: INSULIN REG, HUMAN 100 UNIT/ML 3 ML VIAL (PYX) SUBCUT SCH ×3 (01:30→13:02)
[2019-02-21 05:00] LABS: ALBUMIN 1.9 g/dL (3.5-5.0); ALKALINE PHOSPHATASE 75 U/L (38-126); ASPARTATE AMINO TRANSFERASE 33 U/L (14-36); BILIRUBIN,DIRECT 0.1 mg/dL (0.0-0.4); BILIRUBIN,TOTAL 0.1 mg/dL (0.2-1.3); BLOOD UREA NITROGEN 9 mg/dL (7-20); CALCIUM 8.2 mg/dL (8.4-10.2); CHLORIDE 118 mmol/L (98-107); GLUCOSE 76 mg/dL (75-110); POTASSIUM 3.8 mmol/L (3.6-5.0); TOTAL PROTEIN 4.1 g/dL (6.3-8.2)
[2019-02-21 05:05] LABS: ANION GAP 5 (5-19); CARBON DIOXIDE 21 mmol/L (22-30)
[2019-02-21] MEDS: GABAPENTIN 300 MG CAPSULE PO SCH ×3 (06:07→21:19)
[2019-02-21] MEDS: SUCRALFATE 1 GM TABLET PO SCH ×4 (07:38→21:19)
[2019-02-21] MEDS: FAT EMULSIONS 250 ML IV SCH (10:25)
[2019-02-21] MEDS: DOCUSATE SODIUM 100 MG CAPSULE PO SCH (10:25)
[2019-02-21] MEDS: MORPHINE SULFATE 10 MG/ML INJ IV PRN (10:25)
--- NOTE | 2019-02-21 11:18 | PDOC PROGRESS REPORT ---
Subjective Progress Note for:: 02/21/19 Subjective:: Hungry. No pains. Has BM Reason For Visit: ANEMIA,PRESUMED UPPER GI BLEED Physical Exam Vital Signs: Temp Pulse Resp BP Pulse Ox 97.8 F 63 18 102/62 99 02/21/19 08:00 02/21/19 08:00 02/21/19 08:00 02/21/19 08:00 02/21/19 08:00 Intake & Output 02/20/19 02/21/19 02/22/19 06:59 06:59 06:59 Intake Total 840 2929 Balance 840 2929 Weight 38.7 kg 38.8 kg General appearance: PRESENT: no acute distress, well-developed, well-nourished Exam: abdomen is soft and non tender Head exam: PRESENT: atraumatic, normocephalic Eye exam: PRESENT: conjunctiva pink, EOMI, PERRLA. ABSENT: scleral icterus Ear exam: PRESENT: normal external ear exam Mouth exam: PRESENT: moist, tongue midline Neck exam: ABSENT: carotid bruit, JVD, lymphadenopathy, thyromegaly Respiratory exam: PRESENT: clear to auscultation edvin. ABSENT: rales, rhonchi, wheezes Cardiovascular exam: PRESENT: RRR. ABSENT: diastolic murmur, rubs, systolic murmur Pulses: PRESENT: normal dorsalis pedis pul Vascular exam: PRESENT: normal capillary refill GI/Abdominal exam: PRESENT: normal bowel sounds, soft. ABSENT: distended, guarding, mass, organolmegaly, rebound, tenderness Rectal exam: PRESENT: deferred Extremities exam: PRESENT: full ROM. ABSENT: calf tenderness, clubbing, pedal edema Neurological exam: PRESENT: alert, awake, oriented to person, oriented to place, oriented to time, oriented to situation, CN II-XII grossly intact. ABSENT: motor sensory deficit Psychiatric exam: PRESENT: appropriate affect, normal mood. ABSENT: homicidal ideation, suicidal ideation Skin exam: PRESENT: dry, intact, warm. ABSENT: cyanosis, rash Results Laboratory Results: 02/20/19 06:35 02/21/19 04:11 02/21/19 04:11 Sodium 144.4 Potassium 3.8 Chloride 118 H Carbon Dioxide 21 L Anion Gap 5 BUN 9 Creatinine 0.44 L Est GFR ( Amer) > 60 Glucose 76 Calcium 8.2 L Total Bilirubin 0.1 L AST 33 Alkaline Phosphatase 75 Total Protein 4.1 L Albumin 1.9 L 02/18/19 08:16 Troponin I < 0.012 Impressions: Chest X-Ray 02/18/19 07:45 IMPRESSION: NO ACUTE RADIOGRAPHIC FINDING IN THE CHEST. Central Venous Line 02/19/19 00:00 IMPRESSION: Successful placement of single-lumen tunneled/cuffed right internal jugular central venous catheter utilizing ultrasound fluoroscopic guidance as detailed above. Guidance Fluoroscopy 02/19/19 00:00 IMPRESSION: Successful placement of single-lumen tunneled/cuffed right internal jugular central venous catheter utilizing ultrasound fluoroscopic guidance as detailed above. Guidance Ultrasound 02/19/19 00:00 IMPRESSION: Successful placement of single-lumen tunneled/cuffed right internal jugular central venous catheter utilizing ultrasound fluoroscopic guidance as detailed above. Assessment & Plan - Diagnosis (1) Duodenal stricture Is this a current diagnosis for this admission?: Yes (2) History of stomach ulcers Is this a current diagnosis for this admission?: Yes (3) Anemia due to blood loss Is this a current diagnosis for this admission?: Yes (4) Malnutrition Qualifiers: Malnutrition type: protein-calorie malnutrition Protein-calorie malnutrition severity: unspecified severity Qualified Code(s): E46 - Unspecified protein-calorie malnutrition Is this a current diagnosis for this admission?: Yes - Time Time Spent with patient: 15-24 minutes - Inpatient Certification Medical Necessity: Significant Comorbidiites Make Outpatient Treatment Too Risky - Plan Summary Plan Summary: 53-year-old female with duodenal stricture causing gastric outlet obstruction. Patient is malnourished to undergo any operation at this time and therefore been given TPN. She remained stable. I would continue with full liquid diet for now. Continue TPN for another week prior to definitive surgical intervention
[2019-02-21] MEDS: AMINO ACIDS 5 %/DEXTROSE 20 % 1,000 ML IV PRN (13:38)
[2019-02-21 14:35] LABS: HELICOBACTER PYLORI IGA AB <9.0 units (0.0-8.9); HELICOBACTER PYLORI IGG AB 0.25 (0.00-0.79)
[2019-02-21] MEDS ORDERED: BUTALB/ACETAMINOPHEN/CAFFEINE 1 TAB EACH PO PRN (14:49)
--- NOTE | 2019-02-21 16:59 | PDOC PROGRESS REPORT ---
Subjective Progress Note for:: 02/21/19 Subjective:: RANDALL ELKINS is a 63 year old female with a past medical history significant for PUD, pyloric and duodenal strictures, recent ventral hernia repair, GERD, recurrent GI bleeding, depression, migraines, and remote alcohol abuse who was admitted 02/18/2019 for acute blood loss anemia secondary to GI bleeding. Patient was seen on afternoon rounds. She was found resting in bed, comfortably, on room air. She again request to advance diet; advised to discuss this with surgery as I do not feel comfortable advancing diet further. She also reports a slight headache and requests migraine medications. She otherwise has no questions or concerns at this time. She denies fever, chills, chest pain, palpitations, dyspnea, orthopnea, abdominal pain, nausea vomiting and diarrhea. She is tolerating a full liquid diet without difficulty. No concerns per nursing. Reason For Visit: ANEMIA,PRESUMED UPPER GI BLEED Physical Exam Vital Signs: Temp Pulse Resp BP Pulse Ox 98.4 F 66 16 97/63 L 98 02/21/19 12:00 02/21/19 12:00 02/21/19 12:00 02/21/19 12:00 02/21/19 12:00 Intake & Output 02/20/19 02/21/19 02/22/19 06:59 06:59 06:59 Intake Total 840 2929 1016 Balance 840 2929 1016 Weight 38.7 kg 38.8 kg General appearance: PRESENT: no acute distress, cooperative, thin, well- developed Head exam: PRESENT: atraumatic, normocephalic Eye exam: PRESENT: conjunctiva pink, EOMI, PERRLA. ABSENT: scleral icterus Ear exam: PRESENT: normal external ear exam Mouth exam: PRESENT: moist, tongue midline Teeth exam: PRESENT: poor dentation Respiratory exam: PRESENT: clear to auscultation edvin, symmetrical, unlabored. ABSENT: rales, rhonchi, wheezes Cardiovascular exam: PRESENT: RRR, +S1, +S2. ABSENT: diastolic murmur, rubs, systolic murmur Pulses: PRESENT: normal dorsalis pedis pul Vascular exam: PRESENT: normal capillary refill GI/Abdominal exam: PRESENT: normal bowel sounds, soft. ABSENT: distended, guarding, mass, organolmegaly, rebound, tenderness Rectal exam: PRESENT: deferred Extremities exam: PRESENT: full ROM. ABSENT: calf tenderness, clubbing, pedal edema Musculoskeletal exam: PRESENT: ambulatory Neurological exam: PRESENT: alert, awake, oriented to person, oriented to place, oriented to time, oriented to situation, CN II-XII grossly intact. ABSENT: motor sensory deficit Psychiatric exam: PRESENT: appropriate affect, normal mood. ABSENT: homicidal ideation, suicidal ideation Skin exam: PRESENT: dry, intact, warm. ABSENT: cyanosis, rash Results Laboratory Results: 02/20/19 06:35 02/21/19 04:11 02/21/19 04:11 Sodium 144.4 Potassium 3.8 Chloride 118 H Carbon Dioxide 21 L Anion Gap 5 BUN 9 Creatinine 0.44 L Est GFR ( Amer) > 60 Glucose 76 Calcium 8.2 L Total Bilirubin 0.1 L AST 33 Alkaline Phosphatase 75 Total Protein 4.1 L Albumin 1.9 L 02/18/19 08:16 Troponin I < 0.012 Impressions: Chest X-Ray 02/18/19 07:45 IMPRESSION: NO ACUTE RADIOGRAPHIC FINDING IN THE CHEST. Central Venous Line 02/19/19 00:00 IMPRESSION: Successful placement of single-lumen tunneled/cuffed right internal jugular central venous catheter utilizing ultrasound fluoroscopic guidance as detailed above. Guidance Fluoroscopy 02/19/19 00:00 IMPRESSION: Successful placement of single-lumen tunneled/cuffed right internal jugular central venous catheter utilizing ultrasound fluoroscopic guidance as detailed above. Guidance Ultrasound 02/19/19 00:00 IMPRESSION: Successful placement of single-lumen tunneled/cuffed right internal jugular central venous catheter utilizing ultrasound fluoroscopic guidance as detailed above. Assessment and Plan - Diagnosis (1) Anemia due to blood loss Is this a current diagnosis for this admission?: Yes Plan: Secondary to upper GI bleed. No further episodes of hematemesis. Status post 2 units PRBC. Hgb 7.2-> 11.2-> 9.6-> 9.2 Surgery is consulted for EGD; found esophagitis, superficial ulcer, duodenal strictures. Dr. Haskins recommending 7-10 days TPN followed by antrectomy. IV Protonix twice daily. Continue p.o. Carafate. Follow-up CBC. (2) Upper gastrointestinal bleeding Is this a current diagnosis for this admission?: Yes Plan: EGD by Dr. Donaldson revealed severe distal esophagitis with superficial ulceration, moderate to large hiatal hernia, and a severe duodenal stricture. Possible anterectomy by Dr. Haskins next week. Continue twice daily IV Protonix. Continue p.o. Carafate. (3) Coffee ground emesis Is this a current diagnosis for this admission?: Yes Plan: Resolved. Secondary #2. Evaluation management as above. (4) Depression Qualifiers: Depression Type: unspecified Qualified Code(s): F32.9 - Major depressive disorder, single episode, unspecified Is this a current diagnosis for this admission?: Yes Plan: Continue home medication regiment of Lexapro and mirtazapine. (5) Malnutrition Qualifiers: Malnutrition type: protein-calorie malnutrition Protein-calorie malnutrition severity: unspecified severity Qualified Code(s): E46 - Unspecified protein-calorie malnutrition Is this a current diagnosis for this admission?: Yes Plan: TPN per surgery x7-10 days; Day #3 Advance to full liquid diet. Registered dietitian is consulted. Follow up chemistry, magnesium, and phosphorous. (6) Gastric outlet obstruction Is this a current diagnosis for this admission?: Yes Plan: Primary management per Surgery. 7-10 days of TPN followed by antrectomy. (7) Duodenal stricture Is this a current diagnosis for this admission?: Yes Plan: Primary management per Surgery. 7-10 days of TPN followed by antrectomy. (8) Headache Is this a current diagnosis for this admission?: Yes Plan: Tylenol or Fioricet as needed. Nonpharmacological interventions. - Time Time Spent with patient: Less than 15 minutes Medications reviewed and adjusted accordingly: Yes
[2019-02-21] MEDS: MELATONIN 5 MG TABLET PO SCH (21:18)
[2019-02-21] MEDS: ESCITALOPRAM OXALATE 10 MG TABLET PO SCH (21:19)
[2019-02-21] MEDS: MIRTAZAPINE 15 MG TABLET PO SCH (21:19)
[2019-02-22] MEDS: GABAPENTIN 300 MG CAPSULE PO SCH ×3 (06:26→21:37)
[2019-02-22 06:46] LABS: ALBUMIN 2.2 g/dL (3.5-5.0); ALKALINE PHOSPHATASE 80 U/L (38-126); ASPARTATE AMINO TRANSFERASE 38 U/L (14-36); BILIRUBIN,DIRECT 0.2 mg/dL (0.0-0.4); BILIRUBIN,TOTAL 0.2 mg/dL (0.2-1.3); BLOOD UREA NITROGEN 9 mg/dL (7-20); CALCIUM 8.5 mg/dL (8.4-10.2); GLUCOSE 99 mg/dL (75-110); POTASSIUM 3.6 mmol/L (3.6-5.0); TOTAL PROTEIN 4.5 g/dL (6.3-8.2)
[2019-02-22 06:51] LABS: CARBON DIOXIDE 23 mmol/L (22-30); CHLORIDE 116 mmol/L (98-107)
[2019-02-22 06:55] LABS: ANION GAP 5 (5-19)
--- NOTE | 2019-02-22 08:12 | PDOC PROGRESS REPORT ---
Subjective Progress Note for:: 02/22/19 Subjective:: feels better Reason For Visit: ANEMIA,PRESUMED UPPER GI BLEED Physical Exam Vital Signs: Temp Pulse Resp BP Pulse Ox 98.0 F 60 16 97/65 L 99 02/22/19 00:00 02/22/19 00:00 02/22/19 00:00 02/22/19 00:00 02/22/19 00:00 Intake & Output 02/21/19 02/22/19 02/23/19 06:59 06:59 06:59 Intake Total 2929 2740 Balance 2929 2740 Weight 38.8 kg 37.5 kg General appearance: PRESENT: no acute distress Head exam: PRESENT: normocephalic Eye exam: PRESENT: EOMI Ear exam: PRESENT: normal external ear exam Mouth exam: PRESENT: moist Neck exam: PRESENT: full ROM Respiratory exam: PRESENT: clear to auscultation edvin Cardiovascular exam: PRESENT: RRR Pulses: PRESENT: normal radial pulses, normal femoral pulses Breast: PRESENT: Normal GI/Abdominal exam: PRESENT: soft Rectal exam: PRESENT: deferred Extremities exam: PRESENT: full ROM Musculoskeletal exam: PRESENT: full ROM Neurological exam: PRESENT: alert, awake, oriented to person, oriented to place Psychiatric exam: PRESENT: appropriate affect Skin exam: PRESENT: dry Results Laboratory Results: 02/20/19 06:35 02/22/19 06:05 02/22/19 06:05 Sodium 143.6 Potassium 3.6 Chloride 116 H Carbon Dioxide 23 Anion Gap 5 BUN 9 Creatinine 0.40 L Est GFR ( Amer) > 60 Glucose 99 Calcium 8.5 Total Bilirubin 0.2 AST 38 H Alkaline Phosphatase 80 Total Protein 4.5 L Albumin 2.2 L 02/18/19 08:16 Troponin I < 0.012 Impressions: Chest X-Ray 02/18/19 07:45 IMPRESSION: NO ACUTE RADIOGRAPHIC FINDING IN THE CHEST. Central Venous Line 02/19/19 00:00 IMPRESSION: Successful placement of single-lumen tunneled/cuffed right internal jugular central venous catheter utilizing ultrasound fluoroscopic guidance as detailed above. Guidance Fluoroscopy 02/19/19 00:00 IMPRESSION: Successful placement of single-lumen tunneled/cuffed right internal jugular central venous catheter utilizing ultrasound fluoroscopic guidance as detailed above. Guidance Ultrasound 02/19/19 00:00 IMPRESSION: Successful placement of single-lumen tunneled/cuffed right internal jugular central venous catheter utilizing ultrasound fluoroscopic guidance as detailed above. Assessment & Plan - Time Time Spent with patient: 25-34 minutes - Plan Summary Plan Summary: doing kandy binu full liqluids on tpn plan is for vagotomy/antrectomy after 7-10 days of tpn will obtain records from [facility]. she was operated on last yr for "ulcer perforation "
[2019-02-22] MEDS: INSULIN REG, HUMAN 100 UNIT/ML 3 ML VIAL (PYX) SUBCUT SCH ×4 (09:05→19:15)
[2019-02-22] MEDS: DOCUSATE SODIUM 100 MG CAPSULE PO SCH (09:08)
[2019-02-22] MEDS: SUCRALFATE 1 GM TABLET PO SCH ×4 (09:08→21:37)
[2019-02-22] MEDS: AMINO ACIDS 5 %/DEXTROSE 20 % 1,000 ML IV PRN (10:56)
--- NOTE | 2019-02-22 17:14 | PDOC PROGRESS REPORT ---
Subjective Progress Note for:: 02/22/19 Subjective:: RANDALL ELKINS is a 63 year old female with a past medical history significant for PUD, pyloric and duodenal strictures, recent ventral hernia repair, GERD, recurrent GI bleeding, depression, migraines, and remote alcohol abuse who was admitted 02/18/2019 for acute blood loss anemia secondary to GI bleeding. Patient was seen on morning rounds. She was found sitting up to the recliner, comfortably, on room air. She reports resolution of headache w/ Fioricet, however, with significant increase in abdominal discomfort and reflux. She reports that nasal Imitrex has worked well for her in the past if that is available should she have another migraine headache. Otherwise, she reports that she is feeling well today. She denies fever, chills, chest pain, palpitations, dyspnea, orthopnea, abdominal pain, nausea vomiting and diarrhea. She is tolerating a full liquid diet without difficulty. She has no new questions or concerns at this time. No concerns per nursing. Reason For Visit: ANEMIA,PRESUMED UPPER GI BLEED Physical Exam Vital Signs: Temp Pulse Resp BP Pulse Ox 97.6 F 88 16 158/98 H 100 02/22/19 16:00 02/22/19 16:00 02/22/19 16:00 02/22/19 16:00 02/22/19 16:00 Intake & Output 02/21/19 02/22/19 02/23/19 06:59 06:59 06:59 Intake Total 2929 2740 380 Balance 2929 2740 380 Weight 38.8 kg 37.5 kg 37.5 kg General appearance: PRESENT: no acute distress, cooperative, thin, well-develop ed Head exam: PRESENT: atraumatic, normocephalic Eye exam: PRESENT: conjunctiva pink, EOMI, PERRLA. ABSENT: scleral icterus Ear exam: PRESENT: normal external ear exam Mouth exam: PRESENT: moist, tongue midline Teeth exam: PRESENT: poor dentation Respiratory exam: PRESENT: clear to auscultation edvin, symmetrical, unlabored. ABSENT: rales, rhonchi, wheezes Cardiovascular exam: PRESENT: RRR, +S1, +S2. ABSENT: diastolic murmur, rubs, systolic murmur Pulses: PRESENT: normal dorsalis pedis pul Vascular exam: PRESENT: normal capillary refill GI/Abdominal exam: PRESENT: normal bowel sounds, soft. ABSENT: distended, guarding, mass, organolmegaly, rebound, tenderness Rectal exam: PRESENT: deferred Extremities exam: PRESENT: full ROM. ABSENT: calf tenderness, clubbing, pedal edema Neurological exam: PRESENT: alert, awake, oriented to person, oriented to place, oriented to time, oriented to situation, CN II-XII grossly intact. ABSENT: motor sensory deficit Psychiatric exam: PRESENT: appropriate affect, normal mood. ABSENT: homicidal ideation, suicidal ideation Skin exam: PRESENT: dry, intact, warm. ABSENT: cyanosis, rash Results Laboratory Results: 02/20/19 06:35 02/22/19 06:05 02/22/19 06:05 Sodium 143.6 Potassium 3.6 Chloride 116 H Carbon Dioxide 23 Anion Gap 5 BUN 9 Creatinine 0.40 L Est GFR ( Amer) > 60 Glucose 99 Calcium 8.5 Total Bilirubin 0.2 AST 38 H Alkaline Phosphatase 80 Total Protein 4.5 L Albumin 2.2 L 02/18/19 08:16 Troponin I < 0.012 Impressions: Chest X-Ray 02/18/19 07:45 IMPRESSION: NO ACUTE RADIOGRAPHIC FINDING IN THE CHEST. Central Venous Line 02/19/19 00:00 IMPRESSION: Successful placement of single-lumen tunneled/cuffed right internal jugular central venous catheter utilizing ultrasound fluoroscopic guidance as detailed above. Guidance Fluoroscopy 02/19/19 00:00 IMPRESSION: Successful placement of single-lumen tunneled/cuffed right internal jugular central venous catheter utilizing ultrasound fluoroscopic guidance as detailed above. Guidance Ultrasound 02/19/19 00:00 IMPRESSION: Successful placement of single-lumen tunneled/cuffed right internal jugular central venous catheter utilizing ultrasound fluoroscopic guidance as detailed above. Assessment and Plan - Diagnosis (1) Anemia due to blood loss Is this a current diagnosis for this admission?: Yes Plan: Secondary to upper GI bleed. No further episodes of hematemesis. Status post 2 units PRBC. Hgb 7.2-> 11.2-> 9.6-> 9.2 Surgery is consulted for EGD; found esophagitis, superficial ulcer, duodenal strictures. Dr. Haskins recommending 7-10 days TPN followed by antrectomy. IV Protonix twice daily. Continue p.o. Carafate. Follow-up CBC. (2) Upper gastrointestinal bleeding Is this a current diagnosis for this admission?: Yes Plan: EGD by Dr. Donaldson revealed severe distal esophagitis with superficial ulceration, moderate to large hiatal hernia, and a severe duodenal stricture. Possible anterectomy by Dr. Haskins next week. Continue twice daily IV Protonix. Continue p.o. Carafate. (3) Coffee ground emesis Is this a current diagnosis for this admission?: Yes Plan: Resolved. Secondary #2. Evaluation management as above. (4) Depression Qualifiers: Depression Type: unspecified Qualified Code(s): F32.9 - Major depressive disorder, single episode, unspecified Is this a current diagnosis for this admission?: Yes Plan: Continue home medication regiment of Lexapro and mirtazapine. (5) Malnutrition Qualifiers: Malnutrition type: protein-calorie malnutrition Protein-calorie malnutrition severity: unspecified severity Qualified Code(s): E46 - Unspecified protein-calorie malnutrition Is this a current diagnosis for this admission?: Yes Plan: TPN per surgery x7-10 days; Day #4 Advance to pured diet per surgery. Registered dietitian is consulted. Follow up chemistry, magnesium, and phosphorous. (6) Gastric outlet obstruction Is this a current diagnosis for this admission?: Yes Plan: Primary management per Surgery. 7-10 days of TPN followed by antrectomy. Tentatively planned for Monday. (7) Duodenal stricture Is this a current diagnosis for this admission?: Yes Plan: Primary management per Surgery. 7-10 days of TPN followed by antrectomy. Tentatively planned for Monday. (8) Headache Is this a current diagnosis for this admission?: Yes Plan: Tylenol or Imitrex as needed. Nonpharmacological interventions. - Time Time Spent with patient: 15-24 minutes Medications reviewed and adjusted accordingly: Yes Anticipated discharge: Home
[2019-02-22] MEDS: ESCITALOPRAM OXALATE 10 MG TABLET PO SCH (21:37)
[2019-02-22] MEDS: MIRTAZAPINE 15 MG TABLET PO SCH (21:37)
[2019-02-22] MEDS: MELATONIN 5 MG TABLET PO SCH ×2 (21:38→22:49)
[2019-02-22] MEDS: DIPHENHYDRAMINE HCL 50 MG/ML VIAL IV PRN (21:38)
[2019-02-23] MEDS: INSULIN REG, HUMAN 100 UNIT/ML 3 ML VIAL (PYX) SUBCUT SCH ×4 (00:51→17:30)
[2019-02-23 05:43] LABS: HEMATOCRIT 28.9 % (36.0-47.0); HEMOGLOBIN 9.4 g/dL (12.0-15.5); MEAN CORPUSCULAR HEMOGLOBIN 27.2 pg (27.0-33.4); MEAN CORPUSCULAR HGB CONC 32.6 g/dL (32.0-36.0); MEAN CORPUSCULAR VOLUME 84 fl (80-97); PLATELET COUNT 479 10^3/uL (150-450); RED BLOOD COUNT 3.45 10^6/uL (3.72-5.28); RED CELL DISTRIBUTION WIDTH 15.8 % (11.5-14.0); WHITE BLOOD COUNT 4.8 10^3/uL (4.0-10.5)
[2019-02-23 06:08] LABS: ALBUMIN 2.2 g/dL (3.5-5.0); ALKALINE PHOSPHATASE 71 U/L (38-126); ANION GAP 5 (5-19); ASPARTATE AMINO TRANSFERASE 23 U/L (14-36); BILIRUBIN,DIRECT 0.1 mg/dL (0.0-0.4); BILIRUBIN,TOTAL 0.1 mg/dL (0.2-1.3); BLOOD UREA NITROGEN 12 mg/dL (7-20); CALCIUM 8.6 mg/dL (8.4-10.2); CARBON DIOXIDE 23 mmol/L (22-30); CHLORIDE 116 mmol/L (98-107); GLUCOSE 89 mg/dL (75-110); POTASSIUM 3.6 mmol/L (3.6-5.0); TOTAL PROTEIN 4.5 g/dL (6.3-8.2)
[2019-02-23] MEDS: GABAPENTIN 300 MG CAPSULE PO SCH ×3 (06:14→21:07)
[2019-02-23] MEDS: AMINO ACIDS 5 %/DEXTROSE 20 % 1,000 ML IV PRN (06:14)
--- NOTE | 2019-02-23 08:00 | PDOC PROGRESS REPORT ---
Subjective Progress Note for:: 02/23/19 Subjective:: no complaints binu some fulll lqiuids Reason For Visit: ANEMIA,PRESUMED UPPER GI BLEED Physical Exam Vital Signs: Temp Pulse Resp BP Pulse Ox 98.7 F 68 16 112/69 98 02/22/19 23:33 02/22/19 23:33 02/22/19 23:33 02/22/19 23:33 02/22/19 23:33 Intake & Output 02/22/19 02/23/19 02/24/19 06:59 06:59 06:59 Intake Total 2740 380 Balance 2740 380 Weight 37.5 kg 38.2 kg General appearance: PRESENT: no acute distress Head exam: PRESENT: normocephalic Eye exam: PRESENT: EOMI Mouth exam: PRESENT: moist Neck exam: PRESENT: full ROM Respiratory exam: PRESENT: clear to auscultation edvin Cardiovascular exam: PRESENT: RRR Pulses: PRESENT: normal radial pulses, normal femoral pulses Breast: PRESENT: Normal GI/Abdominal exam: PRESENT: soft Rectal exam: PRESENT: deferred Musculoskeletal exam: PRESENT: full ROM Neurological exam: PRESENT: alert, awake, oriented to person, oriented to place Skin exam: PRESENT: dry Results Laboratory Results: 02/23/19 05:17 02/23/19 05:17 02/23/19 02/23/19 05:17 05:17 WBC 4.8 RBC 3.45 L Hgb 9.4 L Hct 28.9 L MCV 84 MCH 27.2 MCHC 32.6 RDW 15.8 H Plt Count 479 H Sodium 144.0 Potassium 3.6 Chloride 116 H Carbon Dioxide 23 Anion Gap 5 BUN 12 Creatinine 0.45 L Est GFR ( Amer) > 60 Glucose 89 Calcium 8.6 Phosphorus 4.0 Magnesium 2.0 Total Bilirubin 0.1 L AST 23 Alkaline Phosphatase 71 Total Protein 4.5 L Albumin 2.2 L 02/18/19 08:16 Troponin I < 0.012 Impressions: Chest X-Ray 02/18/19 07:45 IMPRESSION: NO ACUTE RADIOGRAPHIC FINDING IN THE CHEST. Central Venous Line 02/19/19 00:00 IMPRESSION: Successful placement of single-lumen tunneled/cuffed right internal jugular central venous catheter utilizing ultrasound fluoroscopic guidance as detailed above. Guidance Fluoroscopy 02/19/19 00:00 IMPRESSION: Successful placement of single-lumen tunneled/cuffed right internal jugular central venous catheter utilizing ultrasound fluoroscopic guidance as detailed above. Guidance Ultrasound 02/19/19 00:00 IMPRESSION: Successful placement of single-lumen tunneled/cuffed right internal jugular central venous catheter utilizing ultrasound fluoroscopic guidance as detailed above. Assessment & Plan - Time Time Spent with patient: 35 or more minutes - Plan Summary Plan Summary: obstructing duodenal ulcer with gastric outlet obstruction malnutrition I recieved and reviewed op notes from [facility] yr pt has oversewing of bleeding distal gastric ulcer iwth wedge resection of ulcer. now with gastric outlet obstruction and chronic gerd gastritits current plan is for tpn for 7-10 days then exploratory laparotomy and antrectomy vs gastroenterostomy surgery is planned for next wed. pt informed.
[2019-02-23] MEDS: SUCRALFATE 1 GM TABLET PO SCH ×4 (08:14→21:07)
[2019-02-23] MEDS: DOCUSATE SODIUM 100 MG CAPSULE PO SCH (09:37)
[2019-02-23] MEDS ORDERED: BUSPIRONE HCL 10 MG TABLET PO ONE (14:00)
--- NOTE | 2019-02-23 19:05 | PDOC PROGRESS REPORT ---
Subjective Progress Note for:: 02/23/19 Subjective:: RANDALL ELKINS is a 63 year old female with a past medical history significant for PUD, pyloric and duodenal strictures, recent ventral hernia repair, GERD, recurrent GI bleeding, depression, migraines, and remote alcohol abuse who was admitted 02/18/2019 for acute blood loss anemia secondary to GI bleeding. Patient was seen on morning rounds. She was found lying in bed comfortably, comfortably, on room air. She requests sleeping medications and something for anxiety Otherwise, she reports that she is feeling well today and has no new questions or concerns. She denies fever, chills, chest pain, palpitations, dyspnea, orthopnea, abdominal pain, nausea vomiting and diarrhea. She is tolerating a full liquid diet without difficulty. No concerns per nursing. Reason For Visit: ANEMIA,PRESUMED UPPER GI BLEED Physical Exam Vital Signs: Temp Pulse Resp BP Pulse Ox 98 F 90 18 114/88 H 95 02/23/19 16:00 02/23/19 16:00 02/23/19 16:00 02/23/19 16:00 02/23/19 16:00 Intake & Output 02/22/19 02/23/19 02/24/19 06:59 06:59 06:59 Intake Total 2740 380 Balance 2740 380 Weight 37.5 kg 38.2 kg General appearance: PRESENT: no acute distress, cooperative, thin, well- developed Head exam: PRESENT: atraumatic, normocephalic Eye exam: PRESENT: conjunctiva pink, EOMI, PERRLA. ABSENT: scleral icterus Ear exam: PRESENT: normal external ear exam Mouth exam: PRESENT: moist, tongue midline Teeth exam: PRESENT: poor dentation Respiratory exam: PRESENT: clear to auscultation edvin, symmetrical, unlabored. ABSENT: rales, rhonchi, wheezes Cardiovascular exam: PRESENT: RRR, +S1, +S2. ABSENT: diastolic murmur, rubs, systolic murmur Vascular exam: PRESENT: normal capillary refill GI/Abdominal exam: PRESENT: normal bowel sounds, soft. ABSENT: distended, guarding, mass, organolmegaly, rebound, tenderness Rectal exam: PRESENT: deferred Extremities exam: PRESENT: full ROM. ABSENT: calf tenderness, clubbing, pedal edema Musculoskeletal exam: PRESENT: ambulatory Neurological exam: PRESENT: alert, awake, oriented to person, oriented to place, oriented to time, oriented to situation, CN II-XII grossly intact. ABSENT: motor sensory deficit Psychiatric exam: PRESENT: appropriate affect, normal mood. ABSENT: homicidal ideation, suicidal ideation Skin exam: PRESENT: dry, intact, warm. ABSENT: cyanosis, rash Results Laboratory Results: 02/23/19 05:17 02/23/19 05:17 02/23/19 02/23/19 05:17 05:17 WBC 4.8 RBC 3.45 L Hgb 9.4 L Hct 28.9 L MCV 84 MCH 27.2 MCHC 32.6 RDW 15.8 H Plt Count 479 H Sodium 144.0 Potassium 3.6 Chloride 116 H Carbon Dioxide 23 Anion Gap 5 BUN 12 Creatinine 0.45 L Est GFR ( Amer) > 60 Glucose 89 Calcium 8.6 Phosphorus 4.0 Magnesium 2.0 Total Bilirubin 0.1 L AST 23 Alkaline Phosphatase 71 Total Protein 4.5 L Albumin 2.2 L 02/18/19 08:16 Troponin I < 0.012 Impressions: Chest X-Ray 02/18/19 07:45 IMPRESSION: NO ACUTE RADIOGRAPHIC FINDING IN THE CHEST. Central Venous Line 02/19/19 00:00 IMPRESSION: Successful placement of single-lumen tunneled/cuffed right internal jugular central venous catheter utilizing ultrasound fluoroscopic guidance as detailed above. Guidance Fluoroscopy 02/19/19 00:00 IMPRESSION: Successful placement of single-lumen tunneled/cuffed right internal jugular central venous catheter utilizing ultrasound fluoroscopic guidance as detailed above. Guidance Ultrasound 02/19/19 00:00 IMPRESSION: Successful placement of single-lumen tunneled/cuffed right internal jugular central venous catheter utilizing ultrasound fluoroscopic guidance as detailed above. Assessment and Plan - Diagnosis (1) Anemia due to blood loss Is this a current diagnosis for this admission?: Yes Plan: Secondary to upper GI bleed. No further episodes of hematemesis. Status post 2 units PRBC. Hgb 7.2-> 11.2-> 9.6-> 9.2 Surgery is consulted for EGD; found esophagitis, superficial ulcer, duodenal strictures. Dr. Haskins recommending 7-10 days TPN followed by antrectomy. IV Protonix twice daily. Continue p.o. Carafate. Follow-up CBC. (2) Upper gastrointestinal bleeding Is this a current diagnosis for this admission?: Yes Plan: EGD by Dr. Donaldson revealed severe distal esophagitis with superficial ulceration, moderate to large hiatal hernia, and a severe duodenal stricture. Possible anterectomy by Dr. Haskins next week. Continue twice daily IV Protonix. Continue p.o. Carafate. (3) Coffee ground emesis Is this a current diagnosis for this admission?: Yes Plan: Resolved. Secondary #2. Evaluation management as above. (4) Depression Qualifiers: Depression Type: unspecified Qualified Code(s): F32.9 - Major depressive disorder, single episode, unspecified Is this a current diagnosis for this admission?: Yes Plan: Continue home medication regiment of Lexapro and mirtazapine. (5) Malnutrition Qualifiers: Malnutrition type: protein-calorie malnutrition Protein-calorie malnutrition severity: unspecified severity Qualified Code(s): E46 - Unspecified protein-calorie malnutrition Is this a current diagnosis for this admission?: Yes Plan: TPN per surgery x7-10 days; Day #4 Advance to pured diet per surgery. Registered dietitian is consulted. Follow up chemistry, magnesium, and phosphorous. (6) Gastric outlet obstruction Is this a current diagnosis for this admission?: Yes Plan: Primary management per Surgery. 7-10 days of TPN followed by antrectomy. Tentatively planned for Monday (7) Duodenal stricture Is this a current diagnosis for this admission?: Yes Plan: Primary management per Surgery. 7-10 days of TPN followed by antrectomy. Tentatively planned for Monday (8) Headache Is this a current diagnosis for this admission?: Yes Plan: Tylenol or Imitrex as needed. Nonpharmacological interventions. (9) Difficulty sleeping Is this a current diagnosis for this admission?: Yes Plan: [facility] (10) Anxiety Is this a current diagnosis for this admission?: Yes Plan: BuSpar twice daily - Time Time Spent with patient: 15-24 minutes Medications reviewed and adjusted accordingly: Yes
[2019-02-23] MEDS: ZOLPIDEM TARTRATE 5 MG TABLET PO SCH (21:06)
[2019-02-23] MEDS: ESCITALOPRAM OXALATE 10 MG TABLET PO SCH (21:06)
[2019-02-23] MEDS: MIRTAZAPINE 15 MG TABLET PO SCH (21:07)
[2019-02-23] MEDS: BUSPIRONE HCL 10 MG TABLET PO SCH (21:07)
[2019-02-24] MEDS: INSULIN REG, HUMAN 100 UNIT/ML 3 ML VIAL (PYX) SUBCUT SCH ×4 (01:02→18:05)
[2019-02-24] MEDS: AMINO ACIDS 5 %/DEXTROSE 20 % 1,000 ML IV PRN ×2 (03:13→22:31)
[2019-02-24 05:02] LABS: BLOOD UREA NITROGEN 12 mg/dL (7-20); CALCIUM 8.6 mg/dL (8.4-10.2); CARBON DIOXIDE 23 mmol/L (22-30); CHLORIDE 115 mmol/L (98-107); GLUCOSE 102 mg/dL (75-110); POTASSIUM 3.5 mmol/L (3.6-5.0)
[2019-02-24 05:10] LABS: ANION GAP 4 (5-19)
[2019-02-24] MEDS: GABAPENTIN 300 MG CAPSULE PO SCH ×3 (06:05→21:14)
[2019-02-24] MEDS: BUSPIRONE HCL 10 MG TABLET PO SCH ×2 (09:12→21:14)
[2019-02-24] MEDS: DOCUSATE SODIUM 100 MG CAPSULE PO SCH (09:12)
[2019-02-24] MEDS: SUCRALFATE 1 GM TABLET PO SCH ×4 (09:12→21:15)
--- NOTE | 2019-02-24 10:34 | Progress Note ---
Provider Note Provider Note: pts hct remains stable binu po full liquids plan is for surgery on Monday cont tpn.
[2019-02-24] MEDS: HYDROXYZINE PAMOATE 25 MG CAPSULE PO PRN (14:45)
--- NOTE | 2019-02-24 17:17 | PDOC PROGRESS REPORT ---
Subjective Progress Note for:: 02/24/19 Subjective:: RANDALL ELKINS is a 63 year old female with a past medical history significant for PUD, pyloric and duodenal strictures, recent ventral hernia repair, GERD, recurrent GI bleeding, depression, migraines, and remote alcohol abuse who was admitted 02/18/2019 for acute blood loss anemia secondary to GI bleeding. Patient was seen on morning rounds. She was found lying in bed comfortably, comfortably, on room air. She reports that she is feeling well today and has no new questions or concerns. She denies fever, chills, chest pain, palpitations, dyspnea, orthopnea, abdominal pain, nausea vomiting and diarrhea. She is tolerating a full liquid diet without difficulty. No concerns per nursing. Reason For Visit: ANEMIA,PRESUMED UPPER GI BLEED Physical Exam Vital Signs: Temp Pulse Resp BP Pulse Ox 99.0 F 84 16 102/58 L 99 02/24/19 12:05 02/24/19 12:05 02/24/19 12:05 02/24/19 12:05 02/24/19 12:05 Intake & Output 02/23/19 02/24/19 02/25/19 06:59 06:59 06:59 Intake Total 380 500 240 Balance 380 500 240 Weight 38.2 kg 38.5 kg General appearance: PRESENT: no acute distress, cooperative, thin, well- developed Head exam: PRESENT: atraumatic, normocephalic Eye exam: PRESENT: conjunctiva pink, EOMI, PERRLA. ABSENT: scleral icterus Ear exam: PRESENT: normal external ear exam Mouth exam: PRESENT: moist, tongue midline Teeth exam: PRESENT: poor dentation Respiratory exam: PRESENT: clear to auscultation edvin, symmetrical, unlabored. ABSENT: rales, rhonchi, wheezes Cardiovascular exam: PRESENT: RRR, +S1, +S2. ABSENT: diastolic murmur, rubs, systolic murmur Pulses: PRESENT: normal dorsalis pedis pul Vascular exam: PRESENT: normal capillary refill GI/Abdominal exam: PRESENT: normal bowel sounds, soft. ABSENT: distended, guarding, mass, organolmegaly, rebound, tenderness Rectal exam: PRESENT: deferred Extremities exam: PRESENT: full ROM. ABSENT: calf tenderness, clubbing, pedal edema Musculoskeletal exam: PRESENT: ambulatory Neurological exam: PRESENT: alert, awake, oriented to person, oriented to place, oriented to time, oriented to situation, CN II-XII grossly intact. ABSENT: motor sensory deficit Psychiatric exam: PRESENT: appropriate affect, normal mood. ABSENT: homicidal ideation, suicidal ideation Skin exam: PRESENT: dry, intact, warm. ABSENT: cyanosis, rash Results Laboratory Results: 02/23/19 05:17 02/24/19 04:24 02/24/19 04:24 Sodium 142.4 Potassium 3.5 L Chloride 115 H Carbon Dioxide 23 Anion Gap 4 L BUN 12 Creatinine 0.40 L Est GFR ( Amer) > 60 Glucose 102 Calcium 8.6 02/18/19 08:16 Troponin I < 0.012 Impressions: Chest X-Ray 02/18/19 07:45 IMPRESSION: NO ACUTE RADIOGRAPHIC FINDING IN THE CHEST. Central Venous Line 02/19/19 00:00 IMPRESSION: Successful placement of single-lumen tunneled/cuffed right internal jugular central venous catheter utilizing ultrasound fluoroscopic guidance as detailed above. Guidance Fluoroscopy 02/19/19 00:00 IMPRESSION: Successful placement of single-lumen tunneled/cuffed right internal jugular central venous catheter utilizing ultrasound fluoroscopic guidance as detailed above. Guidance Ultrasound 02/19/19 00:00 IMPRESSION: Successful placement of single-lumen tunneled/cuffed right internal jugular central venous catheter utilizing ultrasound fluoroscopic guidance as detailed above. Assessment and Plan - Diagnosis (1) Anemia due to blood loss Is this a current diagnosis for this admission?: Yes Plan: Secondary to upper GI bleed. No further episodes of hematemesis. Status post 2 units PRBC. Hgb 7.2-> 11.2-> 9.6-> 9.2 Surgery is consulted for EGD; found esophagitis, superficial ulcer, duodenal strictures. Dr. Haskins recommending 7-10 days TPN followed by antrectomy. IV Protonix twice daily. Continue p.o. Carafate. Follow-up CBC. (2) Upper gastrointestinal bleeding Is this a current diagnosis for this admission?: Yes Plan: EGD by Dr. Donaldson revealed severe distal esophagitis with superficial ulceration, moderate to large hiatal hernia, and a severe duodenal stricture. Possible anterectomy by Dr. Haskins next week. Continue twice daily IV Protonix. Continue p.o. Carafate. (3) Coffee ground emesis Is this a current diagnosis for this admission?: Yes Plan: Resolved. Secondary #2. Evaluation management as above. (4) Depression Qualifiers: Depression Type: unspecified Qualified Code(s): F32.9 - Major depressive disorder, single episode, unspecified Is this a current diagnosis for this admission?: Yes Plan: Continue home medication regiment of Lexapro and mirtazapine. (5) Malnutrition Qualifiers: Malnutrition type: protein-calorie malnutrition Protein-calorie malnutrition severity: unspecified severity Qualified Code(s): E46 - Unspecified protein-calorie malnutrition Is this a current diagnosis for this admission?: Yes Plan: TPN per surgery x7-10 days; Day #5 Advance to pured diet per surgery. Registered dietitian is consulted. Follow up chemistry, magnesium, and phosphorous. (6) Gastric outlet obstruction Is this a current diagnosis for this admission?: Yes Plan: Primary management per Surgery. 7-10 days of TPN followed by antrectomy. Tentatively planned for Monday (7) Duodenal stricture Is this a current diagnosis for this admission?: Yes Plan: Primary management per Surgery. 7-10 days of TPN followed by antrectomy. Tentatively planned for Monday (8) Headache Is this a current diagnosis for this admission?: Yes Plan: Tylenol or Imitrex as needed. Nonpharmacological interventions. (9) Difficulty sleeping Is this a current diagnosis for this admission?: Yes Plan: [facility] [place] (10) Anxiety Is this a current diagnosis for this admission?: Yes Plan: BuSpar twice daily p.o. Vistaril prn - Time Time Spent with patient: Less than 15 minutes Medications reviewed and adjusted accordingly: Yes
[2019-02-24] MEDS: ACETAMINOPHEN 325 MG TABLET PO PRN (20:35)
[2019-02-24] MEDS: ZOLPIDEM TARTRATE 5 MG TABLET PO SCH (21:13)
[2019-02-24] MEDS: MIRTAZAPINE 15 MG TABLET PO SCH (21:14)
[2019-02-24] MEDS: ESCITALOPRAM OXALATE 10 MG TABLET PO SCH (21:15)
[2019-02-25] MEDS: INSULIN REG, HUMAN 100 UNIT/ML 3 ML VIAL (PYX) SUBCUT SCH ×4 (00:16→18:22)
[2019-02-25] MEDS: ACETAMINOPHEN 325 MG TABLET PO PRN ×3 (04:51→19:59)
[2019-02-25] MEDS: GABAPENTIN 300 MG CAPSULE PO SCH ×3 (05:27→21:22)
[2019-02-25 08:22] LABS: HEMATOCRIT 31.5 % (36.0-47.0); HEMOGLOBIN 10.4 g/dL (12.0-15.5); MEAN CORPUSCULAR HEMOGLOBIN 27.3 pg (27.0-33.4); MEAN CORPUSCULAR HGB CONC 33.1 g/dL (32.0-36.0); MEAN CORPUSCULAR VOLUME 82 fl (80-97); PLATELET COUNT 535 10^3/uL (150-450); RED BLOOD COUNT 3.82 10^6/uL (3.72-5.28); RED CELL DISTRIBUTION WIDTH 15.5 % (11.5-14.0); WHITE BLOOD COUNT 6.2 10^3/uL (4.0-10.5)
[2019-02-25 08:42] LABS: ALBUMIN 2.6 g/dL (3.5-5.0); ALKALINE PHOSPHATASE 69 U/L (38-126); ASPARTATE AMINO TRANSFERASE 36 U/L (14-36); BILIRUBIN,DIRECT 0.1 mg/dL (0.0-0.4); BILIRUBIN,TOTAL 0.1 mg/dL (0.2-1.3); BLOOD UREA NITROGEN 13 mg/dL (7-20); GLUCOSE 82 mg/dL (75-110); PHOSPHORUS 3.8 mg/dL (2.5-4.5); POTASSIUM 4.2 mmol/L (3.6-5.0)
[2019-02-25 08:47] LABS: CARBON DIOXIDE 28 mmol/L (22-30); CHLORIDE 112 mmol/L (98-107)
[2019-02-25] MEDS: SUCRALFATE 1 GM TABLET PO SCH ×4 (08:59→21:22)
[2019-02-25] MEDS: BUSPIRONE HCL 10 MG TABLET PO SCH ×2 (09:00→21:23)
[2019-02-25] MEDS: DOCUSATE SODIUM 100 MG CAPSULE PO SCH (09:00)
[2019-02-25 09:01] LABS: ANION GAP 3 (5-19)
[2019-02-25] MEDS: HYDROXYZINE PAMOATE 25 MG CAPSULE PO PRN ×3 (10:07→22:14)
[2019-02-25] MEDS: SUMATRIPTAN 20 MG NASAL SPRAY UD NASL PRN (10:08)
[2019-02-25] MEDS ORDERED: ONDANSETRON HCL INJ/PF 4 MG/2 ML SDV IV PRN (13:00)
--- NOTE | 2019-02-25 14:40 | PDOC PROGRESS REPORT ---
Subjective Progress Note for:: 02/25/19 Subjective:: RANDALL ELKINS is a 63 year old female with a past medical history significant for PUD, pyloric and duodenal strictures, recent ventral hernia repair, GERD, recurrent GI bleeding, depression, migraines, and remote alcohol abuse who was admitted 02/18/2019 for acute blood loss anemia secondary to GI bleeding. Patient was seen on morning rounds. She was found lying in bed comfortably, comfortably, on room air. Some anxiety yesterday; improved with BuSpar and Vistaril. She reports that she is feeling well today and has no new questions or concerns. She denies fever, chills, chest pain, palpitations, dyspnea, orthopnea, abdominal pain, nausea vomiting and diarrhea. She is tolerating a full liquid diet without difficulty. No concerns per nursing. Reason For Visit: ANEMIA,PRESUMED UPPER GI BLEED Physical Exam Vital Signs: Temp Pulse Resp BP Pulse Ox 98.0 F 84 16 103/60 99 02/25/19 12:00 02/25/19 12:00 02/25/19 12:00 02/25/19 12:00 02/25/19 12:00 Intake & Output 02/24/19 02/25/19 02/26/19 06:59 06:59 06:59 Intake Total 500 920 Balance 500 920 Weight 38.5 kg 38.3 kg General appearance: PRESENT: no acute distress, cooperative, thin, well- developed Head exam: PRESENT: atraumatic, normocephalic Eye exam: PRESENT: conjunctiva pink, EOMI, PERRLA. ABSENT: scleral icterus Ear exam: PRESENT: normal external ear exam Mouth exam: PRESENT: moist, tongue midline Respiratory exam: PRESENT: clear to auscultation edvin, symmetrical, unlabored. ABSENT: rales, rhonchi, wheezes Cardiovascular exam: PRESENT: RRR. ABSENT: diastolic murmur, rubs, systolic murmur Extremities exam: PRESENT: full ROM. ABSENT: calf tenderness, clubbing, pedal edema Musculoskeletal exam: PRESENT: ambulatory Neurological exam: PRESENT: alert, awake, oriented to person, oriented to place, oriented to time, oriented to situation, CN II-XII grossly intact. ABSENT: motor sensory deficit Psychiatric exam: PRESENT: appropriate affect, normal mood. ABSENT: homicidal ideation, suicidal ideation Skin exam: PRESENT: dry, intact, warm. ABSENT: cyanosis, rash Results Laboratory Results: 02/25/19 08:02 02/25/19 08:02 02/25/19 02/25/19 08:02 08:02 WBC 6.2 RBC 3.82 Hgb 10.4 L Hct 31.5 L MCV 82 MCH 27.3 MCHC 33.1 RDW 15.5 H Plt Count 535 H Sodium 142.5 Potassium 4.2 Chloride 112 H Carbon Dioxide 28 Anion Gap 3 L BUN 13 Creatinine 0.43 L Est GFR ( Amer) > 60 Glucose 82 Calcium 9.0 Phosphorus 3.8 Magnesium 2.1 Total Bilirubin 0.1 L AST 36 Alkaline Phosphatase 69 Total Protein 5.0 L Albumin 2.6 L 02/18/19 08:16 Troponin I < 0.012 Impressions: Chest X-Ray 02/18/19 07:45 IMPRESSION: NO ACUTE RADIOGRAPHIC FINDING IN THE CHEST. Central Venous Line 02/19/19 00:00 IMPRESSION: Successful placement of single-lumen tunneled/cuffed right internal jugular central venous catheter utilizing ultrasound fluoroscopic guidance as detailed above. Guidance Fluoroscopy 02/19/19 00:00 IMPRESSION: Successful placement of single-lumen tunneled/cuffed right internal jugular central venous catheter utilizing ultrasound fluoroscopic guidance as detailed above. Guidance Ultrasound 02/19/19 00:00 IMPRESSION: Successful placement of single-lumen tunneled/cuffed right internal jugular central venous catheter utilizing ultrasound fluoroscopic guidance as detailed above. Assessment and Plan - Diagnosis (1) Anemia due to blood loss Is this a current diagnosis for this admission?: Yes Plan: Secondary to upper GI bleed. No further episodes of hematemesis. Status post 2 units PRBC. Hgb 7.2-> 11.2-> 9.6-> 9.2-> 10.4 Surgery is consulted for EGD; found esophagitis, superficial ulcer, duodenal strictures. Dr. Haskins recommending 7-10 days TPN followed by antrectomy. IV Protonix twice daily. Continue p.o. Carafate. Follow-up CBC. (2) Upper gastrointestinal bleeding Is this a current diagnosis for this admission?: Yes Plan: EGD by Dr. Donaldson revealed severe distal esophagitis with superficial ulceration, moderate to large hiatal hernia, and a severe duodenal stricture. Possible anterectomy by Dr. Haskins next week. Continue twice daily IV Protonix. Continue p.o. Carafate. (3) Coffee ground emesis Is this a current diagnosis for this admission?: Yes Plan: Resolved. Secondary #2. Evaluation management as above. (4) Depression Qualifiers: Depression Type: unspecified Qualified Code(s): F32.9 - Major depressive disorder, single episode, unspecified Is this a current diagnosis for this admission?: Yes Plan: Continue home medication regiment of Lexapro and mirtazapine. (5) Malnutrition Qualifiers: Malnutrition type: protein-calorie malnutrition Protein-calorie malnutrition severity: unspecified severity Qualified Code(s): E46 - Unspecified protein-calorie malnutrition Is this a current diagnosis for this admission?: Yes Plan: TPN per surgery x7-10 days; Day #6 Advance to pured diet per surgery. Registered dietitian is consulted. Follow up chemistry, magnesium, and phosphorous. (6) Gastric outlet obstruction Is this a current diagnosis for this admission?: Yes Plan: Primary management per Surgery. 7-10 days of TPN followed by antrectomy. Tentatively planned for Monday (7) Duodenal stricture Is this a current diagnosis for this admission?: Yes Plan: Primary management per Surgery. 7-10 days of TPN followed by antrectomy. Tentatively planned for Monday (8) Headache Is this a current diagnosis for this admission?: Yes Plan: Tylenol or Imitrex as needed. Nonpharmacological interventions. (9) Difficulty sleeping Is this a current diagnosis for this admission?: Yes Plan: [facility] (10) Anxiety Is this a current diagnosis for this admission?: Yes Plan: BuSpar twice daily p.o. Vistaril prn - Time Time Spent with patient: 15-24 minutes Medications reviewed and adjusted accordingly: Yes
[2019-02-25] MEDS: FAT EMULSIONS 250 ML IV SCH (16:36)
[2019-02-25] MEDS: AMINO ACIDS 5 %/DEXTROSE 20 % 1,000 ML IV PRN (19:27)
[2019-02-25] MEDS: ZOLPIDEM TARTRATE 5 MG TABLET PO SCH (21:22)
[2019-02-25] MEDS: ESCITALOPRAM OXALATE 10 MG TABLET PO SCH (21:22)
[2019-02-25] MEDS: MIRTAZAPINE 15 MG TABLET PO SCH (21:22)
[2019-02-25] MEDS: NORMAL SALINE 1000 ML 1,000 ML IV PRN (22:14)
[2019-02-26] MEDS: INSULIN REG, HUMAN 100 UNIT/ML 3 ML VIAL (PYX) SUBCUT SCH ×4 (00:07→18:11)
[2019-02-26 05:38] LABS: ALBUMIN 2.4 g/dL (3.5-5.0); ALKALINE PHOSPHATASE 68 U/L (38-126); ANION GAP 5 (5-19); ASPARTATE AMINO TRANSFERASE 47 U/L (14-36); BILIRUBIN,DIRECT 0.1 mg/dL (0.0-0.4); BILIRUBIN,TOTAL 0.1 mg/dL (0.2-1.3); BLOOD UREA NITROGEN 16 mg/dL (7-20); CALCIUM 8.8 mg/dL (8.4-10.2); CARBON DIOXIDE 26 mmol/L (22-30); CHLORIDE 112 mmol/L (98-107); GLUCOSE 75 mg/dL (75-110); PHOSPHORUS 4.3 mg/dL (2.5-4.5); POTASSIUM 3.8 mmol/L (3.6-5.0); TOTAL PROTEIN 4.9 g/dL (6.3-8.2)
[2019-02-26 05:45] LABS: PREALBUMIN 27.5 mg/dL (17.6-36.0)
[2019-02-26] MEDS: GABAPENTIN 300 MG CAPSULE PO SCH ×3 (06:03→21:17)
[2019-02-26] MEDS: ACETAMINOPHEN 325 MG TABLET PO PRN (06:33)
[2019-02-26] MEDS: HYDROXYZINE PAMOATE 25 MG CAPSULE PO PRN ×2 (06:33→12:24)
[2019-02-26] MEDS ORDERED: GLUCAGON,HUMAN RECOMB 1 MG INJ SUBCUT PRN (07:31)
[2019-02-26] MEDS ORDERED: DEXTROSE 50%-WATER 25 GM/50 ML DISP.SYRIN IV PRN ×2 (07:31)
[2019-02-26] MEDS ORDERED: DEXTROSE 40% GEL 15 GM TUBE PO PRN ×2 (07:31)
[2019-02-26] MEDS: SUCRALFATE 1 GM TABLET PO SCH ×4 (08:27→21:17)
--- NOTE | 2019-02-26 08:36 | PDOC PROGRESS REPORT ---
Subjective Progress Note for:: 02/26/19 Subjective:: This morning patient feels well she has no complaints no fever no chills no sweats no abdominal pain no diarrhea no shortness of breath. Reason For Visit: ANEMIA,PRESUMED UPPER GI BLEED History of upper GI bleed with gastric outlet obstruction status post previous bleeding duodenal ulcer. Physical Exam Vital Signs: Temp Pulse Resp BP Pulse Ox 98.1 F 72 16 102/57 L 99 02/26/19 00:00 02/26/19 00:00 02/26/19 00:00 02/26/19 00:00 02/26/19 00:00 Intake & Output 02/25/19 02/26/19 02/27/19 06:59 06:59 06:59 Intake Total 920 876 Output Total 4 Balance 920 872 Weight 38.3 kg 38.8 kg General appearance: PRESENT: no acute distress Head exam: PRESENT: normocephalic Eye exam: PRESENT: EOMI Ear exam: PRESENT: normal external ear exam Mouth exam: PRESENT: moist Neck exam: PRESENT: full ROM Respiratory exam: PRESENT: clear to auscultation edvin Cardiovascular exam: PRESENT: RRR Pulses: PRESENT: normal radial pulses, normal femoral pulses Vascular exam: PRESENT: normal capillary refill GI/Abdominal exam: PRESENT: soft Rectal exam: PRESENT: deferred Extremities exam: PRESENT: full ROM Musculoskeletal exam: PRESENT: full ROM Neurological exam: PRESENT: alert, awake, oriented to person, oriented to place Psychiatric exam: PRESENT: appropriate affect Skin exam: PRESENT: dry Results Laboratory Results: 02/25/19 08:02 02/26/19 04:28 02/25/19 02/25/19 02/26/19 08:02 19:16 04:28 Sodium 142.5 142.7 Potassium 4.2 3.8 Chloride 112 H 112 H Carbon Dioxide 28 26 Anion Gap 3 L 5 BUN 13 16 Creatinine 0.43 L 0.43 L Est GFR ( Amer) > 60 > 60 Glucose 82 75 Calcium 9.0 8.8 Phosphorus 3.8 4.3 Magnesium 2.1 Total Bilirubin 0.1 L 0.1 L AST 36 47 H Alkaline Phosphatase 69 68 Total Protein 5.0 L 4.9 L Albumin 2.6 L 2.4 L Prealbumin 27.5 Triglycerides 811 H 02/18/19 08:16 Troponin I < 0.012 Impressions: Chest X-Ray 02/18/19 07:45 IMPRESSION: NO ACUTE RADIOGRAPHIC FINDING IN THE CHEST. Central Venous Line 02/19/19 00:00 IMPRESSION: Successful placement of single-lumen tunneled/cuffed right internal jugular central venous catheter utilizing ultrasound fluoroscopic guidance as detailed above. Guidance Fluoroscopy 02/19/19 00:00 IMPRESSION: Successful placement of single-lumen tunneled/cuffed right internal jugular central venous catheter utilizing ultrasound fluoroscopic guidance as detailed above. Guidance Ultrasound 02/19/19 00:00 IMPRESSION: Successful placement of single-lumen tunneled/cuffed right internal jugular central venous catheter utilizing ultrasound fluoroscopic guidance as detailed above. Assessment & Plan - Time Time Spent with patient: 25-34 minutes - Plan Summary Plan Summary: Impression duodenal stricture history of gastric ulcer bleed status post wedge wedge biopsy of gastric ulcer 1 year ago Now with recurrent GI bleed duodenal stricture and distal gastritis. Patient has been the hospital now for 8 days on IV TPN to improve her nutritional status she had a work-up including H. pylori serology which have been negative as well as serum gastrin levels which have been within normal limits. She is also status post a large ventral hernia repair approximately 3 months ago with a component separation. A fascial support, [place] bio A was utilized during her ventral hernia repair. Plan patient will be taken to the operating room in the morning for a upper endoscopy to reevaluate her distal stomach and duodenum then if the stricture is present and persistent a exploratory laparotomy is planned with a antrectomy vagotomy versus a gastroenterostomy depending on internal scarring and adhesions. I explained the risks and benefits of the procedure to the patient on a number of occasions which include bleeding infection pulmonary embolism stroke myocar dial infarction and . Specifically operation she understands the possibility of dumping syndrome after surgery as well as leak after surgery which could result in intra-abdominal abscess formation need for additional surgery and possible . Also she understands the possibility of recurrent ventral hernia formation due to the repeat laparotomy and fascial weakness. These risks and benefits of been discussed with her she understands and agrees to proceed.
[2019-02-26] MEDS: BUSPIRONE HCL 10 MG TABLET PO SCH ×2 (09:31→21:17)
[2019-02-26] MEDS: DOCUSATE SODIUM 100 MG CAPSULE PO SCH (09:31)
[2019-02-26] MEDS: NORMAL SALINE 1000 ML 1,000 ML IV PRN (11:27)
[2019-02-26] MEDS: LORAZEPAM 0.5 MG TABLET PO PRN ×2 (13:58→20:10)
[2019-02-26] MEDS: AMINO ACIDS 5 %/DEXTROSE 20 % 1,000 ML IV PRN (15:50)
[2019-02-26] MEDS: SUMATRIPTAN 20 MG NASAL SPRAY UD NASL PRN (15:50)
--- NOTE | 2019-02-26 17:11 | PDOC PROGRESS REPORT ---
Subjective Progress Note for:: 02/26/19 Reason For Visit: ANEMIA,PRESUMED UPPER GI BLEED 02/26/2019 Admitted 8 days ago for acute blood loss anemia secondary to GI bleeding Physical Exam Vital Signs: Temp Pulse Resp BP Pulse Ox 98.4 F 84 16 103/65 99 02/26/19 16:00 02/26/19 16:00 02/26/19 16:00 02/26/19 16:00 02/26/19 16:00 Intake & Output 02/25/19 02/26/19 02/27/19 06:59 06:59 06:59 Intake Total 240 348 6742 Output Total 4 Balance 724 749 9251 Weight 38.3 kg 38.8 kg General appearance: PRESENT: no acute distress, other - Sitting up in bed very anxious complaining of anxiety Respiratory exam: PRESENT: clear to auscultation edvin. ABSENT: rales, rhonchi, wheezes Cardiovascular exam: PRESENT: RRR. ABSENT: diastolic murmur, rubs, systolic murmur Neurological exam: PRESENT: alert, awake, oriented to person, oriented to place, oriented to time, oriented to situation, CN II-XII grossly intact. ABSENT: motor sensory deficit Psychiatric exam: PRESENT: appropriate affect, normal mood. ABSENT: homicidal ideation, suicidal ideation Results Laboratory Results: 02/25/19 08:02 02/26/19 04:28 02/25/19 02/26/19 19:16 04:28 Sodium 142.7 Potassium 3.8 Chloride 112 H Carbon Dioxide 26 Anion Gap 5 BUN 16 Creatinine 0.43 L Est GFR ( Amer) > 60 Glucose 75 Calcium 8.8 Phosphorus 4.3 Total Bilirubin 0.1 L AST 47 H Alkaline Phosphatase 68 Total Protein 4.9 L Albumin 2.4 L Prealbumin 27.5 Triglycerides 811 H 02/18/19 08:16 Troponin I < 0.012 Impressions: Chest X-Ray 02/18/19 07:45 IMPRESSION: NO ACUTE RADIOGRAPHIC FINDING IN THE CHEST. Central Venous Line 02/19/19 00:00 IMPRESSION: Successful placement of single-lumen tunneled/cuffed right internal jugular central venous catheter utilizing ultrasound fluoroscopic guidance as detailed above. Guidance Fluoroscopy 02/19/19 00:00 IMPRESSION: Successful placement of single-lumen tunneled/cuffed right internal jugular central venous catheter utilizing ultrasound fluoroscopic guidance as detailed above. Guidance Ultrasound 02/19/19 00:00 IMPRESSION: Successful placement of single-lumen tunneled/cuffed right internal jugular central venous catheter utilizing ultrasound fluoroscopic guidance as detailed above. Assessment and Plan - Diagnosis (1) Anemia Qualifiers: Anemia type: other cause Other causes of anemia: other cause, not classified Qualified Code(s): D64.89 - Other specified anemias Is this a current diagnosis for this admission?: Yes (2) Anxiety Is this a current diagnosis for this admission?: Yes (3) Duodenal stricture Is this a current diagnosis for this admission?: Yes (4) Gastric outlet obstruction Is this a current diagnosis for this admission?: Yes (5) Abdominal pain Qualifiers: Abdominal location: generalized Qualified Code(s): R10.84 - Generalized abdominal pain Is this a current diagnosis for this admission?: Yes (6) Anemia due to blood loss Is this a current diagnosis for this admission?: Yes (7) Duodenal stricture Is this a current diagnosis for this admission?: Yes (8) GERD (gastroesophageal reflux disease) Qualifiers: Esophagitis presence: without esophagitis Qualified Code(s): K21.9 - Gastro-esophageal reflux disease without esophagitis Is this a current diagnosis for this admission?: Yes (9) Upper gastrointestinal bleeding Is this a current diagnosis for this admission?: Yes (10) Ventral incisional hernia Is this a current diagnosis for this admission?: Yes - Plan Summary Summary: 02/26/2019 Appreciate surgery's detailed note Patient states that she is anxious because 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 So she is anxious about her upcoming surgery tomorrow. Patient's vital signs are stable she is afebrile blood pressure 118/79 O2 sat 99% on room air pulse is 75 and regular Labs appear stable her hemoglobin yesterday was 10.4 hematocrit 31.5 Electrolytes this morning are grossly normal We will repeat a fasting lipid panel in the morning also repeat CBC and coags in the morning We will give patient just a very few anxiolytics today prior to surgery or morning. - Time Time Spent with patient: 25-34 minutes
[2019-02-26] MEDS: ESCITALOPRAM OXALATE 10 MG TABLET PO SCH (21:17)
[2019-02-26] MEDS: MIRTAZAPINE 15 MG TABLET PO SCH (21:17)
[2019-02-26] MEDS: ZOLPIDEM TARTRATE 5 MG TABLET PO SCH (21:18)
[2019-02-27] MEDS: INSULIN REG, HUMAN 100 UNIT/ML 3 ML VIAL (PYX) SUBCUT SCH ×4 (00:34→17:35)
[2019-02-27] MEDS: NORMAL SALINE 1000 ML 1,000 ML IV PRN ×2 (03:25→16:34)
[2019-02-27 04:20] LABS: ABSOLUTE BASOPHILS # (AUTO) 0.1 10^3/uL (0.0-0.2); ABSOLUTE EOSINOPHILS # (AUTO) 0.4 10^3/uL (0.0-0.6); ABSOLUTE LYMPHOCYTES (AUTO) 1.5 10^3/uL (0.5-4.7); ABSOLUTE MONOCYTES (AUTO) 0.6 10^3/uL (0.1-1.4); ABSOLUTE NEUT (AUTO) 2.6 10^3/uL (1.7-8.2); BASOPHILS % (AUTO) 1.4 % (0-2); EOSINOPHILS % (AUTO) 7.4 % (0-6); HEMATOCRIT 29.1 % (36.0-47.0); HEMOGLOBIN 9.5 g/dL (12.0-15.5); LYMPHOCYTES % (AUTO) 28.9 % (13-45); MEAN CORPUSCULAR HEMOGLOBIN 27.1 pg (27.0-33.4); MEAN CORPUSCULAR HGB CONC 32.8 g/dL (32.0-36.0); MEAN CORPUSCULAR VOLUME 83 fl (80-97); MONOCYTES % (AUTO) 11.4 % (3-13); PLATELET COUNT 469 10^3/uL (150-450); RED BLOOD COUNT 3.51 10^6/uL (3.72-5.28); RED CELL DISTRIBUTION WIDTH 15.3 % (11.5-14.0); SEGMENTED NEUTROPHILS % (AUTO) 50.9 % (42-78); TOTAL CELLS COUNTED % (AUTO) 100 %
[2019-02-27 04:31] LABS: INTERNATIONAL RATION (INR) 0.95; PROTHROMBIN TIME 12.7 SEC (11.4-15.4)
[2019-02-27 04:32] LABS: PARTIAL THROMBOPLASTIN TIME 31.2 SEC (23.5-35.8)
[2019-02-27 04:44] LABS: BLOOD UREA NITROGEN 15 mg/dL (7-20); CALCIUM 8.9 mg/dL (8.4-10.2); CHOLESTEROL 200.92 mg/dL (0-200); GLUCOSE 92 mg/dL (75-110); PHOSPHORUS 4.7 mg/dL (2.5-4.5); POTASSIUM 3.9 mmol/L (3.6-5.0); TRIGLYCERIDES 202 mg/dL (<150)
[2019-02-27 04:49] LABS: CARBON DIOXIDE 25 mmol/L (22-30); CHLORIDE 114 mmol/L (98-107)
[2019-02-27 04:52] LABS: ANION GAP 2 (5-19); VLDL CHOLESTEROL 40.4 mg/dL (10-31)
[2019-02-27 04:54] LABS: DIRECT LDL 142 mg/dL (<100); PREALBUMIN 25.1 mg/dL (17.6-36.0)
[2019-02-27] MEDS: GABAPENTIN 300 MG CAPSULE PO SCH (05:34)
[2019-02-27] MEDS: LORAZEPAM 0.5 MG TABLET PO PRN (06:12)
[2019-02-27] MEDS ORDERED: MIDAZOLAM 2 MG/2 ML INJ ONE (06:44)
[2019-02-27] MEDS ORDERED: PROPOFOL INJ 200 MG/20 ML VIAL IV ONE (06:44)
[2019-02-27] MEDS ORDERED: FENTANYL CITRATE INJ/PF 250 MCG/5 ML AMPULE ONE (06:44)
[2019-02-27] MEDS ORDERED: BUPIVACAINE INJ/PF LIPOSOME/PF 266 MG/20 ML SDV ONE (07:16)
[2019-02-27] MEDS ORDERED: CEFAZOLIN INJ 1 GM VIAL ONE (07:28)
[2019-02-27] MEDS ORDERED: METRONIDAZOLE 500 MG/NS RTU 500 MG/100 ML RTUPB IV ONE (07:28)
[2019-02-27] MEDS: SUCRALFATE 1 GM TABLET PO SCH ×2 (07:47→11:37)
[2019-02-27] MEDS ORDERED: EPHEDRINE SULFATE INJ 50 MG/1 ML AMPULE ONE (08:35)
[2019-02-27] MEDS: BUSPIRONE HCL 10 MG TABLET PO SCH (09:35)
[2019-02-27] MEDS: DOCUSATE SODIUM 100 MG CAPSULE PO SCH (09:35)
[2019-02-27] MEDS ORDERED: DIPHENHYDRAMINE HCL 50 MG/ML VIAL IV PRN (09:45)
[2019-02-27] MEDS ORDERED: MORPHINE SULFATE 10 MG/ML INJ IV PRN (09:45)
[2019-02-27] MEDS ORDERED: FENTANYL CITRATE INJ/PF 100 MCG/2 ML AMPUL IV PRN ×3 (09:45)
[2019-02-27] MEDS ORDERED: PROMETHAZINE HCL INJ 25 MG/1 ML VIAL IV PRN ×2 (09:45)
[2019-02-27] MEDS ORDERED: MEPERIDINE HCL/PF INJ 25 MG/1 ML DISP.SYRIN IV PRN (09:45)
[2019-02-27] MEDS ORDERED: HYDROMORPHONE HCL INJ/PF 2 MG/ML AMPULE ONE (11:23)
--- NOTE | 2019-02-27 11:49 | Operative Report ---
Nonrecallable Operative Report DATE OF SURGERY: 02/27/19 PREOPERATIVE DIAGNOSIS: Duodenal ulcer with gastric outlet obstruction recurrent POSTOPERATIVE DIAGNOSIS: Posterior penetrating duodenal ulcer with gastric outlet obstruction OPERATION: Esophagogastroduodenoscopy exploratory laparotomy with vagotomy antrectomy with Trini-en-Y reconstruction SURGEON: EMILY MIKE ANESTHESIA: GA TISSUE REMOVED OR ALTERED: Vagus nerves and antrum COMPLICATIONS: None ESTIMATED BLOOD LOSS: 100 cc INTRAOPERATIVE FINDINGS: See dictation PROCEDURE: Patient was brought to the operating room awake alert stable condition placed in the operative table supine position induced under general anesthesia intubated. After appropriate timeout site verification the procedure commenced. Gastroscope was placed into the posterior pharynx and the proximal esophagus we traversed the proximal esophagus down into the stomach and evaluated the gastric body antrum and that appeared to be normal however upon reaching the prepyloric area we noted some oozing of blood from the pylorus was able to traverse the pylorus and then came up, upon a fairly tight stricture in the duodenal bulb which the scope was unable to be passed through. This corresponded to the previous upper endoscopy approximately 2 weeks ago and for this reason we elected to proceed with the antrectomy portion of this procedure. The abdomen was prepped and draped in usual sterile fashion a midline incision was used from the xiphoid to the umbilicus and dissection was carried down through subtenons tissue with Bovie cautery the midline fascia was opened there was a previously placed piece of bio a mesh that was opened with the Bovie c autery and then underneath that we were able to sweep away most of the anterior small bowel adhesions. There was some dissection that was required to gain access to the abdominal cavity with sharp and blunt dissection mobilizing the small bowel eventually able to eviscerate the small bowel and then run it from the terminal ileum to the ligament of Treitz multiple intraloop adhesions were taken down with sharp dissection. With variable to do this we identified the liver left lobe of the liver and mobilize it from the anterior abdominal fascia with sharp dissection then as we lifted the left lobe of the liver we mobilized away from the stomach. Once we able do that we were able to gain access to the anterior portion of the stomach as well as the anterior portion of the duodenum we placed the Bookwalter retractor. I was then able to identify the duodenum and mobilized it using a Koker maneuver. Once a once I was able to do that I mobilized the greater curvature the stomach with the LigaSure device and then came across the distal stomach proximal to the angularis with 3 firings of the Endo SALVADOR stapler with a blue load dividing the stomach. We then continued our mobilization towards the right and identified the duodenum and found the posterior portion of the duodenum had eroded an ulcer onto the anterior surface of the pancreas. I was able to mobilize some of the posterior wall of the duodenum but it was fixed tightly if to that anterior pancreas. There was really a significant portion of the posterior wall that had been destroyed because of the ulcer. The anterior wall of the duodenum however was fairly intact and I was able to so that onto the head of the pancreas with multiple sutures of 2-0 silk performing a Lashae maneuver closing the duodenal stump. Once this was done we identified the right slip of the diaphragmatic roxy mobilized the esophagus away from that encircled the distal esophagus with a Deng drain and placed on traction identified the posterior and anterior vagus nerves and divided those both between hemoclips and sent to pathology. Once some vagotomy was accomplished we then began the reconstruction. Identified the ligament of Treitz picked a point distal to the ligament of Treitz about 40 cm where I divided the small bowel with the Endo SALVADOR stapler. Divided the mesentery with LigaSure device I brought the Trini limb up through a defect in the transverse mesocolon and approximated to the gastric body and anastomosis was then accomplished in 2 layers the outer layer being 2-0 silk in running inner layer 3-0 Vicryl. We then connected the Y portion the biliary portion to the alimentary limb using an Endo SALVADOR stapler to create a [id number] anastomosis and then closed and lucio with one firing of the Endo SALVADOR stapler closed mesenteric defect with interrupted 3 oh silks. I also closed the transverse colonic mesenteric defect. This will prevent a Choudhury type hernia. With this was accomplished we turned attention to the small bowel distal to the jejunojejunostomy where I placed a 2 oh pursestring chromic suture made a small enterotomy used a feeding tube placed through the abdominal wall into the small bowel and fixed in place with that 2-0 chromic suture and then imbricated the small bowel serosa over the tube for about 2 cm in a Witzel type maneuver. That feeding tube was brought out through the anterior abdominal wall on the right side I placed a Nam-Mckenna drain on on top of the duodenal stump and brought it out through a stab wound in the left side of the abdominal wall We then copiously irrigated the abdominal cavity normal saline suctioned dry hemostasis was intact we closed the midline fascia with interrupted #2 Vicryl sutures. The skin was then closed with standard skin clips. Sterile dressing was applied. Estimated blood loss was 100 cc. Sponge needle counts were correct x2 at the termination of the procedure she was then transferred recovery in stable condition
[2019-02-27] MEDS ORDERED: ONDANSETRON HCL INJ/PF 4 MG/2 ML SDV ONE ×2 (12:29→12:37)
[2019-02-27] MEDS ORDERED: GLYCOPYRROLATE 1 MG/5 ML VIAL ONE (12:37)
[2019-02-27] MEDS ORDERED: NEOSTIGMINE METHYLSULFATE 10 MG/10 ML VIAL ONE (12:37)
[2019-02-27] MEDS ORDERED: ROCURONIUM BROMIDE INJ 50 MG/5 ML VIAL IV ONE (12:37)
[2019-02-27 13:06] LABS: HEMATOCRIT 33.3 % (36.0-47.0); HEMOGLOBIN 10.5 g/dL (12.0-15.5); MEAN CORPUSCULAR HEMOGLOBIN 26.4 pg (27.0-33.4); MEAN CORPUSCULAR HGB CONC 31.6 g/dL (32.0-36.0); MEAN CORPUSCULAR VOLUME 84 fl (80-97); PLATELET COUNT 575 10^3/uL (150-450); RED BLOOD COUNT 3.99 10^6/uL (3.72-5.28); RED CELL DISTRIBUTION WIDTH 15.6 % (11.5-14.0)
[2019-02-27] MEDS: AMINO ACIDS 5 %/DEXTROSE 20 % 1,000 ML IV PRN (13:06)
[2019-02-27 13:07] LABS: WHITE BLOOD COUNT 14.5 10^3/uL (4.0-10.5)
[2019-02-27 13:24] LABS: ABSOLUTE LYMPHOCYTES# (MANUAL) 1.2 10^3/uL (0.5-4.7); ABSOLUTE MONOCYTES # (MANUAL) 0.9 10^3/uL (0.1-1.4); ANISOCYTOSIS SLIGHT; BAND NEUTROPHILS % (MANUAL) 1 % (3-5); BASOPHILS % (MANUAL) 0 % (0-2); EOSINOPHILS % (MANUAL) 0 % (0-6); LYMPHOCYTES % (MANUAL) 8 % (13-45); MONOCYTES % (MANUAL) 6 % (3-13); OVALOCYTES SLIGHT; PLATELET COMMENT INCREASED; POIKILOCYTOSIS SLIGHT; SEGMENTED NEUTROPHILS % (MAN) 85 % (42-78); TEAR DROP CELLS SLIGHT; TOTAL CELLS COUNTED 100
[2019-02-27 13:30] LABS: BLOOD UREA NITROGEN 15 mg/dL (7-20); GLUCOSE 112 mg/dL (75-110)
[2019-02-27] MEDS: HYDROMORPHONE HCL INJ/PF 2 MG/ML AMPULE IV SCH ×3 (13:32→21:58)
[2019-02-27 13:35] LABS: CARBON DIOXIDE 19 mmol/L (22-30); CHLORIDE 120 mmol/L (98-107)
[2019-02-27 13:45] LABS: POTASSIUM 4.9 mmol/L (3.6-5.0)
[2019-02-27 13:46] LABS: ANION GAP 3 (5-19)
--- NOTE | 2019-02-27 15:07 | PDOC PROGRESS REPORT ---
Subjective Progress Note for:: 02/27/19 Reason For Visit: ANEMIA,PRESUMED UPPER GI BLEED 02/27/2019 Patient admitted on February 18 for hematemesis, with severe distal esophagitis and severe duodenal stricture. Patient had TPN for several days and today underwent surgery by Dr. Rainey Physical Exam Vital Signs: Temp Pulse Resp BP Pulse Ox 98.3 F 99 16 89/61 L 92 02/27/19 13:30 02/27/19 13:30 02/27/19 13:30 02/27/19 13:30 02/27/19 13:30 Intake & Output 02/26/19 02/27/19 02/28/19 06:59 06:59 06:59 Intake Total 876 2466 2800 Output Total 4 Balance 872 2466 2800 Weight 38.8 kg 39.2 kg General appearance: PRESENT: no acute distress, well-developed, well-nourished, other - Patient sleeping postop Respiratory exam: PRESENT: clear to auscultation edvin. ABSENT: rales, rhonchi, wheezes Cardiovascular exam: PRESENT: RRR. ABSENT: diastolic murmur, rubs, systolic murmur Neurological exam: PRESENT: altered, other - Patient sleeping secondary to surgery or anesthesia Psychiatric exam: PRESENT: other Results Laboratory Results: 02/27/19 12:53 02/27/19 12:53 02/27/19 02/27/19 02/27/19 00:35 04:09 04:09 WBC 5.0 RBC 3.51 L Hgb 9.5 L Hct 29.1 L MCV 83 MCH 27.1 MCHC 32.8 RDW 15.3 H Plt Count 469 H Seg Neutrophils % 50.9 Sodium 141.2 Potassium 3.9 Chloride 114 H Carbon Dioxide 25 Anion Gap 2 L BUN 15 Creatinine 0.43 L Est GFR ( Amer) > 60 Glucose 92 Calcium 8.9 Phosphorus 4.7 H Prealbumin 25.1 Triglycerides 202 H Cholesterol 200.92 H LDL Cholesterol Direct 142 H VLDL Cholesterol 40.4 H HDL Cholesterol 38 L Blood Type A POSITIVE Antibody Screen NEGATIVE 02/27/19 02/27/19 12:53 12:53 WBC 14.5 H D RBC 3.99 Hgb 10.5 L Hct 33.3 L MCV 84 MCH 26.4 L MCHC 31.6 L RDW 15.6 H Plt Count 575 H Seg Neutrophils % Not Reportable Sodium 141.9 Potassium 4.9 D Chloride 120 H Carbon Dioxide 19 L Anion Gap 3 L BUN 15 Creatinine 0.38 L Est GFR ( Amer) > 60 Glucose 112 H Calcium 8.0 L Phosphorus Prealbumin Triglycerides Cholesterol LDL Cholesterol Direct VLDL Cholesterol HDL Cholesterol Blood Type Antibody Screen 02/18/19 08:16 Troponin I < 0.012 Impressions: Chest X-Ray 02/18/19 07:45 IMPRESSION: NO ACUTE RADIOGRAPHIC FINDING IN THE CHEST. Central Venous Line 02/19/19 00:00 IMPRESSION: Successful placement of single-lumen tunneled/cuffed right internal jugular central venous catheter utilizing ultrasound fluoroscopic guidance as detailed above. Guidance Fluoroscopy 02/19/19 00:00 IMPRESSION: Successful placement of single-lumen tunneled/cuffed right internal jugular central venous catheter utilizing ultrasound fluoroscopic guidance as detailed above. Guidance Ultrasound 02/19/19 00:00 IMPRESSION: Successful placement of single-lumen tunneled/cuffed right internal jugular central venous catheter utilizing ultrasound fluoroscopic guidance as detailed above. Assessment and Plan - Diagnosis (1) Anemia Qualifiers: Anemia type: other cause Other causes of anemia: other cause, not classified Qualified Code(s): D64.89 - Other specified anemias Is this a current diagnosis for this admission?: Yes (2) Anxiety Is this a current diagnosis for this admission?: Yes (3) Duodenal stricture Is this a current diagnosis for this admission?: Yes (4) Gastric outlet obstruction Is this a current diagnosis for this admission?: Yes (5) Abdominal pain Qualifiers: Abdominal location: generalized Qualified Code(s): R10.84 - Generalized abdominal pain Is this a current diagnosis for this admission?: Yes (6) Anemia due to blood loss Is this a current diagnosis for this admission?: Yes (7) Duodenal stricture Is this a current diagnosis for this admission?: Yes (8) GERD (gastroesophageal reflux disease) Qualifiers: Esophagitis presence: without esophagitis Qualified Code(s): K21.9 - Gastro-esophageal reflux disease without esophagitis Is this a current diagnosis for this admission?: Yes (9) Upper gastrointestinal bleeding Is this a current diagnosis for this admission?: Yes (10) Ventral incisional hernia Is this a current diagnosis for this admission?: Yes - Plan Summary Summary: 02/26/2019 Appreciate surgery's detailed note Patient states that she is anxious because 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 So she is anxious about her upcoming surgery tomorrow. Patient's vital signs are stable she is afebrile blood pressure 118/79 O2 sat 99% on room air pulse is 75 and regular Labs appear stable her hemoglobin yesterday was 10.4 hematocrit 31.5 Electrolytes this morning are grossly normal We will repeat a fasting lipid panel in the morning also repeat CBC and coags in the morning We will give patient just a very few anxiolytics today prior to surgery or morning. 02/27/2019 Patient has undergone surgery today for posterior penetrating duodenal ulcer with gastric outlet obstruction. We will not interfere with patient's postoperative care, however will be available for assistance if requested. Please reconsult us if needed. - Time Time Spent with patient: Less than 15 minutes
[2019-02-27] MEDS: MIRTAZAPINE 15 MG TABLET PO SCH (21:59)
[2019-02-28] MEDS: HYDROMORPHONE HCL INJ/PF 2 MG/ML AMPULE IV SCH ×6 (02:44→22:36)
[2019-02-28] MEDS: NORMAL SALINE 1000 ML 1,000 ML IV PRN ×2 (03:21→14:47)
[2019-02-28] MEDS: INSULIN REG, HUMAN 100 UNIT/ML 3 ML VIAL (PYX) SUBCUT SCH ×4 (04:15→19:01)
[2019-02-28 07:12] LABS: ALKALINE PHOSPHATASE 51 U/L (38-126); ASPARTATE AMINO TRANSFERASE 277 U/L (14-36); BILIRUBIN,DIRECT 0.2 mg/dL (0.0-0.4); BILIRUBIN,TOTAL 0.2 mg/dL (0.2-1.3); BLOOD UREA NITROGEN 16 mg/dL (7-20); CALCIUM 8.1 mg/dL (8.4-10.2); GLUCOSE 124 mg/dL (75-110); PHOSPHORUS 3.2 mg/dL (2.5-4.5); POTASSIUM 4.4 mmol/L (3.6-5.0); TOTAL PROTEIN 4.1 g/dL (6.3-8.2)
[2019-02-28 07:17] LABS: CARBON DIOXIDE 24 mmol/L (22-30); CHLORIDE 113 mmol/L (98-107)
[2019-02-28 07:19] LABS: PREALBUMIN 20.1 mg/dL (17.6-36.0)
[2019-02-28 07:25] LABS: HEMATOCRIT 25.1 % (36.0-47.0); MEAN CORPUSCULAR HEMOGLOBIN 26.4 pg (27.0-33.4); MEAN CORPUSCULAR HGB CONC 31.7 g/dL (32.0-36.0); MEAN CORPUSCULAR VOLUME 83 fl (80-97); PLATELET COUNT 354 10^3/uL (150-450); RED BLOOD COUNT 3.02 10^6/uL (3.72-5.28); RED CELL DISTRIBUTION WIDTH 15.2 % (11.5-14.0); WHITE BLOOD COUNT 12.2 10^3/uL (4.0-10.5)
--- NOTE | 2019-02-28 07:25 | PDOC PROGRESS REPORT ---
Subjective Progress Note for:: 02/28/19 Subjective:: c/o thirst no fever, chills min abd pain no cough, or sob moving all 4 ext. Reason For Visit: ANEMIA,PRESUMED UPPER GI BLEED Physical Exam Vital Signs: Temp Pulse Resp BP Pulse Ox 97.9 F 94 16 104/69 100 02/27/19 21:36 02/28/19 00:37 02/28/19 00:37 02/28/19 00:37 02/28/19 00:37 Intake & Output 02/27/19 02/28/19 03/01/19 06:59 06:59 06:59 Intake Total 2466 5044 Output Total 1830 Balance 2466 3214 Weight 39.2 kg 39.2 kg General appearance: PRESENT: no acute distress Head exam: PRESENT: normocephalic Eye exam: PRESENT: EOMI Ear exam: PRESENT: normal external ear exam Mouth exam: PRESENT: moist Neck exam: PRESENT: full ROM Respiratory exam: PRESENT: clear to auscultation edvin Cardiovascular exam: PRESENT: RRR Pulses: PRESENT: normal radial pulses, normal femoral pulses, +2 pedal pulses bilateral Vascular exam: PRESENT: normal capillary refill GI/Abdominal exam: PRESENT: soft Rectal exam: PRESENT: deferred Extremities exam: PRESENT: full ROM Musculoskeletal exam: PRESENT: full ROM Neurological exam: PRESENT: alert, awake, oriented to person, oriented to place Psychiatric exam: PRESENT: appropriate affect Skin exam: PRESENT: dry Results Laboratory Results: 02/27/19 02/27/19 12:53 12:53 WBC 14.5 H D RBC 3.99 Hgb 10.5 L Hct 33.3 L MCV 84 MCH 26.4 L MCHC 31.6 L RDW 15.6 H Plt Count 575 H Seg Neutrophils % Not Reportable Sodium 141.9 Potassium 4.9 D Chloride 120 H Carbon Dioxide 19 L Anion Gap 3 L BUN 15 Creatinine 0.38 L Est GFR ( Amer) > 60 Glucose 112 H Calcium 8.0 L 02/18/19 08:16 Troponin I < 0.012 Impressions: Chest X-Ray 02/18/19 07:45 IMPRESSION: NO ACUTE RADIOGRAPHIC FINDING IN THE CHEST. Central Venous Line 02/19/19 00:00 IMPRESSION: Successful placement of single-lumen tunneled/cuffed right internal jugular central venous catheter utilizing ultrasound fluoroscopic guidance as detailed above. Guidance Fluoroscopy 02/19/19 00:00 IMPRESSION: Successful placement of single-lumen tunneled/cuffed right internal jugular central venous catheter utilizing ultrasound fluoroscopic guidance as detailed above. Guidance Ultrasound 02/19/19 00:00 IMPRESSION: Successful placement of single-lumen tunneled/cuffed right internal jugular central venous catheter utilizing ultrasound fluoroscopic guidance as detailed above. Assessment & Plan - Diagnosis (1) Duodenal stricture Is this a current diagnosis for this admission?: Yes (2) Gastric outlet obstruction Is this a current diagnosis for this admission?: Yes - Time Time Spent with patient: 35 or more minutes - Plan Summary Plan Summary: s/p vagotomy/antrectomy for perforated duodenal ulcer iwth obstruction pod 1 doing ok trying to drink fluids plan mcgowan out today cont npo except ice chips hold on tube feeds till am ambulate.
[2019-02-28 08:06] LABS: ABSOLUTE LYMPHOCYTES# (MANUAL) 0.7 10^3/uL (0.5-4.7); ABSOLUTE MONOCYTES # (MANUAL) 0.6 10^3/uL (0.1-1.4); BASOPHILS % (MANUAL) 0 % (0-2); EOSINOPHILS % (MANUAL) 0 % (0-6); LYMPHOCYTES % (MANUAL) 6 % (13-45); MONOCYTES % (MANUAL) 5 % (3-13); SEGMENTED NEUTROPHILS % (MAN) 89 % (42-78); TOTAL CELLS COUNTED 100
[2019-02-28 08:07] LABS: ANISOCYTOSIS SLIGHT; OVALOCYTES SLIGHT; PLATELET COMMENT ADEQUATE; POIKILOCYTOSIS SLIGHT; POLYCHROMASIA SLIGHT
[2019-02-28 08:11] LABS: ANION GAP 2 (5-19)
[2019-02-28] MEDS: AMINO ACIDS 5 %/DEXTROSE 20 % 1,000 ML IV PRN (08:39)
[2019-02-28] MEDS: FAT EMULSIONS 250 ML IV SCH (10:58)
[2019-02-28] MEDS: MIRTAZAPINE 15 MG TABLET PO SCH (22:35)
[2019-03-01] MEDS: INSULIN REG, HUMAN 100 UNIT/ML 3 ML VIAL (PYX) SUBCUT SCH ×4 (00:28→18:33)
[2019-03-01] MEDS: NORMAL SALINE 1000 ML 1,000 ML IV PRN ×3 (01:20→23:27)
[2019-03-01] MEDS: HYDROMORPHONE HCL INJ/PF 2 MG/ML AMPULE IV SCH ×6 (01:56→21:46)
[2019-03-01] MEDS: AMINO ACIDS 5 %/DEXTROSE 20 % 1,000 ML IV PRN ×2 (02:58→23:27)
--- NOTE | 2019-03-01 07:59 | PDOC PROGRESS REPORT ---
Subjective Progress Note for:: 03/01/19 Subjective:: feels ok, min pain no fever, chills no cough passed min flatus Reason For Visit: ANEMIA,PRESUMED UPPER GI BLEED Physical Exam Vital Signs: Temp Pulse Resp BP Pulse Ox 99.0 F 101 H 18 104/59 L 98 02/28/19 22:40 02/28/19 22:31 02/28/19 22:31 02/28/19 22:31 02/28/19 22:31 Intake & Output 02/28/19 03/01/19 03/02/19 06:59 06:59 06:59 Intake Total 5044 2250 Output Total 1830 1340 Balance 3214 910 Weight 38.7 kg 42.9 kg General appearance: PRESENT: no acute distress Head exam: PRESENT: normocephalic Eye exam: PRESENT: EOMI Ear exam: PRESENT: normal external ear exam Mouth exam: PRESENT: moist Neck exam: PRESENT: full ROM Respiratory exam: PRESENT: clear to auscultation edvin Cardiovascular exam: PRESENT: RRR Pulses: PRESENT: normal radial pulses, normal femoral pulses Vascular exam: PRESENT: normal capillary refill GI/Abdominal exam: PRESENT: soft Rectal exam: PRESENT: deferred Extremities exam: PRESENT: full ROM Musculoskeletal exam: PRESENT: full ROM Neurological exam: PRESENT: alert, awake, oriented to person, oriented to place Psychiatric exam: PRESENT: appropriate affect Skin exam: PRESENT: dry Results Laboratory Results: 02/28/19 06:37 02/28/19 06:37 02/28/19 06:37 Sodium 139.3 Potassium 4.4 Chloride 113 H Carbon Dioxide 24 Anion Gap 2 L BUN 16 Creatinine 0.42 L Est GFR ( Amer) > 60 Glucose 124 H Calcium 8.1 L Phosphorus 3.2 Total Bilirubin 0.2 AST 277 H Alkaline Phosphatase 51 Total Protein 4.1 L Albumin 2.0 L Prealbumin 20.1 02/18/19 08:16 Troponin I < 0.012 Impressions: Chest X-Ray 02/18/19 07:45 IMPRESSION: NO ACUTE RADIOGRAPHIC FINDING IN THE CHEST. Central Venous Line 02/19/19 00:00 IMPRESSION: Successful placement of single-lumen tunneled/cuffed right internal jugular central venous catheter utilizing ultrasound fluoroscopic guidance as detailed above. Guidance Fluoroscopy 02/19/19 00:00 IMPRESSION: Successful placement of single-lumen tunneled/cuffed right internal jugular central venous catheter utilizing ultrasound fluoroscopic guidance as detailed above. Guidance Ultrasound 02/19/19 00:00 IMPRESSION: Successful placement of single-lumen tunneled/cuffed right internal jugular central venous catheter utilizing ultrasound fluoroscopic guidance as detailed above. Assessment & Plan - Diagnosis (1) Duodenal stricture Is this a current diagnosis for this admission?: Yes (2) Gastric outlet obstruction Is this a current diagnosis for this admission?: Yes - Time Time Spent with patient: 35 or more minutes - Plan Summary Plan Summary: s/p vagotomy and antrectomy doing well passed min flatus teresita serous ng bilious abd soft, +bs plan cont clears today will dc ng in am start tube feeds today.
[2019-03-01 12:02] LABS: HEMATOCRIT 20.4 % (36.0-47.0); MEAN CORPUSCULAR HEMOGLOBIN 26.2 pg (27.0-33.4); MEAN CORPUSCULAR VOLUME 82 fl (80-97); PLATELET COUNT 300 10^3/uL (150-450); RED BLOOD COUNT 2.49 10^6/uL (3.72-5.28); WHITE BLOOD COUNT 13.1 10^3/uL (4.0-10.5)
[2019-03-01 12:04] LABS: HEMOGLOBIN 6.5 g/dL (12.0-15.5)
[2019-03-01 12:13] LABS: BLOOD UREA NITROGEN 11 mg/dL (7-20); CALCIUM 8.7 mg/dL (8.4-10.2); GLUCOSE 109 mg/dL (75-110); POTASSIUM 3.4 mmol/L (3.6-5.0)
[2019-03-01 12:19] LABS: CARBON DIOXIDE 23 mmol/L (22-30); CHLORIDE 108 mmol/L (98-107)
[2019-03-01 12:23] LABS: ANION GAP 6 (5-19)
[2019-03-01 12:39] LABS: ABSOLUTE LYMPHOCYTES# (MANUAL) 0.5 10^3/uL (0.5-4.7); ABSOLUTE MONOCYTES # (MANUAL) 0.5 10^3/uL (0.1-1.4); ANISOCYTOSIS SLIGHT; BASOPHILS % (MANUAL) 0 % (0-2); EOSINOPHILS % (MANUAL) 0 % (0-6); LYMPHOCYTES % (MANUAL) 4 % (13-45); MONOCYTES % (MANUAL) 4 % (3-13); PLATELET COMMENT ADEQUATE; SEGMENTED NEUTROPHILS % (MAN) 92 % (42-78); TOTAL CELLS COUNTED 100
[2019-03-01] MEDS: MIRTAZAPINE 15 MG TABLET PO SCH ×2 (21:51→23:39)
[2019-03-01] MEDS: LORAZEPAM 0.5 MG TABLET PO PRN (23:31)
[2019-03-02] MEDS: INSULIN REG, HUMAN 100 UNIT/ML 3 ML VIAL (PYX) SUBCUT SCH ×4 (00:28→17:15)
[2019-03-02] MEDS: HYDROMORPHONE HCL INJ/PF 2 MG/ML AMPULE IV SCH ×6 (01:40→21:39)
[2019-03-02 06:38] LABS: HEMATOCRIT 21.5 % (36.0-47.0); MEAN CORPUSCULAR HEMOGLOBIN 26.1 pg (27.0-33.4); MEAN CORPUSCULAR HGB CONC 32.1 g/dL (32.0-36.0); MEAN CORPUSCULAR VOLUME 81 fl (80-97); PLATELET COUNT 328 10^3/uL (150-450); RED BLOOD COUNT 2.64 10^6/uL (3.72-5.28); RED CELL DISTRIBUTION WIDTH 15.4 % (11.5-14.0); WHITE BLOOD COUNT 13.4 10^3/uL (4.0-10.5)
[2019-03-02 06:40] LABS: HEMOGLOBIN 6.9 g/dL (12.0-15.5)
[2019-03-02 06:48] LABS: ANION GAP 5 (5-19); BLOOD UREA NITROGEN 11 mg/dL (7-20); CALCIUM 8.9 mg/dL (8.4-10.2); CARBON DIOXIDE 24 mmol/L (22-30); CHLORIDE 108 mmol/L (98-107); GLUCOSE 110 mg/dL (75-110); POTASSIUM 3.1 mmol/L (3.6-5.0)
--- NOTE | 2019-03-02 08:18 | PDOC PROGRESS REPORT ---
Subjective Progress Note for:: 03/02/19 Subjective:: feels better, pulled ng out last pm passing stool/flatus Reason For Visit: ANEMIA,PRESUMED UPPER GI BLEED Physical Exam Vital Signs: Temp Pulse Resp BP Pulse Ox 98.6 F 86 16 105/57 L 98 03/01/19 23:23 03/01/19 23:23 03/01/19 23:23 03/02/19 06:34 03/01/19 23:23 Intake & Output 03/01/19 03/02/19 03/03/19 06:59 06:59 06:59 Intake Total 2250 2093 Output Total 1340 2 Balance 910 2091 Weight 42.9 kg 43.8 kg General appearance: PRESENT: no acute distress Head exam: PRESENT: normocephalic Eye exam: PRESENT: EOMI Ear exam: PRESENT: normal external ear exam Mouth exam: PRESENT: moist Neck exam: PRESENT: full ROM Respiratory exam: PRESENT: clear to auscultation edvin Cardiovascular exam: PRESENT: RRR Pulses: PRESENT: normal radial pulses, normal femoral pulses Vascular exam: PRESENT: normal capillary refill GI/Abdominal exam: PRESENT: soft Rectal exam: PRESENT: deferred Extremities exam: PRESENT: full ROM Musculoskeletal exam: PRESENT: full ROM Neurological exam: PRESENT: alert, awake, oriented to person, oriented to place, oriented to time, oriented to situation Psychiatric exam: PRESENT: appropriate affect Skin exam: PRESENT: dry Results Laboratory Results: 03/02/19 06:12 03/02/19 06:12 03/01/19 03/01/19 03/02/19 11:38 11:38 06:12 WBC 13.1 H RBC 2.49 L Hgb 6.5 L Hct 20.4 L MCV 82 MCH 26.2 L MCHC 32.0 RDW 15.0 H Plt Count 300 Seg Neutrophils % Not Reportable Sodium 136.8 L 136.6 L Potassium 3.4 L 3.1 L Chloride 108 H 108 H Carbon Dioxide 23 24 Anion Gap 6 5 BUN 11 11 Creatinine 0.41 L 0.38 L Est GFR ( Amer) > 60 > 60 Glucose 109 110 Calcium 8.7 8.9 03/02/19 06:12 WBC 13.4 H RBC 2.64 L Hgb 6.9 L Hct 21.5 L MCV 81 MCH 26.1 L MCHC 32.1 RDW 15.4 H Plt Count 328 Seg Neutrophils % Sodium Potassium Chloride Carbon Dioxide Anion Gap BUN Creatinine Est GFR ( Amer) Glucose Calcium 02/18/19 08:16 Troponin I < 0.012 Impressions: Chest X-Ray 02/18/19 07:45 IMPRESSION: NO ACUTE RADIOGRAPHIC FINDING IN THE CHEST. Central Venous Line 02/19/19 00:00 IMPRESSION: Successful placement of single-lumen tunneled/cuffed right internal jugular central venous catheter utilizing ultrasound fluoroscopic guidance as detailed above. Guidance Fluoroscopy 02/19/19 00:00 IMPRESSION: Successful placement of single-lumen tunneled/cuffed right internal jugular central venous catheter utilizing ultrasound fluoroscopic guidance as detailed above. Guidance Ultrasound 02/19/19 00:00 IMPRESSION: Successful placement of single-lumen tunneled/cuffed right internal jugular central venous catheter utilizing ultrasound fluoroscopic guidance as detailed above. Assessment & Plan - Diagnosis (1) Duodenal stricture Is this a current diagnosis for this admission?: Yes (2) Gastric outlet obstruction Is this a current diagnosis for this admission?: Yes - Time Time Spent with patient: 35 or more minutes - Plan Summary Plan Summary: s/p vagotomy/antrectomy doing well ng pulled ouit last pm will start clears today increase tube feeds.
[2019-03-02 11:58] LABS: ABSOLUTE EOSINOPHILS # (AUTO) 0.1 10^3/uL (0.0-0.6); ABSOLUTE LYMPHOCYTES (AUTO) 0.6 10^3/uL (0.5-4.7); ABSOLUTE MONOCYTES (AUTO) 0.6 10^3/uL (0.1-1.4); ABSOLUTE NEUT (AUTO) 10.2 10^3/uL (1.7-8.2); BASOPHILS % (AUTO) 0.2 % (0-2); EOSINOPHILS % (AUTO) 0.5 % (0-6); HEMATOCRIT 20.1 % (36.0-47.0); LYMPHOCYTES % (AUTO) 5.6 % (13-45); MEAN CORPUSCULAR HGB CONC 32.1 g/dL (32.0-36.0); MEAN CORPUSCULAR VOLUME 81 fl (80-97); MONOCYTES % (AUTO) 4.9 % (3-13); PLATELET COUNT 344 10^3/uL (150-450); RED BLOOD COUNT 2.49 10^6/uL (3.72-5.28); RED CELL DISTRIBUTION WIDTH 15.1 % (11.5-14.0); SEGMENTED NEUTROPHILS % (AUTO) 88.8 % (42-78); TOTAL CELLS COUNTED % (AUTO) 100 %; WHITE BLOOD COUNT 11.5 10^3/uL (4.0-10.5)
[2019-03-02 12:14] LABS: ANION GAP 6 (5-19); BLOOD UREA NITROGEN 11 mg/dL (7-20); CALCIUM 8.7 mg/dL (8.4-10.2); CARBON DIOXIDE 21 mmol/L (22-30); CHLORIDE 109 mmol/L (98-107); GLUCOSE 116 mg/dL (75-110)
[2019-03-02 12:15] LABS: HEMOGLOBIN 6.5 g/dL (12.0-15.5)
[2019-03-02] MEDS: NORMAL SALINE 1000 ML 1,000 ML IV PRN (14:07)
[2019-03-02] MEDS: ONDANSETRON HCL INJ/PF 4 MG/2 ML SDV IV PRN (17:46)
[2019-03-02] MEDS: MIRTAZAPINE 15 MG TABLET PO SCH (21:40)
[2019-03-02] MEDS: AMINO ACIDS 5 %/DEXTROSE 20 % 1,000 ML IV PRN (21:59)
[2019-03-03] MEDS: INSULIN REG, HUMAN 100 UNIT/ML 3 ML VIAL (PYX) SUBCUT SCH ×4 (01:13→18:26)
[2019-03-03] MEDS: ONDANSETRON HCL INJ/PF 4 MG/2 ML SDV IV PRN ×2 (01:47→07:58)
[2019-03-03] MEDS: HYDROMORPHONE HCL INJ/PF 2 MG/ML AMPULE IV SCH ×6 (01:47→22:01)
[2019-03-03] MEDS: NORMAL SALINE 1000 ML 1,000 ML IV PRN ×3 (01:47→21:36)
--- NOTE | 2019-03-03 11:52 | PDOC PROGRESS REPORT ---
Subjective Progress Note for:: 03/03/19 Subjective:: c/o bloating, incisional pain nausea min passing flatus Reason For Visit: ANEMIA,PRESUMED UPPER GI BLEED Physical Exam Vital Signs: Temp Pulse Resp BP Pulse Ox 98.6 F 99 18 110/66 96 03/03/19 08:00 03/03/19 08:00 03/03/19 08:00 03/03/19 08:00 03/03/19 08:00 Intake & Output 03/02/19 03/03/19 03/04/19 06:59 06:59 06:59 Intake Total 2093 2556 982 Output Total 17 250 Balance 2076 2306 982 Weight 43.8 kg 43.6 kg General appearance: PRESENT: no acute distress Head exam: PRESENT: normocephalic Eye exam: PRESENT: EOMI Ear exam: PRESENT: normal external ear exam Mouth exam: PRESENT: moist Neck exam: PRESENT: full ROM Respiratory exam: PRESENT: clear to auscultation edvin Cardiovascular exam: PRESENT: RRR Pulses: PRESENT: normal radial pulses, normal femoral pulses Vascular exam: PRESENT: normal capillary refill Breast: PRESENT: Normal GI/Abdominal exam: PRESENT: distended, hypoactive bowel sounds Rectal exam: PRESENT: deferred Extremities exam: PRESENT: full ROM Musculoskeletal exam: PRESENT: full ROM Neurological exam: PRESENT: alert, awake, oriented to person, oriented to place Psychiatric exam: PRESENT: appropriate affect Skin exam: PRESENT: dry Results Laboratory Results: 03/02/19 11:40 03/02/19 11:40 03/02/19 03/02/19 11:40 11:40 WBC 11.5 H RBC 2.49 L Hgb 6.5 L Hct 20.1 L MCV 81 MCH 26.0 L MCHC 32.1 RDW 15.1 H Plt Count 344 Seg Neutrophils % 88.8 H Sodium 136.4 L Potassium 3.0 L* Chloride 109 H Carbon Dioxide 21 L Anion Gap 6 BUN 11 Creatinine 0.35 L Est GFR ( Amer) > 60 Glucose 116 H Calcium 8.7 02/18/19 08:16 Troponin I < 0.012 Impressions: Chest X-Ray 02/18/19 07:45 IMPRESSION: NO ACUTE RADIOGRAPHIC FINDING IN THE CHEST. Central Venous Line 02/19/19 00:00 IMPRESSION: Successful placement of single-lumen tunneled/cuffed right internal jugular central venous catheter utilizing ultrasound fluoroscopic guidance as detailed above. Guidance Fluoroscopy 02/19/19 00:00 IMPRESSION: Successful placement of single-lumen tunneled/cuffed right internal jugular central venous catheter utilizing ultrasound fluoroscopic guidance as detailed above. Guidance Ultrasound 02/19/19 00:00 IMPRESSION: Successful placement of single-lumen tunneled/cuffed right internal jugular central venous catheter utilizing ultrasound fluoroscopic guidance as detailed above. Assessment & Plan - Diagnosis (1) Duodenal stricture Is this a current diagnosis for this admission?: Yes (2) Gastric outlet obstruction Is this a current diagnosis for this admission?: Yes - Time Time Spent with patient: 25-34 minutes - Plan Summary Plan Summary: pt has some abd distension and nausea binu clears, has not advanced to solids will add dulcolax suppository today replace k+ last level 3.0 repeat labs in am decrease tube feeds.
[2019-03-03 12:23] LABS: ANION GAP 8 (5-19); BLOOD UREA NITROGEN 13 mg/dL (7-20); CALCIUM 8.6 mg/dL (8.4-10.2); CARBON DIOXIDE 21 mmol/L (22-30); CHLORIDE 110 mmol/L (98-107); GLUCOSE 118 mg/dL (75-110)
[2019-03-03 12:28] LABS: POTASSIUM 2.9 mmol/L (3.6-5.0)
[2019-03-03] MEDS: POTASSI CL 20 MEQ/50 ML RIDER 20 MEQ/50 ML RTUPB IV SCH ×3 (12:41→16:48)
[2019-03-03] MEDS ORDERED: BISACODYL 10 MG SUPP.RECT PR ONE (13:00)
[2019-03-03] MEDS: AMINO ACIDS 5 %/DEXTROSE 20 % 1,000 ML IV PRN (18:09)
[2019-03-03] MEDS: MIRTAZAPINE 15 MG TABLET PO SCH (22:01)
[2019-03-04] MEDS: INSULIN REG, HUMAN 100 UNIT/ML 3 ML VIAL (PYX) SUBCUT SCH ×4 (00:09→18:13)
[2019-03-04] MEDS: HYDROMORPHONE HCL INJ/PF 2 MG/ML AMPULE IV SCH ×6 (02:17→21:12)
[2019-03-04 08:44] LABS: ABSOLUTE EOSINOPHILS # (AUTO) 0.2 10^3/uL (0.0-0.6); ABSOLUTE LYMPHOCYTES (AUTO) 0.6 10^3/uL (0.5-4.7); ABSOLUTE MONOCYTES (AUTO) 0.6 10^3/uL (0.1-1.4); ABSOLUTE NEUT (AUTO) 3.4 10^3/uL (1.7-8.2); BASOPHILS % (AUTO) 0.4 % (0-2); EOSINOPHILS % (AUTO) 4.5 % (0-6); HEMATOCRIT 20.9 % (36.0-47.0); LYMPHOCYTES % (AUTO) 12.3 % (13-45); MEAN CORPUSCULAR HEMOGLOBIN 26.1 pg (27.0-33.4); MEAN CORPUSCULAR HGB CONC 32.9 g/dL (32.0-36.0); MEAN CORPUSCULAR VOLUME 79 fl (80-97); MONOCYTES % (AUTO) 12.5 % (3-13); PLATELET COUNT 386 10^3/uL (150-450); RED BLOOD COUNT 2.63 10^6/uL (3.72-5.28); RED CELL DISTRIBUTION WIDTH 15.7 % (11.5-14.0); SEGMENTED NEUTROPHILS % (AUTO) 70.3 % (42-78); TOTAL CELLS COUNTED % (AUTO) 100 %; WHITE BLOOD COUNT 4.8 10^3/uL (4.0-10.5)
[2019-03-04 08:45] LABS: HEMOGLOBIN 6.9 g/dL (12.0-15.5)
[2019-03-04 08:56] LABS: ANION GAP 5 (5-19); BLOOD UREA NITROGEN 11 mg/dL (7-20); CALCIUM 8.4 mg/dL (8.4-10.2); CARBON DIOXIDE 23 mmol/L (22-30); CHLORIDE 109 mmol/L (98-107); GLUCOSE 113 mg/dL (75-110); PHOSPHORUS 3.3 mg/dL (2.5-4.5); POTASSIUM 3.3 mmol/L (3.6-5.0)
[2019-03-04 09:06] LABS: PREALBUMIN 7.9 mg/dL (17.6-36.0)
--- NOTE | 2019-03-04 09:09 | PDOC PROGRESS REPORT ---
Subjective Progress Note for:: 03/04/19 Subjective:: still bloated, passing some thickened (sticky) stools c/o reflux Reason For Visit: ANEMIA,PRESUMED UPPER GI BLEED Physical Exam Vital Signs: Temp Pulse Resp BP Pulse Ox 98.4 F 96 16 113/70 96 03/03/19 23:51 03/03/19 23:51 03/03/19 23:51 03/03/19 23:51 03/03/19 23:51 Intake & Output 03/03/19 03/04/19 03/05/19 06:59 06:59 06:59 Intake Total 2556 2676 Output Total 250 60 10 Balance 2306 2616 -10 Weight 43.6 kg 43.8 kg General appearance: PRESENT: no acute distress Head exam: PRESENT: normocephalic Eye exam: PRESENT: EOMI Ear exam: PRESENT: normal external ear exam Mouth exam: PRESENT: moist Neck exam: PRESENT: full ROM, lymphadenopathy Respiratory exam: PRESENT: clear to auscultation edvin Cardiovascular exam: PRESENT: RRR Pulses: PRESENT: normal radial pulses, normal femoral pulses GI/Abdominal exam: PRESENT: distended Rectal exam: PRESENT: deferred Extremities exam: PRESENT: full ROM Neurological exam: PRESENT: alert, awake, oriented to place Psychiatric exam: PRESENT: appropriate affect Skin exam: PRESENT: dry Results Laboratory Results: 03/04/19 07:54 03/03/19 03/04/19 11:55 07:54 WBC 4.8 RBC 2.63 L Hgb 6.9 L Hct 20.9 L MCV 79 L MCH 26.1 L MCHC 32.9 RDW 15.7 H Plt Count 386 Seg Neutrophils % 70.3 Sodium 138.6 Potassium 2.9 L* Chloride 110 H Carbon Dioxide 21 L Anion Gap 8 BUN 13 Creatinine 0.35 L Est GFR ( Amer) > 60 Glucose 118 H Calcium 8.6 02/18/19 08:16 Troponin I < 0.012 Impressions: Chest X-Ray 02/18/19 07:45 IMPRESSION: NO ACUTE RADIOGRAPHIC FINDING IN THE CHEST. Central Venous Line 02/19/19 00:00 IMPRESSION: Successful placement of single-lumen tunneled/cuffed right internal jugular central venous catheter utilizing ultrasound fluoroscopic guidance as detailed above. Guidance Fluoroscopy 02/19/19 00:00 IMPRESSION: Successful placement of single-lumen tunneled/cuffed right internal jugular central venous catheter utilizing ultrasound fluoroscopic guidance as detailed above. Guidance Ultrasound 02/19/19 00:00 IMPRESSION: Successful placement of single-lumen tunneled/cuffed right internal jugular central venous catheter utilizing ultrasound fluoroscopic guidance as detailed above. Assessment & Plan - Diagnosis (1) Duodenal stricture Is this a current diagnosis for this admission?: Yes (2) Gastric outlet obstruction Is this a current diagnosis for this admission?: Yes - Time Time Spent with patient: 25-34 minutes - Plan Summary Plan Summary: s/o vagotomy/antrectomy now on liquids abdominal bloating hypokalemia plan soap suds enema today cont current diet and tube feeds awiting lab results to check k+ out of bed.
[2019-03-04] MEDS: FAT EMULSIONS 250 ML IV SCH (10:29)
[2019-03-04] MEDS: POTASSI CL 20 MEQ/50 ML RIDER 20 MEQ/50 ML RTUPB IV SCH ×3 (14:18→18:08)
[2019-03-04] MEDS: AMINO ACIDS 5 %/DEXTROSE 20 % 1,000 ML IV PRN (16:28)
[2019-03-04] MEDS: NORMAL SALINE 1000 ML 1,000 ML IV PRN (16:28)
[2019-03-04] MEDS: MIRTAZAPINE 15 MG TABLET PO SCH (21:13)
[2019-03-05] MEDS: LORAZEPAM 0.5 MG TABLET PO PRN ×2 (00:03→20:12)
[2019-03-05] MEDS: INSULIN REG, HUMAN 100 UNIT/ML 3 ML VIAL (PYX) SUBCUT SCH ×4 (00:07→19:39)
[2019-03-05] MEDS: HYDROMORPHONE HCL INJ/PF 2 MG/ML AMPULE IV SCH ×6 (02:22→21:27)
[2019-03-05] MEDS: NORMAL SALINE 1000 ML 1,000 ML IV PRN ×2 (05:37→17:45)
--- NOTE | 2019-03-05 07:37 | PDOC PROGRESS REPORT ---
Subjective Progress Note for:: 03/05/19 Subjective:: feels ok passed large amts of stool yesterday less bloated Reason For Visit: ANEMIA,PRESUMED UPPER GI BLEED Physical Exam Vital Signs: Temp Pulse Resp BP Pulse Ox 98.4 F 95 16 100/66 95 03/04/19 16:27 03/04/19 16:27 03/04/19 16:27 03/04/19 16:27 03/04/19 16:27 Intake & Output 03/04/19 03/05/19 03/06/19 06:59 06:59 06:59 Intake Total 2676 2393 Output Total 60 1080 Balance 2616 1313 Weight 43.8 kg 45.7 kg General appearance: PRESENT: no acute distress Head exam: PRESENT: normocephalic Eye exam: PRESENT: EOMI Ear exam: PRESENT: normal external ear exam Mouth exam: PRESENT: moist Neck exam: PRESENT: full ROM Respiratory exam: PRESENT: clear to auscultation edvin Cardiovascular exam: PRESENT: RRR Pulses: PRESENT: normal radial pulses, normal femoral pulses GI/Abdominal exam: PRESENT: distended, normal bowel sounds, soft Rectal exam: PRESENT: deferred Extremities exam: PRESENT: full ROM Musculoskeletal exam: PRESENT: ambulatory, full ROM Neurological exam: PRESENT: alert, awake, oriented to person Psychiatric exam: PRESENT: appropriate affect Skin exam: PRESENT: dry Results Laboratory Results: 03/04/19 07:54 03/04/19 07:54 03/04/19 03/04/19 03/04/19 07:54 07:54 14:38 WBC 4.8 RBC 2.63 L Hgb 6.9 L Hct 20.9 L MCV 79 L MCH 26.1 L MCHC 32.9 RDW 15.7 H Plt Count 386 Seg Neutrophils % 70.3 Sodium 136.7 L Potassium 3.3 L Chloride 109 H Carbon Dioxide 23 Anion Gap 5 BUN 11 Creatinine 0.36 L Est GFR ( Amer) > 60 Glucose 113 H Calcium 8.4 Phosphorus 3.3 Prealbumin 7.9 L Triglycerides 213 H 02/18/19 08:16 Troponin I < 0.012 Impressions: Chest X-Ray 02/18/19 07:45 IMPRESSION: NO ACUTE RADIOGRAPHIC FINDING IN THE CHEST. Central Venous Line 02/19/19 00:00 IMPRESSION: Successful placement of single-lumen tunneled/cuffed right internal jugular central venous catheter utilizing ultrasound fluoroscopic guidance as detailed above. Guidance Fluoroscopy 02/19/19 00:00 IMPRESSION: Successful placement of single-lumen tunneled/cuffed right internal jugular central venous catheter utilizing ultrasound fluoroscopic guidance as detailed above. Guidance Ultrasound 02/19/19 00:00 IMPRESSION: Successful placement of single-lumen tunneled/cuffed right internal jugular central venous catheter utilizing ultrasound fluoroscopic guidance as detailed above. Assessment & Plan - Diagnosis (1) Duodenal stricture Is this a current diagnosis for this admission?: Yes (2) Gastric outlet obstruction Is this a current diagnosis for this admission?: Yes - Time Time Spent with patient: 25-34 minutes - Plan Summary Plan Summary: pod 6 vagotomy/antrectomy doing ok still with some abd bloating, although passing stool weak plan- will obtain ct abd no contrast, r/o fluid collection cont to replace k+ cont tpn for now. tube feeds at 10cc
[2019-03-05] MEDS: POTASSI CL 20 MEQ/50 ML RIDER 20 MEQ/50 ML RTUPB IV SCH ×2 (08:00→10:56)
[2019-03-05 09:02] LABS: ABSOLUTE EOSINOPHILS # (AUTO) 0.2 10^3/uL (0.0-0.6); ABSOLUTE LYMPHOCYTES (AUTO) 0.8 10^3/uL (0.5-4.7); ABSOLUTE MONOCYTES (AUTO) 0.4 10^3/uL (0.1-1.4); ABSOLUTE NEUT (AUTO) 2.3 10^3/uL (1.7-8.2); BASOPHILS % (AUTO) 0.8 % (0-2); EOSINOPHILS % (AUTO) 4.4 % (0-6); HEMATOCRIT 24.6 % (36.0-47.0); LYMPHOCYTES % (AUTO) 21.9 % (13-45); MEAN CORPUSCULAR HEMOGLOBIN 25.4 pg (27.0-33.4); MEAN CORPUSCULAR HGB CONC 32.7 g/dL (32.0-36.0); MEAN CORPUSCULAR VOLUME 78 fl (80-97); MONOCYTES % (AUTO) 11.1 % (3-13); PLATELET COUNT 426 10^3/uL (150-450); RED BLOOD COUNT 3.16 10^6/uL (3.72-5.28); RED CELL DISTRIBUTION WIDTH 15.9 % (11.5-14.0); SEGMENTED NEUTROPHILS % (AUTO) 61.8 % (42-78); TOTAL CELLS COUNTED % (AUTO) 100 %; WHITE BLOOD COUNT 3.7 10^3/uL (4.0-10.5)
[2019-03-05 09:13] LABS: ANION GAP 7 (5-19); BLOOD UREA NITROGEN 11 mg/dL (7-20); CALCIUM 8.7 mg/dL (8.4-10.2); CARBON DIOXIDE 23 mmol/L (22-30); CHLORIDE 108 mmol/L (98-107); GLUCOSE 107 mg/dL (75-110); POTASSIUM 3.4 mmol/L (3.6-5.0)
--- NOTE | 2019-03-05 09:21 | RADIOLOGY REPORT (SQ) ---
EXAM DESCRIPTION: CT ABDOMEN NO ORAL OR IV COMPLETED DATE/TIME: 03/05/2019 8:52 am REASON FOR STUDY: sp antrectomy COMPARISON: CT abdomen pelvis 04/25/2018, 11/21/2017 TECHNIQUE: CT scan of the abdomen performed without intravenous contrast and without oral contrast. Images reviewed with lung, soft tissue, and bone windows. Reconstructed coronal and sagittal MPR im ages reviewed. All images stored on PACS. All CT scanners at this facility use dose modulation, iterative reconstruction, and/or weight based d osing when appropriate to reduce radiation dose to as low as reasonably achievable (ALARA). [facility]: Dose Right [facility]: CareDose [facility]: Dose Right [facility]: Teradose 4D [facility]: Smart [email or web address] RADIATION DOSE: CT Rad equipment meets quality standard of care and radiation dose reduction techniq ues were employed. CTDIvol: 2.1 - 3.8 mGy. DLP: 169 mGy-cm.mGy. LIMITATIONS: None. FINDINGS: LOWER CHEST: Moderate bilateral pleural effusions are present with consolidation in the de pendent portion the right and left lower lobe, atelectasis versus pneumonia. Aspiration should be co nsidered, there is reflux of gastric contents into the distal esophagus which is distended with fluid . NONCONTRASTED LIVER, SPLEEN, ADRENALS: Evaluation limited by lack of IV contrast. No identified sign ificant masses. PANCREAS: No masses. No peripancreatic inflammatory changes. GALLBLADDER: No identified stones by CT criteria. No inflammatory changes to suggest cholecystitis. RIGHT KIDNEY AND URETER: No suspicious masses. Assessment limited by lack of IV contrast. No signif icant calcifications. No hydronephrosis or hydroureter. LEFT KIDNEY AND URETER: No suspicious masses. Assessment limited by lack of IV contrast. No signifi cant calcifications. No hydronephrosis or hydroureter. AORTA AND RETROPERITONEUM: No aneurysm. No retroperitoneal masses or adenopathy. BOWEL AND PERITONEAL CAVITY: Patient is post antrectomy, vagotomy, Trini-en-Y anastomosis in a Billrot h II configuration. There is a feeding jejunostomy. Right upper quadrant Nam-Mckenna drain. No f ree intraperitoneal air or fluid. Distal esophagus, stomach, small bowel loops are distended with fluid likely reflecting an ileus. Si gnificant gastroesophageal reflux into a distended esophagus. There is moderate stool in the ascending colon and hepatic flexure. Remainder of the colon is decomp ressed. APPENDIX: Normal. ABDOMINAL WALL: No abdominal wall hernias. BONES: No significant findings. OTHER: The pelvis was included in the field of view, to follow the jejunostomy catheter in its entire ty. No free pelvic fluid. Normal bladder. Normal female pelvic organs. IMPRESSION: Moderate bilateral pleural effusions with bibasilar consolidation Probable postop ileus with distention of gastric remnant, small bowel, and distal esophagus in the fi eld of view. No gross free intraperitoneal air or fluid. Right upper quadrant drain. Ileostomy catheter in good positioning TECHNICAL DOCUMENTATION: JOB ID: [id number] Quality ID # [id number]: Final reports with documentation of one or more dose reduction techniques (e.g., Au tomated exposure control, adjustment of the mA and/or kV according to patient size, use of iterative reconstruction technique) 2010 [employer]- All Rights Reserved Reading location - IP/workstation name: [email or web address]
[2019-03-05] MEDS: AMINO ACIDS 5 %/DEXTROSE 20 % 1,000 ML IV PRN (13:12)
[2019-03-05 13:51] LABS: ANION GAP 9 (5-19); BLOOD UREA NITROGEN 11 mg/dL (7-20); CALCIUM 8.6 mg/dL (8.4-10.2); CARBON DIOXIDE 20 mmol/L (22-30); CHLORIDE 108 mmol/L (98-107); GLUCOSE 111 mg/dL (75-110); POTASSIUM 3.8 mmol/L (3.6-5.0)
[2019-03-05] MEDS: MIRTAZAPINE 15 MG TABLET PO SCH (21:26)
[2019-03-06] MEDS: INSULIN REG, HUMAN 100 UNIT/ML 3 ML VIAL (PYX) SUBCUT SCH ×4 (00:33→18:19)
[2019-03-06] MEDS: ONDANSETRON HCL INJ/PF 4 MG/2 ML SDV IV PRN (01:55)
[2019-03-06] MEDS: HYDROMORPHONE HCL INJ/PF 2 MG/ML AMPULE IV SCH ×3 (02:14→09:39)
[2019-03-06 06:06] LABS: ABSOLUTE EOSINOPHILS # (AUTO) 0.1 10^3/uL (0.0-0.6); ABSOLUTE LYMPHOCYTES (AUTO) 0.9 10^3/uL (0.5-4.7); ABSOLUTE MONOCYTES (AUTO) 0.5 10^3/uL (0.1-1.4); ABSOLUTE NEUT (AUTO) 4.5 10^3/uL (1.7-8.2); BASOPHILS % (AUTO) 0.5 % (0-2); EOSINOPHILS % (AUTO) 1.9 % (0-6); MEAN CORPUSCULAR HEMOGLOBIN 25.3 pg (27.0-33.4); MEAN CORPUSCULAR HGB CONC 32.2 g/dL (32.0-36.0); MEAN CORPUSCULAR VOLUME 79 fl (80-97); MONOCYTES % (AUTO) 8.4 % (3-13); PLATELET COUNT 366 10^3/uL (150-450); RED BLOOD COUNT 2.68 10^6/uL (3.72-5.28); RED CELL DISTRIBUTION WIDTH 15.8 % (11.5-14.0); SEGMENTED NEUTROPHILS % (AUTO) 74.2 % (42-78); TOTAL CELLS COUNTED % (AUTO) 100 %; WHITE BLOOD COUNT 6.1 10^3/uL (4.0-10.5)
[2019-03-06] MEDS: NORMAL SALINE 1000 ML 1,000 ML IV PRN (06:14)
[2019-03-06 06:19] LABS: ANION GAP 6 (5-19); BLOOD UREA NITROGEN 11 mg/dL (7-20); CALCIUM 8.1 mg/dL (8.4-10.2); CARBON DIOXIDE 22 mmol/L (22-30); CHLORIDE 110 mmol/L (98-107); GLUCOSE 103 mg/dL (75-110); POTASSIUM 3.1 mmol/L (3.6-5.0)
[2019-03-06 06:27] LABS: HEMOGLOBIN 6.8 g/dL (12.0-15.5)
[2019-03-06] MEDS ORDERED: NORMAL SALINE 250 ML IV PRN ×2 (07:38)
--- NOTE | 2019-03-06 07:43 | PDOC PROGRESS REPORT ---
Subjective Progress Note for:: 03/06/19 Subjective:: weak, Reason For Visit: ANEMIA,PRESUMED UPPER GI BLEED Physical Exam Vital Signs: Temp Pulse Resp BP Pulse Ox 97.9 F 105 H 16 123/73 95 03/06/19 00:00 03/06/19 00:00 03/06/19 00:00 03/06/19 00:00 03/06/19 00:00 Intake & Output 03/05/19 03/06/19 03/07/19 06:59 06:59 06:59 Intake Total 2393 2520 Output Total 1080 80 Balance 1313 2440 Weight 45.7 kg 43.6 kg General appearance: PRESENT: no acute distress Head exam: PRESENT: normocephalic Eye exam: PRESENT: EOMI Ear exam: PRESENT: normal external ear exam Mouth exam: PRESENT: moist Neck exam: PRESENT: full ROM Respiratory exam: PRESENT: decreased breath sounds Cardiovascular exam: PRESENT: RRR Pulses: PRESENT: +1 pedal pulses bilateral Breast: PRESENT: Normal GI/Abdominal exam: PRESENT: soft Extremities exam: PRESENT: full ROM Musculoskeletal exam: PRESENT: full ROM Neurological exam: PRESENT: alert, awake, oriented to person, oriented to place Psychiatric exam: PRESENT: appropriate affect Results Laboratory Results: 03/06/19 05:52 03/06/19 05:52 03/05/19 03/05/19 03/05/19 08:10 08:10 12:30 WBC 3.7 L RBC 3.16 L Hgb 8.0 L Hct 24.6 L MCV 78 L MCH 25.4 L MCHC 32.7 RDW 15.9 H Plt Count 426 Seg Neutrophils % 61.8 Sodium 138.2 137.0 Potassium 3.4 L 3.8 Chloride 108 H 108 H Carbon Dioxide 23 20 L Anion Gap 7 9 BUN 11 11 Creatinine 0.34 L 0.33 L Est GFR ( Amer) > 60 > 60 Glucose 107 111 H Calcium 8.7 8.6 03/06/19 03/06/19 05:52 05:52 WBC 6.1 RBC 2.68 L Hgb 6.8 L Hct 21.0 L MCV 79 L MCH 25.3 L MCHC 32.2 RDW 15.8 H Plt Count 366 Seg Neutrophils % 74.2 Sodium 137.6 Potassium 3.1 L Chloride 110 H Carbon Dioxide 22 Anion Gap 6 BUN 11 Creatinine 0.35 L Est GFR ( Amer) > 60 Glucose 103 Calcium 8.1 L 02/18/19 08:16 Troponin I < 0.012 Impressions: Chest X-Ray 02/18/19 07:45 IMPRESSION: NO ACUTE RADIOGRAPHIC FINDING IN THE CHEST. Central Venous Line 02/19/19 00:00 IMPRESSION: Successful placement of single-lumen tunneled/cuffed right internal jugular central venous catheter utilizing ultrasound fluoroscopic guidance as detailed above. Guidance Fluoroscopy 02/19/19 00:00 IMPRESSION: Successful placement of single-lumen tunneled/cuffed right internal jugular central venous catheter utilizing ultrasound fluoroscopic guidance as detailed above. Guidance Ultrasound 02/19/19 00:00 IMPRESSION: Successful placement of single-lumen tunneled/cuffed right internal jugular central venous catheter utilizing ultrasound fluoroscopic guidance as detailed above. Abdomen CT 03/05/19 00:00 IMPRESSION: Moderate bilateral pleural effusions with bibasilar consolidation Probable postop ileus with distention of gastric remnant, small bowel, and distal esophagus in the field of view. No gross free intraperitoneal air or fluid. Right upper quadrant drain. Ileostomy catheter in good positioning Assessment & Plan - Diagnosis (1) Duodenal stricture Is this a current diagnosis for this admission?: Yes (2) Gastric outlet obstruction Is this a current diagnosis for this admission?: Yes - Time Time Spent with patient: 35 or more minutes - Plan Summary Plan Summary: ct scan c/w large bilat pleural effusions dilated gastric remnant large amts of stool in colon and recturm no fluid collection pt passing min stool not getting out of bed not walking hiccups feels weak plan tnx 1 unit prbc dc plain saline drip adjust tpn with k+ soap s;uds enema lasix.
[2019-03-06] MEDS: POTASSI CL 20 MEQ/50 ML RIDER 20 MEQ/50 ML RTUPB IV SCH ×2 (08:17→10:42)
[2019-03-06] MEDS: AMINO ACIDS 5 %/DEXTROSE 20 % 1,000 ML IV PRN (08:22)
[2019-03-06] MEDS ORDERED: FUROSEMIDE INJ/PF 20 MG/2 ML SDV IV PRN (09:30)
[2019-03-06] MEDS: FUROSEMIDE INJ/PF 20 MG/2 ML SDV IV SCH ×2 (09:39→21:18)
[2019-03-06] MEDS ORDERED: LORAZEPAM INJ 2 MG/1 ML VIAL IV PRN (14:39)
[2019-03-06] MEDS: KETOROLAC TROMETHAMINE INJ/PF 30 MG/1 ML SDV IV PRN ×2 (16:35→22:55)
[2019-03-06 21:05] LABS: HEMATOCRIT 26.1 % (36.0-47.0); HEMOGLOBIN 8.7 g/dL (12.0-15.5); MEAN CORPUSCULAR HEMOGLOBIN 27.1 pg (27.0-33.4); MEAN CORPUSCULAR HGB CONC 33.2 g/dL (32.0-36.0); MEAN CORPUSCULAR VOLUME 82 fl (80-97); PLATELET COUNT 359 10^3/uL (150-450); RED CELL DISTRIBUTION WIDTH 17.2 % (11.5-14.0)
[2019-03-06] MEDS: MIRTAZAPINE 15 MG TABLET PO SCH (21:18)
[2019-03-06 21:24] LABS: ABSOLUTE LYMPHOCYTES# (MANUAL) 0.9 10^3/uL (0.5-4.7); ABSOLUTE MONOCYTES # (MANUAL) 0.6 10^3/uL (0.1-1.4); ANISOCYTOSIS 1+; BAND NEUTROPHILS % (MANUAL) 3 % (3-5); BASOPHILS % (MANUAL) 0 % (0-2); EOSINOPHILS % (MANUAL) 2 % (0-6); HYPOCHROMASIA 2+; LYMPHOCYTES % (MANUAL) 10 % (13-45); MONOCYTES % (MANUAL) 7 % (3-13); NUCLEATED RED BLOOD CELLS 2 /100 WBC (0); PLATELET COMMENT ADEQUATE; SEGMENTED NEUTROPHILS % (MAN) 78 % (42-78); TOTAL CELLS COUNTED 100
[2019-03-07] MEDS: INSULIN REG, HUMAN 100 UNIT/ML 3 ML VIAL (PYX) SUBCUT SCH ×4 (00:36→17:58)
[2019-03-07] MEDS: AMINO ACIDS 5 %/DEXTROSE 20 % 1,000 ML IV PRN ×2 (05:21→11:25)
[2019-03-07] MEDS: KETOROLAC TROMETHAMINE INJ/PF 30 MG/1 ML SDV IV PRN ×3 (05:21→17:43)
[2019-03-07 06:23] LABS: HEMATOCRIT 28.5 % (36.0-47.0); HEMOGLOBIN 9.5 g/dL (12.0-15.5); MEAN CORPUSCULAR HGB CONC 33.4 g/dL (32.0-36.0); MEAN CORPUSCULAR VOLUME 81 fl (80-97); PLATELET COUNT 404 10^3/uL (150-450); RED BLOOD COUNT 3.53 10^6/uL (3.72-5.28); RED CELL DISTRIBUTION WIDTH 17.1 % (11.5-14.0); WHITE BLOOD COUNT 10.1 10^3/uL (4.0-10.5)
[2019-03-07 06:25] LABS: ANION GAP 10 (5-19); BLOOD UREA NITROGEN 15 mg/dL (7-20); CALCIUM 8.8 mg/dL (8.4-10.2); CARBON DIOXIDE 22 mmol/L (22-30); CHLORIDE 109 mmol/L (98-107); GLUCOSE 82 mg/dL (75-110); POTASSIUM 3.5 mmol/L (3.6-5.0)
[2019-03-07 06:59] LABS: ALBUMIN 2.3 g/dL (3.5-5.0); ALKALINE PHOSPHATASE 285 U/L (38-126); ASPARTATE AMINO TRANSFERASE 30 U/L (14-36); BILIRUBIN,DIRECT 0.3 mg/dL (0.0-0.4); BILIRUBIN,TOTAL 0.4 mg/dL (0.2-1.3); TOTAL PROTEIN 4.8 g/dL (6.3-8.2)
[2019-03-07 07:03] LABS: ABSOLUTE LYMPHOCYTES# (MANUAL) 0.7 10^3/uL (0.5-4.7); ABSOLUTE MONOCYTES # (MANUAL) 0.8 10^3/uL (0.1-1.4); BAND NEUTROPHILS % (MANUAL) 3 % (3-5); BASOPHILS % (MANUAL) 1 % (0-2); EOSINOPHILS % (MANUAL) 6 % (0-6); LYMPHOCYTES % (MANUAL) 7 % (13-45); MONOCYTES % (MANUAL) 8 % (3-13); NUCLEATED RED BLOOD CELLS 1 /100 WBC (0); SEGMENTED NEUTROPHILS % (MAN) 75 % (42-78); TOTAL CELLS COUNTED 100
[2019-03-07 07:05] LABS: ANISOCYTOSIS 1+; HYPOCHROMASIA SLIGHT; PLATELET COMMENT ADEQUATE; POLYCHROMASIA SLIGHT; TEAR DROP CELLS SLIGHT
[2019-03-07 07:06] LABS: PREALBUMIN 9.3 mg/dL (17.6-36.0)
--- NOTE | 2019-03-07 07:43 | PDOC PROGRESS REPORT ---
Subjective Progress Note for:: 03/07/19 Subjective:: FEELS MUCH BETTER TODAY Reason For Visit: ANEMIA,PRESUMED UPPER GI BLEED Physical Exam Vital Signs: Temp Pulse Resp BP Pulse Ox 98.7 F 92 16 102/63 96 03/07/19 00:00 03/07/19 00:00 03/07/19 00:00 03/07/19 00:00 03/07/19 00:00 Intake & Output 03/06/19 03/07/19 03/08/19 06:59 06:59 06:59 Intake Total 2520 1866 Output Total 80 40 Balance 2440 1826 Weight 43.6 kg 41.9 kg General appearance: PRESENT: no acute distress Head exam: PRESENT: normocephalic Eye exam: PRESENT: EOMI Ear exam: PRESENT: TM's normal bilaterally Mouth exam: PRESENT: moist Neck exam: PRESENT: full ROM Respiratory exam: PRESENT: clear to auscultation edvin Cardiovascular exam: PRESENT: RRR Pulses: PRESENT: normal radial pulses, normal femoral pulses Vascular exam: PRESENT: normal capillary refill GI/Abdominal exam: PRESENT: soft Rectal exam: PRESENT: deferred Extremities exam: PRESENT: full ROM Musculoskeletal exam: PRESENT: full ROM Neurological exam: PRESENT: alert, awake, oriented to person, oriented to place Psychiatric exam: PRESENT: appropriate affect Skin exam: PRESENT: dry Results Laboratory Results: 03/07/19 05:26 03/07/19 05:30 03/06/19 03/06/19 03/07/19 09:15 20:49 05:26 WBC 9.0 10.1 RBC 3.20 L 3.53 L Hgb 8.7 L 9.5 L Hct 26.1 L 28.5 L MCV 82 81 MCH 27.1 27.0 MCHC 33.2 33.4 RDW 17.2 H 17.1 H Plt Count 359 404 Seg Neutrophils % Not Reportable Not Reportable Sodium Potassium Chloride Carbon Dioxide Anion Gap BUN Creatinine Est GFR ( Amer) Est GFR (Non-Af Amer) Glucose Calcium Phosphorus Total Bilirubin AST Alkaline Phosphatase Total Protein Albumin Prealbumin Blood Type A POSITIVE Antibody Screen NEGATIVE 03/07/19 03/07/19 03/07/19 05:26 05:30 05:30 WBC RBC Hgb Hct MCV MCH MCHC RDW Plt Count Seg Neutrophils % Sodium 141.1 Cancelled Potassium 3.5 L Cancelled Chloride 109 H Cancelled Carbon Dioxide 22 Cancelled Anion Gap 10 Cancelled BUN 15 Cancelled Creatinine 0.41 L Cancelled Est GFR ( Amer) > 60 Cancelled Est GFR (Non-Af Amer) Cancelled Glucose 82 Cancelled Calcium 8.8 Cancelled Phosphorus Cancelled 4.0 Total Bilirubin Cancelled 0.4 AST Cancelled 30 Alkaline Phosphatase Cancelled 285 H Total Protein Cancelled 4.8 L Albumin Cancelled 2.3 L Prealbumin Cancelled 9.3 L Blood Type Antibody Screen 02/18/19 08:16 Troponin I < 0.012 Impressions: Chest X-Ray 02/18/19 07:45 IMPRESSION: NO ACUTE RADIOGRAPHIC FINDING IN THE CHEST. Central Venous Line 02/19/19 00:00 IMPRESSION: Successful placement of single-lumen tunneled/cuffed right internal jugular central venous catheter utilizing ultrasound fluoroscopic guidance as detailed above. Guidance Fluoroscopy 02/19/19 00:00 IMPRESSION: Successful placement of single-lumen tunneled/cuffed right internal jugular central venous catheter utilizing ultrasound fluoroscopic guidance as detailed above. Guidance Ultrasound 02/19/19 00:00 IMPRESSION: Successful placement of single-lumen tunneled/cuffed right internal jugular central venous catheter utilizing ultrasound fluoroscopic guidance as detailed above. Abdomen CT 03/05/19 00:00 IMPRESSION: Moderate bilateral pleural effusions with bibasilar consolidation Probable postop ileus with distention of gastric remnant, small bowel, and distal esophagus in the field of view. No gross free intraperitoneal air or fluid. Right upper quadrant drain. Ileostomy catheter in good positioning Assessment & Plan - Diagnosis (1) Duodenal stricture Is this a current diagnosis for this admission?: Yes (2) Gastric outlet obstruction Is this a current diagnosis for this admission?: Yes - Time Time Spent with patient: 35 or more minutes - Plan Summary Plan Summary: MUCH IMPROVED AFTER LASIX AND BLOOD YESTEDAY UP IN CHAIR AND AMBULATING PASSING STOOL NOW VOIDING WELL LABS REVIEWED, APPROPRIATE RISE IN HCT WITH TXN LYTES OK PLAN ADVANCE DIET TO PUREED WHEEN OFF TPN TUBE FEEDS TO 20CC HR.
[2019-03-07] MEDS: FUROSEMIDE INJ/PF 20 MG/2 ML SDV IV SCH ×2 (10:52→22:11)
[2019-03-07] MEDS: FAT EMULSIONS 250 ML IV SCH (10:54)
[2019-03-07] MEDS: MIRTAZAPINE 15 MG TABLET PO SCH (22:16)
[2019-03-08] MEDS: INSULIN REG, HUMAN 100 UNIT/ML 3 ML VIAL (PYX) SUBCUT SCH ×3 (00:48→13:08)
[2019-03-08] MEDS: ACETAMINOPHEN 325 MG TABLET PO PRN (03:50)
[2019-03-08] MEDS: KETOROLAC TROMETHAMINE INJ/PF 30 MG/1 ML SDV IV PRN (03:51)
[2019-03-08 08:26] LABS: HEMATOCRIT 28.1 % (36.0-47.0); HEMOGLOBIN 9.2 g/dL (12.0-15.5); MEAN CORPUSCULAR HEMOGLOBIN 26.6 pg (27.0-33.4); MEAN CORPUSCULAR HGB CONC 32.6 g/dL (32.0-36.0); MEAN CORPUSCULAR VOLUME 82 fl (80-97); PLATELET COUNT 460 10^3/uL (150-450); RED BLOOD COUNT 3.45 10^6/uL (3.72-5.28); RED CELL DISTRIBUTION WIDTH 17.1 % (11.5-14.0); WHITE BLOOD COUNT 14.1 10^3/uL (4.0-10.5)
--- NOTE | 2019-03-08 08:47 | PDOC DISCHARGE SUMMARY ---
General - Admit/Disc Date/PCP Admission Date/Primary Care Provider: 02/18/19 16:18 STEFAN SOTO MD Discharge Date: 03/08/19 - Discharge Diagnosis Final Diagnosis: Duodenal ulcer with gastric outlet obstruction and upper GI bleed - Assessment Summary: This catheter in for Ike was admitted to the hospital with hematemesis inability to take p.o. nausea and vomiting and history of EtOH abuse She underwent upper endoscopy which showed an obstructing duodenal ulcer that had evidence of bleeding but at the time of scope had subsided. Patient had a long history of duodenal ulcer and had a previous sewing of the ulcer. The year prior She was admitted to hospital and started on TPN for secondary to her malnutrition and remained on TPN for approximately 10 days prior to her surgery. She underwent a vagotomy and antrectomy with a jejunostomy tube placement. Postoperatively she had a routine benign postop course she did have an ileus for 4 to 5 days and constipation which was resolved by the time of discharge. She is now tolerating a regular diet her hemoglobin is stable her electrolytes are normal and she is ready for discharge home today. She will be discharged home with a jejunostomy tube in place but not being used until she is seen in surgical clinic at which time a decision will be made whether to leave it in or remove it. She will resume her own medications at home and she will be given tramadol for pain at discharge. She is instructed not to resume her Carafate but she should resume her Prilosec. Her other medications will be resumed as previous. - Additional Information Resuscitation Status: Full Code Discharge Diet: As Tolerated Discharge Activity: Activity As Tolerated, No Lifting Over 10 Pounds - Patient needs a follow-up appointment with me in surgical clinic in 7 to 10 days Referrals: EMILY MIKE MD [ACTIVE STAFF] - (02/27 S/P ANTRECTOMY/GASTRECTOMY) Home Medications: Gabapentin [Neurontin 300 mg Capsule] 300 mg PO Q8 11/21/17 Escitalopram Oxalate [Lexapro 10 mg Tablet] 20 mg PO QHS 10/09/18 Docusate Sodium [Colace 100 mg Capsule] 100 mg PO BID 12/21/18 Pantoprazole Sodium [Protonix [address] Tablet] 40 mg PO QAM #60 tablet.dr 12/25/18 Sucralfate [Carafate 1 gm Tablet] 1 gm PO ACHS #120 tablet 12/25/18 Esomeprazole Magnesium [Nexium 24Hr] 20 mg PO BID 02/18/19 Lorazepam [Ativan 0.5 mg Tablet] 0.5 mg PO QHS 02/18/19 Metoclopramide HCl 5 mg PO QID 02/18/19 Mirtazapine 45 mg PO QHS 02/18/19 Multivitamin [Daily Multiple Vitamin] 1 each PO DAILY 02/18/19 Ondansetron [Zofran Odt 4 mg Tablet] 4 mg PO Q6HP PRN 02/18/19 History of Present Illiness History of Present Illness: RANDALL ELKINS is a 63 year old female Physical Exam Vital Signs: Temp Pulse Resp BP Pulse Ox 97.9 F 95 16 84/60 L 100 03/08/19 07:41 03/08/19 07:41 03/08/19 07:41 03/08/19 07:41 03/08/19 07:41 Intake & Output 03/07/19 03/08/19 03/09/19 06:59 06:59 06:59 Intake Total 1866 1120 Output Total 40 1250 Balance 1826 -130 Weight 41.9 kg 38.4 kg Results Laboratory Results: WBC 10.1 10^3/uL (4.0-10.5) 03/07/19 05:26 RBC 3.53 10^6/uL (3.72-5.28) L 03/07/19 05:26 Hgb 9.5 g/dL (12.0-15.5) L 03/07/19 05:26 Hct 28.5 % (36.0-47.0) L 03/07/19 05:26 MCV 81 fl (80-97) 03/07/19 05:26 MCH 27.0 pg (27.0-33.4) 03/07/19 05:26 MCHC 33.4 g/dL (32.0-36.0) 03/07/19 05:26 RDW 17.1 % (11.5-14.0) H 03/07/19 05:26 Plt Count 404 10^3/uL (150-450) 03/07/19 05:26 Lymph % (Auto) Not Reportable 03/07/19 05:26 [place] % (Auto) Not Reportable 03/07/19 05:26 Eos % (Auto) Not Reportable 03/07/19 05:26 Baso % (Auto) Not Reportable 03/07/19 05:26 Absolute Neuts (auto) Not Reportable 03/07/19 05:26 Absolute Lymphs (auto) Not Reportable 03/07/19 05:26 Absolute Monos (auto) Not Reportable 03/07/19 05:26 Absolute Eos (auto) Not Reportable 03/07/19 05:26 Absolute Basos (auto) Not Reportable 03/07/19 05:26 Total Counted 100 03/07/19 05:26 Seg Neutrophils % Not Reportable 03/07/19 05:26 Seg Neuts % (Manual) 75 % (42-78) 03/07/19 05:26 Band Neutrophils % 3 % (3-5) 03/07/19 05:26 Lymphocytes % (Manual) 7 % (13-45) L 03/07/19 05:26 Monocytes % (Manual) 8 % (3-13) 03/07/19 05:26 Eosinophils % (Manual) 6 % (0-6) 03/07/19 05:26 Basophils % (Manual) 1 % (0-2) 03/07/19 05:26 Abs Neuts (Manual) 7.9 10^3/uL (1.7-8.2) 03/07/19 05:26 Abs Lymphs (Manual) 0.7 10^3/uL (0.5-4.7) 03/07/19 05:26 Abs Monocytes (Manual) 0.8 10^3/uL (0.1-1.4) 03/07/19 05:26 Absolute Eos (Manual) 0.6 10^3/uL (0.0-0.6) 03/07/19 05:26 Abs Basophils (Manual) 0.1 10^3/uL (0.0-0.2) 03/07/19 05:26 Nucleated RBCs 1 /100 WBC (0) 03/07/19 05:26 Platelet Comment ADEQUATE 03/07/19 05:26 Polychromasia SLIGHT 03/07/19 05:26 Hypochromasia SLIGHT 03/07/19 05:26 Poikilocytosis SLIGHT 02/28/19 06:37 Anisocytosis 1+ 03/07/19 05:26 Microcytosis SLIGHT 03/07/19 05:26 Tear Drop Cells SLIGHT 03/07/19 05:26 Ovalocytes SLIGHT 02/28/19 06:37 PT 12.7 SEC (11.4-15.4) 02/27/19 04:09 INR 0.95 02/27/19 04:09 APTT 31.2 SEC (23.5-35.8) 02/27/19 04:09 Sodium Cancelled 03/07/19 05:30 Potassium Cancelled 03/07/19 05:30 Chloride Cancelled 03/07/19 05:30 Carbon Dioxide Cancelled 03/07/19 05:30 Anion Gap Cancelled 03/07/19 05:30 BUN Cancelled 03/07/19 05:30 Creatinine Cancelled 03/07/19 05:30 Est GFR ( Amer) Cancelled 03/07/19 05:30 Est GFR (Non-Af Amer) Cancelled 03/07/19 05:30 Est GFR (MDRD) Non-Af Cancelled 03/07/19 05:30 Glucose Cancelled 03/07/19 05:30 POC Glucose 117 mg/dL (70-110) H 03/08/19 05:29 Calcium Cancelled 03/07/19 05:30 Phosphorus 4.0 mg/dL (2.5-4.5) 03/07/19 05:30 Phosphorus Cancelled 03/07/19 05:30 Magnesium 2.1 mg/dL (1.6-2.3) 02/25/19 08:02 Total Bilirubin 0.4 mg/dL (0.2-1.3) 03/07/19 05:30 Total Bilirubin Cancelled 03/07/19 05:30 Direct Bilirubin 0.3 mg/dL (0.0-0.4) 03/07/19 05:30 Direct Bilirubin Cancelled 03/07/19 05:30 Neonat Total Bilirubin Cancelled 03/07/19 05:30 Neonat Total Bilirubin Not Reportable 03/07/19 05:30 Neonat Direct Bilirubin Cancelled 03/07/19 05:30 Neonat Direct Bilirubin Not Reportable 03/07/19 05:30 Neonat Indirect Bili Cancelled 03/07/19 05:30 Neonat Indirect Bili Not Reportable 03/07/19 05:30 AST 30 U/L (14-36) 03/07/19 05:30 AST Cancelled 03/07/19 05:30 ALT 109 U/L (<35) 03/07/19 05:30 ALT Cancelled 03/07/19 05:30 Alkaline Phosphatase 285 U/L (38-126) H 03/07/19 05:30 Alkaline Phosphatase Cancelled 03/07/19 05:30 Troponin I < 0.012 ng/mL 02/18/19 08:16 Total Protein 4.8 g/dL (6.3-8.2) L 03/07/19 05:30 Total Protein Cancelled 03/07/19 05:30 Albumin 2.3 g/dL (3.5-5.0) L 03/07/19 05:30 Albumin Cancelled 03/07/19 05:30 Prealbumin 9.3 mg/dL (17.6-36.0) L 03/07/19 05:30 Prealbumin Cancelled 03/07/19 05:30 Triglycerides 213 mg/dL (<150) H 03/04/19 14:38 Cholesterol 200.92 mg/dL (0-200) H 02/27/19 04:09 LDL Cholesterol Direct 142 mg/dL (<100) H 02/27/19 04:09 VLDL Cholesterol 40.4 mg/dL (10-31) H 02/27/19 04:09 HDL Cholesterol 38 mg/dL (>40) L 02/27/19 04:09 Lipase 94.0 U/L (23-300) 02/18/19 08:16 EGFR Cancelled 03/07/19 05:30 Gastrin 59 pg/mL (0-115) 02/19/19 12:13 TSH 1.32 uIU/mL (0.47-4.68) 02/18/19 08:16 Urine Color YELLOW 02/18/19 12:40 Urine Appearance CLEAR 02/18/19 12:40 Urine pH 7.0 (5.0-9.0) 02/18/19 12:40 Ur Specific [place] 1.013 02/18/19 12:40 Urine Protein NEGATIVE mg/dL (NEGATIVE) 02/18/19 12:40 Urine Glucose (UA) NEGATIVE mg/dL (NEGATIVE) 02/18/19 12:40 Urine Ketones NEGATIVE mg/dL (NEGATIVE) 02/18/19 12:40 Urine Blood NEGATIVE (NEGATIVE) 02/18/19 12:40 Urine Nitrite NEGATIVE (NEGATIVE) 02/18/19 12:40 Urine Bilirubin NEGATIVE (NEGATIVE) 02/18/19 12:40 Urine Urobilinogen NEGATIVE mg/dL (<2.0) 02/18/19 12:40 Ur Leukocyte Esterase TRACE (NEGATIVE) H 02/18/19 12:40 Urine WBC (Auto) 2 /HPF 02/18/19 12:40 Urine RBC (Auto) 0 /HPF 02/18/19 12:40 Urine Mucus (Auto) RARE /LPF 02/18/19 12:40 Urine Ascorbic Acid NEGATIVE (NEGATIVE) 02/18/19 12:40 POC Stool Occult Blood POSITIVE (NEGATIVE) 02/18/19 09:24 Urine Opiates Screen NEGATIVE 02/18/19 12:40 Urine Methadone Screen NEGATIVE 02/18/19 12:40 Ur Barbiturates Screen UNCONFIRMED POSITIVE 02/18/19 12:40 Ur Phencyclidine Scrn NEGATIVE 02/18/19 12:40 Ur Amphetamines Screen NEGATIVE 02/18/19 12:40 U Benzodiazepines Scrn UNCONFIRMED POSITIVE 02/18/19 12:40 Urine Cocaine Screen NEGATIVE 02/18/19 12:40 U Marijuana (THC) Screen NEGATIVE 02/18/19 12:40 Serum Alcohol < 10 mg/dL (NONE DETECTED) 02/18/19 08:16 H. pylori IgG Antibody 0.25 (0.00-0.79) 02/19/19 12:13 H. pylori IgA Antibody <9.0 units (0.0-8.9) 02/19/19 12:13 H. pylori IgM Antibody <9.0 units (0.0-8.9) 02/19/19 12:13 Blood Type A POSITIVE 03/06/19 09:15 Antibody Screen NEGATIVE 03/06/19 09:15 Crossmatch See Detail 03/06/19 09:15 02/18/19 08:16 Troponin I < 0.012 Impressions: Chest X-Ray 02/18/19 07:45 IMPRESSION: NO ACUTE RADIOGRAPHIC FINDING IN THE CHEST. Central Venous Line 02/19/19 00:00 IMPRESSION: Successful placement of single-lumen tunneled/cuffed right internal jugular central venous catheter utilizing ultrasound fluoroscopic guidance as detailed above. Guidance Fluoroscopy 02/19/19 00:00 IMPRESSION: Successful placement of single-lumen tunneled/cuffed right internal jugular central venous catheter utilizing ultrasound fluoroscopic guidance as detailed above. Guidance Ultrasound 02/19/19 00:00 IMPRESSION: Successful placement of single-lumen tunneled/cuffed right internal jugular central venous catheter utilizing ultrasound fluoroscopic guidance as detailed above. Abdomen CT 03/05/19 00:00 IMPRESSION: Moderate bilateral pleural effusions with bibasilar consolidation Probable postop ileus with distention of gastric remnant, small bowel, and distal esophagus in the field of view. No gross free intraperitoneal air or fluid. Right upper quadrant drain. Ileostomy catheter in good positioning
[2019-03-08 08:50] LABS: ANION GAP 10 (5-19); BLOOD UREA NITROGEN 12 mg/dL (7-20); CALCIUM 8.8 mg/dL (8.4-10.2); CARBON DIOXIDE 23 mmol/L (22-30); CHLORIDE 107 mmol/L (98-107); GLUCOSE 89 mg/dL (75-110); POTASSIUM 3.5 mmol/L (3.6-5.0)
[2019-03-08] MEDS: FUROSEMIDE INJ/PF 20 MG/2 ML SDV IV SCH (09:01)
[2019-03-08 09:10] LABS: ABSOLUTE LYMPHOCYTES# (MANUAL) 0.8 10^3/uL (0.5-4.7); ABSOLUTE MONOCYTES # (MANUAL) 0.4 10^3/uL (0.1-1.4); BASOPHILS % (MANUAL) 0 % (0-2); EOSINOPHILS % (MANUAL) 0 % (0-6); LYMPHOCYTES % (MANUAL) 6 % (13-45); MONOCYTES % (MANUAL) 3 % (3-13); NUCLEATED RED BLOOD CELLS 1 /100 WBC (0); SEGMENTED NEUTROPHILS % (MAN) 91 % (42-78); TOTAL CELLS COUNTED 100
[2019-03-08 09:11] LABS: ANISOCYTOSIS 1+; HYPOCHROMASIA SLIGHT; OVALOCYTES SLIGHT; PLATELET COMMENT INCREASED; POLYCHROMASIA SLIGHT; TEAR DROP CELLS SLIGHT
[2019-03-08 12:32] VITALS: BP 92/61
== END 2019-03-08 13:35 | disposition home or self-care (01) | DRG 327 ==
LOC: ER 04:17 → EH 09:51 → 5 15:48 → OBSVTOIN 16:18
PROVIDERS: ADMIT Internal Medicine; ATTEND Internal Medicine
PROC: 30233N1 Transfusion of Nonautologous Red Blood Cells into Peripheral Vein, Percutaneous Approach (ICD-10-PCS; 2019-02-18)
PROC: 0DJ08ZZ Inspection of Upper Intestinal Tract, Via Natural or Artificial Opening Endoscopic (ICD-10-PCS; 2019-02-18)
PROC: 02HV33Z Insertion of Infusion Device into Superior Vena Cava, Percutaneous Approach (ICD-10-PCS; 2019-02-19)
PROC: B518ZZA Fluoroscopy of Superior Vena Cava, Guidance (ICD-10-PCS; 2019-02-19)
PROC: B548ZZA Ultrasonography of Superior Vena Cava, Guidance (ICD-10-PCS; 2019-02-19)
PROC: 0D180Z4 Bypass Small Intestine to Cutaneous, Open Approach (ICD-10-PCS; 2019-02-27)
PROC: 008Q0ZZ Division of Vagus Nerve, Open Approach (ICD-10-PCS; principal; 2019-02-27 07:30)
PROC: 0DB70ZZ Excision of Stomach, Pylorus, Open Approach (ICD-10-PCS; 2019-02-27 07:30)
PROC: 30233N1 Transfusion of Nonautologous Red Blood Cells into Peripheral Vein, Percutaneous Approach (ICD-10-PCS; 2019-03-06)
DX: K26.4 Chronic or unspecified duodenal ulcer with hemorrhage (principal); K31.1 Adult hypertrophic pyloric stenosis; D62 Acute posthemorrhagic anemia; E46 Unspecified protein-calorie malnutrition; R64 Cachexia; K22.10 Ulcer of esophagus without bleeding; K31.5 Obstruction of duodenum; Z68.1 Body mass index [BMI] 19.9 or less, adult; K21.9 Gastro-esophageal reflux disease without esophagitis; K44.9 Diaphragmatic hernia without obstruction or gangrene; G43.909 Migraine, unspecified, not intractable, without status migrainosus; F32.9 Major depressive disorder, single episode, unspecified; F17.210 Nicotine dependence, cigarettes, uncomplicated; Z60.2 Problems related to living alone
CPT/HCPCS: 36415; 36430; 36558; 43239; 71045; 74150; 76937; 77001; 790; 80048; 80053; 80061; 80076; 80307; 81001; 82941; 82962; 83690; 83735; 84100; 84134; 84443; 84478; 84484; 85025; 85027; 85610; 85730; 86677; 86850; 86900; 86901; 86920; 87070; 88304; 88307; 94799; 96360; 99285; C9113; C9290; G0378; J0171; J0690; J1170; J1200; J1610; J1642; J1644; J1885; J1940; J2250; J2270; J2310; J2405; J2704; J2710; J3010; J3480; J3490; J7030; J7120; P9016

== ENCOUNTER → 2019-12-11 | Outpatient (CLI) | payer MEDICARE ==
--- NOTE | 2019-12-11 16:13 | RADIOLOGY REPORT (SQ) ---
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 TECHNIQUE: Under fluoroscopic guidance, patient ingested effervescent granules followed by thick an d thin barium. Fluoroscopic spot images and routine radiographic images acquired and stored on PACS . Following evaluation of esophagus and stomach, additional barium administered with serial delayed ab dominal radiographs until colonic identification. Fluoroscopic images recorded of the terminal ileu m. 12 MM BARIUM TABLET GIVEN: Barium tablet passed through the esophagus into the stomach without delay. FLUOROSCOPY TIME: 4.5 minutes. 24 images saved to PACS. LIMITATIONS: None. FINDINGS: NEUROMUSCULAR COORDINATION OF SWALLOW: Normal. No aspiration. ESOPHAGEAL MOTILITY: Normal peristalsis. No esophageal spasm. ESOPHAGEAL MUCOSA: Normal mucosa without masses or ulceration. GASTRO-ESOPHAGEAL JUNCTION: There is a small to moderate-sized hiatal hernia present with marked philomena roesophageal reflux. STOMACH: Somewhat distended stomach with what appears to be scattered food debris. Patient states sh e had lasting the night before. Small outpouchings of barium are seen tracking along the antrum area which may be diverticula or merely surgical changes consistent with antrectomy and Trini-en-Y. GASTRIC OUTLET: There is marked delay in gastric emptying. There is a tight stenosis seen in a porti on of the small bowel adjacent to expected anastomosis. Definitive anatomy difficult to assess. DUODENAL BULB: Not applicable DUODENUM: Not applicable SMALL BOWEL: Limited small bowel study due to slow rate of gastric emptying with loculated barium se en throughout the small bowel during the study. No definite abnormalities are noted. Contrast is se en in the colon on the 4 hour film. Retained contrast the stomach is also seen on the 4 hour film. PROXIMAL COLON: Incompletely imaged. No abnormality. NON-GI TRACT STRUCTURES: No significant finding. OTHER: No other significant finding. IMPRESSION: DELAYED GASTRIC EMPTYING WITH WHAT APPEARS TO BE A STRICTURE NEAR THE PRESUMED GASTRIC B YPASS ANASTOMOSIS. MUCOSAL IRREGULARITY OF THE ANTRUM AREA POSSIBLY RELATED TO SURGICAL CHANGES VERS US DIVERTICULA. SMALL TO MODERATE HIATAL HERNIA WITH MARKED GASTROESOPHAGEAL REFLUX. COMMENT: Upper endoscopy recommended for further evaluation. Quality ID [id number]: Final reports for procedures using fluoroscopy that document radiation exposure dominga shaka, or exposure time and number of fluorographic images (if radiation exposure indices are not avail able) TECHNICAL DOCUMENTATION: JOB ID: [id number] 2010 [employer]- All Rights Reserved Reading location - IP/workstation name: [email or web address]
== END ==
LOC: RAD 08:58
PROVIDERS: ATTEND Surgery
DX: K31.1 Adult hypertrophic pyloric stenosis (principal)
CPT/HCPCS: 74240; 74248

== ENCOUNTER 2019-12-25 09:51 | Day surgery (SDC) | payer MEDICARE, OTHER ==
[~2019-12-25 09:51] MED LIST changes: -ACETAMINOPHEN 1,000 MG/100 ML RTUPB IV PRN; -BUPIVACAINE HCL 0.25 % INJ/PF (2.5 MG/1 ML) 30 ML VIAL ONE; -CEFAZOLIN SODIUM 2 GM in DEXTROSE 5%-WATER 100 ML IV PRN; +CHONDR SU A NA/HYALUR INTRAOC KIT (SURGICARE) ONE; +EPINEPHRINE INJ/PF 1 MG/1 ML AMPULE ONE; -IBUPROFEN 800 MG in NORMAL SALINE 250 ML IV PRN; +KETOROLAC TROMETHAMINE 0.45% 4 DROP/0.4 ML DROPERETTE OS PRN; -LACTATED RINGERS 1000 ML IV PRN; -LIDOCAINE 0.5% INJ-PF (5 MG/ML) 50 ML SDV SUBCUT PRN; -LIDOCAINE 1% INJ-PF (10 MG/ML) 30 ML SDV ONE; +LIDOCAINE 1%/PHENYLEPHRINE 1.5% 1 ML VIAL ONE; -PREGABALIN 50 MG CAPSULE PO PRN
[2019-12-25] MEDS ORDERED: MIDAZOLAM 2 MG/2 ML INJ ONE (09:55)
[2019-12-25] MEDS: TROPICAMIDE 1% OPH SOLN 15 ML OS PRN ×3 (10:26→10:46)
[2019-12-25] MEDS: BESIFLOXACIN HCL 0.6% OPH SUSP 5 ML BOTTLE OS PRN ×4 (10:26→11:23)
[2019-12-25] MEDS: CYCLOPENTOLATE 0.2%/PHENYLEPHRINE 1% OPH SOLN 2 ML OS PRN ×3 (10:26→10:46)
[2019-12-25] MEDS: TETRACAINE HCL 0.5% OPH SOLN 4 ML OS PRN ×4 (10:27→11:05)
[2019-12-25] MEDS: DORZOLAMIDE HCL 2%/TIMOLOL MALEAT 0.5% OPH SOLN 10 ML OS PRN ×2 (11:23)
[2019-12-25] MEDS: PREDNISOLONE ACETATE 1% OPH SUSP 5 ML OS PRN ×2 (11:23)
--- NOTE | 2019-12-25 15:34 | Operative Report ---
Operative Report-[facility] Operative Report: DATE OF SURGERY: January 01, 2020 PREOPERATIVE DIAGNOSIS: NUCLEAR CATARACT, LEFT EYE. POSTOPERATIVE DIAGNOSIS: NUCLEAR CATARACT, LEFT EYE. PROCEDURE PERFORMED: PHACOEMULSIFICATION WITH POSTERIOR CHAMBER INTRAOCULAR LENS IMPLANT, LEFT EYE. SURGEON: Dioni Torres DO MEDICATIONS AND ANESTHESIA: Versed: IV Versed Tetracaine drops: 1 to 2 drops given as needed COMPLICATION: None INDICATIONS FOR SURGERY: Medical necessity: Best corrected visual acuity worse than 20/40 secondary to cataracts with impairment of ability to carry out needs or desired activities, blurred vision, visual distortion, reduced contrast sensitivity and/or glare with association functional impairment and supporting documentation/testing, and cataracts causing symptomatic impairment of visual functions not corrected with tolerable changes in glasses or contact lenses interfering with activities of daily life. PROCEDURE: Consent: The risks, benefits and alternatives of this procedures was discussed with the patient. The patient read and signed the consent forms, was identified and was seated in the exam chair. IOL: MX 60 E 25.5 IOL Diopters: Phacoemulsification with posterior chamber intraocular lens implant: The face was prepped with 5% povidone iodine solution, and a few drops of 5% povidone iodine solution was instilled into the inferior fornix. A non-fenestrated drape was placed over the eye and the lids were parted with the speculum. A paracentesis was made with a 15 degree blade, and 1% lidocaine MPF followed by viscoelastic was injected into the anterior chamber. A 2.4 mm metal micro- keratome was used to create a temporal clear corneal incision. A circular anterior capsulorrhexis was created, followed by hydro-dissection and hydro- delineation. The phacoemulsification hand piece was inserted and the nucleus was removed with the Phaco chop technique. The irrigation-aspiration hand piece was used to remove the residual cortex, and vacuum the posterior capsule. The capsular bag was inflated and viscoelastic and the above-mentioned IOL was injected into the eye with care to insert both leaning and trailing haptics in the capsular bag. The irrigation/aspiration hand piece was reinserted to remove residual viscoelastic from the capsular bag and anterior chamber. The corneal incision was hydrated, and anterior chamber was inflated with sterile BSS via the paracentesis site, and found to be watertight. Postop medication:1 drop of prednisolone into operative by followed by 1 drop of Cosopt into operative eye followed by 1 drop of Besivance intraoperative by Other:
== END 2019-12-25 11:15 | disposition home or self-care (01) ==
LOC: SC 09:51
PROVIDERS: ATTEND Ophthalmology
DX: H25.12 Age-related nuclear cataract, left eye (principal); Z98.42 Cataract extraction status, left eye
CPT/HCPCS: 66984; V2632; J2250; J3490 ×2; A9270; J0171

== ENCOUNTER 2020-01-08 07:48 | Day surgery (SDC) | payer MEDICARE, OTHER ==
[~2020-01-08 07:48] MED LIST changes: -CHONDR SU A NA/HYALUR INTRAOC KIT (SURGICARE) ONE; -EPINEPHRINE INJ/PF 1 MG/1 ML AMPULE ONE; +KETOROLAC TROMETHAMINE 0.45% 4 DROP/0.4 ML DROPERETTE OD PRN; -KETOROLAC TROMETHAMINE 0.45% 4 DROP/0.4 ML DROPERETTE OS PRN; -LIDOCAINE 1%/PHENYLEPHRINE 1.5% 1 ML VIAL ONE
[2020-01-08] MEDS ORDERED: FENTANYL CITRATE INJ/PF 100 MCG/2 ML AMPUL ONE (08:10)
[2020-01-08] MEDS ORDERED: MIDAZOLAM 2 MG/2 ML INJ ONE (08:10)
[2020-01-08] MEDS ORDERED: ONDANSETRON HCL INJ/PF 4 MG/2 ML SDV ONE (08:10)
[2020-01-08] MEDS: TROPICAMIDE 1% OPH SOLN 15 ML OD PRN ×3 (08:34→08:54)
[2020-01-08] MEDS: BESIFLOXACIN HCL 0.6% OPH SUSP 5 ML BOTTLE OD PRN ×4 (08:34→09:37)
[2020-01-08] MEDS: CYCLOPENTOLATE 0.2%/PHENYLEPHRINE 1% OPH SOLN 2 ML OD PRN ×3 (08:34→08:54)
[2020-01-08] MEDS: TETRACAINE HCL 0.5% OPH SOLN 4 ML OD PRN ×3 (08:35→09:15)
[2020-01-08] MEDS: EPINEPHRINE INJ/PF 1 MG/1 ML AMPULE ONE ×2 (09:24→09:25)
[2020-01-08] MEDS: CHONDR SU A NA/HYALUR INTRAOC KIT (SURGICARE) ONE ×2 (09:24→09:25)
[2020-01-08] MEDS: LIDOCAINE 1%/PHENYLEPHRINE 1.5% 1 ML VIAL ONE ×2 (09:24→09:25)
[2020-01-08] MEDS: PREDNISOLONE ACETATE 1% OPH SUSP 5 ML OD PRN ×2 (09:25→09:37)
[2020-01-08] MEDS: DORZOLAMIDE HCL 2%/TIMOLOL MALEAT 0.5% OPH SOLN 10 ML OD PRN ×2 (09:25→09:37)
--- NOTE | 2020-01-08 13:07 | Operative Report ---
Operative Report-[facility] Operative Report: DATE OF SURGERY: January 08, 2020 PREOPERATIVE DIAGNOSIS: NUCLEAR CATARACT, RIGHT EYE. POSTOPERATIVE DIAGNOSIS: NUCLEAR CATARACT, RIGHT EYE. PROCEDURE PERFORMED: PHACOEMULSIFICATION WITH POSTERIOR CHAMBER INTRAOCULAR LENS IMPLANT, RIGHT EYE. SURGEON: Dioni Torres DO MEDICATIONS AND ANESTHESIA: Versed: IV Versed Tetracaine drops: 1 to 2 drops given as needed COMPLICATION: None INDICATIONS FOR SURGERY: Medical necessity: Best corrected visual acuity worse than 20/40 secondary to cataracts with impairment of ability to carry out needs or desired activities, blurred vision, visual distortion, reduced contrast sensitivity and/or glare with association functional impairment and supporting documentation/testing, and cataracts causing symptomatic impairment of visual functions not corrected with tolerable changes in glasses or contact lenses interfering with activities of daily life. PROCEDURE: Consent: The risks, benefits and alternatives of this procedures was discussed with the patient. The patient read and signed the consent forms, was identified and was seated in the exam chair. IOL: MX 60 E 25.5 IOL Diopters: Phacoemulsification with posterior chamber intraocular lens implant: The face was prepped with 5% povidone iodine solution, and a few drops of 5% povidone iodine solution was instilled into the inferior fornix. A non-fenestrated drape was placed over the eye and the lids were parted with the speculum. A paracentesis was made with a 15 degree blade, and 1% lidocaine MPF followed by viscoelastic was injected into the anterior chamber. A 2.4 mm metal micro- keratome was used to create a temporal clear corneal incision. A circular anterior capsulorrhexis was created, followed by hydro-dissection and hydro- delineation. The phacoemulsification hand piece was inserted and the nucleus was removed with the Phaco chop technique. The irrigation-aspiration hand piece was used to remove the residual cortex, and vacuum the posterior capsule. The capsular bag was inflated and viscoelastic and the above-mentioned IOL was injected into the eye with care to insert both leaning and trailing haptics in the capsular bag. The irrigation/aspiration hand piece was reinserted to remove residual viscoelastic from the capsular bag and anterior chamber. The corneal incision was hydrated, and anterior chamber was inflated with sterile BSS via the paracentesis site, and found to be watertight. Postop medication: 1 drop of prednisolone into operative by followed by 1 drop of Cosopt into operative eye followed by 1 drop of Besivance intraoperative by other:
== END 2020-01-08 10:10 | disposition home or self-care (01) ==
LOC: SC 07:48
PROVIDERS: ATTEND Ophthalmology
DX: H25.11 Age-related nuclear cataract, right eye (principal); Z98.42 Cataract extraction status, left eye; F41.9 Anxiety disorder, unspecified
CPT/HCPCS: 66984; J2250; J3490 ×2; A9270; J0171; J2405; J3010; V2632

== ENCOUNTER 2020-02-17 11:44 | Day surgery (SDC) | payer MEDICARE, BC ==
[~2020-02-17 11:44] MED LIST changes: -KETOROLAC TROMETHAMINE 0.45% 4 DROP/0.4 ML DROPERETTE OD PRN; +LACTATED RINGERS 1000 ML IV PRN; +LIDOCAINE 0.5% INJ-PF (5 MG/ML) 50 ML SDV SUBCUT PRN
[2020-02-17] MEDS ORDERED: PROPOFOL INJ 200 MG/20 ML VIAL IV ONE (13:08)
--- NOTE | 2020-02-17 14:41 | Operative Report ---
Nonrecallable Operative Report DATE OF SURGERY: 02/17/20 PREOPERATIVE DIAGNOSIS: anastomotic stricture POSTOPERATIVE DIAGNOSIS: same OPERATION: esophagogastrostoscopy iwth anastomotic dilation SURGEON: EMILY MIKE ANESTHESIA: Moderate Sedation TISSUE REMOVED OR ALTERED: none COMPLICATIONS: none ESTIMATED BLOOD LOSS: 0 INTRAOPERATIVE FINDINGS: see note PROCEDURE: She was brought to the operating room awake alert stable condition placed on the operating table in supine position given IV sedation. She was then placed in the left lateral decubitus position. After appropriate timeout site verification the procedure commenced. The the Olympus diagnostic gastroscope was passed into the posterior pharynx and traversed the esophagus into the stomach. Upon reaching the stomach there was a lot of large amount of fluid as well as food stuff. We were able to manipulate the patient in such a way that the dependent portion of the stomach was down so I could identify the anastomosis which was quite small. I found it difficult to manipulate the diagnostic scope in such a position as I could dilate the anastomosis with the balloon. After multiple attempts at passing the balloon through the anastomotic stricture I elected to remove the diagnostic scope and switched to a therapeutic scope which was 1 cm in diameter. After switching to the therapeutic scope we were able to visualize anastomosis better we were able to suction some of the fluid and food stuff from the dependent portion of the stomach. Then we used a 15 to 18 mm dilation balloon was able to pass it through the anastomosis into the small bowel. I then dilated the anastomosis up to 16 mm. I was then able to pull the balloon back and passed the therapeutic scope past the anastomosis into the small bowel I displayed became easier over time and passed a number times by the anastomosis. There was minimal bleeding. As we withdrew the scope we again suctioned the dependent portion of the stomach of the fluid contents. The scope was then slowly withdrawn. Impression anastomotic stricture dilated to 16 mm. The anastomosis easily accepted the therapeutic gastroscope. Patient was awakened in the operating transferred recovery in stable condition. She will be given an appointment follow-up 7 to 10 days.
--- NOTE | 2020-02-17 14:43 | Discharge Summary ---
Discharge Summary (SDC) - Discharge Final Diagnosis: Anastomotic stricture Date of Surgery: 02/17/20 Discharge Date: 02/17/20 Condition: Good Referrals: STEFAN SOTO MD [Primary Care Provider] - Discharge Diet: Full Liquids - For 2 days and then resume a soft diet Discharge Activity: Activity As Tolerated Report the Following to Your Physician Immediately: Shortness of Breath, Increase in Pain
[2020-02-17 16:03] VITALS: BP 120/85
== END 2020-02-17 15:35 | disposition home or self-care (01) ==
LOC: OROUT 11:44
PROVIDERS: ATTEND Surgery
DX: K91.89 Other postprocedural complications and disorders of digestive system (principal); K31.1 Adult hypertrophic pyloric stenosis; Y83.2 Surgical operation with anastomosis, bypass or graft as the cause of abnormal reaction of the patient, or of later complication, without mention of misadventure at the time of the procedure; K21.9 Gastro-esophageal reflux disease without esophagitis; F32.9 Major depressive disorder, single episode, unspecified; Z01.812 Encounter for preprocedural laboratory examination; Z20.828 Contact with and (suspected) exposure to other viral communicable diseases; Z87.11 Personal history of peptic ulcer disease
CPT/HCPCS: 43249; 00731; C1726 ×2; U0003; J2704; C9803; 731; 87635

== ENCOUNTER 2020-03-09 11:39 | Day surgery (SDC) | payer MEDICARE, BC ==
[~2020-03-09 11:39] MED LIST changes: +FENTANYL CITRATE INJ/PF 100 MCG/2 ML AMPUL ONE; -LACTATED RINGERS 1000 ML IV PRN; -LIDOCAINE 0.5% INJ-PF (5 MG/ML) 50 ML SDV SUBCUT PRN; +MIDAZOLAM 2 MG/2 ML INJ ONE; +PROPOFOL INJ 200 MG/20 ML VIAL IV ONE
[2020-03-09] MEDS ORDERED: GLUCAGON,HUMAN RECOMB 1 MG INJ ONE (12:43)
[2020-03-09] MEDS ORDERED: EPINEPHRINE INJ 1 MG/10 ML DISP.SYRIN ONE (12:43)
[2020-03-09] MEDS ORDERED: MEPERIDINE HCL/PF INJ 25 MG/1 ML DISP.SYRIN IV PRN (12:48)
[2020-03-09] MEDS ORDERED: PROMETHAZINE HCL INJ 25 MG/1 ML VIAL IV PRN ×2 (12:48)
[2020-03-09] MEDS ORDERED: ONDANSETRON HCL INJ/PF 4 MG/2 ML SDV IV PRN (12:48)
[2020-03-09] MEDS ORDERED: DIPHENHYDRAMINE HCL 50 MG/ML VIAL IV PRN (12:48)
[2020-03-09] MEDS ORDERED: FENTANYL CITRATE INJ/PF 100 MCG/2 ML AMPUL IV PRN ×3 (12:48)
--- NOTE | 2020-03-09 13:59 | Operative Report ---
Operative Report DATE OF SURGERY: 03/09/20 POSTOPERATIVE DIAGNOSIS: Gastrojejunal anastomotic stricture OPERATION: Esophagoscopy with dilation of gastrojejunal anastomotic stricture SURGEON: EMILY MIKE ANESTHESIA: LMAC TISSUE REMOVED OR ALTERED: None COMPLICATIONS: None ESTIMATED BLOOD LOSS: 0 QUANTITATIVE BLOOD LOSS: 0 INTRAOPERATIVE FINDINGS: See note PROCEDURE: patient was brought to the operating room awake alert stable condition placed on the operating table in a left lateral decubitus position After inducing sedation by anesthesia proper timeout was obtained and the procedure commenced. The Olympus gastroscope was passed into the posterior pharynx easily traversed the upper esophageal sphincters into the esophagus. As we reached the esophagus we entered the stomach and there is no evidence of any mucosal abnormalities of the proximal stomach. Scope was then slowly advanced to the anastomosis. The anastomosis was slightly more improved and dilated in the last procedure about a week ago but still narrowed. We are unable to pass the Olympus 8 mm scope through the anastomosis however we used the dilating balloon and dilated the anastomosis up to 20 mm. Once this was done with minimal bleeding we were able to pass the scope into the proximal small bowel. It was scope easily traversed the anastomosis after dilatation. The dilating balloon was removed and the scope was slowly removed. The patient tolerated the procedure well. She was then transferred recovery in stable condition no complications.
--- NOTE | 2020-03-09 14:02 | Discharge Summary ---
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
[2020-03-09] MEDS ORDERED: LIDOCAINE 2% VISCOUS SOLN 15 ML UDCUP ONE (14:10)
[2020-03-09] MEDS ORDERED: LIDOCAINE 2% VISCOUS SOLN 15 ML UDCUP PO PRN (14:14)
[2020-03-09 16:09] VITALS: BP 107/77
== END 2020-03-09 15:39 | disposition home or self-care (01) ==
LOC: OROUT 11:39
PROVIDERS: ATTEND Surgery
DX: K91.89 Other postprocedural complications and disorders of digestive system (principal); K31.1 Adult hypertrophic pyloric stenosis; Y83.2 Surgical operation with anastomosis, bypass or graft as the cause of abnormal reaction of the patient, or of later complication, without mention of misadventure at the time of the procedure; Z01.812 Encounter for preprocedural laboratory examination; Z20.822 Contact with and (suspected) exposure to COVID-19; F32.9 Major depressive disorder, single episode, unspecified; K21.9 Gastro-esophageal reflux disease without esophagitis; Z87.11 Personal history of peptic ulcer disease; Z98.890 Other specified postprocedural states; Z86.010 Personal history of colon polyps; Z79.899 Other long term (current) drug therapy
CPT/HCPCS: 43249; 00731; C1726; U0003; J3490; J2704; C9803; 731; 87635; J0171; J1610; J2250; J3010